=== PATIENT | male | born 1950 | race Caucasian/White ===

== ENCOUNTER 2019-10-22 15:03 | Outpatient (CLI) | payer MEDICARE, SELFPAY ==
[2019-10-22 15:34] LABS: Hematocrit 44.5 % (42.0-52.0); Hemoglobin 14.7 g/dL (14.0-18.0); Mean Corpuscular Hemoglobin 29.5 pg (26-34); Mean Corpuscular Volume 89.4 fl (80-100); Mean Platelet Volume 11.6 fl (7.4-10.4); Platelet Count Result 228 k/mm3 (150-375); Red Blood Count 4.98 M/mm3 (4.6-6.20); Red Cell Distribution Width 14.1 % (11.5-14.5); White Blood Count 12.3 K/mm3 (4.5-10.0)
[2019-10-22 15:43] LABS: INR 0.9; Prothrombin Time 11.9 Seconds (11.1-14.7)
[2019-10-22 15:57] LABS: Alanine Aminotransferase 18 U/L (4-50); Albumin Level 3.8 g/dL (3.5-5.1); Alkaline Phosphatase 85 U/L (38-126); Aspartate Amino Transferase 30 U/L (17-59); Bilirubin,Total 0.8 mg/dL (0.2-1.3)
== END 2019-10-22 15:04 | disposition home or self-care (01) ==
PROVIDERS: PCP Family Medicine; Visit Provider Internal Medicine Gastroenterology
DX: I25.10 Atherosclerotic heart disease of native coronary artery without angina pectoris (principal)
CPT/HCPCS: 36415; 80076; 85027; 85610

== ENCOUNTER 2019-10-25 16:03 | Outpatient (CLI) | payer MEDICARE, SELFPAY ==
[2019-10-25 16:58] LABS: Lipase 54 U/L (23-300)
[2019-11-01 05:15] LABS: CA 19-9 9 U/mL (<34)
== END 2019-10-25 16:04 | disposition home or self-care (01) ==
PROVIDERS: PCP Family Medicine; Visit Provider Internal Medicine Gastroenterology
DX: K86.2 Cyst of pancreas (principal)
CPT/HCPCS: 36415; 83690; 86301

== ENCOUNTER 2019-10-28 10:59 | Emergency (ER) | payer MEDICARE, SELFPAY ==
[2019-10-28] VITALS (8 sets, daily range): BP systolic 136–188; BP diastolic 68–97; PULSE 57–100; RESP 16–21; TEMP 36.6; O2SAT 97–100
--- NOTE | ~2019-10-28 | XR_ITS ---
EXAMINATION: XR chest 2V 10/28/2019 11:50 INDICATION: Shortness of breath. Lightheadedness. PROCEDURE: 2 view chest COMPARISON: Comparison to multiple prior studies sequentially, with oldest reviewed study dated 08/04. FINDINGS: The lungs are clear. There is cardiomegaly. There are no pleural effusions. There is no pn eumothorax suspected. IMPRESSION: 1: NO ACUTE CARDIOPULMONARY DISEASE. Reviewed, dictated and finalized at location A.
--- NOTE | 2019-10-28 11:04 | ECG_ITS ---
Measurements Intervals [place] Rate: 66 P: 51 [place]: 155 QRS: 4 QRSD: 96 T: 3 QT: 400 QTc: 422 Interpretive Statements SINUS RHYTHM BASELINE ARTIFACT- II, III, AVF, V3, V5 NORMAL ECG Electronically Signed On 10-28-2019 11:26:16 CDT by Trace Gonzalez D.O.
--- NOTE | 2019-10-28 11:30 | ED.WEAKNESS ---
HPI - Weakness General Chief complaint: Weakness <MICHAEL Campos Last Filed: 10/28/19 17:51> Stated complaint: dizzy <MICHAEL Campos Last Filed: 10/28/19 17:51> Time Seen by Provider: 10/28/19 11:12 <MICHAEL Campos Last Filed: 10/28/19 17:51> Source: patient <MICHAEL Campos Last Filed: 10/28/19 17:51> Mode of arrival: wheelchair <MICHAEL Campos Last Filed: 10/28/19 17:51> Limitations: no limitations <MICHAEL Campos Last Filed: 10/28/19 17:51> History of Present Illness HPI Narrative: This is a 69 year old male that presents to the ER for lightheadedness this morning. Reports he was at work and started feeling lightheaded and nauseous. Associated with some shortness of breath. Reports this continued to worsen which prompted him to be seen. Reports feeling much better now. Denies fever, cough, sore throat, chest pain, edema, abdominal pain, vomiting, or dysuria. <MICHAEL Campos Last Filed: 10/28/19 17:51> Related Data Home medications: Home Medications Medication Instructions Recorded Confirmed atorvastatin 80 mg PO DAILY 07/10/19 07/10/19 clopidogrel [Plavix] 75 mg PO DAILY 07/10/19 07/10/19 hydrochlorothiazide 25 mg PO DAILY 07/10/19 07/10/19 hydrocodone-acetaminophen 1 tablet PO Q6H PRN 07/10/19 07/10/19 metoprolol succinate 50 mg PO DAILY 07/10/19 07/10/19 <MICHAEL Campos Last Filed: 10/28/19 17:51> Allergies/Adverse reactions: Allergies Allergy/AdvReac Type Severity Reaction Status Date / Time No Known Allergies Allergy Verified 10/28/19 11:10 <MICHAEL Campos Last Filed: 10/28/19 17:51> Review of Systems Review of Systems: Narrative: CONSTITUTIONAL: Denies fever ENT: Denies congestion, sore throat CARDIOVASCULAR: Denies chest pain, or edema. RESPIRATORY: Reports dyspnea. Denies cough GASTROINTESTINAL: Reports nausea. Denies abdominal pain, vomiting, or diarrhea. GENITOURINARY: Denies dysuria or hematuria. <Mariella Ray PA-C - Last Filed: 10/28/19 17:51> All systems reviewed & are unremarkable except as noted in HPI and below <Mariella Ray PA-C - Last Filed: 10/28/19 17:51> [facility] Social History Social History: Social History Social History: The patient lives with his Aarti who is his power commercial real estate attorney for healthcare. He desires to be a full code. He has 3 children. Patient stated he smoked for about 7 or 8 years and quit 1980. 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 Smoking status: Former smoker Second hand tobacco smoke exposure: Yes Smoking end date: 07/10/80 Alcohol intake: current Drinks per week: 2 Substance use: never Gender identity (if verbalized by the patient): Male Spiritual care concerns: No Agree to blood products: Yes <MICHAEL Campos Last Filed: 10/28/19 17:51> Exam Narrative: Exam Narrative: GENERAL: Well-appearing, obese, and in no acute distress. HEAD: Normocephalic, atraumatic. EYES: EOMI. CHEST: Clear to auscultation. No respiratory distress. No wheezes rales or rhonchi HEART: Regular rate and rhythm. No murmur heard. Normal peripheral pulses. ABDOMEN: Soft, nontender, nondistended, normal active bowel sounds. EXTREMITIES: Normal range of motion. No edema. SKIN: Warm, dry, no rash. NEURO: No focal deficits. Alert and oriented x3. PSYCH: Normal mood and affect <MICHAEL Campos Last Filed: 10/28/19 17:51> Course Consultations Consultation #1: Spoke with Dr. López about patient and work-up. Recommends admission for MRI, or outpatient follow-up if patient is not agreeable to this. Patient would like to follow-up on outpatient basis. <MICHAEL Campos Last Filed: 10/28/19 17:51> Date: 10/28/19 <Mariella Ray PA-C - Last Filed: 10/28/19 17:51> Time: 17:50 <Mariella Ray PA-C
[2019-10-28] MEDS: ONDANSETRON INJ 4 MG/2 ML VIAL IV PUSH (11:34)
[2019-10-28] MEDS: SODIUM CHLORIDE 0.9% IV 500 ML 999 ML IV CONT (11:34)
[2019-10-28 11:42] LABS: Basophils Absolute Auto 0.1 K/mm3 (0.0-0.1); Basophils Percent Auto 0.4 % (0.2-1.2); Eosinophils Absolute Auto 0.1 K/mm3 (0-0.3); Eosinophils Percent Auto 0.5 % (0-4.4); Hematocrit 44.8 % (42.0-52.0); Hemoglobin 14.5 g/dL (14.0-18.0); Immature Granulocyte Absolute 0.12 K/mm3 (0.00-0.031); Lymphocytes Percent Auto 6.6 % (18.3-44.2); Mean Corpuscular HGB Conc 32.4 g/dl (32-36); Mean Corpuscular Hemoglobin 28.8 pg (26-34); Mean Corpuscular Volume 89.1 fl (80-100); Mean Platelet Volume 12.1 fl (7.4-10.4); Monocytes Absolute Auto 0.6 K/mm3 (0.1-0.6); Monocytes Percent Auto 5.1 % (2.6-8.5); Neutrophils Absolute Auto 10.4 K/mm3 (1.3-6.7); Neutrophils Percent Auto 86.4 % (45.5-73.1); Platelet Count Result 203 k/mm3 (150-375); Red Blood Count 5.03 M/mm3 (4.6-6.20); Red Cell Distribution Width 14.1 % (11.5-14.5); White Blood Count 12.1 K/mm3 (4.5-10.0)
[2019-10-28 11:54] LABS: INR 0.9; Partial Thromboplastin Time 24.4 SECONDS (22.3-36.8); Prothrombin Time 11.8 Seconds (11.1-14.7)
[2019-10-28 11:55] LABS: Alanine Aminotransferase 20 U/L (4-50); Albumin Level 3.9 g/dL (3.5-5.1); Alkaline Phosphatase 95 U/L (38-126); Aspartate Amino Transferase 26 U/L (17-59); Bilirubin,Total 0.7 mg/dL (0.2-1.3); Blood Urea Nitrogen 22 mg/dL (9-20); Calcium 8.6 mg/dL (8.4-10.2); Carbon Dioxide 29 mmol/L (22-30); Chloride 98 mmol/L (98-107); Estimated CRCL calculation 162 ml/min; Estimated Glomerular Filt Rate > 60; Glucose 135 mg/dL (75-110); Lipase 51 U/L (23-300); Potassium 3.6 mmol/L (3.4-5.0); Sodium 132 mmol/L (137-145)
[2019-10-28 12:07] LABS: Troponin I < 0.012 ng/mL (0.000-0.034)
[2019-10-28 12:20] LABS: NT Pro B Type Natriuretic Pept 477 PG/ML (5-100)
[2019-10-28 13:02] LABS: Add Urine Microscopic? NO; Appearance Urine Clear (Clear); Bilirubin Urine Negative (Negative); Blood Urine Negative (Negative); Color Urine Yellow (Yellow); Glucose Urine UA Negative (Negative); Ketones Urine Negative (Negative); Leukocyte Esterase Ur Negative LEU/UL (Negative); Nitrate Urine Negative (Negative); Protein Urine Negative (Negative); Specific Grav Ur 1.017 (1.001-1.035); Urobilinogen Urine Negative mg/dL (<2.0)
[2019-10-28 13:03] LABS: Bacteria Urine Trace /hpf; Mucus Urine Rare /lpf; RBC Urine 0-2 /hpf (0-2); Squamous Epithelial Cell Urine Rare /hpf (Few); WBC Urine 0-3 /hpf
[2019-10-28 16:58] LABS: Troponin I < 0.012 ng/mL (0.000-0.034)
== END 2019-10-28 18:02 | disposition home or self-care (01) ==
PROVIDERS: Physician Assistant; Emergency Provider Emergency Medicine; PCP Family Medicine
DX: R42 Dizziness and giddiness (principal); Z87.891 Personal history of nicotine dependence; R06.02 Shortness of breath
CPT/HCPCS: 36415; 71046; 80053; 81003; 83690; 83880; 84484; 85025; 85610; 85730; 93005; 96361; 96374; 99284; J2405; J7040

== ENCOUNTER 2022-11-26 10:37 | Outpatient (CLI) | payer MEDICARE, SELFPAY ==
--- NOTE | ~2022-11-26 | XR_ITS ---
Right Knee Technique: AP, lateral, and sunrise views were obtained. Clinical History: Pain COMPARISON: 01/28/2012 Findings: No fracture or dislocation is seen. There is evidence of prior ACL reconstruction, with sta ble interference screws. There is severe osteoarthritis of all 3 joint compartments in the knee. Vasc ular calcifications are noted. No joint effusion is seen. Impression: Severe osteoarthritis in all 3 joint compartments of the knee. Prior ACL reconstruction. Reviewed, dictated and finalized at location M. Impression: Severe osteoarthritis in all 3 joint compartments of the knee. Prior ACL reconstruction.
== END 2022-11-26 10:38 ==
LOC: MICIMG 10:39
PROVIDERS: PCP Nurse Practitioner Family; Visit Provider Nurse Practitioner Family
DX: M17.11 Unilateral primary osteoarthritis, right knee (principal)
CPT/HCPCS: 73562

== ENCOUNTER 2024-09-17 14:43 | Emergency (ER) | payer MEDICARE, SELFPAY ==
--- NOTE | ~2024-09-17 | XR_ITS ---
XR chest 2V 09/17/2024 15:33 Indication: Cough for 2 weeks Procedure: Two-view chest Comparison: Comparison to multiple prior studies sequentially, with oldest reviewed study dated 03/23. Findings: Heart size normal. Right lung clear. Left basilar atelectasis. No focal pneumonia, pleural effusion, edema or pneumothorax. No acute osseous abnormality. Impression: 1: Left basilar atelectasis Reviewed, dictated and finalized at location A. Impression: 1: Left basilar atelectasis
[2024-09-17 14:55] VITALS: BP 123/61; PULSE 84; RESP 18; TEMP 36.3; O2SAT 95
--- NOTE | 2024-09-17 15:10 | ED_ITS ---
HPI - URI/Sore Throat General Chief Complaint: Upper Respiratory Infection Stated Complaint: COUGH Time Seen by Provider: 09/17/24 15:10 Source: patient Mode of arrival: ambulatory Limitations: no limitations History of Present Illness HPI Narrative: 74-year-old male presents with complaint of cough, chest congestion the past 2-3 weeks. Patient states that he was seen by his primary care physician twice and [facility] urgent care. Tested negative for COVID and flu. Was given a Z-Ricky with Medrol Dosepak. Symptoms did not improve. One week later went back to his primary care physician was given a another Z-Ricky. Continues to have coughing. Reports shortness of breath with exertion. Afebrile. Taking [id number]-lvyuewb Robitussin. All systems reviewed and negative except as noted above. Related Data Home Medications ?Medication ?Instructions ?Recorded ?Confirmed ?Last Taken ?Type atorvastatin 80 mg tablet 80 mg PO DAILY 07/10/19 07/10/19 10/28/19 History clopidogrel 75 mg tablet (Plavix) 75 mg PO DAILY 07/10/19 07/10/19 10/28/19 History hydrochlorothiazide 25 mg tablet 25 mg PO DAILY 07/10/19 07/10/19 10/28/19 History hydrocodone 7.5 mg-acetaminophen 1 tablet PO Q6H PRN pain 07/10/19 07/10/19 10/28/19 History 325 mg tablet metoprolol succinate 50 mg 50 mg PO DAILY 07/10/19 07/10/19 10/28/19 History tablet,extended release 24 hr Allergies Allergy/AdvReac Type Severity Reaction Status Date / Time No Known Allergies Allergy Verified 10/28/19 11:10 Review of Systems Review of Systems: CONSTITUTIONAL: Denies fever, chills, or sweats. EYES: Denies visual changes, redness, or discharge. ENT: Denies rhinorrhea, congestion, sore throat, or otalgia. CARDIOVASCULAR: Denies chest pain, palpitations, or edema. RESPIRATORY: Reports cough and dyspnea with exertion. GASTROINTESTINAL: Denies abdominal pain, nausea, vomiting, or diarrhea. GENITOURINARY: Denies dysuria or hematuria. SKIN: Denies rash or itching. MUSCULOSKELETAL: Denies back pain, joint pain, or myalgia. NEUROLOGIC: Denies headache, numbness, or weakness. PSYCHIATRIC: Denies anxiety or depression. All other systems reviewed are negative, except as documented in HPI. [facility] Past Medical History Medical History (Updated 09/17/24 @ 15:54 by Alie Burgess NP) CAD (coronary artery disease) Hyperlipidemia Depression Arthritis Fibromyalgia Kidney stones He stated he thinks he had a possible kidney stone UTI (urinary tract infection) In the past Heart attack History of cardiac stent. HTN (hypertension) Seasonal allergies Surgical History Surgical History H/O heart artery stent History of local excision of skin lesion Lipoma History of knee surgery Right knee meniscus repair History of tonsillectomy Family History Family History Father Diabetes mellitus Hypertension Mother Dementia Social History Social History Social History: The patient lives with his Aarti who is his power assistant city attorney for healthcare. He desires to be a full code. He has 3 children. Patient stated he smoked for about 7 or 8 years and quit 1980. No alcohol or illicit drug patient works for an [employer] part-time. Smoking status: Former smoker Second hand tobacco smoke exposure: Yes Smoking end date: 07/10/80 Alcohol intake: current Drinks per week: 2 Substance use: never Living arrangements: with family Occupation/Education: occupation Gender identity (if verbalized by the patient): Male Spiritual care concerns: No Agree to blood products: Yes Comments At time of signature, agree with nursing past medical, surgical, social and family history. There is no relevant family history pertinent to the presenting complaint. Exam Narrative: GENERAL: This is a well-nourished, well-developed patient, in no apparent distress. HEAD: normocephalic, atraumatic. EYES: PERRL. Sclera clear/white. Vision is grossly intact. EARS: External ears normal, auditory canals clear and without drainage, TMs normal without perforation. Hearing grossly intact. NOSE: External nose normal with no obvious nasal discharge, nares without redness, no rhinorrhea. THROAT: Mucous membranes moist, posterior pharynx clear. NECK: Neck supple, non-tender without lymphadenopathy, masses or thyromegaly. CARDIOVASCULAR: Regular rate and rhythm without murmurs, gallops, or rubs. RESPIRATORY: rhonchi on expiration to bilateral lower lung aguirre. Breath sounds equal bilaterally. No wheezes, rales SKIN: warm, Dry, intact with no suspicious lesions or rash, good texture and turgor. NEURO: awake, alert, and oriented to person, place and time. There were no obvious focal neurologic abnormalities. EXTREMITIES: No joint tenderness, effusion, or edema noted. Course Course Level of Care: Express Care Visit Vital Signs Vital signs: Vital Signs Temperature 36.3 C L 09/17/24 14:55 Pulse Rate 84 09/17/24 14:55 Respiratory Rate 18 09/17/24 14:55 Blood Pressure 123/61 09/17/24 14:55 Pulse Oximetry 95 09/17/24 14:55 Temperature 36.3 C L 09/17/24 14:55 Pulse Rate 84 09/17/24 14:55 Respiratory Rate 18 09/17/24 14:55 Blood Pressure 123/61 09/17/24 14:55 Pulse Oximetry 95 09/17/24 14:55 reviewed MDM - URI/Sore Throat MDM Narrative Medical decision making narrative: Discussed chest x-ray results with patient. Negative for pneumonia. Patient given incentive spirometer for atelectasis. Patient is well-appearing, nontoxic. Oxygen saturation 95% room air. Recommend follow-up with primary care physician if symptoms not improving. Will go to ER for any respiratory distress. Please be advised this is a medical document. It is intended for cips-hc-[id number] communication. It is written in medical language and may contain unfamiliar abbr eviations or verbiage. Medical documents are intended to carry relevant information, facts as evident, and the clinical opinion of the practitioner at the time of the encounter. This report may have been done utilizing a voice recognition system. Attempts have been made to correct errors. However, there may be uncorrected grammatical, spelling, and recognition errors present. The file time of this note does not necessarily represent the time of service. Imaging Data My impression: Agree with radiologist Radiologist's impression: XR chest 2V 09/17/2024 15:33 Indication: Cough for 2 weeks Procedure: Two-view chest Comparison: Comparison to multiple prior studies sequentially, with oldest reviewed study dated 04/03/2017. Findings: Heart size normal. Right lung clear. Left basilar atelectasis. No focal pneumonia, pleural effusion, edema or pneumothorax. No acute osseous abnormality. Impression: 1: Left basilar atelectasis Discharge Plan Discharge Clinical Impression: Acute bronchitis, Acute atelectasis Patient Disposition: Home, Self-Care Condition: Stable Instructions: Antibiotic Form, How to Use an Incentive Spirometer (ED), Acute Bronchitis (ED), Atelectasis (ED) Additional Instructions: The x-ray of your chest shows atelectasis to your left lung. Use incentive spirometer daily. Instructions on how to use incentive spirometer are found in discharge packet. Take medications as prescribed. Drink at least 64 oz of water a day. Bronchitis causes a cough that may last up to 6 weeks. Follow-up with your primary care physician if cough is not improving. Patient Language: French Prescriptions: New benzonatate 200 mg capsule 200 mg PO TID PRN (Reason: cough) Qty: 20 0RF doxycycline hyclate 100 mg capsule 100 mg PO BID 7 Days Qty: 14 0RF prednisone 20 mg tablet 40 mg PO DAILY 5 Days Qty: 10 0RF albuterol sulfate 90 mcg/actuation HFA aerosol inhaler 2 puff inhalation Q4-6H PRN (Reason: shortness of breath or wheezing) Qty: 8.5 0RF No Action metoprolol succinate 50 mg Tablet Extended Release 24 Hr 50 mg PO DAILY clopidogrel [Plavix] 75 mg Tablet 75 mg PO DAILY hydrochlorothiazide 25 mg Tablet 25 mg PO DAILY atorvastatin 80 mg Tablet 80 mg PO DAILY hydrocodone-acetaminophen 7.5-325 mg Tablet 1 tablet PO Q6H PRN (Reason: pain) dicyclomine 10 mg capsule 10 mg PO BID 5 Days Qty: 10 0RF Follow-up/Referrals: Milagro,Perez Chester MD [Primary Care Provider] - Time of Disposition: 15:55
== END 2024-09-17 16:03 | disposition home or self-care (01) ==
PROVIDERS: Emergency Provider Nurse Practitioner Family; PCP Internal Medicine
DX: J20.9 Acute bronchitis, unspecified (principal); J98.11 Atelectasis; I25.10 Atherosclerotic heart disease of native coronary artery without angina pectoris; I10 Essential (primary) hypertension; E78.5 Hyperlipidemia, unspecified; M19.90 Unspecified osteoarthritis, unspecified site; M79.7 Fibromyalgia; I25.2 Old myocardial infarction; Z95.5 Presence of coronary angioplasty implant and graft; Z87.891 Personal history of nicotine dependence; Z79.01 Long term (current) use of anticoagulants
CPT/HCPCS: 71046; 99213; G0463

== ENCOUNTER 2024-10-14 10:51 | Emergency (ER) | payer MEDICARE, SELFPAY ==
[2024-10-14] VITALS (10 sets, daily range): BP systolic 134–163; BP diastolic 65–83; PULSE 68–77; RESP 14–20; TEMP 36.7; O2SAT 95–98
--- NOTE | ~2024-10-14 | US_ITS ---
BILATERAL LOWER EXTREMITY VENOUS ULTRASOUND Ordering provider: Nick Hood MD History: . b/l LE swelling L>R . Comparison: None. FINDINGS: RIGHT LOWER EXTREMITY VEINS: --COMMON FEMORAL: Patent and free of thrombus. Normal compressibility, phasic flow and augmentation. --PROXIMAL SUPERFICIAL FEMORAL: Patent and free of thrombus. Normal compressibility, phasic flow and augmentation. --DISTAL SUPERFICIAL FEMORAL: Patent and free of thrombus. Normal compressibility, phasic flow and au gmentation. --POPLITEAL: Patent and free of thrombus. Normal compressibility, phasic flow and augmentation. --POSTERIOR TIBIAL: Not evaluated. LEFT LOWER EXTREMITY VEINS: --COMMON FEMORAL: Patent and free of thrombus. Normal compressibility, phasic flow and augmentation. --PROXIMAL SUPERFICIAL FEMORAL: Patent and free of thrombus. Normal compressibility, phasic flow and augmentation. --DISTAL SUPERFICIAL FEMORAL: Patent and free of thrombus. Normal compressibility, phasic flow and au gmentation. --POPLITEAL: Patent and free of thrombus. Normal compressibility, phasic flow and augmentation. --POSTERIOR TIBIAL: Not evaluated. IMPRESSION: Negative bilateral lower extremity venous US. No deep vein thrombosis. Reviewed, dictated and finalized at location A.
--- NOTE | ~2024-10-14 | XR_ITS ---
EXAMINATION: XR chest 2V DATE: 10/14/2024 11:44 INDICATION: Shortness of breath and dizziness TECHNIQUE: frontal and lateral views of the chest were obtained. COMPARISON: Chest radiograph dated 09/17/2024 FINDINGS: Unchanged linear discoid atelectasis/scarring at the left costophrenic. There is a new linear band of discoid atelectasis projecting obliquely across the posterior right lower lung zone on the lateral p rojection. No pulmonary edema, pleural effusion or pneumothorax. The cardiomediastinal silhouette is normal. Severe thoracic spondylosis. IMPRESSION: 1. Discoid atelectasis at the lower lungs. No acute cardiopulmonary disease. Reviewed, dictated and finalized at location A.
--- NOTE | ~2024-10-14 | CT_ITS ---
EXAMINATION: CT brain wo con DATE: 10/14/2024 11:34 INDICATION: Dizziness TECHNIQUE: Computed tomography (CT) of the head was performed without intravenous contrast. Sagittal and coronal reconstructions were performed. The mA was adjusted according to patient size. Iterative reconstruction technique was employed. The dose-length product was 605.33 mGy-cm. COMPARISON: head CT dated 12/11/2017 FINDINGS: No acute intracranial hemorrhage, acute infarction or abnormal extra axial fluid collection. There is mild scattered white matter hypoattenuation consistent with chronic small vessel ischemic disease. S ymmetric prominence of the sulci consistent with mild age-appropriate diffuse cerebral volume loss. V entricles are normal and symmetric. No mass/mass effect. Mild mucosal thickening the paranasal sinuse s with mucous retention cyst in the left maxillary sinus. The orbits and mastoid air cells are normal . IMPRESSION: 1. Normal aging brain with mild diffuse volume loss and mild scattered white matter hypoattenuation c onsistent with chronic small vessel ischemic disease. No acute intracranial process. Reviewed, dictated and finalized at location A. IMPRESSION: 1. Normal aging brain with mild diffuse volume loss and mild scattered white ma tter hypoattenuation consistent with chronic small vessel ischemic disease. No acute intracranial process.
--- NOTE | 2024-10-14 11:05 | ECG_ITS ---
Test Date: 2024-10-14 11:08:59 Measurements Intervals [place] Rate: 72 P: 57 [place]: 163 QRS: -9 QRSD: 92 T: 22 QT: 376 QTc: 412 Interpretive Statements SINUS RHYTHM DELAYED PRECORDIAL R/S TRANSITION BASELINE ARTIFACT- I, III, AVR, AVL, AVF BORDERLINE ECG No previous ECG available for comparison Electronically Signed On 10-14-2024 11:25:17 CDT by Trace Gonzalez D.O.
[2024-10-14] MEDS: ASPIRIN 81 MG CHEWABLE TABLET 324 MG PO (11:26)
[2024-10-14 11:30] LABS: Basophils Absolute Auto 0.1 K/mm3 (0.0-0.1); Basophils Percent Auto 0.5 % (0.2-1.2); Eosinophils Absolute Auto 0.2 K/mm3 (0-0.3); Eosinophils Percent Auto 2.5 % (0-4.4); Hematocrit 45.2 % (42.0-52.0); Hemoglobin 14.2 g/dL (14.0-18.0); Immature Granulocyte Absolute 0.13 K/mm3 (0.00-0.031); Immature Granulocyte Percent A 1.3 % (0-0.5); Lymphocytes Absolute Auto 0.79 K/mm3 (0.9-3.2); Lymphocytes Percent Auto 8.1 % (18.3-44.2); Mean Corpuscular HGB Conc 31.4 g/dl (32-36); Mean Corpuscular Hemoglobin 30.2 pg (26-34); Mean Corpuscular Volume 96.2 fl (80-100); Mean Platelet Volume 12.3 fl (7.4-10.4); Monocytes Absolute Auto 1.2 K/mm3 (0.1-0.6); Monocytes Percent Auto 11.9 % (2.6-8.5); Neutrophils Absolute Auto 7.4 K/mm3 (1.3-6.7); Neutrophils Percent Auto 75.7 % (45.5-73.1); Platelet Count Result 144 k/mm3 (150-375); Red Cell Distribution Width 14.5 % (11.5-14.5); White Blood Count 9.8 K/mm3 (4.5-10.0)
[2024-10-14 11:43] LABS: INR 0.9; Prothrombin Time 13.1 Seconds (11.1-14.7)
[2024-10-14 11:44] LABS: Partial Thromboplastin Time 28.9 Seconds (22.3-36.8)
[2024-10-14 11:47] LABS: Alanine Aminotransferase 25 U/L (6-50); Albumin Level 3.6 g/dL (3.5-5.1); Alkaline Phosphatase 76 U/L (38-126); Anion Gap 5 mmol/L (4-12); Aspartate Amino Transferase 28 U/L (17-59); Blood Urea Nitrogen 18 mg/dL (9-20); Calcium 8.6 mg/dL (8.4-10.2); Carbon Dioxide 29 mmol/L (22-30); Chloride 102 mmol/L (98-107); Estimated CRCL calculation 133 ml/min; Estimated Glomerular Filt Rate > 60; Glucose 111 mg/dL (65-110); Lipase 44 U/L (23-300); Potassium 4.3 mmol/L (3.4-5.0); Sodium 136 mmol/L (137-145)
[2024-10-14 11:58] LABS: Troponin I < 0.012 ng/mL (0.000-0.034)
[2024-10-14 12:04] LABS: Influenza A QL RT-PCR Negative (Negative); Influenza B QL RT-PCR Negative (Negative); RSV RNA, RT-PCR Negative (Negative); SARS-CoV-2 RNA PCR Negative (Negative)
--- OUTSIDE RECORDS SUMMARY | 2024-10-14 12:17 | XMS_ITS | Encounter Summary ---
Author Organization [facility] Address [address] [place] [address] Phone Care Team Providers Care Client Solutions Manager Name Role Phone Perez Humphrey MD Primary Care Provider [phone] Encounter Details Date Type Department Care Team (Late Contact Info) Description 09/02/2024 Results Follow-Up [facility] [place] [address] [place] [address] Perez Humphrey MD [address] [address] PSA SCREEN, LIPID PANEL, CMP (COMPREHENSIVE METABOLIC PANEL), CBC WITH AUTO DIFFERENTIAL Social History Tobacco Use Types Packs/Day Years Used Date Smoking Tobacco: Former Cigarettes Passive Smoke Exposure: Past Smokeless Tobacco: Never Alcohol Use Standard Drinks/Week Comments Yes 0 (1 standard drink = 0.6 oz pur e alcohol) PHQ-2 Answer Date Recorded Total Score - Questions 1-9 0 10/22 Sex and Gender Information Value Date Recorded Sex Assigned at Not on file Legal Sex Male 12:15 PM CDT Gender Identity Not on file Sexual Orientation Not on file documented as of this encounter Progress Notes * Chloe Bailey RMA - 09/03/2024 9:32 AM CDT Called patient. Verbalized understanding. documented in this encounter Plan of Treatment Upcoming Encounters Date Type Department Care Team (Late st Contact Info) Description 10/15/2024 9:30 AM CDT Office Visit [facility] [address] [place] [address] Perez Humphrey MD [address] [address] 01/06/2025 1:30 PM CDT Office Visit [facility] [address] [place] [address] Perez Humphrey MD [address] [address] documented as of this encounter Visit Diagnoses Not on filedocumented in this encounter Additional Health Concerns Assessment Noted Time PHQ-9 Depression Total Score: 0 11/11/19 6:26 PM CDT documented as of this encounter Care Teams Client Solutions Manager Relationship Specialty Start Date End Date Perez Humphrey MD [address] [address] PCP - General Family Medicine 11/11/23 documented as of this encounter
--- OUTSIDE RECORDS SUMMARY | 2024-10-14 12:17 | XMS_ITS | Clinical Summary ---
Author Organization [facility] Address [address] [place] [address] Phone Care Team Providers Care Calender Supervisor Name Role Phone Perez Humphrey MD Primary Care Provider [phone] Allergies Active Allergy Reactions Criticality Noted Date Comments Lisinopril Other (see Comments) 10/08/2020 Rosuvastatin Other (see Comments) 10/08/2020 Medications aspirin EC 81 MG Tablet Delayed Response Take 81 mg by mouth daily. Active atorvastatin (LIPITOR) 80 MG Tablet TAKE 1 TABLET BY MOUTH EVERY NIGHT AT BEDTIME Active HYDROcodone-ruben taminophen (NORCO) 10-325 MG Tablet TAKE 1 TABLET BY MOUTH THREE TIMES DAILY NEEDED Active tamsulosin (FLOMAX) 0.4 MG Capsule Take 1 Capsule by mouth daily. Active metoprolol Succinate (TOPROL-XL) 50 MG TABLET SR 24 HR Take 1 Tablet by mouth daily. Active triamcinolone (KENALOG) 0.1 % Cream Application Site: apply daily to left calf (Description and Location) 80 g 4 Active albuterol 108 (90 Base) MCG/ACT Aerosol Solution INHALE 2 PUFFS BY MOUTH EVERY 4 HOURS NEEDED 6.7 g 1 4 Active Ozempic, 0.25 or 0.5 MG/DOSE, 2 MG/3ML Solution Pen-injector 0.25 mg by Subcutaneous route once a week. 3 mL 1 5 Active Encounters Date Type Department Care Team Description 10/13/2024 Nurse Triage [facility] [address] [place] [address] Perez Humphrey MD Appointment; Leg Swelling 09/08/2024 1:00 PM CDT Office Visit [facility] [address] [place] [address] Perez Humphrey MD BPH associated with nocturia (Primary Dx); Morbid obesity (HCC) Discharge Disposition: Discharged to home or Selfcare 09/08/2024 Travel 09/02/2024 12:30 PM CDT Office Visit [facility] [address] [place] [address] Perez Humphrey MD Pure hypercholesterolemia (Primary Dx); Primary hypertension; 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; Screening for prostate cancer; Bronchitis Discharge Disposition: Discharged to home or Selfcare 09/02/2024 Results Follow-Up [facility] [address] [place] [address] Perez Humphrey MD PSA SCREEN, LIPID PANEL, CMP (COMPREHENSIVE METABOLIC PANEL), CBC WITH AUTO DIFFERENTIAL 09/02/2024 Travel from Last 3 Months Immunizations Immunization Administration Dates Next Due Influenza Vaccine, Quadrivalent, PF 07/12/2019 Influenza, High-dose, Quadrivalent 05/08/2023, Influenza, Injectable, Quadrivalent 2017 Influenza, Quadrivalent, Adjuvanted 05/13/2022,1 Influenza, Seasonal, Injectable, Undefined 05/06 Influenza, Trivalent, Adjuvanted, PF 09/02/2024 Influenza, high-dose, trivalent, PF 03/27/2016 Pneumococcal Vaccine - 13 Valent 05/08/2023 Pneumococcal conjugate PCV20 , polysaccharide [id number] conjugate, adjuvant, PF 09/02/2024 TD VACCINE 10/12/2018 TDAP Vaccine 05/10/2016 Family History Medical History Relation Name Comments Diabetes Father Heart Attack Father Alzheimer's Disease Mother Relation Name Status Comments Father Mother Social History Tobacco Use Types Packs/Day Years Used Date Smoking Tobacco: Former Cigarettes Passive Smoke Exposure: Past Smokeless Tobacco: Never Tobacco Cessation:Counseling Given: No Alcohol Use Standard Drinks/Week Comments Yes 0 (1 standard drink = 0.6 oz pur e alcohol) PHQ-2 Answer Date Recorded Total Score - Questions 1-9 0 10/22 Sex and Gender Information Value Date Recorded Sex Assigned at Not on file Legal Sex Male 12:15 PM CDT Gender Identity Not on file Sexual Orientation Not on file Last Filed Vital Signs Vital Sign Reading Time Taken Comments Blood Pressure 132/68 09/08/2024 1:05 PM CDT Pulse 69 09/08/2024 1:05 PM CDT Temperature 35.9 C (96.7 F) 09/08/2024 1:05 PM CDT Respiratory Rate 20 09/08/2024 1:05 PM CDT Oxygen Saturation 95% 09/08/2024 1:05 PM CDT Inhaled Oxygen Concentration - - Weight 152 kg (335 lb) 11/11/2023 6:16 PM CDT Height 175.3 cm (5' 9 ) 09/08/2024 1:05 PM CDT Body Mass Index 49.47 11/11/2023 6:16 PM CDT Plan of Treatment Upcoming Encounters Date Type Department Care Team (Late st Contact Info) Description 10/15/2024 9:30 AM CDT Office Visit [facility] [address] [place] [address] Perez Humphrey MD [address] [address] 01/06/2025 1:30 PM CDT Office Visit [facility] [address] [place] [address] Perez Humphrey MD [address] [address] Health Maintenance Due Date Last Done Comments Hepatitis C Virus (HCV) Screening 1950 Colonoscopy 1994 Colorectal Cancer Screening 1994 Cologuard 1999 Immunochemical Fecal Occult Blood 1999 Zoster Immunization (1 of 2) 1999 SARS-COV-2 Immunization ( season) 2024 04/22/2021, 09/05/2020, 08/15/2020 Respiratory Syncytial Virus (RSV) Immunization (Adult) (1 - 1-dose 75+ series) 2024 Td Immunization Every 10 Years (Adults With 1 Tdap) 10/12/2028 10/12/2018, 05/10/2016 TdaP Immunization Discontinued 05/10/2016 Influenza Immunization Completed , 05/08/2023, 05/13/2022, Additional history exists Pneumococcal Immunization (50+ years) Completed 09/02/2024, 05/08/2023 Hepatitis B Immunization Aged Out No longer eligible based on patient's age to complete this topic Meningococcal Immunization (ACWY) Aged Out No longer eligible based on patient's age to complete this topic Rotavirus Immunization Aged Out No lo nger eligible based on patient's age to complete this topic Procedures Procedure Name Priority Date/Time Associated Diagnosis Comments XR - CHEST 09/17/2024 12:00 AM CDT CBC WITH AUTO DIFFERENTIAL Today 09/02/2024 1:31 PM CDT Pure hypercholesterolemi a Primary hypertension 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 COMPLETE BLOOD COUNT (CBC) WITH DIFF Today 09/02/2024 1:31 PM CDT Pure hypercholesterolemi a Primary hypertension 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 CMP (COMPREHENSIVE METABOLIC PANEL) Today 09/02/2024 1:31 PM CDT Pure hypercholesterolemi a Primary hypertension 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 LIPID PANEL Today 09/02/2024 1:31 PM CDT Pure hypercholesterolemi a Primary hypertension 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 PSA SCREEN Today 09/02/2024 1:31 PM CDT Pure hypercholesterolemi a Primary hypertension 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 Screening for prostate cancer from Last 3 Months Results * XR - CHEST (09/17/2024 12:00 AM CDT) 09/17/2024 us Provider Scan IMG DIAGNOSTIC ORDERABLES Final Result SCAN * (ABNORMAL) CBC WITH AUTO DIFFERENTIAL (09/02/2024 1:31 PM CDT) WBC 9.10 4.00 - 12.00 10(3)/mcL 09/02/2024 2:02 PM CDT [facility] RBC 4.96 4.40 - 5.80 10(6)/mcL 09/02/2024 2:02 PM CDT [facility] HEMOGLOBIN (HGB) 15.1 13.0 - 16.5 g/dL 09/02/2024 2:02 PM CDT [facility] HEMATOCRIT (HCT) 47.2 38.0 - 50.0 % 09/02/2024 2:02 PM CDT [facility] MCV 95.2 82.0 - 96.0 fL 09/02/2024 2:02 PM CDT [facility] MCH 30.4 26.0 - 32.0 pg 09/02/2024 2:02 PM CDT [facility] MCHC 32.0 31.0 - 36.0 g/dL 09/02/2024 2:02 PM CDT [facility] PLATELET COUNT 151 140 - 440 10(3)/mcL 09/02/2024 2:02 PM CDT [facility] RDW 14.0 11.8 - 15.5 % 09/02/2024 2:02 PM CDT [facility] MPV 12.2 8.0 - 12.6 fL 09/02/2024 2:02 PM CDT [facility] NEUTROPHILS 70.2(H) 40.0 - 68.0 % 09/02/2024 2:02 PM CDT [facility] LYMPHOCYTES 11.6(L) 19.0 - 49.0 % 09/02/2024 2:02 PM CDT [facility] MONOCYTES 14.4(H) 3.0 - 13.0 % 09/02/2024 2:02 PM CDT [facility] EOSINOPHILS 3.1 0.0 - 8.0 % 09/02/2024 2:02 PM CDT [facility] BASOPHILS 0.7 0.0 - 1.0 % 09/02/2024 2:02 PM CDT [facility] ABSOLUTE NEUTROPHILS 6.39(H) 1.40 - 5.30 10(3)/[facility] 09/02/2024 2:02 PM CDT [facility] ABSOLUTE LYMPHOCYTES 1.06 0.90 - 3.30 10(3)/[facility] 09/02/2024 2:02 PM CDT [facility] ABSOLUTE MONOCYTES 1.31(H) 0.10 - 0.90 10(3)/[facility] 09/02/2024 2:02 PM CDT [facility] ABSOLUTE EOSINOPHIL 0.28 0.00 - 0.50 10(3)/[facility] 09/02/2024 2:02 PM CDT [facility] ABSOLUTE BASOPHILS 0.06 0.00 - 0.10 10(3)/[facility] 09/02/2024 2:02 PM CDT [facility] NRBC PER 100 WBC 0 09/03/19 25 2:02 PM CDT [facility] Blood Venipuncture / Unknown 09/02/2024 1:31 PM CDT 09/02/2024 1:58 PM CDT Perez Humphrey MD HEMATOLOGY ORDERABLES Final R esult [facility] [address] [place] [address] * PSA SCREEN (09/02/2024 1:31 PM CDT) PSA SCREEN, TOTAL 0.15 <4.00 ng/mL 09/02/2024 2:40 PM CDT [facility] Blood Venipuncture / Unknown 09/02/2024 1:31 PM CDT 09/02/2024 1:58 PM CDT Narrative [facility] - 09/02/2024 2:40 PM CDT The [facility] Total PSA assay is a Chemiluminescent Microparticle Immunoassay (CMIA) for the quantitative determination of total PSA (both free PSA and PSA complexed to [id number]) in human serum. Total PSA values obtained with different assay methods, including Centeno PSA assays, cannot be used interchangeably. us Perez Humphrey MD CHEMISTRY ORDERABLES Final Re sult [facility] [address] [place] [address] * (ABNORMAL) LIPID PANEL (09/02/2024 1:31 PM CDT) CHOLESTEROL 131 <200 mg/dL 09/02/2024 2:22 PM CDT [facility] TRIGLYCERIDES 83 <150 mg/dL 09/02/2024 2:22 PM CDT [facility] HDL CHOLESTEROL 40(L) >40 mg/dL 2:22 PM CDT [facility] LDL 74 <130 mg/dL 09/02/2024 2:22 PM CDT [facility] VLDL 17 10 - 50 mg/dL 09/02/2024 2:22 PM CDT [facility] CHOL/HDL RATIO 3.3 0.0 - 4.4 09/02/2024 2:22 PM CDT [facility] NON-HDL CHOLESTEROL 91 <130 mg/dL 09/02/2024 2:22 PM CDT [facility] IS THE PATIENT REQUIRED TO BE FASTING? No 09/02/2024 2:22 PM CDT [facility] Blood Venipuncture / Unknown 09/02/2024 1:31 PM CDT 09/02/2024 1:58 PM CDT us Perez Humphrey MD CHEMISTRY ORDERABLES Final Re sult [facility] [address] [place] [address] * (ABNORMAL) CMP (COMPREHENSIVE METABOLIC PANEL) (09/02/2024 1:31 PM CDT) SODIUM 137 136 - 145 mmol/L 09/02/2024 2:22 PM CDT [facility] POTASSIUM 4.5 3.5 - 5.1 mmol/L 09/02/2024 2:22 PM CDT [facility] CHLORIDE 104 98 - 107 mmol/L 09/02/2024 2:22 PM CDT [facility] CO2, VENOUS 25 22 - 30 mmol/L 09/02/2024 2:22 PM CDT [facility] ANION GAP 12.5 <18.0 mmol/L 09/02/2024 2:22 PM CDT [facility] GLUCOSE 102(H) 70 - 99 mg/dL 09/02/2024 2:22 PM CDT [facility] BUN 19 8 - 26 mg/dL 09/02/2024 2:22 PM CDT [facility] CREATININE, BLOOD 0.74 0.70 - 1.30 mg/dL 09/02/2024 2:22 PM CDT [facility] BUN/CREATININE RATIO 26(H) 12 - 20 ratio 09/02/2024 2:22 PM CDT [facility] TOTAL PROTEIN 6.3 6.0 - 8.0 g/dL 09/02/2024 2:22 PM CDT [facility] ALBUMIN 3.7 3.5 - 5.0 g/dL 09/02/2024 2:22 PM CDT [facility] A/G RATIO 1.4 1.0 - 2.2 09/02/2024 2:22 PM CDT [facility] CALCIUM 8.5(L) 8.7 - 10.5 mg/dL 09/02/2024 2:22 PM CDT [facility] T BILI 0.7 0.2 - 1.2 mg/dL 09/02/2024 2:22 PM CDT [facility] SGOT (AST) 34 <43 U/L 09/02/2024 2:22 PM CDT [facility] SGPT (ALT) 28 <56 U/L 09/02/2024 2:22 PM CDT [facility] ALKALINE PHOSPHATASE 85 40 - 150 U/L 09/02/2024 2:22 PM CDT [facility] IS THE PATIENT REQUIRED TO BE FASTING? No 09/02/2024 2:22 PM CDT [facility] GFR, ESTIMATED >60 >=60 09/02/2024 2:22 PM CDT [facility] Comment: Creatinine Clearance is the preferred criteria for selecting drug dose adjustments in renally impaired patients. The GFR is provided as additional pertinent clinical information. GFR is reported in mL/min/1.73 sq m. Calculation based on the Chronic Kidney Disease Epidemiology Collaboration (CKD- EPI) equation refit without adjustment for race. GFR, EST. >60 >=60 2:22 PM CDT [facility] GFR, EST. NONAFRICAN >60 >=60 09/02/2024 2:22 PM CDT [facility] Blood Venipuncture / Unknown 09/02/2024 1:31 PM CDT 09/02/2024 1:58 PM CDT us Perez Humphrey MD CHEMISTRY ORDERABLES Final Re sult [facility] [address] [place] [address] from Last 3 Months Insurance MEDICARE C [facility] Care Teams Calender Supervisor Relationship Specialty Start Date End Date Perez Humphrey MD [address] [address] PCP - General Family Medicine 11/11/23
--- OUTSIDE RECORDS SUMMARY | 2024-10-14 12:17 | XMS_ITS | Clinical Summary ---
Author Organization [facility] Address [address] [place] [address] Care Team Providers Care Automation Sales Manager Name Role Phone Diann Regan MD Primary Care Provider Allergies Active Allergy Reactions Criticality Noted Date Comments Lisinopril Cough 10/08/2020 Rosuvastatin Myalgias 10/08/2020 Medications HYDROcodone-ruben taminophen 7.5-325 MG tablet Take 1 tablet by mouth every 8 (eight) hours as needed for Pain. 1 Active aspirin EC (ASPIRIN EC) 81 MG tablet Take 81 mg by mouth daily. Active hydroCHLOROthia zide 25 MG tablet Take 25 mg by mouth every morning. Active metoprolol succinate ER 50 MG 24 hr tablet Take 50 mg by mouth daily. Active atorvastatin 80 MG tablet Take 80 mg by mouth daily. Active multi vitamin/mineral s tablet Take 1 tablet by mouth daily. Active Vitamin E 200 UNITS capsule Take 200 Units by mouth daily. Active GARLIC OR Take 1 tablet by mouth daily. Active azithromycin (ZITHROMAX) 250 MG tablet Take two tablets (500mg total) by mouth today, followed by one tablet (250mg) the following 4 days until treatment is complete. 6 tablet 2 Active albuterol sulfate HFA 108 (90 Base) MCG/ACT inhaler Inhale 2 puffs into the lungs every 4 (four) hours as needed for Shortness of breath. 8 g 2 Active Immunizations Immunization Administration Dates Next Due PFIZER COVID-19 (ORIGINAL FO RMULATION, PURPLE CAP) mRNA, LNP-S, PF, 30 MCG/0.3 ML DOSE 09/05/2020,08/15/2020 Social History Tobacco Use Types Packs/Day Years Used Date Smoking Tobacco: Former Smokeless Tobacco: Never Alcohol Use Standard Drinks/Week Comments Yes 0 (1 standard drink = 0.6 oz pur e alcohol) Sex and Gender Information Value Date Recorded Sex Assigned at Not on file Legal Sex Male 11:10 AM CDT Gender Identity Not on file Sexual Orientation Not on file Last Filed Vital Signs Vital Sign Reading Time Taken Comments Blood Pressure 159/89 08/08/2021 2:09 AM FINANCE BUSINESS MANAGER Pulse 68 08/08/2021 2:09 AM FINANCE BUSINESS MANAGER Temperature 36.9 C (98.4 F) 08/07/2021 6:10 PM FINANCE BUSINESS MANAGER Respiratory Rate 18 08/08/2021 2:09 AM FINANCE BUSINESS MANAGER Oxygen Saturation 96% 08/08/2021 3:45 AM FINANCE BUSINESS MANAGER Inhaled Oxygen Concentration - - Weight 138.3 kg (305 lb) 07/17/2021 12:42 PM FINANCE BUSINESS MANAGER Height 175.3 cm (5' 9 ) 08/07/2021 6:10 PM FINANCE BUSINESS MANAGER Body Mass Index 45.04 07/17/2021 12:42 PM FINANCE BUSINESS MANAGER Plan of Treatment Health Maintenance Due Date Last Done Comments Colorectal Cancer Screening Colonoscopy (10 Years) 1949 Hepatitis C 1967 Pneumococcal Vaccine: 50+ Years (1 of 1 - PCV) 1999 Zoster Vaccines (1 of 2) 1999 Annual Medicare Wellness Visit 2014 COVID-19 Vaccine (3 - 2023-2 5 season) 2024 09/05/2020, 08/15/2020 RSV Immunization or 60+ Years (1 - 1-dose 75+ series) 2024 DTaP, Tdap and Td Vaccines ( 3 - Td or Tdap) 05/10/2026 05/10/2016, 05/09/2016 Meningococcal B Vaccine Aged Out No l onger eligible based on patient's age to complete this topic Meningococcal Vaccine Aged Out No behzad shanna eligible based on patient's age to complete this topic RSV Immunizations Under 20 Months Aged Out No longer eligible b ased on patient's age to complete this topic Insurance [facility] Care Teams Automation Sales Manager Relationship Specialty Start Date End Date Diann Regan MD [address] [place] [address] PCP - General FAMILY PRACTICE 10/08/20
--- OUTSIDE RECORDS SUMMARY | 2024-10-14 12:17 | XMS_ITS | Encounter Summary ---
Author Organization [facility] Address [address] [place] [address] Phone Care Team Providers Care Manager Technology Name Role Phone Perez Humphrey MD Primary Care Provider [phone] Reason for Visit * Reason Onset Date Comments Appointment 10/13/2024 Leg Swelling 10/13/2024 Encounter Details Date Type Department Care Team (Late st Contact Info) Description 10/13/2024 [facility] [address] [place] [address] Perez Humphrey MD [address] [address] Appointment; Leg Swelling Social History Tobacco Use Types Packs/Day Years [...] on file documented as of this encounter Miscellaneous Notes * Telephone Encounter - Deanna Mixon RN - 10/13/2024 1:24 PM CDT SITUATION: right leg swelling BACKGROUND: patient contacting PCP office. ASSESSMENT: Symptom Description / Location: New right leg swelling started this week Patient states he has seen Dr. Humphrey previously for left leg swelling Legs are weak and reports a hard time getting around Patient states both is legs have a little redness Pain: Caller denies pain. Fever: Denies fever. Treatment / Response: No reported treatment. RECOMMENDATION: Caller agreeable to disposition: see in office today. Care advice provided per triage guideline. Caller verbalized understanding. Due to office unavailability within disposition, advised for patient to be seen at prompt care or urgent care. Caller requesting to schedule appointment in office at nearest availability. Appointment scheduled. All Patient Appointments Date & Time Provider Department Dept Phone 10/15/2024 9:30 AM Perez Humphrey [facility] [phone] Encounter routed to provider high priority to notify. - See care advice and disposition for Guideline. First positive answer recorded, all responses to prior questions were negative. If symptoms increase, change or if new symptoms develop, call your health care provider or call back. Recommendations were based on caller information and is not a diagnosis. Verified and reviewed all triage information with caller. Reason for Disposition Thigh, calf, or ankle swelling in only one leg MODERATE weakness (e.g., interferes with work, school, normal activities) and persists > 3 days Protocols used: Leg Swelling and Edema-A-OH, Weakness (Generalized) and [id number] * Telephone Encounter - Marta Juarez - 10/13/2024 1:22 PM CDT Symptom: Leg Swelling - Not From Injury Outcome: Transfer to [facility] man queue Reason: Discoloration (purple, blue, white, pale) The caller accepted this outcome. Caller Denied: * Trouble breathing * Chest pain documented in this encounter Plan of Treatment Upcoming Encounters Date Type Department Care Team (Late st Contact Info) Description 10/15/2024 9:30 AM CDT Office Visit [facility] [address] [place] [address] Perez Humphrey MD #[address] [address] 01/06/2025 1:30 PM CDT Office Visit [facility] [address] [place] [address] Perez Humphrey MD #[address] [address] documented as of this encounter Visit Diagnoses Not on filedocumented in this encounter Additional Health Concerns Assessment Noted Time PHQ-9 Depression Total Score: 0 11/11/19 24 6:26 PM CDT documented as of this encounter Care Teams Manager Technology Relationship Specialty Start Date End Date Perez Humphrey MD #[address] [address] PCP - General Family Medicine 11/11/23 documented as of this encounter
--- NOTE | 2024-10-14 12:51 | ED.SOB ---
HPI - SOB/Dyspnea General Chief Complaint: Dizziness Stated Complaint: dizziness Time Seen by Provider: 10/14/24 11:53 History of Present Illness HPI Narrative: 74-year-old male with a past medical history including hypertension, hyperlipidemia, coronary disease with 1 stent and recent upper respiratory infection with flu-like symptoms and bronchitis 2 weeks ago with similar symptoms as family members. Today patient presents to the emergency room with chief complaint of lightheadedness and feeling presyncope as well as shortness of breath with exertion. He has also noted that he is having worsening swelling in his legs and knows that his right leg is now swollen when 2 days ago was normal size. Patient has no diagnosed history of heart failure to his knowledge, no recent cardiac issues to his knowledge. He was otherwise in his normal state of health. Today woke up feeling short of breath even with minimal exertion and generalized weakness as well as nauseousness and feeling like he is going to pass out. No chest pain or chest discomfort. No back pain. No abdominal pain, diarrhea, constipation, vision changes, neck pain. Related Data Home Medications ?Medication ?Instructions ?Recorded ?Confirmed ?Last Taken ?Type atorvastatin 80 mg tablet 80 mg PO DAILY 07/10/19 07/10/19 10/28/19 History clopidogrel 75 mg tablet (Plavix) 75 mg PO DAILY 07/10/19 07/10/19 10/28/19 History hydrochlorothiazide 25 mg tablet 25 mg PO DAILY 07/10/19 07/10/19 10/28/19 History hydrocodone 7.5 mg-acetaminophen 1 tablet PO Q6H PRN pain 07/10/19 07/10/19 10/28/19 History 325 mg tablet metoprolol succinate 50 mg 50 mg PO DAILY 07/10/19 07/10/19 10/28/19 History tablet,extended release 24 hr Allergies Allergy/AdvReac Type Severity Reaction Status Date / Time No Known Allergies Allergy Verified 10/14/24 10:54 Review of Systems Review of Systems: As reviewed above in HPI [facility] Past Medical History Medical History (Updated 10/14/24 @ 15:16 by Nick Hood MD) CAD (coronary artery disease) Hyperlipidemia Depression Arthritis Fibromyalgia Kidney stones He stated he thinks he had a possible kidney stone UTI (urinary tract infection) In the past Heart attack History of cardiac stent. HTN (hypertension) Seasonal allergies Surgical History Surgical History H/O heart artery stent History of local excision of skin lesion Lipoma History of knee surgery Right knee meniscus repair History of tonsillectomy Family History Family History Father Diabetes mellitus Hypertension Mother Dementia Social History Social History Social History: The patient lives with his Aarti who is his power assistant prosecuting attorney for healthcare. He desires to be a full code. He has 3 children. Patient stated he smoked for about 7 or 8 years and quit 1980. No alcohol or illicit drug patient works for an [employer] part-time. Smoking status: Former smoker Second hand tobacco smoke exposure: Yes Smoking end date: 07/10/80 Alcohol intake: current Drinks per week: 2 Substance use: never Living arrangements: with family Occupation/Education: occupation Gender identity (if verbalized by the patient): Male Spiritual care concerns: No Agree to blood products: Yes Exam Narrative: GENERAL: Ill-appearing, not any acute distress, morbidly obese HEAD: [Normocephalic, atraumatic.] EYES: [PERRLA and EOMI.] ENT: Nares clear, no rhinorrhea or epistaxis. Mucous membranes moist. NECK: Supple. CHEST: Difficult to auscultate secondary to body habitus but not in any respiratory distress, no appreciable wheezing or rales. HEART: [Regular rate and rhythm]. No murmur heard. [Normal peripheral pulses.] ABDOMEN: Soft and nontender but very protuberant, [No rigidity or guarding] EXTREMITIES: Normal range of motion. 2+ pitting edema to the mid thighs left worse than right. Redness to the overlying skin but no signs of warmth, tenderness, fluctuance or weeping fluid SKIN: Warm, dry, no rash. NEURO: [No focal deficits]. Alert and oriented [x3.] PSYCH: [Normal mood and affect.] Course Vital Signs Vital signs: Vital Signs Pulse Rate 74 10/14/24 11:06 Respiratory Rate 15 10/14/24 11:06 Blood Pressure 163/72 H 10/14/24 11:06 Pulse Oximetry 97 10/14/24 11:06 Temperature 36.7 C 10/14/24 11:21 Pulse Rate 77 10/14/24 15:05 Respiratory Rate 14 10/14/24 15:05 Blood Pressure 149/65 H 10/14/24 14:30 Pulse Oximetry 98 10/14/24 15:05 Oxygen Delivery Room Air 10/14/24 11:21 MDM - SOB/Dyspnea MDM Narrative Medical decision making narrative: 74-year-old morbidly obese gentleman with history of coronary disease with a stent, hyperlipidemia, hypertension. He presents to the emergency room with chief complaint of feeling shortness of breath and lightheadedness. He states that shortness of breath is worse with exertion. He does have to lie in bed with multiple pillows, no history of heart failure. States that he is having leg swelling bilaterally left worse than right but his right side was never swollen until 2 days ago. No history of DVT or PE to his knowledge. Does not take any anticoagulation medications besides Plavix. He is not any distress but does appear ill and elderly. Morbidly obese with a protuberant abdomen. Bilateral lower extremity 2+ pitting edema left worse than right up to the mid thighs. Difficult to auscultate appreciable lung pathology secondary to body habitus but no wheezing or obvious rales. Suspicion presently is for potential deconditioning, upper respiratory infection, pneumonia, bronchitis from his recent flu-like symptoms, new onset congestive heart failure, coronary disease, thromboembolic event also possible. Given the new onset swelling in his legs a BNP was added on in addition to a cardiac workup with CBC, CMP, troponin, EKG, chest x-ray. DVT scan of bilateral lower extremities and echocardiogram also ordered. Patient placed on desk monitor and re-evaluated. Patient was provided Tylenol and Zofran and head CT obtained secondary to his lightheaded sensations. Patient was re-evaluated after Tylenol and Zofran and was feeling significantly improved he was very spry and active and able to ambulate around the department with his normal walker. Patient did not have any pulse ox drops while he was on the ambulatory pulse ox while walking and this was reassuring. Patient felt significantly improved which is a good sign. His laboratory studies were also reassuring with no leukocytosis or anemia. Normal coagulation, normal electrolytes, normal renal function, normal glucose, normal LFTs. Negative troponin x2. Negative BNP. Normal lipase. Negative viral panel. Negative Doppler DVT study of both legs. Chest x-ray shows no consolidation, no acute cardiopulmonary disease. There is some discoid atelectasis which he is already taking incentive spirometer at home for this. Initial and [address] are [address]KG with no ST segment elevations, depressions or inversions. No considerable change from baseline EKG paced on previous records. No acute ectopy or ischemia. Head CT negative with no acute findings. Patient felt significantly improved and was comfortable going home at this time. He tells me that he thinks he was passing around upper respiratory infection between his and kids at home and this is why he was feeling so unwell. He has an unremarkable extensive workup and has a primary care provider appointment tomorrow morning which I encouraged him to keep. Patient was given return precautions and safely discharged. Medical Records Attestation: I reviewed the patient's medical records. Lab Data Attestation: I reviewed the patient's lab results. 10/14/24 11:20 10/14/24 11:20 Labs: Lab Results 10/14/24 10/14/24 Range/Units 11:20 13:57 WBC 9.8 (4.5-10.0) K/mm3 RBC 4.70 (4.6-6.20) M/mm3 Hgb 14.2 (14.0-18.0) g/dL Hct 45.2 (42.0-52.0) % MCV 96.2 (80-100) fl MCH 30.2 (26-34) pg MCHC 31.4 L (32-36) g/dl RDW 14.5 (11.5-14.5) % Plt Count 144 L (150-375) k/mm3 MPV 12.3 H (7.4-10.4) fl Immature Gran % (Auto) 1.3 H (0-0.5) % Neut % (Auto) 75.7 H (45.5-73.1) % Lymph % (Auto) 8.1 L (18.3-44.2) % Wilcox % (Auto) 11.9 H (2.6-8.5) % Eos % (Auto) 2.5 (0-4.4) % Baso % (Auto) 0.5 (0.2-1.2) % Lymph # (Auto) 0.79 L (0.9-3.2) K/mm3 Wilcox # (Auto) 1.2 H (0.1-0.6) K/mm3 Eos # (Auto) 0.2 (0-0.3) K/mm3 Baso # (Auto) 0.1 (0.0-0.1) K/mm3 Abs Immat Gran (auto) 0.13 H (0.00-0.031) K/mm3 Absolute Neuts (auto) 7.4 H (1.3-6.7) K/mm3 Absolute Nucleated RBC 0.000 (0.0-0.012) K/mm3 Nucleated RBC % 0.0 (0.0-0.2) % % Immature Plt Fraction 10.0 (0.9-11.2) % PT 13.1 (11.1-14.7) Seconds INR 0.9 APTT 28.9 (22.3-36.8) Seconds Sodium 136 L (137-145) mmol/L Potassium 4.3 (3.4-5.0) mmol/L Chloride 102 (98-107) mmol/L Carbon Dioxide 29 (22-30) mmol/L Anion Gap 5 (4-12) mmol/L BUN 18 (9-20) mg/dL Creatinine 0.61 L (0.7-1.3) mg/dL Estim Creat Clear Calc 133 ml/min Estimated GFR > 60 (59 - ) Glucose 111 H (65-110) mg/dL Calcium 8.6 (8.4-10.2) mg/dL Total Bilirubin 1.0 (0.2-1.3) mg/dL AST 28 (17-59) U/L ALT 25 (6-50) U/L Alkaline Phosphatase 76 (38-126) U/L Troponin I < 0.012 < 0.012 (0.000-0.034) ng/mL NT-Pro-B Natriuret Pep 613 H (19.9-100) pg/mL Total Protein 6.0 L (6.3-8.2) g/dL Albumin 3.6 (3.5-5.1) g/dL Lipase 44 (23-300) U/L Influenza A (RT-PCR) Negative (Negative) Influenza B (RT-PCR) Negative (Negative) RSV (RT-PCR) Negative (Negative) SARS-CoV-2 RNA (RT-PCR) Negative (Negative) Imaging Data Attestation: I personally reviewed and interpreted this imaging study as follows: My impression: Impressions Head CT 10/14/24 11:38 IMPRESSION: 1. Normal aging brain with mild diffuse volume loss and mild scattered white matter hypoattenuation consistent with chronic small vessel ischemic disease. No acute intracranial process. Chest X-Ray 10/14/24 11:51 IMPRESSION: 1. Discoid atelectasis at the lower lungs. No acute cardiopulmonary disease. Venous Doppler Study 10/14/24 13:59 IMPRESSION: Negative bilateral lower extremity venous US. No deep vein thrombosis. ECG Data EKG #1: Attestation: I personally reviewed and interpreted this ECG as follows: ECG completion date: 10/14/24 ECG completion time: 14:08 Prior ECG tracings: available for review Interpretation: No ST segment elevations, depressions or acute inversions. No significant ectopy. FL interval 151, QRS 97, QTC 438. No interval change compared to prior EKG in the EMR. No acute ischemia. Sinus rhythm. Discharge Plan Discharge Clinical Impression: Episode of generalized weakness, Leg swelling, Acute upper respiratory infection Patient Disposition: Home Condition: Stable Instructions: Antibiotic Form, Weakness (ED), Dizziness (ED) Patient Language: Cambodian Prescriptions: New acetaminophen [Tylenol Extra Strength] 500 mg tablet 1,000 mg PO TID PRN (Reason: pain) Qty: 30 0RF ondansetron 4 mg tablet,disintegrating 4 mg PO Q8H PRN (Reason: nausea and vomiting) Qty: 10 0RF No Action benzonatate 200 mg capsule 200 mg PO TID PRN (Reason: cough) Qty: 20 0RF doxycycline hyclate 100 mg capsule 100 mg PO BID 7 Days Qty: 14 0RF prednisone 20 mg tablet 40 mg PO DAILY 5 Days Qty: 10 0RF albuterol sulfate 90 mcg/actuation HFA aerosol inhaler 2 puff inhalation Q4-6H PRN (Reason: shortness of breath or wheezing) Qty: 8.5 0RF metoprolol succinate 50 mg Tablet Extended Release 24 Hr 50 mg PO DAILY clopidogrel [Plavix] 75 mg Tablet 75 mg PO DAILY hydrochlorothiazide 25 mg Tablet 25 mg PO DAILY atorvastatin 80 mg Tablet 80 mg PO DAILY hydrocodone-acetaminophen 7.5-325 mg Tablet 1 tablet PO Q6H PRN (Reason: pain) dicyclomine 10 mg capsule 10 mg PO BID 5 Days Qty: 10 0RF Follow-up/Referrals: Milagro,Perez Chester MD [Primary Care Provider] - Time of Disposition: 15:17
[2024-10-14] MEDS: ONDANSETRON INJ 4 MG/2 ML VIAL IV PUSH (12:59)
[2024-10-14] MEDS: ACETAMINOPHEN 500 MG TABLET 1000 MG PO (13:03)
--- OUTSIDE RECORDS SUMMARY | 2024-10-14 13:15 | XMS_ITS | Clinical Summary ---
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 MAIL EDITOR Pulse 68 08/08/2021 2:09 AM FAN MAIL EDITOR Temperature 36.9 C (98.4 F) 08/07/2021 6:10 PM F[employer] MAIL EDITOR Respiratory Rate 18 08/08/2021 2:09 AM FAN MAIL EDITOR Oxygen Saturation 96% 08/08/2021 3:45 AM FAN MAIL EDITOR Inhaled Oxygen Concentration - - Weight 138.3 kg (305 lb) 07/17/2021 12:42 PM FAN MAIL EDITOR Height 175.3 cm (5' 9 ) 08/07/2021 6:10 PM FAN MAIL EDITOR Body Mass Index 45.04 07/17/2021 12:42 PM FAN MAIL EDITOR Plan of Treatment Health Maintenance Due Date [...] patient's age to complete this topic Insurance [facility] Care Teams Surgery Technician Relationship Specialty Start Date End Date Diann Regan MD [address] [place] [address] PCP - General FAMILY PRACTICE 10/08/20
[2024-10-14 13:24] LABS: NT Pro B Type Natriuretic Pept 613 pg/mL (19.9-100)
--- NOTE | 2024-10-14 14:05 | ECG_ITS ---
Test Date: 2024-10-14 14:08:05 Measurements Intervals [place] Rate: 69 P: 52 NH: 151 QRS: -4 QRSD: 97 T: 32 QT: 406 QTc: 438 Interpretive Statements SINUS RHYTHM WITH OCCASIONAL SUPRAVENTRICULAR PREMATURE COMPLEXES DELAYED PRECORDIAL R/S TRANSITION BORDERLINE ECG Compared to ECG 10/14/2024 11:08:59 No significant changes Electronically Signed On 10-14-2024 14:15:13 CDT by Trace Gonzalez D.O.
[2024-10-14 14:34] LABS: Troponin I < 0.012 ng/mL (0.000-0.034)
== END 2024-10-14 15:44 | disposition home or self-care (01) ==
PROVIDERS: Emergency Medicine; Emergency Provider Student in an Organized Health Care Education/Training Program; PCP Internal Medicine
DX: R53.1 Weakness (principal); J06.9 Acute upper respiratory infection, unspecified; M79.89 Other specified soft tissue disorders; I10 Essential (primary) hypertension; E78.5 Hyperlipidemia, unspecified; I25.10 Atherosclerotic heart disease of native coronary artery without angina pectoris; Z87.891 Personal history of nicotine dependence; Z20.822 Contact with and (suspected) exposure to COVID-19
CPT/HCPCS: 36415; 70450; 71046; 80053; 83690; 83880; 84484; 85025; 85055; 85610; 85730; 87637; 93005; 93970; 96374; 96375; 99284; A9270; J2405

== ENCOUNTER 2024-10-29 15:40 | Emergency (ER) | payer MEDICARE, SELFPAY ==
[2024-10-29 15:49] VITALS: BP 135/65; PULSE 80; RESP 20; TEMP 36.6; O2SAT 98
--- NOTE | 2024-10-29 15:55 | ED.URI ---
HPI - URI/Sore Throat General Chief Complaint: Upper Respiratory Infection Stated Complaint: COUGH/CONGESTION Time Seen by Provider: 10/29/24 15:55 Source: patient Mode of arrival: ambulatory Limitations: no limitations History of Present Illness HPI Narrative: 74 year old male who presents to [facility] with complaints of cough and feels raspy for about a week. Patient reports that his doctor did call in a Z-pack for him and he has been taking this and also using his Albuterol inhaler but he still feels like hell. He states that the lat time he had this they gave him an antibiotic here that helped.. Patient reports that he has not had any known fevers. Patient reports that he has chronic pain in back and knees and does see pain management and takes daily Rickreall. MD elicited complaint: cough, rhinorrhea and nasal congestion Pertinent past history: other (bronchitis) Onset (ago): week(s) (1) Severity: moderate Able to tolerate fluids by mouth: Yes Treatments prior to arrival: antibiotics and other (albuterol inhaler) Related Data Home Medications ?Medication ?Instructions ?Recorded ?Confirmed ?Last Taken ?Type atorvastatin 80 mg tablet 80 mg PO DAILY 07/10/19 11/01/24 10/31/24 History metoprolol succinate 50 mg 50 mg PO DAILY 07/10/19 11/01/24 10/31/24 History tablet,extended release 24 hr empagliflozin 10 mg tablet 10 mg PO DAILY 10/29/24 11/01/24 10/25/24 History (Jardiance) furosemide 20 mg tablet 20 mg PO DAILY 10/29/24 11/01/24 10/31/24 History hydrocodone 10 mg-acetaminophen 1 tablet PO Q6H PRN pain 10/29/24 11/01/24 10/31/24 History 325 mg tablet potassium chloride 20 mEq 20 meq PO DAILY 10/29/24 11/01/24 10/31/24 History tablet,extended release(part/cryst) semaglutide 0.25 mg or 0.5 mg (2 0.5 mg subcut WEEKLY 10/29/24 11/01/24 10/30/24 History mg/3 mL) subcutaneous pen injector (Ozempic) spironolactone 25 mg tablet 12.5 mg PO DAILY 10/29/24 11/01/24 10/31/24 History Allergies Allergy/AdvReac Type Severity Reaction Status Date / Time No Known Allergies Allergy Verified 11/01/24 05:52 Review of Systems Review of Systems: CONSTITUTIONAL: Reports malaise,no chills, sweats, or fever. EYES: Denies visual changes, redness, or discharge. ENT: Reports rhinorrhea, congestion, sinus pain, no otalgia and no sore throat. CARDIOVASCULAR: Denies chest pain, palpitations, or edema. RESPIRATORY: Reports cough.? Denies dyspnea. GASTROINTESTINAL: Denies abdominal pain, nausea, vomiting, diarrhea SKIN: Denies rash or itching. MUSCULOSKELETAL:reports chronic myalgia. NEUROLOGIC: Denies headache. All systems reviewed & are unremarkable except as noted in HPI and below PMFSH Past Medical History Medical History (Updated 11/01/24 @ 13:41 by Angie Serrano APRN) CAD (coronary artery disease) Hyperlipidemia Depression Arthritis Fibromyalgia Kidney stones He stated he thinks he had a possible kidney stone UTI (urinary tract infection) In the past Heart attack History of cardiac stent. HTN (hypertension) Seasonal allergies Surgical History Surgical History H/O heart artery stent History of local excision of skin lesion Lipoma History of knee surgery Right knee meniscus repair History of tonsillectomy Family History Family History Father Diabetes mellitus Hypertension Mother Dementia Social History Social History (Updated 11/02/24 @ 07:18 by Gina Lozano NP) Social History: The patient lives with his Aarti who is his power industrial management teacher for healthcare. He desires to be a full code. He has 3 children. Patient stated he smoked for about 7 or 8 years and quit 1980. 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 Smoking status: Former smoker Second hand tobacco smoke exposure: Yes Alcohol intake: current Drinks per week: 2 Substance use: current Substance use type: opiates Other substance usage details: Rickreall for chronic pain sees pain management Do You Feel Safe in your Home?: Yes Lack of Transportation: YES Lack of Food: Never True Current Housing: I Have Housing Concerned About Future Housing: No Difficulty Paying Gas/Electric Bills: No Difficulty Paying for Meds: No Currently Unemployed: No Education: High School Diploma/GED Difficulty w/ Childcare or Family Care: No Living arrangements: with family Occupation/Education: occupation Gender identity (if verbalized by the patient): Male Spiritual care concerns: No Agree to blood products: Yes Comments At time of signature, agree with nursing past medical, surgical, social and family history. There is no relevant family history pertinent to the presenting complaint Exam Narrative: GENERAL: chronic ill-appearing, well-nourished, obese in no acute distress. HEAD: Normocephalic EYES: PERRLA, conjunctivae clear ENT: Nares clear, turbinates edematous and erythematous, clear discharge. Mucous membranes moist. TM pearly garcia with dull light reflex bilaterally; no tragal tenderness. Oropharynx erythematous without lesions. Tonsils not present and throat without exudate, no drooling, no hoarseness, no trismus, uvula midline.post nasal drainage NECK: Supple. No lymphadenopathy CHEST: Coarse breath sounds on auscultation, breath sounds equal. No wheezing, rhonchi, rales, or stridor. No respiratory distress, speaks in full sentences.harsh cough, SAO2 98% on room air HEART: Regular rate and rhythm. No murmur heard. SKIN: Warm, dry, no rash. NEURO: Alert and oriented x3. PSYCH: Normal mood and affect Course Course Emergency Course: Patient is aware of diagnosis, understands and agrees to treatment plan.? Anticipatory guidance given.? Patient agrees to follow-up as directed and is aware of reasons to seek care at the emergency department. Portions of this record may have been created with voice recognition software Level of Care: Express Care Visit Vital Signs Vital signs: Vital Signs Temperature 36.6 C 10/29/24 15:49 Pulse Rate 80 10/29/24 15:49 Respiratory Rate 20 10/29/24 15:49 Blood Pressure 135/65 10/29/24 15:49 Pulse Oximetry 98 10/29/24 15:49 Temperature 36.6 C 10/29/24 15:49 Pulse Rate 80 10/29/24 15:49 Respiratory Rate 20 10/29/24 15:49 Blood Pressure 135/65 10/29/24 15:49 Pulse Oximetry 98 10/29/24 15:49 Reviewed MDM - URI/Sore Throat MDM Narrative Medical decision making narrative: Differential diagnosis considered: Bunn virus, strep pharyngitis, allergic rhinitis, upper respiratory tract infection, sinusitis, rhinosinusitis, nasopharyngitis. viral pharyngitis, otitis media, otitis externa, pneumonia, bronchitis, viral cough syndrome, viral syndrome, and influenza.? Exam findings show no acute concerns or changes; patient is non-toxic appearing and is in no distress.? Patient is appropriate for outpatient treatment and follow-up. Differential Diagnosis Differential diagnosis: Likely upper respiratory infection, sinusitis, viral infection, bronchitis and other (acute cough) Medical Records Attestation: I reviewed the patient's medical records. Lab Data Attestation: I reviewed the patient's lab results. Critical Care Time Critical Care Time Critical Care Time: No Discharge Plan Discharge Clinical Impression: Bronchitis Patient Disposition: Home Condition: Stable Instructions: Antibiotic Form, Acute Bronchitis (ED) Additional Instructions: Increase fluids especially juices and water [id number] cough and cold medicine of your choice for your symptoms Prescription cough medicine as directed--caution drowsiness and no driving or alcohol Cough tablets as directed for cough--do not bite, chew or suck on--swallow whole Continue your inhaler/nebulizer as directed Steroids as directed--take with food heat to the face 20-30 minutes 4-6 times a day for pain Salt water gargles, throat lozenges or throat sprays as desired Antibiotic as directed--finished the medication If your symptoms persist, change or worsen significantly before you can contact your personal physician then please, without delay, go to the emergency department for further evaluation. Follow-up with PCP in 7-10 days or sooner if needed Follow up with PCP soon in regards to your blood pressure which is elevated above threshold for referral. Blood pressure above 120/80 may indicate pre-hypertension. 135/60 Patient Language: Slovak Prescriptions: New benzonatate 200 mg capsule 200 mg PO TID Qty: 14 0RF No Action hydrocodone-acetaminophen 10-325 mg tablet 1 tablet PO Q6H PRN (Reason: pain) furosemide 20 mg tablet 20 mg PO DAILY Jardiance 10 mg tablet 10 mg PO DAILY spironolactone 25 mg tablet 12.5 mg PO DAILY potassium chloride 20 mEq tablet,ER particles/crystals 20 meq PO DAILY Ozempic 0.25 mg or 0.5 mg (2 mg/3 mL) pen injector 0.5 mg SUBCUT WEEKLY albuterol sulfate 90 mcg/actuation HFA aerosol inhaler 2 puff inhalation Q4-6H PRN (Reason: shortness of breath or wheezing) Qty: 8.5 0RF metoprolol succinate 50 mg Tablet Extended Release 24 Hr 50 mg PO DAILY atorvastatin 80 mg Tablet 80 mg PO DAILY acetaminophen [Tylenol Extra Strength] 500 mg tablet 1,000 mg PO TID PRN (Reason: pain) Qty: 30 0RF ondansetron 4 mg tablet,disintegrating 4 mg PO Q8H PRN (Reason: nausea and vomiting) Qty: 10 0RF Follow-up/Referrals: Milagro,Perez Chester MD [Primary Care Provider] - Time of Disposition: 16:21 Quality Stefanie Coma Scale Eyes: Open Verbal: Oriented and Alert Motor: Follows Commands Stefanie Coma Total Score: 15
== END 2024-10-29 16:21 | disposition home or self-care (01) ==
PROVIDERS: Emergency Provider Registered Nurse; PCP Internal Medicine
DX: J40 Bronchitis, not specified as acute or chronic (principal); I25.10 Atherosclerotic heart disease of native coronary artery without angina pectoris; I10 Essential (primary) hypertension; E78.5 Hyperlipidemia, unspecified; M79.7 Fibromyalgia; I25.2 Old myocardial infarction; M19.90 Unspecified osteoarthritis, unspecified site; Z95.5 Presence of coronary angioplasty implant and graft
CPT/HCPCS: 99213; G0463

== ENCOUNTER 2024-11-01 01:58 | Inpatient (IN) | payer MEDICARE, SELFPAY ==
[2024-11-01] VITALS (19 sets, daily range): BP systolic 106–144; BP diastolic 52–89; PULSE 68–123; RESP 15–26; TEMP 36.2–37.9; O2SAT 91–100; BMI 52.2
--- NOTE | 2024-11-01 | ECHO_ITS ---
Patient Info Name: Migue Fairbanks Age: 74 years : 1950 Gender: Male Ht: 69 in Wt: 353 lbs BSA: 2.88 m2 HR: 81 bpm BP: 106 / 52 mmHg Technical Quality: Fair Exam Date: 11/01/2024 3:09 PM Exam Location: Echo Lab Patient Status: Inpatient Admit Date: 11/01/2024 Staff Ordering Physician: Angie Serrano APRN [employer]er Blasting: Francine Hutchinson RDCS Attending Provider: Janna Parker DO Referring Physician: Zach YEAGER; Exam Type: CA echo dop color flow w con Study Info Indications - Elevated BNP - Swelling - Presyncope Complete two-dimensional, color flow and Doppler transthoracic echocardiogram is performed with contrast to opacify the left ventricle and to improve the deliniation of the left ventricle endocardial borders. Contrast/Agitated Saline Contrast/Ag. Saline: Definity Amount: 3.00 ml Existing IV Access: Yes IV Access Condition: patent with no signs of infiltration Summary 1. Left ventricular chamber dimension is normal. 2. Left ventricular systolic function is normal, estimated at 65-70%. 3. There is moderately increased left ventricular wall thickness. 4. The left ventricular diastolic function is grade I diastolic dysfunction. 5. Right ventricular systolic function is normal. 6. Left atrial chamber dimension is mildly enlarged. 7. Right atrial chamber dimension is mildly enlarged. 8. There is mild tricuspid valve regurgitation. Left Ventricle Left ventricular chamber dimension is normal. Left ventricular systolic function is normal, estimated at 65-70%. There is moderately increased left ventricular wall thickness. The left ventricular diastolic function is grade I diastolic dysfunction. Right Ventricle Right ventricular chamber dimension is normal. Right ventricular systolic function is normal. Left Atria Left atrial chamber dimension is mildly enlarged. Right Atria Right atrial chamber dimension is mildly enlarged. Atrial Septum Intact interatrial septum visualized by color flow imaging. Aortic Valve The aortic valve is not well visualized. There is no aortic valve stenosis. There is no aortic valve regurgitation. Pulmonic Valve The pulmonic valve is not well visualized. Mitral Valve The mitral valve has thickened leaflets. There is trace mitral valve regurgitation. The mitral valve annulus is mildly calcified. Tricuspid Valve There is mild tricuspid valve regurgitation. Pericardium/Pleural There is no pericardial effusion. Inferior Vena Cava Dilated inferior vena cava with <50% collapse upon inspiration consistent with elevated right atrial pressure, 15 mmHg. Aorta The aortic root size at the sinus of Valsalva is normal. Left Ventricular Outflow Tract Name Value Normal LVOT 2D LVOT Diameter 1.85 cm LVOT Doppler LVOT Peak Gradient 6 mmHg LVOT Mean Gradient 4 mmHg LVOT VTI 28.25 cm LVOT VTI/AV VTI Ratio 0.77 LVOT Stroke Volume 75.60 ml LVOT CO 15.43 l/min LVOT CI 5.35 L/min/m2 Pulmonic Valve Name Value Normal PV Doppler PV Peak Gradient 5 mmHg Mitral Valve Name Value Normal MV Doppler MV Decel [place] 569.20 cm/s2 MV PHT 0 s MV Area (PHT) 3.37 cm2 4.00-5.00 MV Diastolic Function MV E Peak Velocity 128.14 cm/s MV A Peak Velocity 92.28 cm/s MV E/A 1.39 MV Decel Time 0 s MV Annular TDI MV E/e' (Septal) 11.54 <=8.00 MV E/e' (Lateral) 13.25 <=8.00 MV E/e' (Average) 12.39 Tricuspid Valve Name Value Normal TV Regurgitation Doppler TR Peak Velocity 246.67 cm/s TR Peak Gradient 24 mmHg Estimated PAP/RSVP RA Pressure 15 mmHg <=5 PA Systolic Pressure 39 mmHg <36 RV Systolic Pressure 39 mmHg <36 Aorta Name Value Normal Ascending Aorta Ao Root Diameter (MM) 3.09 cm Ao Root Diam Index (MM) 1.07 cm/m2 Aortic Valve Name Value Normal AV Doppler AV Peak Velocity 173.00 cm/s AV Peak Gradient 12 mmHg AV Mean Gradient 7 mmHg AV VTI 36.50 cm AV Area (Cont Eq VTI) 2.07 cm2 >=3.00 AV Area (Cont Eq Prashanth) 1.89 cm2 AV Regurgitation 2D LVOT Area 2.68 cm2 Ventricles Name Value Normal LV Dimensions 2D/MM IVS Diastolic Thickness (2D) 1.37 cm 0.60-1.00 LVID Diastole (2D) 4.63 cm 4.20-5.80 LVIW Diastolic Thickness (2D) 1.28 cm 0.60-1.00 LVID Systole (2D) 3.21 cm 2.50-4.00 LVOT Diameter 1.85 cm LV Mass (2D Cubed) 239.37 g 88.00-224.00 LV Mass Index (2D Cubed) 0.01 g/cm2 0.00-0.01 Relative Wall Thickness (2D) 0.55 LV Fractional Shortening/Ejection Fraction 2D/MM LV Fractional Shortening (2D) 31 % 25-43 LV EF (2D Teicholz) 58 % 52-72 LV Diastolic Volume (4C MOD) 138.79 ml LV EF (4C MOD) 78 % LV Diastolic Volume (2C MOD) 75.33 ml LV EF (2C MOD) 53 % LV Diastolic Volume (BP MOD) 106.98 ml 62.00-150.00 LV Diastolic Volume Index (BP MOD) 0.04 l/m2 0.03-0.07 LV Systolic Volume (BP MOD) 33.11 ml 21.00-61.00 LV Systolic Volume Index (BP MOD) 0.01 l/m2 0.01-0.03 LV EF (BP MOD) 69 % 52-72 LV Diastolic Length (4C) 8.97 cm LV Systolic Length (4C) 6.65 cm LV Stroke Volume (4C MOD) 108.45 ml RV Dimensions 2D/MM RVID Diastole (2D) 4.53 cm 2.50-3.50 Atria Name Value Normal LA Dimensions LA Dimension (MM) 4.32 cm 3.00-4.10 LA Volume (4C A-L) 64.33 ml LA Volume (BP A-L) 64.64 ml RA Dimensions RA Area (4C) 20.24 cm2 <=18.00 Report Signatures
--- NOTE | ~2024-11-01 | CT_ITS ---
Procedure: CTA LE BI Ordering provider: Angie Serrano APRN History: . + d dimer, swelling, check for infection source . Comparison: None. Technique: CT angiogram abdomen and pelvis was performed following timed intravenous injection of con trast. Thin slice axial images and reformatted coronal images were obtained. Three dimensional reform atted images were also obtained using a [employer] workstation. Radiation reduction technique utilized.T he dose-length product was 1323.43 mGy-cm. 150 mL Omnipaque 350 was given IV. FINDINGS: Pelvic organs: Gallbladder is underfilled. Visualized bowel is unremarkable. ILIAC ARTERIES AND BRANCHING VESSELS: Bilateral atherosclerotic changes with no significant stenosis in the visualized portion. LOWER EXTREMITIES: COMMON FEMORAL ARTERIES: Atherosclerotic changes with narrowing on the right side of about 40%. Narro wing of the left side of about 50%.. FEMORAL ARTERIES: Narrowing in the mid right femoral artery by about 40% and distally by about 20%. BILATERAL PROFUNDA FEMORA: Atherosclerotic changes in the right side POPLITEAL ARTERIES: Severe atherosclerotic with near block on the right side and about 50% on the lef t side. TRIFURCATION AND THE POSTERIOR/ANTERIOR TIBIAL AND PERONEAL ARTERIES: Seen bilaterally FLOW TO THE FOOT: dorsalis pedis are not demonstrated. Flow is demonstrated to the level of the ankle. BONES AND SOFT TISSUES: Edema is seen in the soft tissues of the left neck and foot. Fat stranding se en in the subcutaneous tissues of the right lower extremity. Varicosities are seen in the subcutaneou s tissues. IMPRESSION: Extensive atherosclerotic changes which degraded the ability to evaluate for the flow and stenosis properly. Bilateral atherosclerotic changes with variable degrees of stenosis with maximum changes in the right popliteal artery. Nonvisualization of the dorsalis pedis and posterior tibial arteries bilaterally. Conventional Angiog guevara is advised for better evaluation. Reviewed, dictated and finalized at location A. IMPRESSION: Extensive atherosclerotic changes which degraded the ability to macario luate for the flow and stenosis properly. Bilateral atherosclerotic changes with variable degrees of stenosis with maximu m changes in the right popliteal artery. Nonvisualization of the dorsalis pedis and posterior tibial arteries bilaterall y. Conventional Angiography is advised for better evaluation.
--- NOTE | ~2024-11-01 | XR_ITS ---
Right Knee Technique: AP and lateral views were obtained. Clinical History: Pain Findings: No fracture or dislocation is seen. There is evidence of prior ACL reconstruction. There is advanced degenerative change of the lateral and patellofemoral compartment. There is moderate degene rative change of the medial compartment.. Soft tissues are unremarkable. No joint effusion is seen. Impression: Tricompartmental osteoarthritis, as detailed above. Prior ACL reconstruction. Reviewed, dictated and finalized at location M. Impression: Tricompartmental osteoarthritis, as detailed above. Prior ACL reconstruction.
--- NOTE | ~2024-11-01 | US_ITS ---
EXAMINATION: US venous doppler [facility] DATE: 11/01/2024 10:01 INDICATION: Bilateral lower limb pain, swelling and erythema TECHNIQUE: Grayscale ultrasound images without and with compression and Doppler ultrasound images of the bilateral lower extremity veins were obtained. COMPARISON: None. FINDINGS: The visualized portions of right common femoral vein, profunda (deep) femoral vein, femoral vein, pop liteal vein, gastrocnemius vein and greater saphenous vein outflow are patent. The right posterior ti bial and peroneal veins are unable be clearly visualized due to patient body habitus. The visualized portions of left common femoral vein, profunda femoral vein, femoral vein, popliteal v ein, gastrocnemius vein and greater saphenous vein outflow are patent. The left posterior tibial and peroneal veins are unable to be clearly visualized due to patient body habitus. IMPRESSION: 1. No [id number] deep venous thrombosis with no thrombosis in either lower limb at or proximal t o the level of the popliteal veins. The bilateral peroneal and posterior tibial veins at the calf rem ain unable to be clearly visualized due to patient body habitus. Reviewed, dictated and finalized at location A. IMPRESSION: 1. No [id number] deep venous thrombosis with no thrombosis in either lower limb at or proximal to the level of the popliteal veins. The bilateral peronea l and posterior tibial veins at the calf remain unable to be clearly visualized due to patient body habitus.
--- NOTE | ~2024-11-01 | CT_ITS ---
Non-contrast Head CT History: Altered mental status COMPARISON: 10/14/2024 Technique: Axial non-contrast imaging of the brain was performed. Dose reduction technique was used on this scan by utilizing automated exposure control and iterative reconstruction technique. The dose -length product (DLP) was 1362.00 mGy-cm. Findings: There is no evidence of intracranial hemorrhage, mass lesion, or acute infarct. Brain par enchyma appears normal. The ventricles and subarachnoid spaces are normal in size. The calvarium ap pears normal. The visualized paranasal sinuses and mastoid air cells are clear. Impression: No significant abnormality seen. Reviewed, dictated and finalized at location . Impression: No significant abnormality seen.
--- NOTE | ~2024-11-01 | XR_ITS ---
Portable chest x-ray Comparison: 10/14/2024 Clinical History: Dyspnea, fever Findings: Probable focal left basilar atelectasis. Right lung clear. Cardiomediastinal silhouette i s stable. Bones and soft tissues are unremarkable. Impression: Probable focal left basilar atelectasis. Cardiomegaly. Reviewed, dictated and finalized at location . Impression: Probable focal left basilar atelectasis. Cardiomegaly.
--- NOTE | ~2024-11-01 | CT_ITS ---
Clinical Indication: Dyspnea, fever CT Scan of the Chest, Abdomen, and Pelvis with Contrast: Technique: Contiguous sections were acquired throughout the chest, abdomen, and pelvis after intraven ous administration of 100 cc of Omnipaque 350. Dose reduction technique was used on this scan by abdoul call automated exposure control and iterative reconstruction technique. The dose-length product (DL P) was 2787.09 mGy-cm. Findings: There is no evidence of any significant mediastinal, hilar or axillary lymphadenopathy. The mediastin al soft tissues appear normal. There is no evidence of pleural or pericardial effusion. The lungs are clear. No pulmonary nodules or infiltrates are noted. The liver, spleen, pancreas, gallbladder, adrenals and kidneys are within normal limits. There are at herosclerotic calcifications of the aorta. No lymphadenopathy. No bowel obstruction or bowel wall thickening. There is no evidence to suggest acute appendicitis. Urinary bladder is unremarkable. No pelvic mass seen. No ascites. There is diffuse degenerative spondylosis of the spine. Impression: No significant abnormalities seen. Reviewed, dictated and finalized at [facility]. Impression: No significant abnormalities seen.
--- NOTE | 2024-11-01 02:05 | ECG_ITS ---
Test Date: 2024-11-01 02:05:24 Measurements Intervals [place] Rate: 120 P: 38 [place]: 138 QRS: 9 QRSD: 93 T: 23 QT: 293 QTc: 416 Interpretive Statements SINUS TACHYCARDIA Compared to ECG 10/14/2024 14:08:05 Sinus rhythm no longer present Electronically Signed On 11-02-2024 14:14:11 CDT by Boston Fierro M.D.
[2024-11-01 02:39] LABS: Basophils Absolute Auto 0.1 K/mm3 (0.0-0.1); Basophils Percent Auto 0.2 % (0.2-1.2); Hematocrit 45.4 % (42.0-52.0); Hemoglobin 14.3 g/dL (14.0-18.0); Immature Granulocyte Percent A 0.8 % (0-0.5); Lymphocytes Absolute Auto 0.29 K/mm3 (0.9-3.2); Lymphocytes Percent Auto 1.1 % (18.3-44.2); Mean Corpuscular HGB Conc 31.5 g/dl (32-36); Mean Corpuscular Hemoglobin 30.3 pg (26-34); Mean Corpuscular Volume 96.2 fl (80-100); Mean Platelet Volume 11.9 fl (7.4-10.4); Monocytes Absolute Auto 0.3 K/mm3 (0.1-0.6); Monocytes Percent Auto 1.2 % (2.6-8.5); Neutrophils Absolute Auto 24.4 K/mm3 (1.3-6.7); Neutrophils Percent Auto 96.7 % (45.5-73.1); Platelet Count Result 153 k/mm3 (150-375); Red Blood Count 4.72 M/mm3 (4.6-6.20); White Blood Count 25.2 K/mm3 (4.5-10.0)
[2024-11-01] MEDS: SODIUM CHLORIDE 0.9% IV 2,000 ML 999 ML IV CONT (02:40)
[2024-11-01] MEDS: CEFEPIME 2 GM/NS 50 ML 2 GM/50 ML BAG IVPB (02:41)
[2024-11-01 02:59] LABS: Prothrombin Time 13.2 Seconds (11.1-14.7)
[2024-11-01 03:01] LABS: Glucose Point of Care 163 mg/dl (65-105)
[2024-11-01 03:02] LABS: Partial Thromboplastin Time 23.7 Seconds (22.3-36.8)
[2024-11-01 03:03] LABS: Alanine Aminotransferase 32 U/L (6-50); Albumin Level 3.9 g/dL (3.5-5.1); Alkaline Phosphatase 79 U/L (38-126); Anion Gap 10 mmol/L (4-12); Aspartate Amino Transferase 38 U/L (17-59); Bilirubin,Total 0.9 mg/dL (0.2-1.3); Blood Urea Nitrogen 27 mg/dL (9-20); Calcium 8.7 mg/dL (8.4-10.2); Carbon Dioxide 23 mmol/L (22-30); Chloride 103 mmol/L (98-107); Estimated CRCL calculation 114 ml/min; Estimated Glomerular Filt Rate > 60; Glucose 183 mg/dL (65-110); Lipase 98 U/L (23-300); Magnesium 1.9 mg/dL (1.6-2.3); Sodium 136 mmol/L (137-145)
[2024-11-01 03:04] LABS: D Dimer 0.95 ug/mL (<0.48)
[2024-11-01 03:04] LABS: Ethanol < 10 mg/dL (<10)
--- OUTSIDE RECORDS SUMMARY | 2024-11-01 03:07 | XMS_ITS | Encounter Summary ---
Author Organization [facility] Address [address] [place] [address] Phone Care Team Providers Care Hedis Specialist Name Role Phone Perez Humphrey MD Primary Care Provider [phone] Reason for Visit * Reason Onset Date Comments Advice Only 10/18/2024 Leg Swelling 10/18/2024 Encounter Details Date Type Department Care Team (Late st Contact Info) Description 10/18/2024 [facility] [address] [place] [address] Perez Humphrey MD [address] [address] Advice Only; Leg Swelling Social History Tobacco Use Types [...] encounter Miscellaneous Notes * Telephone Encounter - Alisa Terry RN - 10/18/2024 11:16 AM CDT SITUATION: Leg Swelling BACKGROUND: Migue contacting PCP office. Patient reported that both his legs are swelling. Reported right leg is starting to swell more, andsymptoms started last week. Per chart review, patient was last seen in office on 09/08/24. Patient was last seen in emergency department at [facility] on 10/14/24 for leg swelling, but stated his right leg started swelling more. ASSESSMENT: Symptom Description / Location: Patient reported both legs are turning red Patient reported legs are tight Moderate swelling Right leg swelling is new Left side has a tinge of blue color to his leg Denies chest pain -shortness of breath/difficulty breathing -leg pain -painful to touch -history of blood clots, cancer, heart failure, kidney disease, liver failure Pain: Caller denies pain. Fever: Denies fever. Treatment / Response: Tylenol with no relief. RECOMMENDATION: Go to emergency department now. Patient/caller refuses disposition of: GO to ED now Reiterated the importance of following recommendation as symptoms could indicate a serious or life-threatening situation Patient response: Migue requesting appointment in office as opposed to emergency department. Advised that appointment may be cancelled by provider and provider may direct patient to ED for evaluation. Caller aware and verbalized understanding and agreement with plan. Provider to review and advise on change in plan of care due to ED refusal. Please advise with provider's recommendations on if patient can be placed into PP Block [address] 1:[address] Perez Humphrey on 10/19/24? Patient would like a phone call back if able to be placed into appointment slot. Verified medication, pharmacy, and allergies Verified Assisted Services Routed note high priority to provider for further review. - See care advice and disposition for Guideline. First positive answer recorded, all responses to prior questions were negative. If symptoms increase, change or if new symptoms develop, call your health care provider or call back. Recommendations were based on caller information and is not a diagnosis. Verified and reviewed all triage information with caller. Reason for Disposition Entire foot is cool or blue in comparison to other side Protocols used: Leg Swelling and Edema-A-[place] * Telephone Encounter - Jayna Shi - 10/18/2024 11:08 AM CDT Symptom: Leg Swelling - Not From Injury Outcome: Transfer to hotel maintenance engineer queue Reason: Discoloration (purple, blue, white, pale) The caller accepted this outcome. Caller Denied: * Trouble breathing * Chest pain documented in this encounter Plan of Treatment Upcoming Encounters Date Type Department Care Team (Late st Contact Info) Description 11/03/2024 1:00 PM CDT Office Visit [facility] [address] [place] [address] Perez Humphrey MD #2 [facility] [address] [place] [address] 11/17/2024 11:45 AM CDT Office Visit [facility] [address] [place] [address] Sharri Cisneros MD 2 [facility] [address] [place] [address] 01/06/2025 1:30 PM CDT Office Visit [facility] [place] [address] [place] [address] Perez Humphrey MD #2 [facility] [address] [place] [address] documented as of this encounter Visit Diagnoses Not on filedocumented in this encounter Additional Health Concerns Assessment Noted Time PHQ-9 Depression Total Score: 0 11/11/19 24 6:26 PM CDT documented as of this encounter Care Teams Hedis Specialist Relationship Specialty Start Date End Date Perez Humphrey MD [id number] [address] PCP - General Family Medicine 11/11/23 documented as of this encounter
--- OUTSIDE RECORDS SUMMARY | 2024-11-01 03:07 | XMS_ITS | Data Portability ---
Author Organization [place] - [facility], Main Office Address [address] [place] [address] Care Team Providers Care Manager Event Name Role Phone DIANN CORDERO Primary Care Provider DIANN CORDERO Referring Provider Assessment No assessment recorded. Plan of Treatment Reminders Order Date Submit Date Provider Last Modified By Organization Details Last Modified Time Details Appointments None recorded. Lab TSH, serum or plasma 2022 024 [email or web address] 2 Not available 4 10:51:23 CBC w/ auto diff 2022 023 ABIEL Not available 3 09:12:58 CMP, serum or plasma 2022 024 [email or web address] 2 Not available 4 10:51:23 Referral None recorded. Procedures None recorded. Surgeries None recorded. Imaging None recorded. Medication Orders doxycycline hyclate 100 mg capsule 2022 023 [id number] [address] [place], [place], [id number], 3 12:45:16 prednisone 10 mg tablet 2022 023 [facility] #[id number], [address] [place], [place], [id number], 3 12:45:16 tamsulosin 0.4 mg capsule 2022 023 [id number], [address], [place], [place], [id number], 3 12:49:24 amoxicillin 875 mg tablet 2022 023 [id number], [address], [place], [place], [id number], 3 12:53:50 Patient TargetsNo targets recorded. Patient InstructionsNo instructions recorded. Reason for Referral None Reported. Results Created Date Observation Date Name Description Value Unit Range Abnormal Flag Note LastModifiedBy Organization Detail LastModifiedTime 05/08/2005/08/2023 COMPR EHENS DEDE METAB OLIC PANEL sodium 135 mmol/ L 137-14 5 low Not Available [facility] (Lab) [address] [place], [address], 05/08/2023 20:51:29 05/08/20 23 05/08/2023 COMPR EHENS DEDE METAB OLIC PANEL potassium 4.5 mmol/ L 3.5-5. 1 Not Available [facility] (Lab) [address] [place], [address], 05/08/2023 20:51:29 05/08/20 23 05/08/2023 COMPR EHENS DEDE METAB OLIC PANEL chloride 100 mmol/ L 98-107 Not Available [facility] (Lab) [address] [place], [address], 05/08/2023 20:51:29 05/08/20 23 05/08/2023 COMPR EHENS DEDE METAB OLIC PANEL carbon dioxide 26 mmol/ L 22-30 Not Available [facility] (Lab) [address] [place], [address], 05/08/2023 20:51:29 05/08/20 23 05/08/2023 COMPR EHENS DEDE METAB OLIC PANEL anion gap 13.5 mmol/ L 14-22 low Not Available [facility] (Lab) [address] [place], [address], 05/08/2023 20:51:29 05/08/20 23 05/08/2023 COMPR EHENS DEDE METAB OLIC PANEL glucose 106 mg/dL 70-99 high Not Available [facility] (Lab) [address] [place], [address], 05/08/2023 20:51:29 05/08/20 23 05/08/2023 COMPR EHENS DEDE METAB OLIC PANEL BUN 23 mg/dL 8-19 high Not Available [facility] (Lab) [address] [place], [address], 05/08/2023 20:51:29 05/08/20 23 05/08/2023 COMPR EHENS DEDE METAB OLIC PANEL creatinine 0.65 mg/dL 0.66-1 .25 low Not Available [facility] (Lab) [address] [place], [address], 05/08/2023 20:51:29 05/08/20 23 05/08/2023 COMPR EHENS DEDE METAB OLIC PANEL GFR >60 Refer ence Range : [facility] GFR Healt hy Adult : >60 mL/mi n/1.7 3 m2 Chron ic Kidne y Disea se: 15-60 mL/mi n/1.7 3 m2 Kidne y Failu re: <15/m L/min /1.73 m2 www.n iddk. nih.g ov The MDRD study equat ion has not been valid ated in child my <18 years of age; pregn ant women ; the elder ly >85 years of age; or in some racia l or ethni c subgr oups, such as Hispa nics. Outsi de the valid ated kush eters , estim ated GFR is less accur ate, requi ring clini christine judgm ent on a case- by-ca se basis . Clini christine inter preta tion for other races and ages must be made by the clini walter. The MDRD study equat ion has not been valid ated for the evalu ation of serum creat inine relat ed to nutri germán l statu s or medic ation usage . For perso ns <18 years of age, a pedia tric GFR calcu lator is avail able on the [facility] websi te: https :[email or web address] [email or web address].manuel serrano/pr ofess ional s/kdo qi/gf r_cal culat or Not Available [facility] (Lab) [address] [place], [address], 05/08/2023 20:51:29 05/08/20 23 05/08/2023 COMPR EHENS DEDE METAB OLIC PANEL alkaline phosphatase 79 U/L 38-126 Not Available [facility] (Lab) [address] [place], [address], 05/08/2023 20:51:29 05/08/20 23 05/08/2023 COMPR EHENS DEDE METAB OLIC PANEL alanine aminotransfe rase 25 U/L 0-50 Not Available [facility] (Lab) [address] [place], [address], 05/08/2023 20:51:29 05/08/20 23 05/08/2023 COMPR EHENS DEDE METAB OLIC PANEL aspartate aminotransfe rase 30 U/L 15-46 Not Available [facility] (Lab) [address] [place], [address], 05/08/2023 20:51:29 05/08/20 23 05/08/2023 COMPR EHENS DEDE METAB OLIC PANEL bilirubin, total 1.00 mg/dL 0.20-1 .30 Not Available [facility] (Lab) [address] [place], [address], 05/08/2023 20:51:29 05/08/20 23 05/08/2023 COMPR EHENS DEDE METAB OLIC PANEL calcium 9.1 mg/dL 8.4-10 .2 Not Available [facility] (Lab) [address] [place], [address], 05/08/2023 20:51:29 05/08/20 23 05/08/2023 COMPR EHENS DEDE METAB OLIC PANEL total protein 6.0 g/dL 6.3-8. 2 low Not Available [facility] (Lab) [address] [place], [address], 05/08/2023 20:51:29 05/08/20 23 05/08/2023 COMPR EHENS DEDE METAB OLIC PANEL albumin 3.6 g/dL 3.0-4. 4 Not Available [facility] (Lab) [address] [place], [address], 05/08/2023 20:51:29 05/08/20 23 05/08/2023 COMPR EHENS DEDE METAB OLIC PANEL globulin 2.4 g/dL 2.6-4. 2 low Not Available [facility] (Lab) [address] [place], [address], 05/08/2023 20:51:29 05/08/20 23 05/08/2023 COMPR EHENS DEDE METAB OLIC PANEL A/G ratio 1.5 ratio 1.0-2. 0 Not Available [facility] (Lab) [address] [place], [address], 05/08/2023 20:51:29 05/08/20 23 05/08/2023 CBC W/O DIFFE RENTI AL white blood cells 11.8 x10'3 /uL 4.2-10 .8 high Not Available [facility] (Lab) [address] [place], [address], 05/08/2023 20:54:11 05/08/20 23 05/08/2023 CBC W/O DIFFE RENTI AL red blood cells 4.73 x10'6 /uL 4.10-5 .80 Not Available [facility] (Lab) [address] [place], [address], 05/08/2023 20:54:11 05/08/20 23 05/08/2023 CBC W/O DIFFE RENTI AL hemoglobin 14.4 g/dL 13.2-1 7.0 Not Available [facility] (Lab) [address] [place], [address], 05/08/2023 20:54:11 05/08/20 23 05/08/2023 CBC W/O DIFFE RENTI AL hematocrit 44.5 % 39.3-5 0.0 Not Available [facility] (Lab) [address] [place], [address], 05/08/2023 20:54:11 05/08/20 23 05/08/2023 CBC W/O DIFFE RENTI AL mean red cell volume 94.1 fL 80.0-9 7.0 Not Available [facility] (Lab) [address] [place], [address], 05/08/2023 20:54:11 05/08/20 23 05/08/2023 CBC W/O DIFFE RENTI AL mean red cell hemoglobin 30.4 pg 27.0-3 3.0 Not Available [facility] (Lab) [address] [place], [address], 05/08/2023 20:54:11 05/08/20 23 05/08/2023 CBC W/O DIFFE RENTI AL mean RBC HGB concentratio n 32.4 g/dL 31.0-3 6.0 Not Available [facility] (Lab) [address] [place], [address], 05/08/2023 20:54:11 05/08/20 23 05/08/2023 CBC W/O DIFFE RENTI AL red cell distribution width 13.3 % 11.8-1 5.5 Not Available [facility] (Lab) [address] [place], [address], 05/08/2023 20:54:11 05/08/20 23 05/08/2023 CBC W/O DIFFE RENTI AL platelets 158 x10'3 /uL 150-40 0 Not Available [facility] (Lab) [address] [place], [address], 05/08/2023 20:54:11 05/08/20 23 05/08/2023 CBC W/O DIFFE RENTI AL mean platelet volume 13.2 fL 9.0-12 .4 high Not Available [facility] (Lab) [address] [place], [address], 05/08/2023 20:54:11 05/08/20 23 05/08/2023 TSH thyroid-stim ulating hormone 2.420 uIU/m L 0.465- 4.680 Not Available [facility] (Lab) [address] [place], [address], 05/08/2023 21:27:36 07/17/19 22 07/17/2021 imagi ng/di agnos tic resul t No observ ation record ed. [id number] [facility], [place], [address], 08/21/2022 06:18:52 07/30/19 22 07/30/2021 XR, chest , 2 view No observ ation record ed. [id number], [place], [address], 08/21/2022 06:18:52 07/30/19 22 XR, chest , 2 view [facility] [address] [facility] [place] [address] Patien t Name: KOREY UNDERWOOD Access ion #: [id number] Sex: M : 1949 6 Locati on: RA2 Attend ing Physic eilane: ELREYNALDOAT IB, RUNDA Orderi ng Physic eliane: ELKHAT IB, RUNDA Exam Date: 07/30/19 3:29 PM Exam Name: XR CHEST 2V Admitt ing Diagno sis(es ): RADIOL OGY REPORT - FINAL EXAM: XR CHEST 2V HISTOR Y: histor y of pneumo donald 71-yea r-old male with recent pneumo donald, cough, shortn ess of breath , chest conges tion. COMPAR AD: Chest x-ray dated 2018. TECHNI QUE: 2 views of the chest were perfor med. FINDIN GS: There may be mild opacit ies in the lung bases versus artifa ctual appear ance due to abunda nt overly ing soft tissue . No pneumo thorax , pleura l effusi ons, or pulmon beto edema. The heart is not enlarg ed. The aortic arch is calcif ic. There is modera te to severe thorac ic degene rative disc diseas e. No fractu res are identi fied about the bony thorax . Page 1 of 2 [facility] Patien t Name: KOREY UNDERWOOD Access ion #: [id number] Sex: M : 1949 5 Exam Date: 07/30/19 3:29 PM Exam Name: XR CHEST 2V Admitt ing Diagno sis(es ): IMPRES [place]: Questi on of mild lung base opacit ies versus artifa ctual appear ance relate d to the patien t's large body habitu s. Create d and electr onical ly signed by: Hai pandya MD Signed Date: 07/30/19 9:01 PM (CT) Dictat ed by: Hai pandya MD (CT) (CT) Page 2 of 2 [id number] [facility] (Imaging) [address] [place], [address], 08/21/2022 06:18:52 08/07/19 22 08/07/2021 imagi ng/di agnos tic resul t No observ ation record ed. [id number] [facility] [place], [address], 08/21/2022 06:18:52 08/08/19 22 08/08/2021 imagi ng/di agnos tic resul t No observ ation record ed. [id number] [facility] [place], [address], 08/21/2022 06:18:52 09/07/19 22 08/28/2021 imagi ng/di agnos tic resul t No observ ation record ed. [id number] [facility] [address] [place] [address] [address], [place], [address], 08/21/2022 06:18:52 Result Notes None recorded. Problems Name Problem SNOMED Code Status Onset Date Resolution Date Notes Provider Name and Address Organization Details Recorded Time Nocturia 175123748 Active Not Available [facility] 4 14:59:05 Pain of left ankle joint 57209405685 882855 Active 2020 Not Available [facility] 4 14:59:05 Pain in throat 123504627 Completed Not Available [facility] 3 06:14:14 Impacted cerumen 77542958 Completed Not Available [facility] 3 06:14:15 Tremor 28145276 Active Not Available [facility] 4 14:59:05 Knee pain Active Not Available [facility] 4 14:59:05 Sinusitis 88426282 Completed Not Available [facility] 3 06:14:15 Hypertens dede disorder 15227166 Active Not Available [facility] 4 14:59:05 Osteoarth ritis 887319073 Active Not Available [facility] 4 14:59:05 Obesity 619726187 Active Not Available [facility] 4 14:59:05 Herpes simplex virus epithelia l keratitis 559909339 Active Not Available [facility] 4 14:59:05 Mass of pancreas 703487068 Active 2019 Not Available [facility] 4 14:59:05 Acute urinary tract infection 063262463 Completed Not Available [facility] 3 06:14:15 Coronary atheroscl erosis 213802259 Active 2017 Not Available [facility] 4 14:59:05 Anxiety 34103603 Active Not Available [facility] 4 14:59:05 Pain of hip region 91433101 Completed Not Available [facility] 3 06:14:15 Cough 96595714 Completed Not Available [facility] 3 06:14:15 Hyperlipi demia 75634014 Active Not Available [facility] 4 14:59:05 Posterior rhinorrhe a 19549787 Active Not Available [facility] 4 14:59:05 Chronic pain 26048783 Active Not Available [facility] 4 14:59:05 Fatigue 12821943 Completed Not Available [facility] 3 06:14:16 Toothache 53529032 Active 2022 Not Available [facility] 4 14:59:05 Edema of lower extremity 452199616 Active 2022 Not Available [facility] 4 14:59:05 Chronic obstructi ve pulmonary disease 22438089 Active 2022 Not Available [facility] 4 14:59:05 Upper respirato ry infection 67221117 Active 2022 Not Available [facility] 4 14:59:05 Bronchiti s 34466305 Active 2022 Not Available [facility] 4 14:59:05 Benign prostatic hyperplas ia 265352966 Active 2022 Not Available [facility] 4 14:59:05 Edema of left lower leg 825169981 Active 2022 Not Available [facility] 4 14:59:05 Muscle weakness 34874102 Active 2022 Not Available [facility] 4 14:59:05 Malaise and fatigue 916251293 Active 2022 Not Available [facility] 4 14:59:05 Morbid obesity 137558353 Active 2022 Not Available [facility] 4 14:59:05 Low back pain 924614689 Active 2022 Not Available [facility] 4 14:59:05 Overactiv e urinary bladder 278749376 Active 2022 Not Available [facility] 4 14:59:05 Notes:Some problems listed i n Documents: #[id number], #[id number], #[id number] could not be added to this patient's chart. Please review these documents and add these problems to the patient's chart manually as needed. Problem Notes None recorded. Procedures Surgical History Date Name Laterality Status Provider Name and Address Organization Details Recorded Time Cardiac Stent Placement completed Not Available [facility] 08/21/2022 06:10:39 Imaging Results Imaging Date Name Status [facility]Modified by [facility] Details LastModified Time 07/17/2021 imaging/shantell gnostic result completed [id number] [facility] [place], [address], 08/21/2022 06:18:52 08/08/2021 imaging/shantell gnostic result completed [id number] 026 [facility] [place], [address], 08/21/2022 06:18:52 08/07/2021 imaging/shantell gnostic result completed [id number] 026 [facility] [place], [address], 08/21/2022 06:18:52 07/30/2021 XR, chest, 2 view completed [id number] 026 [facility] [address] , [place], [address], 08/21/2022 06:18:52 07/30/2021 XR, chest, 2 view completed [id number] [facility] (Imaging) [address], [place], [address], 08/21/2022 06:18:52 08/28/2021 imaging/shantell gnostic result completed [id number] [facility] [address] [facility] [address], [place], [address], 08/21/2022 06:18:52 Procedure Notes None recorded. Medical Equipment None Reported. Allergies Allergen ID Allergen Name Allergen Category Reaction Reaction Severity Criticality Documentation Date Start Date Code Code System Note Provider Name and Address Organization Details Recorded Time 37230 lisinopri l medicatio n cough Not available Not available 08/21/2022 15659 RxNorm Not Available [facility] 3 06:18:42 03776 Crestor medicatio n myalgias (muscle pain) Not available Not available 08/21/2022 38455 4 RxNorm leg cramp s Not Available [facility] 3 06:18:42 Medications Name Sig Start Date Stop Date Status Note LastModified by Organization Details LastModified Time cyclobenza juliana 10 mg tablet TAKE ONE TABLET BY MOUTH AT BEDTIME 09/23 completed Not Available Not Available Not Available atorvastat in 40 mg tablet TK 1 T PO QAM 07/28 completed Not Available Not Available Not Available methocarba mol 500 mg tablet Take 1 tablet 4 times a day by oral route as needed. 2022 active Not Available Not Available Not Avai lable atorvastat in 80 mg tablet TAKE 1 TABLET BY MOUTH EVERY NIGHT AT BEDTIME active Not Available Not Available No t Available prednisone 10 mg tablet Take 4 tabs daily x 3 days then 3 tabs daily x 3 days then 2 tabs daily x 3 day then 1 tab daily x 3 days then stop active Not Available Not Available No t Available doxycyclin e hyclate 100 mg capsule TAKE 1 CAPSULE BY MOUTH TWICE DAILY active Not Available Not Available No t Available azithromyc in 250 mg tablet FOLLOW PACKAGE DIRECTIO NS active Not Available Not Available No t Available tizanidine 4 mg tablet TAKE 1 TABLET BY MOUTH EVERY 8 HOURS NEEDED 10/16 completed Not Available Not Available Not Available benzonatat e 200 mg capsule Take 1 capsule 3 times a day by oral route as needed. 2022 active Not Available Not Available Not Avai lable metoprolol succinate ER 50 mg tablet,ext ended release 24 hr TAKE 1 TABLET BY MOUTH EVERY DAY active Not Available Not Available No t Available valacyclov ir 1 gram tablet Take 2 tablet(s ) EVERY 12 HOURS by oral route for one day. active Not Available Not Available No t Available Lotrisone 1 %-0.05 % topical cream Apply 1 applicat ion twice a day by topical route. active Not Available Not Available No t Available hydrocodon e 5 mg-acetami nophen 325 mg tablet TK 1 T PO TID PRN 07/19 completed Not Available Not Available Not Available Celestone Soluspan 6 mg/mL suspension for injection active [facility]# 40636-0 720-01 Not Available Not Available Not Available ondansetro n HCl 8 mg tablet Take 1 tablet every 8 hours by oral route as needed for 5 days. 07/28 completed Not Available Not Available Not Available prednisone 20 mg tablet 07/28 completed Not Available Not Available Not Available clopidogre l 75 mg tablet TK 1 T PO QD 10/16 completed Not Available Not Available Not Available ciprofloxa jean pierre 500 mg tablet TAKE 1 TABLET BY MOUTH EVERY 12 HOURS FOR 7 DAYS active Not Available Not Available No t Available Tamiflu 75 mg capsule Take 1 capsule twice a day by oral route for 5 days. 09/23 completed Not Available Not Available Not Available hydrocodon e 10 mg-acetami nophen 325 mg tablet TAKE 1 TABLET BY MOUTH THREE TIMES DAILY NEEDED active Not Available Not Available No t Available triamcinol one acetonide 0.1 % topical cream APPLY THIN LAYER TOPICALL Y TO THE AFFECTED AREA TWICE DAILY active Not Available Not Available No t Available Guiatuss AC 10 mg-100 mg/5 mL oral liquid Take 5 mL every 4-6 hours by oral route as needed for 10 days. active Not Available Not Available No t Available amoxicilli n 875 mg tablet TAKE 1 TABLET BY MOUTH EVERY 12 HOURS FOR 10 DAYS active Not Available Not Available No t Available alprazolam 0.25 mg tablet TAKE 1 TABLET BY MOUTH 3 TIMES A DAY 10/16 completed Not Available Not Available Not Available amitriptyl ine 25 mg tablet TK 1 T PO QD HS 10/16 completed Not Available Not Available Not Available tamsulosin 0.4 mg capsule active Not Available Not Available Not Available meclizine 25 mg tablet 10/09 completed Not Available Not Available Not Available benzonatat e 100 mg capsule TAKE 1 CAPSULE BY MOUTH EVERY 8 HOURS NEEDED active Not Available Not Available No t Available hydrocodon e 7.5 mg-acetami nophen 325 mg tablet TAKE 1 TABLET BY MOUTH THREE TIMES DAILY 10/16 completed Not Available Not Available Not Available cephalexin 500 mg capsule TK 1 C PO Q 8 H 07/19 completed Not Available Not Available Not Available pantoprazo le 40 mg tablet,del ayed release TK 1 T PO D 10/16 completed Not Available Not Available Not Available tobramycin 0.3 % eye drops active Not Available Not Available Not Available hydrocodon e 7.5 mg-acetami nophen 750 mg tablet TAKE 1 TABLET BY MOUTH EVERY 6 HOURS NEEDED active Not Available Not Available No t Available diclofenac sodium 75 mg tablet,del ayed release TAKE ONE TABLET BY MOUTH TWICE DAILY 09/23 completed Not Available Not Available Not Available montelukas t 10 mg tablet 09/23 completed Not Available Not Available Not Available ceftriaxon e 500 mg solution for injection active [facility]# 87057-3 338-01 Not Available Not Available Not Available pravastati n 20 mg tablet Take 1 tablet every day by oral route for 90 days. active muscle aches Not Available Not Available Not Available hydrochlor othiazide 25 mg tablet TAKE 1 TABLET BY MOUTH EVERY DAY 05/13 completed Not Available Not Available Not Available furosemide 20 mg tablet TAKE 1 TABLET BY MOUTH EVERY DAY 10/16 completed Not Available Not Available Not Available methylpred nisolone 4 mg tablets in a dose pack use as directed . 09/23 completed Not Available Not Available Not Available albuterol sulfate HFA 90 mcg/actuat ion aerosol inhaler active Not Available Not Available Not Available ondansetro n 4 mg disintegra ting tablet 10/09 completed Not Available Not Available Not Available doxycyclin e hyclate 100 mg tablet TAKE 1 TABLET BY MOUTH TWICE DAILY FOR 10 DAYS active Not Available Not Available No t Available dicyclomin e 10 mg capsule Take 1 capsule 3 times a day by oral route as needed. 10/16 completed Not Available Not Available Not Available diazepam 5 mg tablet 1 tab 1/2 hour prior to procedur e. (MRI) 10/16 completed Not Available Not Available Not Available metoclopra mide 10 mg tablet Take 1 tablet 4 times a day by oral route. 10/16 completed Not Available Not Available Not Available amoxicilli n 875 mg-potassi um clavulanat e 125 mg tablet TK 1 T PO Q 12 H FOR 10 DAYS 07/28 completed Not Available Not Available Not Available Zetia 10 mg tablet active BACK AND MUSCLE PAIN Not Available Not Available Not Available oxymetazol ine 0.05 % nasal spray [place] 1 spray twice a day by intranas al route as directed for 10 days. active Not Available Not Available No t Available rosuvastat in 5 mg tablet 1/2 tablet 10/09 completed Not Available Not Available Not Available Cialis 5 mg tablet Take 1 tablet every day by oral route for 30 days. 07/28 completed Not Available Not Available Not Available metoprolol tartrate 25 mg tablet TK 1 T PO Q 12 H 09/23 completed Not Available Not Available Not Available Boostrix Tdap 2.5 Lf unit-8 mcg-5 Lf/0.5 mL intramuscu lar syringe active Not Available Not Available Not Available Cholestyra mine Light 4 gram oral powder TAKE 2 SCOOPS A DAY MIXED WITH JUICE OR BEVERAGE active Not Available Not Available No t Available Brilinta 90 mg tablet TK 1 T PO BID 07/28 completed Not Available Not Available Not Available Myrbetriq 25 mg tablet,ext ended release Take 1 tablet every day by oral route. 2022 active Not Available Not Available Not Avai lable Jardiance 10 mg tablet 10/16 completed Not Available Not Available Not Available Flonase Allergy Relief 50 mcg/actuat ion nasal spray,susp ension [place] 2 sprays every day by intranas al route. 07/16 completed Not Available Not Available Not Available Vitals Date Recorded Body mass index (BMI) Body height Oxygen saturation Oxygen saturation in Arterial blood by Pulse oximetry Heart rate Body temperature Body weight Systolic blood pressure Diastolic blood pressure Provider Name and Address Organization Details Last Updated DateTime 2 49.7 kg/m2 175.26 cm 95 % 95 % 75 /min 97.7 [degF] 558226. 19 g 125 mm[Hg] 70 mm[Hg] Not Available [facility] 3 06:12:43 Date Recorded Body mass index (BMI) Body height Oxygen saturation Oxygen saturation in Arterial blood by Pulse oximetry Heart rate Body temperature Body weight Systolic blood pressure Diastolic blood pressure Provider Name and Address Organization Details Last Updated DateTime 2 49.5 kg/m2 175.26 cm 97 % 97 % 72 /min 97.7 [degF] 349790. 44 g 160 mm[Hg] 80 mm[Hg] Not Available [facility] 3 06:12:43 Date Recorded Body height Body mass index (BMI) Body weight Body temperature Heart rate Oxygen saturation Oxygen saturation in Arterial blood by Pulse oximetry Systolic blood pressure Diastolic blood pressure Provider Name and Address Organization Details Last Updated DateTime 3 175.26 cm 50.4 kg/m2 023049 g 97.7 [degF] 80 /min 96 % 96 % 160 mm[Hg] 80 mm[Hg] [facility] 12:37:09 Date Recorded Body height Body mass index (BMI) Body weight Body temperature Heart rate Oxygen saturation Oxygen saturation in Arterial blood by Pulse oximetry Systolic blood pressure Diastolic blood pressure Provider Name and Address Organization Details Last Updated DateTime 3 175.26 cm 49.6 kg/m2 259849. 04 g 97.7 [degF] 63 /min 95 % 95 % 130 mm[Hg] 80 mm[Hg] [facility] 12:33:57 Date Recorded Body height Body mass index (BMI) Body weight Body temperature Heart rate Oxygen saturation Oxygen saturation in Arterial blood by Pulse oximetry Provider Name and Address Organization Details Last Updated DateTime 3 175.26 cm 49.4 kg/m2 654935. 95 g 97.3 [degF] 77 /min 91 % 91 % Serena Arzola MA [employer] [facility] 14:16:51 Social History Question Answer Notes LastModified by [employer] Details LastModified Time Tobacco Smoking Status Former Smoker 1ppd Not Available [facility] 08/21/2022 06:10:23 In The 14 Days Before Symptom Onset, Have You Had Close Contact With A Laboratory-confirm ed COVID-19 While That Case Was Ill? No [id number] Information not available 08/21/2022 In The 14 Days Before Symptom Onset, Have You Had Close Contact With A Person Who Is Under Investigation For COVID-19 While That Person Was Ill? No [id number] Information not available 08/21/2022 What Type Of Diet Are You Following? REGULAR [id number] Information not available 08/21/2022 How Many Years Have You Smoked Tobacco? 12 [id number] Information not available 08/21/2022 Have You Recently Traveled Abroad? No [id number] Information not available 08/21/2022 Do You Have Any Dietary Restrictions? 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 Family History Relationship Description Onset Age of this Age Resolved Age Notes LastModified by Organization Details LastModified Time Father Alzheimer's disease [id number] Not available 08/21/2022 06:10:41 Father Hypertensive disorder [id number] Not available 08/21/2022 06:10:41 Mother Alzheimer's disease [id number] Not available 08/21/2022 06:10:41 Mother Hypertensive disorder [id number] Not available 08/21/2022 06:10:41 Medical History No medical history recorded. Immunizations Vaccine Type Date Status Note Provider Nam e and Address Organization Details Recorded Time Influenza, split virus, quadrivalent, preservative 7 completed Not Available [facility] 07/06/2023 23:50:50 Tdap 6 completed Not Available [facility] 07/06/2023 23:50:50 Influenza, high-dose, quadrivalent, PF 0 completed Not Available [facility] 07/06/2023 23:50:50 Tdap 6 completed Not Available [facility] 07/06/2023 23:50:50 Influenza, high-dose, trivalent, PF 6 completed Not Available [facility] 07/06/2023 23:50:50 Influenza, split virus, trivalent, preservative 4 completed Not Available [facility] 07/06/2023 23:50:50 Influenza, high-dose, quadrivalent, PF 3 completed Diann Davila MD [address], [place], [address], [place] [employer] [facility] 05/09/2023 08:37:55 Pneumococcal conjugate PCV 13 3 completed Diann Davila MD [address], [place], [address], [place] [employer] [facility] 05/09/2023 08:37:55 Past Encounters Encounter ID Performer Location Encounter Start Date Encounter Closed Date Diagnosis/Indication Diagnosis SNOMED-CT Code Diagnosis ICD10 Code Diagnosis Note [id number] Diann Davila MD [facility] Nathanael ramírez [address] [place] [address] 01/22/2021 00:00:00 01/22/2021 21:14:20 [id number] [facility] [place] [address] [facility] [address] [place] [address] 04/16/2021 00:00:00 04/17/2021 14:01:27 [id number] Diann Davila MD [facility] Nathana[address] llya [address] [place] [address] 07/23/2021 00:00:00 07/23/2021 20:19:31 [id number] Diann Davila MD [facility] Nathanael ramírez [address] [place] [address] 08/14/2021 00:00:00 08/15/2021 06:44:23 [id number] Diann Davila MD [facility] Nathanael llya [address] [place] [address] [place] [address] 05/13/2022 00:00:00 05/13/2022 14:16:01 [id number] Diann Davila MD [facility] Nathanael ramírez [address] [place] [address] [place] [address] 10/16/2022 12:25:17 10/16/2022 12:52:55 Toothache 98914012 K08.89 gargles with warm salt water. Edema of l ower extremity 651960153 R60.0 Use compressio n stockings. [id number] Diann Davila MD [facility] Nathanael ramírez [address] [place] [address] [place] [address] 01/14/2023 12:27:41 01/14/2023 12:56:03 Bronchitis 67002407 J40 Benign pro static hyperplasia 389105571 N40.0 Edema of l eft lower leg 875266646 R60.0 Use compressio n stockings. [id number] Diann Davila MD [facility] Devanlorena llya [address] [place] [address] [place] [address] 05/08/2023 13:58:40 05/08/2023 15:18:17 Administration of influenza vaccine 55740455 Z23 Immunization due 0271857 08 Z28.39 Muscle weakness 74080341 M62.81 May want to start PT Malaise and fatigue 2717 19857 R53.83 Morbid obesity 672869472 E66.01 Gave phentermin e but he has CAD and has had MS so told pharmacy not to fill. Health Concerns Section Related Observation LastModified by Organization Detai ls LastModified Time None Recorded Concern Status LastModified by Organization Details LastModified Time None Recorded Advance Directives Directive None Recorded Payers Encounter Date Sequence Insurance Name Policy Number Policy Lees Covered Member ID Lees Member ID Guarantor Name 10/16/2022 1 [employer] - [employer] - MEDICARE COMPLETE PLAN 1 (MEDICARE REPLACEMENT HMO) [id number] Korey Fairbanks [id number] Korey Fairbanks 01/14/2023 1 [employer] - [employer] - MEDICARE COMPLETE PLAN 1 (MEDICARE REPLACEMENT HMO) [id number] Korey Fairbanks [id number] Korey Fairbanks 05/08/2023 1 [employer] - [employer] - MEDICARE COMPLETE PLAN 1 (MEDICARE REPLACEMENT HMO) [id number] Korey Fairbanks [id number] Korey Fairbanks Notes Date Note Type Note Provider Name and Address Organization Details Recorded Time 10/16/2022 text/html Here today c/o tooth ache. Wanted antibiotics.Wants to do Go Lo and wants to know if it is safe. Can not take water pill d/t having to urinate too much and has urgency. Has swelling of legs and tries to put on compression stockings. His belly gets in the way so has to depend on family member to put them on. Diann Davila MD [address], [place], [address], [employer] 10/17/2022 06:16:38 01/14/2023 text/html Here today c/o bronchitis. Has taken zpack and benzonatate. Did a full course of amoxicillin too. Coughing and using the inhaler. No sob but is wheezing. Had a CXR possibly. No nasal congestion. Coughing up and spitting up phlegm.His left foot swells can not take a water pill Needs compression stockings.Going to the bathroom a lot. Urinates a lot.Has to go the bathroom and has urgency. Diann Davila MD [address], [place], [address], [employer] 01/14/2023 13:49:05 05/08/2023 text/html Here today c/o n ot feeling well. He is tired and weak. Has urgency and frequency and has not seen urologist.Has swelling of left lower leg. Can not get the compression stockings on and no one helps him. Has not had BW for awhile.Pt wants pneumonia vaccine and flu shot.Pt is obese and wants something for weight loss. He thinks his weight has a lot to do with his feeling the way he does. Diann Davila MD [address] [place] [address], [place], [address], [place] [facility] 05/09/2023 08:38:38
--- OUTSIDE RECORDS SUMMARY | 2024-11-01 03:07 | XMS_ITS | Clinical Summary ---
Author Organization [facility] Address [address] [place] [address] Phone Care Team Providers Care Soa Integration Architect Name Role Phone Perez Humphrey MD Primary Care Provider [phone] Allergies Active Allergy Reactions Criticality Noted Date Comments Lisinopril Other (see Comments) 10/08/2020 Rosuvastatin Other (see Comments) 10/08/2020 Medications aspirin EC 81 MG Tablet Delayed Response Take 81 mg by mouth daily. Active atorvastatin (LIPITOR) 80 MG Tablet TAKE 1 TABLET BY MOUTH EVERY NIGHT AT BEDTIME Active HYDROcodone-ac etaminophen (NORCO) 10-325 MG Tablet TAKE 1 TABLET BY MOUTH THREE TIMES DAILY NEEDED Active tamsulosin (FLOMAX) 0.4 MG Capsule Take 1 Capsule by mouth daily. Active metoprolol Succinate (TOPROL-XL) 50 MG TABLET SR 24 HR Take 1 Tablet by mouth daily. Active triamcinolone (KENALOG) 0.1 % Cream Application Site: apply daily to left calf (Description and Location) 80 g 11/11/19 24 Active albuterol 108 (90 Base) MCG/ACT Aerosol Solution INHALE 2 PUFFS BY MOUTH EVERY 4 HOURS NEEDED 6.7 g 1 04/13/20 24 Active furosemide (LASIX) 20 MG Tablet Take 1 Tablet by mouth daily. 90 Tablet 10/21/19 25 Active potassium chloride SA (KLORCON M) 20 MEQ Tablet Controlled Release Take 1 Tablet by mouth daily. 90 Tablet 10/21/19 25 Active Ozempic, 0.25 or 0.5 MG/DOSE, 2 MG/3ML Solution Pen-injector 0.5 mg by Subcutaneous route once a week. 3 mL 04/30/20 25 Active Ozempic, 0.25 or 0.5 MG/DOSE, 2 MG/3ML Solution Pen-injector 0.25 mg by Subcutaneous route once a week. 3 mL 1 09/09/19 25 025 Discontinu ed(Reorder ) azithromycin (ZITHROMAX) 250 MG Tablet Take 2 Tablets by mouth daily for 1 day, THEN 1 Tablet daily for 4 days. 2 tab(s) daily for 1 day, then 1 tab(s) daily for days 2-5. 6 Tablet 10/27/19 25 025 Encounters Date Type Department Care Team Description 10/26/2024 Telephone [facility] [address] [place] [phone] Perez Humphrey MD Medication Management; Advice Only 10/20/2024 3:15 PM CDT Office Visit [facility] [address] [place] [address] Perez Humphrey MD Peripheral edema (Primary Dx) Discharge Disposition: Discharged to home or Selfcare 10/20/2024 Travel 10/18/2024 Nurse Triage [address] [address] Perez Humphrey MD Advice Only; Leg Swelling 10/13/2024 Nurse Triage [address] [address] Perez Humphrey MD Appointment; Leg Swelling 09/08/2024 1:00 PM CDT Office Visit [facility] [address] [place] [address] Perez Humphrey MD BPH associated with nocturia (Primary Dx); Morbid obesity (HCC) Discharge Disposition: Discharged to home or Selfcare 09/08/2024 Travel 09/02/2024 12:30 PM CDT Office Visit [facility] [address] [place] [address] Perez Humphrey MD Pure hypercholesterolemia (Primary Dx); Primary hypertension; Coronary artery disease involving or[place]ar[place]iut coronary artery of or[place] heart without angina pectoris; Screening for prostate cancer; Bronchitis Discharge Disposition: Discharged to home or Selfcare 09/02/2024 Results Follow-Up [facility] [address] [place] [address] Perez Humphrey MD PSA SCREEN, LIPID PANEL, [...] Valent 05/08/2023 Pneumococcal conjugate PCV20 , polysaccharide KLN810 conjugate, adjuvant, PF 09/02/2024 TD VACCINE 10/12/2018 [...] Sign Reading Time Taken Comments Blood Pressure 132/72 10/20/2024 3:29 PM CDT Pulse 72 10/20/2024 3:29 PM CDT Temperature 36.3 C (97.4 F) 10/20/2024 3:29 PM CDT Respiratory Rate 20 10/20/2024 3:29 PM CDT Oxygen Saturation 97% 10/20/2024 3:29 PM CDT Inhaled Oxygen Concentration - - Weight 150.1 kg (331 lb) 10/20/2024 3:29 PM CDT Height 175.3 cm (5' 9 ) 10/20/2024 3:29 PM CDT Body Mass Index 48.88 10/20/2024 3:29 PM CDT Plan of Treatment Upcoming Encounters Date Type Department Care Team (Late st Contact Info) Description 11/03/2024 1:00 PM CDT Office Visit [facility] [address] [place] [address] Perez Humphrey MD [address]2 [facility] [address] [place] [address] 11/17/2024 11:45 AM CDT Office Visit [facility] Cardiology [facility] [address] [place] [address] Sharri Cisneros MD [address] [address] 01/06/2025 1:30 PM CDT Office Visit [facility] [address] [place] [address] Perez Humphrey MD [address] [address] Health Maintenance Due Date Last Done Comments [...] on patient's age to complete this topic Human Papillomavirus (HPV) Immunization Aged Out No longer eligible based on patient's age to complete this topic Meningococcal Immunization (ACWY) Aged Out No longer eligible based on patient's age to complete this topic Rotavirus Immunization Aged Out No lo nger eligible based on patient's age to complete this topic Procedures Procedure Name Priority Date/Time Associated Diagnosis Comments US - LOWER EXTREMITY 10/14/2024 12:00 AM CDT XR - CHEST 10/14/2024 12:[address] - HEAD/NECK 10/14/2024 12:00 AM CDT XR - CHEST 09/17/2024 12:00 AM CDT CBC WITH AUTO DIFFERENTIAL Today 09/02/2024 1:31 PM CDT Pure hypercholesterolemi a Primary hypertension Coronary artery disease involving [place] coronary artery of [place]ut heart without angina pectoris COMPLETE BLOOD COUNT (CBC) WITH DIFF Today 09/02/2024 1:31 PM CDT Pure hypercholesterolemi a Primary hypertension Coronary artery disease involving [place]iut coronary artery of or[place]iut heart without angina pectoris CMP (COMPREHENSIVE METABOLIC PANEL) Today 09/02/2024 1:31 PM CDT Pure hypercholesterolemi a Primary hypertension Coronary artery disease involving [place]ut coronary artery of or[place]armiut heart without angina pectoris LIPID PANEL Today 09/02/2024 1:31 PM CDT Pure hypercholesterolemi a Primary hypertension Coronary artery disease involving orutsararmiut coronary artery of orutsararmiut heart without angina pectoris PSA SCREEN Today 09/02/2024 1:31 PM CDT Pure hypercholesterolemi a Primary hypertension Coronary artery disease involving [place] coronary artery of or[place]ararmiut heart without angina pectoris Screening for prostate cancer from Last 3 Months Results * US - LOWER EXTREMITY (10/14/2024 12:00 AM CDT) 10/14/2024 us Provider Scan IMG US ORDERABLES Final Result Performing Organization Address City/[facility]/ZIP Co de Phone Number SCAN * XR - CHEST (10/14/2024 12:00 AM CDT) Only the most recent of2 resultswithin the time period is included. 10/14/2024 us Provider Scan IMG DIAGNOSTIC ORDERABLES Final Result Performing Organization Address City/[facility] Co de Phone Number SCAN * CT - HEAD/NECK (10/14/2024 12:00 AM CDT) 10/14/2024 us Provider Scan IMG CT ORDERABLES Final Result Performing Organization Address City/[facility] de Phone Number SCAN * (ABNORMAL) CBC WITH AUTO DIFFERENTIAL (09/02/2024 1:31 PM CDT) WBC 9.10 4.00 - 12.00 10(3)/mcL 09/02/2024 2:02 PM CDT [facility] RBC 4.96 4.40 - 5.80 10(6)/mcL 09/02/2024 2:02 PM CDT [facility] HEMOGLOBIN (HGB) 15.1 13.0 - 16.5 g/dL 09/02/2024 2:02 PM CDT [facility] HEMATOCRIT (HCT) 47.2 38.0 - 50.0 % 09/02/2024 2:02 PM CDT [facility] MCV 95.2 82.0 - 96.0 fL 09/02/2024 2:02 PM CDT [facility] MCH 30.4 26.0 - 32.0 pg 09/02/2024 2:02 PM CDT [facility] MCHC 32.0 31.0 - 36.0 g/dL 09/02/2024 2:02 PM CDT [facility] PLATELET COUNT 151 140 - 440 10(3)/mcL 09/02/2024 2:02 PM CDT [facility] RDW 14.0 11.8 - 15.5 % 09/02/2024 2:02 PM CDT [facility] MPV 12.2 8.0 - 12.6 fL 09/02/2024 2:02 PM CDT [facility] NEUTROPHILS 70.2(H) 40.0 - 68.0 % 09/02/2024 2:02 PM CDT [facility] LYMPHOCYTES 11.6(L) 19.0 - 49.0 % 09/02/2024 2:02 PM CDT [facility] MONOCYTES 14.4(H) 3.0 - 13.0 % 09/02/2024 2:02 PM CDT [facility] EOSINOPHILS 3.1 0.0 - 8.0 % 09/02/2024 2:02 PM CDT [facility] BASOPHILS 0.7 0.0 - 1.0 % 09/02/2024 2:02 PM CDT [facility] ABSOLUTE NEUTROPHILS 6.39(H) 1.40 - 5.30 10(3)/mcL 09/02/2024 2:02 PM CDT [facility] ABSOLUTE LYMPHOCYTES 1.06 0.90 - 3.30 10(3)/[facility] 09/02/2024 2:02 PM CDT [facility] ABSOLUTE MONOCYTES 1.31(H) 0.10 - 0.90 10(3)/[facility] 09/02/2024 2:02 PM CDT [facility] ABSOLUTE EOSINOPHIL 0.28 0.00 - 0.50 10(3)/[facility] 09/02/2024 2:02 PM CDT [facility] ABSOLUTE BASOPHILS 0.06 0.00 - 0.10 10(3)/[facility] 09/02/2024 2:02 PM CDT [facility] NRBC PER 100 WBC 0 09/03/19 25 2:02 PM CDT [facility] Blood Venipuncture / Unknown 09/02/2024 1:31 PM CDT 09/02/2024 1:58 PM CDT Perez Humphrey MD HEMATOLOGY ORDERABLES Final R esult Performing Organization Address [facility] Co de Phone Number [facility] [address] [place] [address] * PSA SCREEN (09/02/2024 1:31 PM CDT) Pathologist [facility] PSA SCREEN, TOTAL 0.15 <4.00 ng/mL 09/02/2024 2:40 PM CDT [facility] Blood Venipuncture / Unknown 09/02/2024 1:31 PM CDT 09/02/2024 1:58 PM CDT Narrative [facility] - 09/02/2024 2:40 PM CDT [employer] Total PSA assay is a Chemiluminescent Microparticle Immunoassay (CMIA) for the quantitative determination of total PSA (both free PSA and PSA complexed to [id number]) in human serum. Total PSA values obtained with different assay methods, including Centeno PSA assays, cannot be used interchangeably. Perez Humphrey MD CHEMISTRY ORDERABLES Final Re sult Performing Organization Address [facility] Co de Phone Number [facility] [address] [place] [address] * (ABNORMAL) LIPID PANEL (09/02/2024 1:31 PM CDT) CHOLESTEROL 131 <200 mg/dL 09/02/2024 2:22 PM CDT [facility] TRIGLYCERIDES 83 <150 mg/dL 09/02/2024 2:22 PM CDT [facility] HDL CHOLESTEROL 40(L) >40 mg/dL 2:22 PM CDT [facility] LDL 74 <130 mg/dL 09/02/2024 2:22 PM CDT [facility] VLDL 17 10 - 50 mg/dL 09/02/2024 2:22 PM CDT [facility] CHOL/HDL RATIO 3.3 0.0 - 4.4 09/02/2024 2:22 PM CDT [facility] NON-HDL CHOLESTEROL 91 <130 mg/dL 09/02/2024 2:22 PM CDT [facility] IS THE PATIENT REQUIRED TO BE FASTING? No 09/02/2024 2:22 PM CDT [facility] Blood Venipuncture / Unknown 09/02/2024 1:31 PM CDT 09/02/2024 1:58 PM CDT Perez Humphrey MD CHEMISTRY ORDERABLES Final Re sult [facility] [address] [place] [address] * (ABNORMAL) CMP (COMPREHENSIVE METABOLIC PANEL) (09/02/2024 1:31 PM CDT) SODIUM 137 136 - 145 mmol/L 09/02/2024 2:22 PM CDT [facility] POTASSIUM 4.5 3.5 - 5.1 mmol/L 09/02/2024 2:22 PM CDT [facility] CHLORIDE 104 98 - 107 mmol/L 09/02/2024 2:22 PM CDT [facility] CO2, VENOUS 25 22 - 30 mmol/L 09/02/2024 2:22 PM CDT [facility] ANION GAP 12.5 <18.0 mmol/L 09/02/2024 2:22 PM CDT [facility] GLUCOSE 102(H) 70 - 99 mg/dL 09/02/2024 2:22 PM [facility] BUN 19 8 - 26 mg/dL 09/02/2024 2:22 PM [facility] CREATININE, BLOOD 0.74 0.70 - 1.30 mg/dL 09/02/2024 2:22 PM [facility] BUN/CREATININE RATIO 26(H) 12 - 20 ratio 09/02/2024 2:22 PM [facility] TOTAL PROTEIN 6.3 6.0 - 8.0 g/dL 09/02/2024 2:22 PM T [facility] ALBUMIN 3.7 3.5 - 5.0 g/dL 09/02/2024 2:22 PM [facility] A/G RATIO 1.4 1.0 - 2.2 09/02/2024 2:22 PM [facility] CALCIUM 8.5(L) 8.7 - 10.5 mg/dL 09/02/2024 2:22 PM [facility] T BILI 0.7 0.2 - 1.2 mg/dL 09/02/2024 2:22 PM [facility] SGOT (AST) 34 <43 U/L 09/02/2024 2:22 PM [facility] SGPT (ALT) 28 <56 U/L 09/02/2024 2:22 PM [facility] ALKALINE PHOSPHATASE 85 40 - 150 U/L 09/02/2024 2:22 PM [facility] IS THE PATIENT REQUIRED TO BE FASTING? No 09/02/2024 2:22 PM [facility] GFR, ESTIMATED >60 >=60 09/02/2024 2:22 PM [facility] Comment: Creatinine Clearance is the preferred criteria for selecting drug dose adjustments in renally impaired patients. The GFR is provided as additional pertinent clinical information. GFR is reported in mL/min/1.73 sq m. Calculation based on the Chronic Kidney Disease Epidemiology Collaboration (CKD- EPI) equation refit without adjustment for race. GFR, EST. >60 >=60 025 2:22 PM CDT [facility] GFR, EST. NONAFRICAN >60 >=60 09/02/2024 2:22 PM CDT [facility] Blood Venipuncture / Unknown 09/02/2024 1:31 PM CDT 09/02/2024 1:58 PM CDT Perez Humphrey MD CHEMISTRY ORDERABLES Final Re sult [facility] [address] [place] [address] from Last 3 Months Insurance [facility] Care Teams Soa Integration Architect Relationship Specialty Start Date End Date Perez Humphrey MD [address] [facility] [address] [address] PCP - General Family Medicine 11/11/23
--- OUTSIDE RECORDS SUMMARY | 2024-11-01 03:07 | XMS_ITS | Encounter Summary ---
Author Organization [facility] Address [address] [place] [address] Phone Care Team Providers Care Sole Edge Inker Machine Name Role Phone Perez Humphrey MD Primary Care Provider [phone] Reason for Visit * Reason Onset Date Comments Appointment 10/13/2024 Leg Swelling 10/13/2024 Encounter Details Date Type Department Care Team (Late st Contact Info) Description 10/13/2024 [facility] [address] [place] [address] Perez Humphrey MD [address] [address] Appointment; Leg Swelling Social History [...] Dept Phone 10/15/2024 9:30 AM Perez Humphrey [facility] - Family Medicine [facility] [phone] Encounter routed to provider high priority to [...] Leg Swelling and Edema-A-OH, Weakness (Generalized) and Fxznkht-[id number]-QI * Telephone Encounter - Marta Juarez - 10/13/2024 1:22 PM CDT Symptom: Leg Swelling - Not From Injury Outcome: Transfer to bioinformatics technician queue Reason: Discoloration (purple, blue, white, pale) The caller accepted this outcome. Caller Denied: * Trouble breathing * Chest pain documented in this encounter Plan of Treatment Upcoming Encounters Date Type Department Care Team (Late st Contact Info) Description 11/03/2024 1:00 PM CDT Office Visit [facility] [address] [facility] [address] Perez Humphrey [facility] [address] [place] [address] 11/17/2024 11:45 AM CDT Office Visit [facility] [address] [address] Sharri Cisneros MD 2 [facility] [address] [place] [address] 01/06/2025 1:30 PM CDT Office Visit [facility] [address] [place] [address] Perez Humphrey MD #2 [facility] [address] [place] [address] documented as of this encounter Visit Diagnoses Not on filedocumented in this encounter Additional Health Concerns Assessment Noted Time PHQ-9 Depression Total Score: 0 11/11/19 6:26 PM CDT documented as of this encounter Care Teams Sole Edge Inker Machine Relationship Specialty Start Date End Date Perez Humphrey MD [facility] [address] [place] [address] PCP - General Family Medicine 11/11/23 documented as of this encounter
--- OUTSIDE RECORDS SUMMARY | 2024-11-01 03:07 | XMS_ITS | Clinical Summary ---
Author Organization [facility] Address [address] [place] [address] Care Team Providers Care Employee Relations Assistant Name Role Phone Diann Regan MD Primary Care Provider [phone] Allergies Active Allergy Reactions Criticality Noted Date [...] Comments Blood Pressure 159/89 08/08/2021 2:09 AM FRONT END DEVELOPER [employer] Pulse 68 08/08/2021 2:09 AM FR[employer] END DEVEL[employer] Temperature 36.9 C (98.4 F) 08/07/2021 6:10 PM FRONT END DEVELOPER [employer] Respiratory Rate 18 08/08/2021 2:09 AM FRONT END DEVELOPER [employer] Oxygen Saturation 96% 08/08/2021 3:45 AM FRONT END DEVELOPER [employer] Inhaled Oxygen Concentration - - Weight 138.3 kg (305 lb) 07/17/2021 12:42 PM FRONT END DEVELOPER [employer] Height 175.3 cm (5' 9 ) 08/07/2021 6:10 PM FRONT END DEVELOPER [employer] Body Mass Index 45.04 07/17/2021 12:42 PM FRONT END DEVELOPER [employer] Plan of Treatment Health Maintenance Due Date [...] patient's age to complete this topic Insurance [facility] Care Teams Employee Relations Assistant Relationship Specialty Start Date End Date Diann Regan MD [address] [place] [address] PCP - General FAMILY PRACTICE 10/08/20
--- OUTSIDE RECORDS SUMMARY | 2024-11-01 03:07 | XMS_ITS | Continuity of Care Document ---
Author Organization [facility] Address [address] [place] [address] [address] [place] [address] Phone Care Team Providers Care Tank Terminal Gauger Name Role Phone Hermosillo OD, Ezra Unavailable Unavailable Procedures Procedure Date Eye Exam Established Pt Advance Directives Directive Yes / No Effective Date File Name No Information Encounters Encounter Description Practice Location Reason(s) For Visit Diagnoses Date Provider Providers Copied on Encounter [facility], [id number] [place] [address] [address], [place], [place], [id number], [place] tel:[phone] [facility] No Information 7-201 0 Hermosillo OD Ezra. [address] , [address], [place], [address], [place]. tel:[phone] Referring Provider: Michelle Chowdary MD, [address], [place], [address]. tel:[phone] Family History Family Member Type Diagnosis Age At Onset No Information Payers Payer name Insurance type Covered democrat ID Authoriza tion(s) Medicaid [facility] [id number] Social History Type Description Quantity Date Captured Comments Sex Male Smoking Status No Information Chief Complaint And Reason For Visit No Information Reason For Referral Reason For Referral No Information History Of Present Illness Encounter Date Complaint History Of Prese nt Illness No Information Functional Status Date Functional Assessmen t No Information Instructions Date Instruction Additional Infor mation No Information Assessments Type Assessment Date No Information Patient Care Teams Name Effective Dates (start - stop) Status Members No Information
--- OUTSIDE RECORDS SUMMARY | 2024-11-01 03:08 | XMS_ITS | Data Portability ---
Author Organization [place] - [facility] OFFICE Address [address] [place] [address] Care Team Providers Care Dietary Manager Name Role Phone SUSHANT LLAMAS Primary Care Provider SUSHANT LLAMAS Referring Provider SUSHANT CONDE Primary Care Provider [phone] Assessment Encounter Date Assessment Date Assessment LastModified by Organization Details LastModified Time 10/03/2023 10/03/2023 Patient Examined by OLIVER Landers, Also Documentation reviewed and approved by supervising physician ed Not available 10/03/2023 12:20:51 Plan of Treatment Reminders Order Date Submit Date Provider Last Modified By Organization Details Last Modified Time Details Appointments None recorded . Lab None recorded . Referral None recorded . Procedures None recorded . Surgeries None recorded . Imaging None recorded . Medication Orders Lasix 20 mg tablet 2023 024 [email or web address] [id number], [address] [place], [place], [phone], 14:48:36 hydralaz ine 10 mg tablet 2023 024 ABIEL [facility] [id number], [address] [place], [place], [phone], 4 12:34:42 Patient TargetsNo targets recorded. Patient Instructions Encounter Date Encounter Id Patient Instructions Last Modified By Organization Details Last Modified Time 10/03/2023 [id number] Weight loss, 50 pounds Exercise advised Low cholesterol diet advised Low sodium diet advised. ed Not available 10/03/2023 12:34:04 12/30/2023 [id number] Weight loss 20 pounds Exercise advised Low cholesterol diet advised Low sodium diet advised. [email or web address] Not available 12/30/2023 12:47:34 Reason for Referral None Reported. Results Created Date Observation Date Name Description Value Unit Range Abnormal Flag Note LastModifiedBy Organization Detail LastModifiedTime 05/29/20 22 05/28/2022 elect rocar diogr am No observ ation record ed. [email or web address] Not Available 2021 17:10:00 11/12/19 23 11/07/2022 , echoc ardio gram No observ ation record ed. [email or web address] Not Available 2023 16:10:07 10/03/19 24 08/28/2021 mohini can cardi olite stres s test (PROC ) No observ ation record ed. [email or web address] Not Available 2023 12:39:17 10/03/19 mohini can cardi olite stres s test (PROC ) No observ ation record ed. [email or web address] Not Available 2023 13:25:11 10/08/19 24 10/03/2023 elect rocar diogr am No observ ation record ed. [email or web address] Not Available 2023 12:19:50 12/22/19 24 12/17/2023 mohini can cardi olite stres s test (PROC ) No observ ation record ed. [email or web address] Not Available 2023 09:23:37 05/04/20 24 05/01/2024 [facility] rocar diogr am No observ ation record ed. [email or web address] Not Available 2024 19:07:13 Result Notes None recorded. Problems Name Problem SNOMED Code Status Onset Date Resolution Date Notes Provider Name and Address Organization Details Recorded Time Chest pain 90259573 Active 2016 Not Available [facility] 2 05:53:02 Benign hypertensi on 04784598 Active 2016 JOSE Washburn - [facility] 2 12:58:48 Hyperlipid emia 81340379 Active 2016 JOSE Washburn [facility] 2 12:58:55 Obesity 096379159 Active 2016 Not Available [facility] 2 05:53:02 Rheumatoid arthritis 75994699 Active 2016 Not Available [facility] 2 05:53:02 Fibromyalg ia 810886600 Active 2016 Not Available [facility] 2 05:53:02 Acute non-ST segment elevation myocardial infarction 510139992 Active 2016 Not Available [facility] 2 05:53:02 Electrocar diogram abnormal 479310948 Active 2016 Not Available [facility] 2 05:53:02 Pain in bilateral legs 2231268504635 9108 Active 2017 Not Available [facility] 2 05:53:02 Sleep pattern disturbanc e 63731608 Active 2017 Not Available [facility] 2 05:53:02 Edema of lower extremity 818058159 Active 2017 Not Available [facility] 2 05:53:02 Coronary atheroscle rosis 167539129 [facility] 12:58:[facility] Notes:Some problems listed i n Documents: #[id number], #[id number] could not be added to this patient's chart. Please review these documents and add these problems to the patient's chart manually as needed. Problem Notes None recorded. Procedures Surgical History Date Name Laterality Status Provider Name and Address Organization Details Recorded Time Knee arthroscopy /surgery completed Josephine Brooke [facility] 04/07/2017 15:12:10 Imaging Results Imaging Date Name Status LastModified by Organization Details LastModified Time 05/28/2022 electrocardiogram completed Informa tion not available 05/30/2022 17:10:00 11/07/2022 US, echocardiogram completed Inform ation not available 10/02/2023 16:10:07 08/28/2021 lexiscan cardiolite stress test (PROC) completed Information not available 10/05/2023 12:39:17 10/03/2023 lexiscan cardiolite stress test (PROC) completed Information not available 10/03/2023 13:25:11 10/03/2023 electrocardiogram completed Informa tion not available 10/09/2023 12:19:50 12/17/2023 lexiscan cardiolite stress test (PROC) completed Information not available 12/22/2023 09:23:37 05/01/2024 electrocardiogram completed Informa tion not available 10/03/2024 19:07:13 Procedure Notes None recorded. Medical Equipment None Reported. Allergies Allergen ID Allergen Name Allergen Category Reaction Reaction Severity Criticality Documentation Date Start Date Code Code System Note Provider Name and Address Organization Details Recorded Time 97916 lisinopri l medicatio n cough Not available Not available 12/10/20202020 08846 RxNorm Cisneros [place], [place] - [facility] 13:59:02 86093 rosuvasta tin medicatio n myalgias (muscle pain) Not available Not available 12/10/20202020 36452 2 RxNorm Cisneros [place], [place] - [facility] 13:59:02 Medications Name Sig Start Date Stop Date Status Note LastModified by Organization Details LastModified Time cyclobenza juliana 10 mg tablet prn active Not Available Not Available No t Available atorvastat in 40 mg tablet TAKE 1 TABLET BY MOUTH EVERY MORNING 12/23 completed Not Available Not Available Not Available hydralazin e 10 mg tablet TAKE 1 TABLET BY MOUTH TWICE DAILY active Not Available Not Available No t Available atorvastat in 80 mg tablet TAKE 1 TABLET BY MOUTH EVERY NIGHT AT BEDTIME active Not Available Not Available No t Available prednisone 10 mg tablet 12/29 completed Not Available Not Available Not Available doxycyclin e hyclate 100 mg capsule TAKE 1 CAPSULE BY MOUTH TWICE DAILY FOR 7 DAYS active Not Available Not Available No t Available azithromyc in 250 mg tablet FOLLOW PACKAGE DIRECTIO NS active Not Available Not Available No t Available tizanidine 4 mg tablet TAKE 1 TABLET BY MOUTH EVERY 8 HOURS NEEDED 12/29 completed Not Available Not Available Not Available benzonatat e 200 mg capsule TAKE 1 CAPSULE BY MOUTH THREE TIMES DAILY NEEDED FOR COUGH active Not Available Not Available No t Available metoprolol succinate ER 50 mg tablet,ext ended release 24 hr TAKE 1 TABLET BY MOUTH EVERY DAY active Not Available Not Available No t Available hydrocodon e 5 mg-acetami nophen 325 mg tablet 08/27 completed Not Available Not Available Not Available ondansetro n HCl 8 mg tablet 12/04 completed pt is no longer taking 09/04/21 SA Not Available Not Available Not Available prednisone 20 mg tablet TAKE 2 TABLETS BY MOUTH DAILY FOR 5 DAYS active Not Available Not Available No t Available clopidogre l 75 mg tablet TAKE 1 TABLET BY MOUTH EVERY DAY 09/11 completed pt not taking 09/11/20 Not Available Not Available Not Available ciprofloxa jean pierre 500 mg tablet TAKE 1 TABLET BY MOUTH EVERY 12 HOURS FOR 7 DAYS 12/29 completed Not Available Not Available Not Available hydrocodon e 10 mg-acetami nophen 325 mg tablet TAKE 1 TABLET BY MOUTH EVERY 6 HOURS NEEDED active Not Available Not Available No t Available acetaminop hen 650 mg tablet Take 1 tablet every 4 hours by oral route as needed. 05/19 completed Not Available Not Available Not Available triamcinol one acetonide 0.1 % topical cream APPLY DAILY TO LEFT CALF. active Not Available Not Available No t Available spironolac tone 25 mg tablet TAKE 1/2 TABLET BY MOUTH EVERY DAY active Not Available Not Available No t Available amoxicilli n 875 mg tablet TAKE 1 TABLET BY MOUTH EVERY 12 HOURS FOR 10 DAYS 08/25 completed Not Available Not Available Not Available alprazolam 0.25 mg tablet prn active Not Available Not Available Not Available amitriptyl ine 25 mg tablet 09/11 completed pt not taking 09/11/20 Not Available Not Available Not Available temazepam 15 mg capsule Take 1 capsule every day by oral route as needed. 12/29 completed Not Available Not Available Not Available tamsulosin 0.4 mg capsule TAKE 1 CAPSULE BY MOUTH EVERY DAY active Not Available Not Available No t Available meclizine 25 mg tablet prn 12/29 completed Not Available Not Available Not Available benzonatat e 100 mg capsule TAKE 1 CAPSULE BY MOUTH EVERY 8 HOURS NEEDED active Not Available Not Available No t Available hydrocodon e 7.5 mg-acetami nophen 325 mg tablet TAKE 1 TABLET BY MOUTH THREE TIMES DAILY 08/27 completed Not Available Not Available Not Available cephalexin 500 mg capsule TAKE 1 CAPSULE BY MOUTH THREE TIMES DAILY FOR 7 DAYS 12/29 completed Not Available Not Available Not Available pantoprazo le 40 mg tablet,del ayed release TAKE 1 TABLET BY MOUTH DAILY 12/29 completed Not Available Not Available Not Available tobramycin 0.3 % eye drops as needed active Not Available Not Available No t Available aspirin,bu ffered (calcium carb-mag-a luminum) 81 mg oral del rel tablet Take 81 mg by oral route. 05/19 completed Not Available Not Available Not Available aspirin 81 mg chewable tablet Chew 1 tablet every day by oral route. 08/27 completed Not Available Not Available Not Available diclofenac sodium 75 mg tablet,del ayed release 1 tab qd 12/29 completed Not Available Not Available Not Available montelukas t 10 mg tablet 12/29 completed Not Available Not Available Not Available hydrochlor othiazide 25 mg tablet TAKE 1 TABLET BY MOUTH EVERY DAY 08/27 completed Not Available Not Available Not Available furosemide 20 mg tablet Take 1 tablet every day by oral route. active Not Available Not Available No t Available Zofran 4 mg/5 mL oral solution Take every 6 hours by oral route as needed. 08/12 completed Not Available Not Available Not Available methylpred nisolone 4 mg tablets in a dose pack FOLLOW PACKAGE DIRECTIO NS active Not Available Not Available No t Available albuterol sulfate HFA 90 mcg/actuat ion aerosol inhaler INHALE 2 PUFFS BY MOUTH EVERY 4 TO 6 HOURS NEEDED FOR SHORTNES S OF BREATH OR WHEEZING active Not Available Not Available No t Available ondansetro n 4 mg disintegra ting tablet prn 12/04 completed pt is no longer taking 09/04/21 SA Not Available Not Available Not Available doxycyclin e hyclate 100 mg tablet TAKE 1 TABLET BY MOUTH TWICE DAILY FOR 10 DAYS 12/29 completed Not Available Not Available Not Available dicyclomin e 10 mg capsule 12/29 completed Not Available Not Available Not Available diazepam 5 mg tablet 05/28 completed pt takes as needed sa 021 Not Available Not Available Not Available metoclopra mide 10 mg tablet 12/29 completed Not Available Not Available Not Available amoxicilli n 875 mg-potassi um clavulanat e 125 mg tablet 01/20 completed NOT TAKING THIS MED;AL 8 Not Available Not Available Not Available Heparin Sodium 10 unit/mL intravenou s solution Inject 250 mL every day by intraven ous route. 11/05 completed Not Available Not Available Not Available metoprolol tartrate 25 mg tablet TAKE 1 TABLET BY MOUTH EVERY 12 HOURS 11/05 completed Not Available Not Available Not Available Morphine Sulfate Injection 2 mg q 5 min prn IVP 11/05 completed Not Available Not Available Not Available Brilinta 90 mg tablet qd 08/12 completed Not Available Not Available Not Available vitamin E (dl, acetate) 90 mg (200 unit) capsule Take 200 units by oral route. 12/29 completed Not Available Not Available Not Available Jardiance 10 mg tablet TAKE 1 TABLET BY MOUTH EVERY DAY active Not Available Not Available No t Available naloxone 4 mg/actuati on nasal spray 12/29 completed Not Available Not Available Not Available Adult Aspirin Regimen 81 mg tablet,del ayed release Take 1 tablet every day by oral route. active Not Available Not Available No t Available Ozempic 0.25 mg or 0.5 mg (2 mg/3 mL) subcutaneo us pen injector INJECT 0.25MG UNDER THE SKIN ONCE A WEEK active Not Available Not Available No t Available Vitals Date Recorded Body height Body mass index (BMI) Body weight Heart rate Respiratory rate Oxygen saturation Oxygen saturation in Arterial blood by Pulse oximetry Systolic blood pressure Diastolic blood pressure Provider Name and Address Organization Details Last Updated DateTime 2 175.26 cm 49.8 kg/m2 221849. 63 g 72 /min 16 /min 96 % 96 % 124 mm[Hg] 82 mm[Hg] Brian GARCIA - [facility] 2 13:25:25 Date Recorded Body height Body mass index (BMI) Body weight Heart rate Respiratory rate Oxygen saturation Oxygen saturation in Arterial blood by Pulse oximetry Systolic blood pressure Diastolic blood pressure Provider Name and Address Organization Details Last Updated DateTime 3 175.26 cm 50.1 kg/m2 996544. 81 g 81 /min 16 /min 95 % 95 % 124 mm[Hg] 84 mm[Hg] Brian [facility] 3 10:54:18 Date Recorded Body weight Heart rate Oxygen saturation Oxygen saturation in Arterial blood by Pulse oximetry Systolic blood pressure Diastolic blood pressure Provider Name and Address Organization Details Last Updated DateTime 4 545269. 22 g 78 /min 94 % 94 % 188 mm[Hg] 91 mm[Hg] Adriana Moreno [facility] 4 12:10:51 Date Recorded Body mass index (BMI) Body height Provider Name and Address Organization Details Last Updated DateTime 10/03/2023 49.9 kg/m2 175.26 cm Nicole Freitas [facility] 10/07/2023 16:20:11 Date Recorded Body height Body mass index (BMI) Body weight Heart rate Oxygen saturation Oxygen saturation in Arterial blood by Pulse oximetry Systolic blood pressure Diastolic blood pressure Provider Name and Address Organization Details Last Updated DateTime 4 175.26 cm 49.6 kg/m2 604992. 04 g 83 /min 94 % 94 % 160 mm[Hg] 78 mm[Hg] Candice Morfin [facility] 4 12:37:13 Date Recorded Body height Body mass index (BMI) Body weight Heart rate Oxygen saturation Oxygen saturation in Arterial blood by Pulse oximetry Systolic blood pressure Diastolic blood pressure Provider Name and Address Organization Details Last Updated DateTime 4 175.26 cm 49.8 kg/m2 658100. 63 g 70 /min 97 % 97 % 171 mm[Hg] 76 mm[Hg] Adriana Tiffanie [facility] 4 14:22:17 Social History Question Answer Notes LastModified by Organizat ion Details LastModified Time Tobacco Smoking Status Former Smoker Not Available [facility] 04/25/2020 03:30:41 What Is Your Level Of Caffeine Consumption? Occasional [id number] Information not available 04/25/2020 How Much Tobacco Do You Chew? None [id number] Information not available 04/25/2020 What Type Of Diet Are You Following? REGULAR [id number] Information not available 04/25/2020 Which Illicit Or Recreational Drugs Have You Used? No [id number] Information not available 04/25/2020 Live Alone Or With Others? With Others [email or web address] Information not available 04/07/2017 Marital Status [email or web address] Informatio n not available 04/07/2017 What Was The Date Of Your Most Recent Tobacco Screening? 12/23/2018 [id number] Information not available 04/25/2020 How Many Children Do You Have? 3 [id number] Information not available 04/25/2020 How Much Tobacco Do You Smoke? No [id number] Information not available 04/25/2020 Sex: Unknown Functional Status Question Answer Note LastModified by Organizat ion Details LastModified Time What is your level of alcohol consumption? Occasional [id number] Information not available 04/25/2020 Do you or have you ever used smokeless tobacco? 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 Never used electronic cigarettes Information not available 09/08/2020 What is your exercise level? Occasional [id number] Information not available 04/25/2020 Mental Status None recorded. Family History Nothing Reported. Medical History Condition Response Coronary Artery Disease Y High Cholesterol Y Diabetes Y Myocardial Infarction Y Hypertension Y Immunizations Vaccine Type Date Status Note Provider Nam e and Address Organization Details Recorded Time COVID-19, mRNA, LNP-S, PF, 30 mcg/0.3 mL dose 08/15/2020 completed Brian sams [facility] 05/28/2022 13:26:04 COVID-19, mRNA, LNP-S, PF, 30 mcg/0.3 mL dose 09/05/2020 completed JOSE Woodward [facility] 05/28/2022 13:26:04 Past Encounters Encounter ID Performer Location Encounter Start Date Encounter Closed Date Diagnosis/Indication Diagnosis SNOMED-CT Code Diagnosis ICD10 Code Diagnosis Note [id number] Deng Smith MD [place] [facility] [place] [address] 04/07/2017 15:06:04 2017 09:33:58 Electrocardiogram abnormal 628776396 R94.31 Benign hypertension 1072 5009 I10 Acute non- ST segment elevation myocardial infarction 094294066 I21.4 s/p LAD [facility] [facility] [place] 629268851 E66.9 Needs to lose 20 pounds till next visit Dyslipidemia 923357954 E 78.5 Needs to keep LDL less than 70, and HDL more than 40Will [place] [id number] Deng Smith MD [place] [facility] [address] [place] [address] 08/12/2017 16:10:11 08/13/2017 11:09:33 Electrocardiogram abnormal 417998814 R94.31 Benign hypertension 1072 5009 I10 Acute non- ST segment elevation myocardial infarction 723506593 I21.4 s/p LAD [place] [place] 234782648 E66.9 Needs to lose 20 pounds till next visit Dyslipidemia 855823067 E 78.5 Needs to keep LDL less than 70, and HDL more than 40Will [place] [id number] Joon Pelaez MD [place] [facility] [place] [address] 11/05/2017 16:53:56 11/06/2017 09:41:56 Benign hypertension 32508548 I10 Patient's blood pressure is {{well-con trolled so mewhat well-contr olled* not well-contr olled}} on present medical therapy. Patient is {{tolerati ng, without difficulty ,* having side effects with}} the current medication s. I have {{not made* made the following} } changes to the current regimen. {{ Patient is advised to maintain a blood pressure diary.*}} Patient was advised to eat a low-sodium diet (2 grams sodium or less daily). Increase Acute non- ST segment elevation myocardial infarction 093973971 I21.4 s/p LAD Stent 03/2017 Better now but with fatigue, without chest pain. He was unwilling to proceed with Cardiac rehab at [place]. Increase walking. Patient only taking metoprolol tartrate in AM and missing PM dose. Switched to metoprolol succinate 50 mg qd 11/05/17. Obesity 829720164 E66.9 Needs to lose 20 pounds in next several months. Dyslipidemia 526062675 E 78.5 Needs to keep LDL less than 70, and HDL more than 40 Will get fasting lipids for follow up. Fatigue 45533528 R53.83 Will order TSH. Pain in bi lateral legs 8294273634 9456922 M79.604 Leg fatigue noted. Obtain DEDE results. Sleep cristina carmen disturbance 23353511 G47.9 Obtain home sleep study. Edema of l ower extremity 547820976 R60.0 Bilateral. Began HCTZ 25 mg qd 11/05/17. CMP, Mg in 3 weeks. Had ECHO on 04/03/17: Normal left ventricula r size. Mild concentric left ventricula r hypertroph y. Normal global left ventricula r systolic function. Impaired diastolic relaxation . Grade 1. Ejection fraction is measured at 71%. Technicall y difficult study with limited views. No prior echo available for comparison . [id number] Joon Pelaez MD [place] [address] [place] [address] 03/11/2018 15:33:18 03/11/2018 17:21:24 Benign hypertension 19286379 I10 Patient's blood pressure is {{well-con trolled so mewhat well-contr olled* not well-contr olled}} on present medical therapy. Patient is {{tolerati ng, without difficulty ,* having side effects with}} the current medication s. I have {{not made* made the following} } changes to the current regimen. {{ Patient is advised to maintain a blood pressure diary.*}} Patient was advised to eat a low-sodium diet (2 grams sodium or less daily). Begin water aerobics. Acute non- ST segment elevation myocardial infarction 502355855 I21.4 s/p LAD Stent 03/2017 Better now but with fatigue, without chest pain. He was unwilling to proceed with Cardiac rehab at [place]. Increase walking or pool exercises. Patient only taking metoprolol tartrate in AM and missing PM dose. Switched to metoprolol succinate 50 mg qd 11/05/17. Continue ASA and Plavix. Obesity 161454710 E66.9 Needs to lose 20 pounds in next several months. Had 11/24/17: TSH 2.860. Dyslipidemia 152480911 E 78.5 Needs to keep LDL less than 70, and HDL more than 40 Will get fasting lipids for follow up. Fatigue 88462916 R53.83 Stable. Normal TSH. 20 lb. weight loss recommende d over the next 2 months. Increase exercise. Pain in bi lateral legs 2140892589 7279916 M79.604 Leg fatigue noted. Had normal DEDE on 10/28/17 . Sleep cristina carmen disturbance 92832882 G47.9 Obtain home sleep study. Edema of l ower extremity 885294541 R60.0 Bilateral, stable. Began HCTZ 25 mg qd 11/05/17. CMP, Mg normal. Had ECHO on 04/03/17: Normal left ventricula r size. Mild concentric left ventricula r hypertroph y. Normal global left ventricula r systolic function. Impaired diastolic relaxation . Grade 1. Ejection fraction is measured at 71%. Technicall y difficult study with limited views. No prior echo available for comparison . [id number] Joon Pelaez MD [address] [address] 04/22/2018 15:52:19 04/22/2018 17:55:20 Benign hypertension 56854020 I10 Patient's blood pressure is {{well-con trolled* s omewhat well-contr olled not well-contr olled}} on present medical therapy. Patient is {{tolerati ng, without difficulty ,* having side effects with}} the current medication s. I have {{not made* made the following} } changes to the current regimen. {{ Patient is advised to maintain a blood pressure diary.*}} Patient was advised to eat a low-sodium diet (2 grams sodium or less daily). Begin water aerobics. Acute non- ST segment elevation myocardial infarction 840048031 I21.4 s/p LAD Stent 03/2017 Better now but with fatigue, without chest pain. He was unwilling to proceed with Cardiac rehab at [place]. Increase walking or pool exercises. Switched to metoprolol succinate 50 mg qd 11/05/17. Continue ASA and Plavix. Obesity 035238514 E66.9 Needs to lose 20 pounds in next several months. Had 11/24/17: TSH 2.860. Dyslipidemia 705071046 E 78.5 Needs to keep LDL less than 70, and HDL more than 40 Had 11/24/17: LDL 91. Increased to atorvastat in 80 mg qHS 04/22/18. Obtain FLP, CMP, CPK, Mg. Fatigue 50023951 R53.83 Stable. Normal TSH. 20 lb. weight loss recommende d over the next 2 months. Increase exercise. Evaluate for SHAVON. Pain in bi lateral legs 0864993746 8595824 M79.604 Leg fatigue noted. Had normal DEDE on 10/28/17 . Sleep cristina carmen disturbance 93650139 G47.9 Obtain home sleep study. Edema of l ower extremity 314044135 R60.0 Bilateral, improved. Began HCTZ 25 mg qd 11/05/17. CMP, Mg normal. Had ECHO on 04/03/17: Normal left ventricula r size. Mild concentric left ventricula r hypertroph y. Normal global left ventricula r systolic function. Impaired diastolic relaxation . Grade 1. Ejection fraction is measured at 71%. Technicall y difficult study with limited views. No prior echo available for comparison . Mild compressio n stockings. [id number] Joon Pelaez MD [place] [address] [place] [address] 12/23/2018 15:54:58 12/23/2018 16:35:06 Benign hypertension 38716921 I10 Patient's blood pressure is {{well-con trolled* s omewhat well-contr olled not well-contr olled}} on present medical therapy. Patient is {{tolerati ng, without difficulty ,* having side effects with}} the current medication s. I have {{not made* made the following} } changes to the current regimen. {{ Patient is advised to maintain a blood pressure diary.*}} Patient was advised to eat a low-sodium diet (2 grams sodium or less daily). Begin water aerobics. Acute non- ST segment elevation myocardial infarction [id number] I21.4 s/p LAD Stent 03/2017 Better now but with fatigue, without chest pain. He was unwilling to proceed with Cardiac rehab at [place]. Increase walking or pool exercises. Switched to metoprolol succinate 50 mg qd 11/05/17. Continue ASA and Plavix. For occasional atypical chest pain, anticipate nuclear stress test mid-2018 to evaluate for ischemia in setting of LAD Stent 03/2017. Obesity 164107100 E66.9 Needs to lose 20 pounds in next several months. Clinical Trial Specialist consult regarding heart healthy, weight loss diet. Had 11/24/17: TSH 2.860. Dyslipidemia 517649316 E 78.5 Needs to keep LDL less than 70, and HDL more than 40 Had 11/24/17: LDL 91. Increased to atorvastat in 80 mg qHS 04/22/18. Obtain FLP, CMP, CPK, Mg. Fatigue 59449307 R53.83 Stable. Normal TSH. 20 lb. weight loss recommende d over the next 2 months. Increase exercise. Evaluate for SHAVON. Pain in bi lateral legs [id number] 2027541 M79.604 Leg fatigue noted. Had normal DEDE on 10/28/17 . Sleep crsitina carmen disturbance 11187990 G47.9 Reports poor, interrupte d sleep, fatigue, occasional daytime somnolence . Obtain home sleep study. Edema of l ower extremity 506144518 R60.0 Bilateral, improved. Began HCTZ 25 mg qd 11/05/17. CMP, Mg normal. Had ECHO on 04/03/17: Normal left ventricula r size. Mild concentric left ventricula r hypertroph y. Normal global left ventricula r systolic function. Impaired diastolic relaxation . Grade 1. Ejection fraction is measured at 71%. Technicall y difficult study with limited views. No prior echo available for comparison . Mild compressio n stockings. [id number] MD [facility] [address] [address] 01/21/2020 12:22:48 01/21/2020 13:04:14 Benign hypertension 20146652 I10 Elevated today. Contribute s that to anxiety from up coming procedure. He will monitor his BP at home. Continue HCTZ and Metoprolol . Will start Norvasc or Lisinopril next visit if BP still elevated. Obesity 070407955 E66.9 Needs to lose 20 pounds in next several months. Clinical Trial Specialist consult regarding heart healthy, weight loss diet. Had 11/24/17: TSH 2.860. Dyslipidemia 297658142 E 78.5 Needs to keep LDL less than 70, and HDL more than 40 Had 11/24/17: LDL 91. Increased to atorvastat in 80 mg qHS 04/22/18. Obtain FLP, CMP, CPK, Mg. Fatigue 75377265 R53.83 Stable. Normal TSH. 20 lb. weight loss recommende d over the next 2 months. Increase exercise. Evaluate for SHAVON. Pain in bi lateral legs [id number] 4760843 M79.604 Leg fatigue noted. Had normal DEDE on 10/28/17 . Sleep cristina carmen disturbance 06644263 G47.9 Reports poor, interrupte d sleep, fatigue, occasional daytime somnolence . Obtain home sleep study. Edema of l ower extremity 462114689 R60.0 Bilateral, improved. Began HCTZ 25 mg qd 11/05/17. CMP, Mg normal. Had ECHO on 04/03/17: Normal left ventricula r size. Mild concentric left ventricula r hypertroph y. Normal global left ventricula r systolic function. Impaired diastolic relaxation . Grade 1. Ejection fraction is measured at 71%. Technicall y difficult study with limited views. No prior echo available for comparison . Mild compressio n stockings. Coronary arteriosclerosis 22880346 I25.10 s/p LAD Stent 03/2017 in the setting of NSTMINo chest pain.Burt nue ASA. Okay to stop PLavix.Nuc stress test Pre-surger y evaluation [id number] Z01.818 He is scheduled for GI procedure in few day. He had NSTMI and PCI to LAD in 2017 with ischemic evaluation since then. He has no chest pain or dyspnea. He is active at work >4 METS with no symptoms. Will need stress test for risk stratifica tion but he prefers to postpone that after he has work up for the pancreatic lesion.Oka y to stop Plavix as PCI was 3 years ago. Continue ASA and statin [id number] Deng [place] MD [facility] [place] [address] 09/11/2020 15:01:16 09/11/2020 15:41:06 Coronary arteriosclerosis 32859657 I25.10 s/p LAD stent ( 7) Remains asymptomat ic Benign hypertension 1072 5009 I10 Fair control on current regimen Obesity 071366969 E66.9 20lb weight loss recommende d over the next 2 months Dyslipidemia 955727140 E 78.5 Needs to keep LDL less than 70, and HDL more than 40 11/24/2017 LDL 91 Continue atorvastat in 80mg Will get fasting lipids for follow-up Fatigue 70457958 R53.83 Diet and exercise modificati ons advised Pain in bi lateral legs [id number] 8022757 M79.604 Resolved DEDE 10/28/2017 : Normal DEDE. No significan t lower extremity peripheral arterial peripheral arterial disease detected. 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 The clinical test accuracy may be impacted by the limited study time. Will attempt to set up with CPAP but may need repeat sleep study Edema of l ower extremity 239672470 R60.0 Leg elevation, low salt diet, and compressio n stockings advised Echo 04/03/2017 : Normal left ventricula r size. Mild concentric left ventricula r hypertroph y. Normal global left ventricula r systolic function. Impaired diastolic relaxation . Grade 1. Ejection fraction is measured at 71%. Technicall y difficult study with limited views. No prior echo available for comparison . Dyspnea on exertion 6084 5006 R06.09 Treadmill Myoview Stress test, has high [place] Risk score. Has Known CAD, or CAD risk equivalent . To look for any ischemia. [id number] Deng [place] MD [facility] [address] [place] [address] 06/05/2021 15:38:45 06/05/2021 17:20:54 Coronary arteriosclerosis 59614047 I25.10 Need to do Lexiscan Myoview stress test, pt can not walk. Has known coronary artery disease, with atypical symptoms now. s/p LAD stent ( 7) Remains asymptomat ic Benign hypertension 1072 5009 I10 need better control today is little high Obesity 069711504 E66.9 20lb weight loss recommende d over the next 2 months Dyslipidemia 923265961 E 78.5 need blood test to check LDL and A1c 11/24/2017 LDL 91 Continue atorvastat in 80mg Will get fasting lipids for follow-up Fatigue 94956149 R53.83 Diet and exercise modificati ons advised Pain in bi lateral legs 5569569086 8328077 M79.604 Resolved DEDE 10/28/2017 : Normal DEDE. No significan t lower extremity peripheral arterial peripheral arterial disease detected. 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 The clinical test accuracy may be impacted by the limited study time. Edema of l ower extremity 457724331 R60.0 Leg elevation, low salt diet, and compressio n stockings advisedObt ain echo to evaluate for structural /functiona l disease. Dyspnea on exertion 6084 5006 R06.09 Lexiscan Myoview stress test, pt can not walk. Has known coronary artery disease, with atypical symptoms now [id number] Deng [place] MD [facility] [address] [place] [address] 09/04/2021 11:07:42 09/04/2021 12:06:20 Coronary arteriosclerosis 43240090 I25.10 Need to do Lexiscan Myoview stress test is negative s/p LAD stent ( 7) Remains asymptomat ic Benign hypertension 1072 5009 I10 Now well controlled Obesity 237829845 E66.9 20lb weight loss recommende d over the next 2 months Dyslipidemia 449633130 E 78.5 need blood test to check LDL and A1c 11/24/2017 LDL 91 Continue atorvastat in 80mg Will get fasting lipids for follow-up Fatigue 37952141 R53.83 Diet and exercise modificati ons advised Pain in bi lateral legs 7623036194 5681743 M79.604 Resolved DEDE 10/28/2017 : Normal DEDE. No significan t lower extremity peripheral arterial peripheral arterial disease detected. 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 The clinical test accuracy may be impacted by the limited study time. Edema of l ower extremity 180663816 R60.0 Leg elevation, low salt diet, and compressio n stockings advisedVen ous duplex and reflux studyCompr ession stockings trial Dyspnea on exertion 6084 5006 R06.09 Lexiscan Myoview stress test is negative [id number] Deng [place] MD [facility] [address] [place] [address] 12/04/2021 11:08:47 12/04/2021 12:33:30 Benign hypertension 30488679 I10 mild elevation today he stopped his HCTZ and lasix resume HCTZ Hyperlipidemia 57057198 E78.5 LDL was 140 done 2017he is taking lipitor 80 mg daily Coronary arteriosclerosis 95942267 I25.10 no chest pain lexiscan cardiolite stress test (PROC) ( 2) Lexiscan stress test. Adequate Stress with Lexiscan for ischemia. Fixed defect consistent with old infraction in apical area. Abnormal stress test. Normal LV systolic function.s /p LAD stent ( 7) Edema of l ower extremity 954081455 R60.0 Leg elevation, low salt diet, and compressio n stockings advisedVen ous duplex and reflux studyCompr ession stockings trial [id number] Deng [place] MD [facility] [place] [address] 05/28/2022 12:58:55 05/28/2022 13:51:15 Benign hypertension 91948313 I10 mild elevation today he stopped his HCTZ and lasix resume HCTZ Hyperlipidemia 83048043 E78.5 LDL was 140 done 2017he is taking lipitor 80 mg dailyNeeds to keep LDL less than 70, and HDL more than 40Will get fasting lipids for follow up Coronary arteriosclerosis 55573970 I25.10 no chest pain lexiscan cardiolite stress test (PROC) ( 2) Lexiscan stress test. Adequate Stress with Lexiscan for ischemia. Fixed defect consistent with old infraction in apical area. Abnormal stress test. Normal LV systolic function.s /p LAD stent ( 7) Edema of l ower extremity 971011586 R60.0 Leg elevation, low salt diet, and compressio n stockings advisedVen ous duplex and reflux studyCompr ession stockings trial [id number] Deng [place] MD [facility] [place] [address] 08/27/2022 10:45:59 08/27/2022 11:21:56 Benign hypertension 28112572 I10 mild elevation today he stopped his HCTZ and lasix resume HCTZ Hyperlipidemia 91751260 E78.5 LDL was 140 done 2016he is taking lipitor 80 mg dailyNeeds to keep LDL less than 70, and HDL more than 40Will get fasting lipids for follow up Coronary arteriosclerosis 87754239 I25.10 no chest pain lexiscan cardiolite stress test (PROC) ( 2) Lexiscan stress test. Adequate Stress with Lexiscan for ischemia. Fixed defect consistent with old infraction in apical area. Abnormal stress test. Normal LV systolic function.s /p LAD stent ( 7) Edema of l ower extremity 280833621 R60.0 Leg elevation, low salt diet, and compressio n stockings advisedVen ous duplex and reflux studyCompr ession stockings trial Obstructiv e sleep apnea syndrome 87764508 G47.33 Will need Cpap [id number] Deng [place] MD [facility] [place] [address] 10/03/2023 11:52:39 10/03/2023 12:41:24 Benign hypertension 39110985 I10 BP is elevatedwi ll start him on hydralazin e 10 mg BID dailyconti nue HCTZ Hyperlipidemia 18083737 E78.5 LDL was 140 done 2016he is taking lipitor 80 mg dailyNeeds to keep LDL less than 70, and HDL more than 40Will get fasting lipids for follow up Coronary arteriosclerosis 92339203 I25.10 Lexiscan Myoview stress test, pt can not walk. Has known coronary artery disease, with atypical symptoms now lexiscan cardiolite stress test (PROC) ( 2) Lexiscan stress test. Adequate Stress with Lexiscan for ischemia. Fixed defect consistent with old infraction in apical area. Abnormal stress test. Normal LV systolic function.s /p LAD stent ( 7) Edema of l ower extremity 554353362 R60.0 Leg elevation, low salt diet, and compressio n stockings advisedVen ous duplex and reflux studyCompr ession stockings trialwill start him on spironolac tone 12.5 mg daily Obstructiv e sleep apnea syndrome 65647613 G47.33 Will need Cpap Congestive heart failure 51747657 I50.9 fluid overloaded todaywill start him on hydralazin e 10 mg BIDwill start him on spironolac tone 12.5 [id number] Deng [place] MD [facility] [address] [place] [address] 12/30/2023 12:12:36 12/30/2023 12:52:11 Benign hypertension 95551091 I10 BP is elevatedwi ll start him on hydralazin e 10 mg BID dailyconti nue HCTZ Hyperlipidemia 40950171 E78.5 LDL was 140 done 2016he is taking lipitor 80 mg dailyNeeds to keep LDL less than 70, and HDL more than 40Will get fasting lipids for follow up Coronary arteriosclerosis 46369574 I25.10 Had Positive Lexiscan stress test on 12/17/23 with Reversible defect consistent with ischemia inferior area. Normal LV systolic function. LVEF: 48%.[facility] medical treatment, will consider Cath if he has chest pain s/p LAD stent ( 7) Edema of l ower extremity 460583999 R60.0 Leg elevation, low salt diet, and compressio n stockings advisedVen ous duplex and reflux studyCompr ession stockings trialwill start him on spironolac tone 12.5 mg daily Obstructiv e sleep apnea syndrome 44737615 G47.33 Will need Cpap Congestive heart failure 84229215 I50.9 fluid overloaded todaywill start him on hydralazin e 10 mg BIDwill start him on spironolac tone 12.5 [id number] Deng [place] MD [facility] [address] [place] [address] 05/01/2024 13:58:45 05/01/2024 14:52:18 Benign hypertension 36058950 I10 BP is elevatedwi ll start him on hydralazin e 10 mg BID dailyconti nue HCTZ Hyperlipidemia 95362687 E78.5 LDL was 140 done 2016he is taking lipitor 80 mg dailyNeeds to keep LDL less than 70, and HDL more than 40Will get fasting lipids for follow up Coronary arteriosclerosis 93610434 I25.10 Had Positive Lexiscan stress test on 12/17/23 with Reversible defect consistent with ischemia inferior area. Normal LV systolic function. LVEF: 48%.Crystal l medical treatment, will consider Cath if he has chest pain s/p LAD stent ( 7) Edema of l ower extremity 775559340 R60.0 Leg elevation, low salt diet, and compressio n stockings advisedVen ous duplex and reflux studyCompr ession stockings trialwill start him on spironolac tone 12.5 mg daily Obstructiv e sleep apnea syndrome 29703776 G47.33 Will need Cpap Congestive heart failure 28861260 I50.9 fluid overloaded todaywill start him on hydralazin e 10 mg BIDwill start him on spironolac tone 12.5 Health Concerns Section Related Observation LastModified by Organization Detai ls LastModified Time None Recorded Concern Status LastModified by Organization Details LastModified Time None Recorded Advance Directives Directive None Recorded Payers Insurance Date Sequence Insurance Name Policy Number Policy Lees Covered Member ID Lees Member ID Guarantor Name 10/02/2024 1 [facility] (MEDICARE REPLACEMENT/A DVANTAGE - HMO) [id number] Migue Fairbanks [id number] Migue Fairbanks 12/31/2023 PAYMENT PLAN Migue Fairbanks Notes Date Note Type Note Provider Name and Address Organization Details Recorded Time 05/28/2022 text/html 02/19/22CC : Car diac follow up , dyspnea on [id number] white man with h/o obesity, coronary artery disease s/p NSTEMI, LAD PCI 03/2017, hyperlipidemia, hypertension, rheumatoid arthritis, and fibromyalgia, is here 1 month for follow-up. He was last seen in the clinic on 12/04/21, since then he still with leg swelling, had not be taking his LasixHe denies ER visits and hospitalizations since he was last seen. Today reports:Denies chest pain.Denies shortness of breath at rest. Has mild dyspnea on exertion.No orthopnea. No PNDs.Denies heart palpitations.Denies dizziness. Denies syncope or near syncope.No ankle or leg edema.No major bleeding events.No reported side effects from medications. Taking medications as prescribed with no missed doses.Denies snoring, daytime somnolence and AM headache.*Last LDL was 140 done on 04/02/17 .Pt takes atorvastatin 80 mg . 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 He has SHAVON and does not use CPAP. He is still struggling with his weight. He had Shanique done which showed fixed defect in apical area. *Had venous reflux done on 10/26/21 showed Mild left sided reflux disease noted. *He had a negative stress and Normal Left ventricular systolic function. He had swelling of the left ankle that is swell more toward the end of the day. He is wearing compression socks. He is struggling will weight gain. He has no DM. Last LDL was 140 done on 04/02/17 .Pt takes atorvastatin 80 mg.He continues to have significant leg swelling, left worse than right. He denies leg pain. He previously underwent sleep study on 12/29/2018 which showed severe sleep apnea. However, he was never set up with CPAP machine per his report. *Had normal DEDE on 10/28/17 . *Had Cath on 04/03/17: with Proximal LAD 90% stenosis, he underwent a PCI with ICERA placement. *Had ECHO on 04/03/17: Normal left ventricular size. Mild concentric left ventricular hypertrophy. Normal global left ventricular systolic function. Impaired diastolic relaxation. Grade 1. Ejection fraction is measured at 71%. Technically difficult study with limited views. No prior echo available for comparison. *Had EK03/11/18: Normal sinus rhythm. Within normal limits.Results from this visit, or from the past:02/22/18: Na 139 ,K 4.1 ,CL 104 ,CO2 26 , GLU 113 ,BUN 24 ,CR 0.60 ,HB 14.9, HT 45.809: Na 139 ,K 4.1 ,CL 104 ,CO2 26 , GLU 113 ,BUN 24 ,CR 0.60 ,HB 14.9, HT 45.806 Mg 2.0, TSH 2.860, CR kinase : Na 139 ,K 4.1 ,CL 104 ,CO2 26 , GLU 113 ,BUN 24 ,CR 0.60 ,HB 14.9, HT 45.810: SOD 136, K 3.8, CL 103, CO2 24, GL 110, BUN 21, CR 0.60, AST 31, ALT 4110/: WBC 12.4, HGB 13.7, HCT 41.4, PLT 96939: TC 183, HDL 52, LDL 140, TR 54electrocardiogram [id number]: 12/23/18 Normal sinus rhythm.electrocardiogr am [id number]: 03/11/18 Normal sinus rhythm. Within normal limits. EK03/11/18 Normal sinus rhythm. Within normal limits.EKG 08/12/17 : low voltage chest leads EKG 04/07/17 : ventricular premature beats 04/03/17 ECHO: Normal left ventricular size. Mild concentric left ventricular hypertrophy. Normal global left ventricular systolic function. Impaired diastolic relaxation grade I. Ejection fraction is measured at 71%. Technically difficult study with limited views. No prior echo available for comparison. sleep study, diagnostic [id number] are consistent with very severe, non-positional SHAVON. The clinical test accuracy may be impacted by the limited study time. DEDE) ankle brachial index [id number], DOPPLER, ARTERIAL 10/28/17: normal DEDE, no significant lower extemity peripheral arterial peripheral arterial disease detected . Sinus rhythm, Borderline R wave progression anterior leads, Baseline wander II III AVF,Borderline ECG. 04/03/17 CHEST TWO VIEW: Bibasilar infiltrate or atelectasis, greater on the right borderline or increased heart size and mild pulmonary vascular congestion/redistribut ion. 04/03/17 90 % LAD stenosis, treated with PCI and Promos stent. ECHO: 04/03/17 Normal left ventricular size. Mild concentric left ventricular hypertrophy. Normal global left ventricular systolic function. Impaired diastolic relaxation. Grade 1. Ejection fraction is measured at 71%. Technically difficult study with limited views. No preior echo available for comparison.04/03/17 ECHO: Normal left ventricular size. Mild concentric left ventricular hypertrophy. Normal global left ventricular systolic function. Impaired diastolic relaxation grade I. Ejection fraction is measured at 71%. Technically difficult study with limited views. No prior echo available for comparison US, DOPPLER, ARTERIAL 10/28/17: normal DEDE, no significant lower extemity peripheral arterial peripheral arterial disease detected . 04/03/17 CHEST TWO VIEW: Bibasilar infiltrate or atelectasis, greater on the right borderline or increased heart size and mild pulmonary vascular congestion/redistribut ion. Deng [place] MD [address] [place], [address], [facility] 05/28/2022 13:47:28 08/27/2022 text/html 08/27/22CC : Car diac follow up, dyspnea on [id number] white man with h/o obesity, coronary artery disease s/p NSTEMI, LAD PCI 03/2017, hyperlipidemia, hypertension, rheumatoid arthritis, and fibromyalgia, is here 3 month for follow-up. He was last seen in the clinic on 05/28/22, since then he is doing Ok, feels fairHe denies ER visits and hospitalizations since he was last seen. Denies chest pain.Denies shortness of breath at rest. Has mild dyspnea on exertion.No orthopnea. No PNDs.Denies heart palpitations.Denies dizziness. Denies syncope or near syncope.No ankle or leg edema.No major bleeding events.No reported side effects from medications. Taking medications as prescribed with no missed doses.Denies snoring, daytime somnolence and AM headache.*Last LDL was 140 done on 04/02/17.Pt takes atorvastatin 80 mg. 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 He has SHAVON and does not use CPAP. He is still struggling with his weight. He had Shanique done which showed fixed defect in apical area. *Had venous reflux done on 10/26/21 showed Mild left sided reflux disease noted. *He had a negative stress and Normal Left ventricular systolic function. He had swelling of the left ankle that is swell more toward the end of the day. He is wearing compression socks. He is struggling will weight gain. He has no DM. Last LDL was 140 done on 04/02/17 .Pt takes atorvastatin 80 mg.He continues to have significant leg swelling, left worse than right. He denies leg pain. He previously underwent sleep study on 12/29/2018 which showed severe sleep apnea. However, he was never set up with CPAP machine per his report. *Had normal DEDE on 10/28/17 . *Had Cath on 04/03/17: with Proximal LAD 90% stenosis, he underwent a PCI with CIERA placement. *Had ECHO on 04/03/17: Normal left ventricular size. Mild concentric left ventricular hypertrophy. Normal global left ventricular systolic function. Impaired diastolic relaxation. Grade 1. Ejection fraction is measured at 71%. Technically difficult study with limited views. No prior echo available for comparison. *Had EK03/11/18: Normal sinus rhythm. Within normal limits.Results from this visit, or from the past:02/22/18: Na 139 ,K 4.1 ,CL 104 ,CO2 26 , GLU 113 ,BUN 24 ,CR 0.60 ,HB 14.9, HT 45.809: Na 139 ,K 4.1 ,CL 104 ,CO2 26 , GLU 113 ,BUN 24 ,CR 0.60 ,HB 14.9, HT 45.806 Mg 2.0, TSH 2.860, CR kinase : Na 139 ,K 4.1 ,CL 104 ,CO2 26 , GLU 113 ,BUN 24 ,CR 0.60 ,HB 14.9, HT 45.810: SOD 136, K 3.8, CL 103, CO2 24, GL 110, BUN 21, CR 0.60, AST 31, ALT 4110: WBC 12.4, HGB 13.7, HCT 41.4, PLT 23367: TC 183, HDL 52, LDL 140, TR 54electrocardiogram [id number]: 12/23/18 Normal sinus rhythm.electrocardiogr am [id number]: 03/11/18 Normal sinus rhythm. Within normal limits. EK03/11/18 Normal sinus rhythm. Within normal limits.EKG 08/12/17 : low voltage chest leads EKG 04/07/17 : ventricular premature beats 04/03/17 ECHO: Normal left ventricular size. Mild concentric left ventricular hypertrophy. Normal global left ventricular systolic function. Impaired diastolic relaxation grade I. Ejection fraction is measured at 71%. Technically difficult study with limited views. No prior echo available for comparison. sleep study, diagnostic [id number] are consistent with very severe, non-positional SHAVON. The clinical test accuracy may be impacted by the limited study time. DEDE) ankle brachial index [id number], DOPPLER, ARTERIAL 10/28/17: normal DEDE, no significant lower extemity peripheral arterial peripheral arterial disease detected . Sinus rhythm, Borderline R wave progression anterior leads, Baseline wander II III AVF,Borderline ECG. 04/03/17 CHEST TWO VIEW: Bibasilar infiltrate or atelectasis, greater on the right borderline or increased heart size and mild pulmonary vascular congestion/redistribut ion. 04/03/17 90 % LAD stenosis, treated with PCI and Promos stent. ECHO: 04/03/17 Normal left ventricular size. Mild concentric left ventricular hypertrophy. Normal global left ventricular systolic function. Impaired diastolic relaxation. Grade 1. Ejection fraction is measured at 71%. Technically difficult study with limited views. No preior echo available for comparison.04/03/17 ECHO: Normal left ventricular size. Mild concentric left ventricular hypertrophy. Normal global left ventricular systolic function. Impaired diastolic relaxation grade I. Ejection fraction is measured at 71%. Technically difficult study with limited views. No prior echo available for comparison US, DOPPLER, ARTERIAL 10/28/17: normal DEDE, no significant lower extemity peripheral arterial peripheral arterial disease detected . 04/03/17 CHEST TWO VIEW: Bibasilar infiltrate or atelectasis, greater on the right borderline or increased heart size and mild pulmonary vascular congestion/redistribut ion. Deng Smith MD [address] [place], [address], [facility] 08/27/2022 11:19:03 10/03/2023 text/html 10/03/23CC : Car dia follow up dyspnea on [id number] white man with h/o obesity, coronary artery disease s/p NSTEMI, LAD PCI 03/2017, hyperlipidemia, hypertension, rheumatoid arthritis, and fibromyalgia, is here for follow-up with ECHO results. He was last seen in the clinic on 08/27/22, since then he denied chest pain or dyspnea on exertion. He gained weight about 40 pounds.He denies ER visits and hospitalizations since he was last seen. Denies chest pain.Denies shortness of breath at rest. Has mild dyspnea on exertion.No orthopnea. No PNDs.Denies heart palpitations.Denies dizziness. Denies syncope or near syncope.No ankle or leg edema.No major bleeding events.No reported side effects from medications. Taking medications as prescribed with no missed doses.Denies snoring, daytime somnolence and AM headache.*Last LDL was 140 done on 04/02/17.Pt takes atorvastatin 80 mg. *Had ECHO on 11/07/22 showed LV chamber size is normal. LV wall thickness is mildly increased. The estimated left ventricle ejection fraction is 50-55% (normal). There is increased left atrial pressure and Grade 11 diastolic dysfunction. Left Atrium chamber is mildly dilated. Aortic valve is not well visualized. The aortic valve is mildly calcified. There is a dense posterior mitral annular calcification. 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 He has SHAVON and does not use CPAP. He is still struggling with his weight. He had Shanique done which showed fixed defect in apical area. *Had venous reflux done on 10/26/21 showed Mild left sided reflux disease noted. *He had a negative stress and Normal Left ventricular systolic function. He had swelling of the left ankle that is swell more toward the end of the day. He is wearing compression socks. He is struggling will weight gain. He has no DM. Last LDL was 140 done on 04/02/17 .Pt takes atorvastatin 80 mg.He continues to have significant leg swelling, left worse than right. He denies leg pain. He previously underwent sleep study on 12/29/2018 which showed severe sleep apnea. However, he was never set up with CPAP machine per his report. *Had normal DEDE on 10/28/17 . *Had Cath on 04/03/17: with Proximal LAD 90% stenosis, he underwent a PCI with CIERA placement. *Had EK03/11/18: Normal sinus rhythm. Within normal limits.Results from this visit, or from the past:02/22/18: Na 139 ,K 4.1 ,CL 104 ,CO2 26 , GLU 113 ,BUN 24 ,CR 0.60 ,HB 14.9, HT 45.809: Na 139 ,K 4.1 ,CL 104 ,CO2 26 , GLU 113 ,BUN 24 ,CR 0.60 ,HB 14.9, HT 45.806 Mg 2.0, TSH 2.860, CR kinase : Na 139 ,K 4.1 ,CL 104 ,CO2 26 , GLU 113 ,BUN 24 ,CR 0.60 ,HB 14.9, HT 45.810: SOD 136, K 3.8, CL 103, CO2 24, GL 110, BUN 21, CR 0.60, AST 31, ALT 4110: WBC 12.4, HGB 13.7, HCT 41.4, PLT 71727: TC 183, HDL 52, LDL 140, TR 54electrocardiogram [id number]: 12/23/18 Normal sinus rhythm.electrocardiogr am [id number]: 03/11/18 Normal sinus rhythm. Within normal limits. EK03/11/18 Normal sinus rhythm. Within normal limits.EKG 08/12/17 : low voltage chest leads EKG 04/07/17 : ventricular premature beats 04/03/17 ECHO: Normal left ventricular size. Mild concentric left ventricular hypertrophy. Normal global left ventricular systolic function. Impaired diastolic relaxation grade I. Ejection fraction is measured at 71%. Technically difficult study with limited views. No prior echo available for comparison. sleep study, diagnostic [id number] are consistent with very severe, non-positional SHAVON. The clinical test accuracy may be impacted by the limited study time. DEDE) ankle brachial index [id number], DOPPLER, ARTERIAL 10/28/17: normal DEDE, no significant lower extemity peripheral arterial peripheral arterial disease detected . Sinus rhythm, Borderline R wave progression anterior leads, Baseline wander II III AVF,Borderline ECG. 04/03/17 CHEST TWO VIEW: Bibasilar infiltrate or atelectasis, greater on the right borderline or increased heart size and mild pulmonary vascular congestion/redistribut ion. 04/03/17 90 % LAD stenosis, treated with PCI and Promos stent. ECHO: 04/03/17 Normal left ventricular size. Mild concentric left ventricular hypertrophy. Normal global left ventricular systolic function. Impaired diastolic relaxation. Grade 1. Ejection fraction is measured at 71%. Technically difficult study with limited views. No preior echo available for comparison.04/03/17 ECHO: Normal left ventricular size. Mild concentric left ventricular hypertrophy. Normal global left ventricular systolic function. Impaired diastolic relaxation grade I. Ejection fraction is measured at 71%. Technically difficult study with limited views. No prior echo available for comparison US, DOPPLER, ARTERIAL 10/28/17: normal DEDE, no significant lower extemity peripheral arterial peripheral arterial disease detected . 04/03/17 CHEST TWO VIEW: Bibasilar infiltrate or atelectasis, greater on the right borderline or increased heart size and mild pulmonary vascular congestion/redistribut ion. Nicole sams [place] - [facility] 10/07/2023 16:20:32 12/30/2023 text/html *fasting droymr72/09/24CC : Cardiac follow [id number] white man with h/o obesity, coronary artery disease s/p NSTEMI, LAD PCI 03/2017, hyperlipidemia, hypertension, rheumatoid arthritis, and fibromyalgia, is here for 3 month follow-up with stress test results. He was last seen in the clinic on 10/03/23, since then he had Positive Lexiscan stress test on 12/17/23 with Reversible defect consistent with ischemia inferior area. Normal LV systolic function. LVEF: 48%.He denies ER visits and hospitalizations since he was last seen. Today reports:Denies chest pain.Denies shortness of breath at rest. Has mild dyspnea on exertion.No orthopnea. No PNDs.Denies heart palpitations.Denies dizziness. Denies syncope or near syncope.No ankle or leg edema.No major bleeding events.No reported side effects from medications. Taking medications as prescribed with no missed doses.Denies snoring, daytime somnolence and AM headache.*Last LDL was 140 done on 04/02/17.Pt takes atorvastatin 80 mg. *Had Positive Lexiscan stress test on 12/17/23 with Reversible defect consistent with ischemia inferior area. Normal LV systolic function. LVEF: 48%. Previously:*Had ECHO on 11/07/22 showed LV chamber size is normal. LV wall thickness is mildly increased. The estimated left ventricle ejection fraction is 50-55% (normal). There is increased left atrial pressure and Grade 11 diastolic dysfunction. Left Atrium chamber is mildly dilated. Aortic valve is not well visualized. The aortic valve is mildly calcified. There is a dense posterior mitral annular calcification. 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 He has SHAVON and does not use CPAP. He is still struggling with his weight. He had Shanique done which showed fixed defect in apical area. *Had venous reflux done on 10/26/21 showed Mild left sided reflux disease noted. He had swelling of the left ankle that is swell more toward the end of the day. He is wearing compression socks. He is struggling will weight gain. He has no DM. Last LDL was 140 done on 04/02/17 .Pt takes atorvastatin 80 mg.He continues to have significant leg swelling, left worse than right. He denies leg pain. He previously underwent sleep study on 12/29/2018 which showed severe sleep apnea. However, he was never set up with CPAP machine per his report. *Had normal DEDE on 10/28/17 . *Had Cath on 04/03/17: with Proximal LAD 90% stenosis, he underwent a PCI with CIERA placement. *Had EK03/11/18: Normal sinus rhythm. Within normal limits.Results from this visit, or from the past:02/22/18: Na 139 ,K 4.1 ,CL 104 ,CO2 26 , GLU 113 ,BUN 24 ,CR 0.60 ,HB 14.9, HT 45.809: Na 139 ,K 4.1 ,CL 104 ,CO2 26 , GLU 113 ,BUN 24 ,CR 0.60 ,HB 14.9, HT 45.806 Mg 2.0, TSH 2.860, CR kinase : Na 139 ,K 4.1 ,CL 104 ,CO2 26 , GLU 113 ,BUN 24 ,CR 0.60 ,HB 14.9, HT 45.810: SOD 136, K 3.8, CL 103, CO2 24, GL 110, BUN 21, CR 0.60, AST 31, ALT 4110: WBC 12.4, HGB 13.7, HCT 41.4, PLT 66277: TC 183, HDL 52, LDL 140, TR 54electrocardiogram [id number]: 12/23/18 Normal sinus rhythm.electrocardiogr am [id number]: 03/11/18 Normal sinus rhythm. Within normal limits. EK03/11/18 Normal sinus rhythm. Within normal limits.EKG 08/12/17 : low voltage chest leads EKG 04/07/17 : ventricular premature beats 04/03/17 ECHO: Normal left ventricular size. Mild concentric left ventricular hypertrophy. Normal global left ventricular systolic function. Impaired diastolic relaxation grade I. Ejection fraction is measured at 71%. Technically difficult study with limited views. No prior echo available for comparison. sleep study, diagnostic [id number] are consistent with very severe, non-positional SHAVON. The clinical test accuracy may be impacted by the limited study time. DEDE) ankle brachial index [id number], DOPPLER, ARTERIAL 10/28/17: normal DEDE, no significant lower extemity peripheral arterial peripheral arterial disease detected . Sinus rhythm, Borderline R wave progression anterior leads, Baseline wander II III AVF,Borderline ECG. 04/03/17 CHEST TWO VIEW: Bibasilar infiltrate or atelectasis, greater on the right borderline or increased heart size and mild pulmonary vascular congestion/redistribut ion. 04/03/17 90 % LAD stenosis, treated with PCI and Promos stent. ECHO: 04/03/17 Normal left ventricular size. Mild concentric left ventricular hypertrophy. Normal global left ventricular systolic function. Impaired diastolic relaxation. Grade 1. Ejection fraction is measured at 71%. Technically difficult study with limited views. No preior echo available for comparison.04/03/17 ECHO: Normal left ventricular size. Mild concentric left ventricular hypertrophy. Normal global left ventricular systolic function. Impaired diastolic relaxation grade I. Ejection fraction is measured at 71%. Technically difficult study with limited views. No prior echo available for comparison US, DOPPLER, ARTERIAL 10/28/17: normal DEDE, no significant lower extremity peripheral arterial peripheral arterial disease detected . 04/03/17 CHEST TWO VIEW: Bibasilar infiltrate or atelectasis, greater on the right borderline or increased heart size and mild pulmonary vascular congestion/redistribut ion. Deng Smith MD [address] [place], [address], [facility] 12/30/2023 12:48:44 05/01/2024 text/html 05/01/24CC : Car diac follow up , chest pain, leg [id number] white man with h/o obesity, coronary artery disease s/p NSTEMI, LAD PCI 03/2017, hyperlipidemia, hypertension, rheumatoid arthritis, and fibromyalgia, is here for 3 month follow-up with labs results. He was last seen in the clinic on 12/30/23, since then he had a fall yesterdayHe denies ER visits and hospitalizations since he was last seen. Today reports:Denies chest pain.Denies shortness of breath at rest. Has mild dyspnea on exertion.No orthopnea. No PNDs.Denies heart palpitations.Denies dizziness. Denies syncope or near syncope.No ankle or leg edema.No major bleeding events.No reported side effects from medications. Taking medications as prescribed with no missed doses.Denies snoring, daytime somnolence and AM headache.*Last LDL was 81 done on 11/26/23.Pt takes atorvastatin 80 mg. 11/26/2023LIPID-CHOL 151 HDL 52 TRIG 101 LDL 81CMP-GL 88 BUN 18 CR 0.58 NA 136 K 4.5 CA 8.8CBC-WB 10.9 RBC 4.94 HGB 45.0 HCT 91.1 PLT 172 Previously:*Had Positive Lexiscan stress test on 12/17/23 with Reversible defect consistent with ischemia inferior area. Normal LV systolic function. LVEF: 48%. *Had ECHO on 11/07/22 showed LV chamber size is normal. LV wall thickness is mildly increased. The estimated left ventricle ejection fraction is 50-55% (normal). There is increased left atrial pressure and Grade 11 diastolic dysfunction. Left Atrium chamber is mildly dilated. Aortic valve is not well visualized. The aortic valve is mildly calcified. There is a dense posterior mitral annular calcification. He has SHAVON and does not use CPAP. *Had venous reflux done on 10/26/21 showed Mild left sided reflux disease noted. *He previously underwent sleep study on 12/29/2018 which showed severe sleep apnea. However, he was never set up with CPAP machine per his report. *Had normal DEDE on 10/28/17 . *Had Cath on 04/03/17: with Proximal LAD 90% stenosis, he underwent a PCI with CIERA placement. Results from this visit, or from the past:02/22/18: Na 139 ,K 4.1 ,CL 104 ,CO2 26 , GLU 113 ,BUN 24 ,CR 0.60 ,HB 14.9, HT 45.809: Na 139 ,K 4.1 ,CL 104 ,CO2 26 , GLU 113 ,BUN 24 ,CR 0.60 ,HB 14.9, HT 45.806 Mg 2.0, TSH 2.860, CR kinase : Na 139 ,K 4.1 ,CL 104 ,CO2 26 , GLU 113 ,BUN 24 ,CR 0.60 ,HB 14.9, HT 45.810: SOD 136, K 3.8, CL 103, CO2 24, GL 110, BUN 21, CR 0.60, AST 31, ALT 411: WBC 12.4, HGB 13.7, HCT 41.4, PLT 83107: TC 183, HDL 52, LDL 140, TR 54electrocardiogram [id number]: 12/23/18 Normal sinus rhythm.electrocardiogr am [id number]: 03/11/18 Normal sinus rhythm. Within normal limits. EK03/11/18 Normal sinus rhythm. Within normal limits.EKG 08/12/17 : low voltage chest leads EKG 04/07/17 : ventricular premature beats 04/03/17 ECHO: Normal left ventricular size. Mild concentric left ventricular hypertrophy. Normal global left ventricular systolic function. Impaired diastolic relaxation grade I. Ejection fraction is measured at 71%. Technically difficult study with limited views. No prior echo available for comparison. sleep study, diagnostic [id number] are consistent with very severe, non-positional SHAVON. The clinical test accuracy may be impacted by the limited study time. DEDE) ankle brachial index [id number], DOPPLER, ARTERIAL 10/28/17: normal DEDE, no significant lower extemity peripheral arterial peripheral arterial disease detected . Sinus rhythm, Borderline R wave progression anterior leads, Baseline wander II III AVF,Borderline ECG. 04/03/17 CHEST TWO VIEW: Bibasilar infiltrate or atelectasis, greater on the right borderline or increased heart size and mild pulmonary vascular congestion/redistribut ion. 04/03/17 90 % LAD stenosis, treated with PCI and Promos stent. ECHO: 04/03/17 Normal left ventricular size. Mild concentric left ventricular hypertrophy. Normal global left ventricular systolic function. Impaired diastolic relaxation. Grade 1. Ejection fraction is measured at 71%. Technically difficult study with limited views. No preior echo available for comparison.04/03/17 ECHO: Normal left ventricular size. Mild concentric left ventricular hypertrophy. Normal global left ventricular systolic function. Impaired diastolic relaxation grade I. Ejection fraction is measured at 71%. Technically difficult study with limited views. No prior echo available for comparison US, DOPPLER, ARTERIAL 10/28/17: normal DEDE, no significant lower extremity peripheral arterial peripheral arterial disease detected . 04/03/17 CHEST TWO VIEW: Bibasilar infiltrate or atelectasis, greater on the right borderline or increased heart size and mild pulmonary vascular congestion/redistribut ion. Deng Smith MD [address] [place], [address], [facility] 05/01/2024 14:48:43
--- OUTSIDE RECORDS SUMMARY | 2024-11-01 03:08 | XMS_ITS | Encounter Summary ---
Author Organization [facility] Address [address] [place] [address] Phone Care Team Providers Care Sieve Maker Name Role Phone Perez Humphrey MD Primary Care Provider [phone] Encounter Details Date Type Department Care Team (Late Contact Info) Description 09/02/2024 Results Follow-Up [facility] - [facility] [address] [place] [address] Perez Humphrey MD [address] [address] PSA SCREEN, LIPID PANEL, CMP (COMPREHENSIVE METABOLIC [...] Description 11/03/2024 1:00 PM CDT Office Visit [facility] [address] [facility] [place] [address] Perez Humphrey MD [address] [address] [place] [address] 11/17/2024 11:45 AM CDT Office Visit [facility] Cardiology [facility] [address] [facility] [place] [address] Sharri Cisneros MD 2 [facility] [place] [address] 01/06/2025 1:30 PM CDT Office Visit [facility] [address] [facility] [place] [address] Perez Humphrey MD #2 [facility] [address] [place] [address] documented as of this encounter Visit Diagnoses Not on filedocumented in this encounter Additional Health Concerns Assessment Noted Time PHQ-9 Depression Total Score: 0 11/11/19 6:26 PM CDT documented as of this encounter Care Teams Sieve Maker Relationship Specialty Start Date End Date Perez Humphrey MD [address] [place] [address] PCP - General Family Medicine 11/11/23 documented as of this encounter
[2024-11-01] MEDS: DOXYCYCLINE 100 MG/NS 100 ML 100 MG/100 ML BAG IVPB (03:09)
[2024-11-01 03:12] LABS: NT Pro B Type Natriuretic Pept 1100 pg/mL (19.9-100)
[2024-11-01 03:13] LABS: Alveolar/Arterial O2 Gradient 32.9 mmHg; Base Excess ABG -1.3 mEq/l (+/-2.0); Fractional Inspired Oxygen 21 %; HCO3 ABG 23.8 mEq/l (22.0-26.0); Oxygen Content ABG 18.6 %vol (16.0-22.0); Oxyhemoglobin 92.5 % THb (90.0-100.0); PCO2 ABG 41.4 mmHg (35.0-45.0); PO2 ABG 67.3 mmHg (80.0-100.0); Total Hemoglobin 14.3 g/dL (12.0-18.0); pH ABG 7.377 (7.350-7.450)
[2024-11-01 03:14] LABS: Modified Allen's Test Pass; Site Drawn LEFT RADIAL
[2024-11-01 03:15] LABS: Troponin I 0.021 ng/mL (0.000-0.034)
[2024-11-01 03:25] LABS: Influenza A QL RT-PCR Negative (Negative); Influenza B QL RT-PCR Negative (Negative); RSV RNA, RT-PCR Negative (Negative); SARS-CoV-2 RNA PCR Negative (Negative)
[2024-11-01 03:34] LABS: Thyroid Stimulating Hormone Reflex 0.848 uIU/mL (0.465-4.68)
--- NOTE | 2024-11-01 04:07 | ED.GENADULT ---
HPI - General Adult General Chief complaint: Altered Mental Status Stated complaint: AMS, tremors History of Present Illness HPI narrative: This is a 74-year-old morbidly obese male sent to the ED for altered mental status and weakness. Patient is A&O x2 and cannot provide much useful history. His is at bedside and she say their family has been having upper respiratory illnesses for about the last 5 weeks. The rest the family improved but he has continued to have cough has gotten worse over the last several days. She has also noted that he is peeing more than usual. She has not noted any nausea vomiting or diarrhea. Related Data Home Medications ?Medication ?Instructions ?Recorded ?Confirmed ?Last Taken ?Type atorvastatin 80 mg tablet 80 mg PO DAILY 07/10/19 10/29/24 10/28/19 History clopidogrel 75 mg tablet (Plavix) 75 mg PO DAILY 07/10/19 07/10/19 10/28/19 History hydrochlorothiazide 25 mg tablet 25 mg PO DAILY 07/10/19 07/10/19 10/28/19 History hydrocodone 7.5 mg-acetaminophen 1 tablet PO Q6H PRN pain 07/10/19 07/10/19 10/28/19 History 325 mg tablet metoprolol succinate 50 mg 50 mg PO DAILY 07/10/19 10/29/24 10/28/19 History tablet,extended release 24 hr azithromycin 250 mg tablet mg 10/29/24 Unknown History empagliflozin 10 mg tablet mg 10/29/24 Unknown History (Jardiance) furosemide 20 mg tablet mg 10/29/24 Unknown History hydrocodone 10 mg-acetaminophen tablet 10/29/24 Unknown History 325 mg tablet potassium chloride 20 mEq meq PO 10/29/24 Unknown History tablet,extended release(part/cryst) semaglutide 0.25 mg or 0.5 mg (2 mg subcut 10/29/24 Unknown History mg/3 mL) subcutaneous pen injector (Ozempic) spironolactone 25 mg tablet mg 10/29/24 Unknown History Allergies Allergy/AdvReac Type Severity Reaction Status Date / Time No Known Allergies Allergy Verified 11/01/24 05:52 [facility] Past Medical History Medical History (Updated 11/01/24 @ 06:20 by Rosendo Temple MD) CAD (coronary artery disease) Hyperlipidemia Depression Arthritis Fibromyalgia Kidney stones He stated he thinks he had a possible kidney stone UTI (urinary tract infection) In the past Heart attack History of cardiac stent. HTN (hypertension) Seasonal allergies Surgical History Surgical History H/O heart artery stent History of local excision of skin lesion Lip[place] History of knee surgery Right knee meniscus repair History of tonsillectomy Family History Family History Father Diabetes mellitus Hypertension Mother Dementia Social History Social History Social History: The patient lives with his Aarti who is his power staff attorney for healthcare. He desires to be a full code. He has 3 children. Patient stated he smoked for about 7 or 8 years and quit 1980. No alcohol or illicit drug patient works for an [employer] part-time. Smoking status: Former smoker Second hand tobacco smoke exposure: Yes Smoking end date: 07/10/80 Alcohol intake: current Drinks per week: 2 Substance use: never Living arrangements: with family Occupation/Education: occupation Gender identity (if verbalized by the patient): Male Spiritual care concerns: No Agree to blood products: Yes Exam Narrative: APPEARANCE: Unwell appearing, A&O x2 Head: atraumatic. EYES: EOMI, NOSE: Atraumatic NECK: Trachea midline RESPIRATORY: Scattered rhonchi CARDIOVASCULAR: Tachycardic, pitting edema lower extremities ABDOMINAL: Obese, nontender physical exam due to body habitus MUSCULOSKELETAl: No obvious deformities NEURO: Alert. Moving 4/4 extremities SKIN:: Lipodermatosclerosis of the lower extremities, erythema/warmth posterior left calf. PSYCHIATRIC: Normal affect Course Vital Signs Vital signs: Vital Signs Temperature 100.3 F H 11/01/24 01:59 Pulse Rate 123 H 11/01/24 01:59 Respiratory Rate 23 H 11/01/24 01:59 Blood Pressure 144/57 H 11/01/24 01:59 Pulse Oximetry 93 11/01/24 01:59 Oxygen Delivery Room Air 11/01/24 01:59 Temperature 97.1 F L 11/01/24 06:38 Pulse Rate 89 11/01/24 06:25 Respiratory Rate 21 H 11/01/24 06:25 Blood Pressure 127/55 L 11/01/24 06:25 Pulse Oximetry 97 11/01/24 06:25 Oxygen Delivery BiPAP 11/01/24 05:00 Medical Decision Making [facility] Narrative Medical decision making narrative: -Course: 74-year-old morbidly obese male presenting for altered mental status/fevers/weakness. Patient is wheezy on exam. Given a breathing treatment. Cellulitis of the left lower extremities present. Full sepsis workup obtained. Patient given 30 cc/kilogram bolus of ideal body weight due to his morbid obesity. Patient started on cefepime/doxy/vanco while completing his workup. Workuip significant for: White count elevated at 25. Lactic 3.0 which cleared 2.[address] PE with abdomen pelvis did not reveal a source of infection. Urine not indicative infection. Viral swabs negative. Blood culture still pending. Only source infection at this time is cellulitis left lower leg. Doxy discontinued. On evaluation patient's mental status improved dramatically after IV fluids and antibiotics. He is now A&O x4. Vital signs are improving. However when he is sleeping he has significant obstructive sleep apnea. Put on BiPAP. Patient will be admitted the hospital for further management his sepsis. -DDX includes but is not limited to: Sepsis UTI dehydration duration pneumonia cellulitis intra-abdominal infection -Co-morbidities complicating care: Morbid obesity Independent EKG interpretation: Rhythm [sinus], Rate [120], [place] -[normal], [place] -[normal], QRS [narrow], QTC [normal], T waves -[negative for concerning inversions], ST Segments - [Negative for concerning elevations] Final interpretations: Sinus tachycardia Vital Signs Vital Signs: Vital Signs Temperature 100.3 F H 11/01/24 01:59 Pulse Rate 123 H 11/01/24 01:59 Respiratory Rate 23 H 11/01/24 01:59 Blood Pressure 144/57 H 11/01/24 01:59 Pulse Oximetry 93 11/01/24 01:59 Oxygen Delivery Room Air 11/01/24 01:59 Temperature 97.1 F L 11/01/24 06:38 Pulse Rate 89 11/01/24 06:25 Respiratory Rate 21 H 11/01/24 06:25 Blood Pressure 127/55 L 11/01/24 06:25 Pulse Oximetry 97 11/01/24 06:25 Oxygen Delivery BiPAP 11/01/24 05:00 Lab Data 05/12/25 02:30 11/01/24 02:30 Labs: Lab Results 11/01/24 11/01/24 11/01/24 Range/Units 02:29 02:30 02:38 WBC 25.2 H (4.5-10.0) K/mm3 RBC 4.72 (4.6-6.20) M/mm3 Hgb 14.3 (14.0-18.0) g/dL Hct 45.4 (42.0-52.0) % MCV 96.2 (80-100) fl MCH 30.3 (26-34) pg MCHC 31.5 L (32-36) g/dl RDW 14.0 (11.5-14.5) % Plt Count 153 (150-375) k/mm3 MPV 11.9 H (7.4-10.4) fl Immature Gran % (Auto) 0.8 H (0-0.5) % Neut % (Auto) 96.7 H (45.5-73.1) % Lymph % (Auto) 1.1 L (18.3-44.2) % [place] % (Auto) 1.2 L (2.6-8.5) % Eos % (Auto) 0.0 (0-4.4) % Baso % (Auto) 0.2 (0.2-1.2) % Lymph # (Auto) 0.29 L (0.9-3.2) K/mm3 [place] # (Auto) 0.3 (0.1-0.6) K/mm3 Eos # (Auto) 0.0 (0-0.3) K/mm3 Baso # (Auto) 0.1 (0.0-0.1) K/mm3 Abs Immat Gran (auto) 0.20 H (0.00-0.031) K/mm3 Absolute Neuts (auto) 24.4 H (1.3-6.7) K/mm3 Absolute Nucleated RBC 0.000 (0.0-0.012) K/mm3 Nucleated RBC % 0.0 (0.0-0.2) % PT 13.2 (11.1-14.7) Seconds INR 1.0 APTT 23.7 (22.3-36.8) Seconds D-Dimer 0.95 H (<0.48) ug/mL Sodium 136 L (137-145) mmol/L Potassium 4.0 (3.4-5.0) mmol/L Chloride 103 (98-107) mmol/L Carbon Dioxide 23 (22-30) mmol/L Anion Gap 10 (4-12) mmol/L BUN 27 H (9-20) mg/dL Creatinine 0.73 (0.7-1.3) mg/dL Estim Creat Clear Calc 114 ml/min Estimated GFR > 60 (59 - ) Glucose 183 H (65-110) mg/dL POC Capillary Glucose (65-105) mg/dl Lactic Acid 3.0 H (0.7-2.0) mmol/L Calcium 8.7 (8.4-10.2) mg/dL Phosphorus 2.0 L (2.5-4.5) mg/dL Magnesium 1.9 (1.6-2.3) mg/dL Total Bilirubin 0.9 (0.2-1.3) mg/dL AST 38 (17-59) U/L ALT 32 (6-50) U/L Alkaline Phosphatase 79 (38-126) U/L Troponin I 0.021 (0.000-0.034) ng/mL NT-Pro-B Natriuret Pep 1100 H (19.9-100) pg/mL Total Protein 6.0 L (6.3-8.2) g/dL Albumin 3.9 (3.5-5.1) g/dL Lipase 98 (23-300) U/L TSH (Reflex) 0.848 (0.465-4.68) uIU/mL Urine Color (Yellow) Urine Appearance (Clear) Urine pH (5.0-9.0) Ur Specific [place] (1.001-1.035) Urine Protein (Negative) mg/dL Urine Glucose (UA) (Negative) mg/dL Urine Ketones (Negative) mg/dL Ur Blood (Man) (Negative) Urine Nitrate (Negative) Urine Bilirubin (Negative) Urine Urobilinogen (<2.0) mg/dL Leukocyte Esterase Rfl (Negative) DELL/UL Urine RBC (0-2) /hpf Urine WBC (0-3) /hpf Ur Squamous Epith Cells (Few) /hpf Urine Bacteria /hpf Urine Casts Nasal MRSA (PCR) (NOT DETECTE) Urine Opiates Screen (Negative) Urine Methadone Screen (Negative) Ur Barbiturates Screen (Negative) Ur Phencyclidine Scrn (Negative) Ur Amphetamine Screen (Negative) U Benzodiazepines Scrn (Negative) Urine Cocaine Screen (Negative) U Cannabinoids Screen (Negative) Ethyl Alcohol < 10 (<10) mg/dL Influenza A (RT-PCR) Negative (Negative) Influenza B (RT-PCR) Negative (Negative) RSV (RT-PCR) Negative (Negative) SARS-CoV-2 RNA (RT-PCR) Negative (Negative) 11/01/24 11/01/24 11/01/24 Range/Units 02:59 04:13 05:18 WBC (4.5-10.0) K/mm3 RBC (4.6-6.20) M/mm3 Hgb (14.0-18.0) g/dL Hct (42.0-52.0) % MCV (80-100) fl MCH (26-34) pg MCHC (32-36) g/dl RDW (11.5-14.5) % Plt Count (150-375) k/mm3 MPV (7.4-10.4) fl Immature Gran % (Auto) (0-0.5) % Neut % (Auto) (45.5-73.1) % Lymph % (Auto) (18.3-44.2) % [place] % (Auto) (2.6-8.5) % Eos % (Auto) (0-4.4) % Baso % (Auto) (0.2-1.2) % Lymph # (Auto) (0.9-3.2) K/mm3 [place] # (Auto) (0.1-0.6) K/mm3 Eos # (Auto) (0-0.3) K/mm3 Baso # (Auto) (0.0-0.1) K/mm3 Abs Immat Gran (auto) (0.00-0.031) K/mm3 Absolute Neuts (auto) (1.3-6.7) K/mm3 Absolute Nucleated RBC (0.0-0.012) K/mm3 Nucleated RBC % (0.0-0.2) % PT (11.1-14.7) Seconds INR APTT (22.3-36.8) Seconds D-Dimer (<0.48) ug/mL Sodium (137-145) mmol/L Potassium (3.4-5.0) mmol/L Chloride (98-107) mmol/L Carbon Dioxide (22-30) mmol/L Anion Gap (4-12) mmol/L BUN (9-20) mg/dL Creatinine (0.7-1.3) mg/dL Estim Creat Clear Calc ml/min Estimated GFR (59 - ) Glucose (65-110) mg/dL POC Capillary Glucose 163 H (65-105) mg/dl Lactic Acid 2.2 H (0.7-2.0) mmol/L Calcium (8.4-10.2) mg/dL Phosphorus (2.5-4.5) mg/dL Magnesium (1.6-2.3) mg/dL Total Bilirubin (0.2-1.3) mg/dL AST (17-59) U/L ALT (6-50) U/L Alkaline Phosphatase (38-126) U/L Troponin I 0.031 D (0.000-0.034) ng/mL NT-Pro-B Natriuret Pep (19.9-100) pg/mL Total Protein (6.3-8.2) g/dL Albumin (3.5-5.1) g/dL Lipase (23-300) U/L TSH (Reflex) (0.465-4.68) uIU/mL Urine Color Yellow (Yellow) Urine Appearance Clear (Clear) Urine pH 5.0 (5.0-9.0) Ur Specific [place] 1.042 H (1.001-1.035) Urine Protein 1+ H (Negative) mg/dL Urine Glucose (UA) Negative (Negative) mg/dL Urine Ketones Trace H (Negative) mg/dL Ur Blood (Man) Negative (Negative) Urine Nitrate Negative (Negative) Urine Bilirubin Negative (Negative) Urine Urobilinogen 1.0 (<2.0) mg/dL Leukocyte Esterase Rfl Negative (Negative) DELL/UL Urine RBC 0-2 (0-2) /hpf Urine WBC 0-5 (0-3) /hpf Ur Squamous Epith Cells None seen (Few) /hpf Urine Bacteria None seen /hpf Urine Casts 3-5 Nasal MRSA (PCR) Not detected (NOT DETECTE) Urine Opiates Screen Positive A (Negative) Urine Methadone Screen Negative (Negative) Ur Barbiturates Screen Negative (Negative) Ur Phencyclidine Scrn Negative (Negative) Ur Amphetamine Screen Negative (Negative) U Benzodiazepines Scrn Negative (Negative) Urine Cocaine Screen Negative (Negative) U Cannabinoids Screen Negative (Negative) Ethyl Alcohol (<10) mg/dL Influenza A (RT-PCR) (Negative) Influenza B (RT-PCR) (Negative) RSV (RT-PCR) (Negative) SARS-CoV-2 RNA (RT-PCR) (Negative) ABG Data ABG results: 11/01/24 02:30 Puncture Site Left radial ABG pH 7.377 ABG pCO2 41.4 ABG pO2 67.3 L ABG PO2/FiO2 Ratio 3.20 ABG HCO3 23.8 ABG O2 Saturation 93.0 L ABG O2 Content 18.6 ABG Base Excess -1.3 A-a Gradient 32.9 Oxyhemoglobin 92.5 Total Hemoglobin 14.3 O2 Delivery Device Not Reportable O2 Liters/Min Not Reportable FiO2 21 Critical Care Time Critical Care Time Critical Care Time: Yes Total Critical Care Time: 35 Discharge Plan Discharge Clinical Impression: Sepsis, Cellulitis, Leukocytosis, SHAVON (obstructive sleep apnea) Patient Disposition: Still a Patient Condition: Stable Patient Language: [place]og[place]ese Prescriptions: No Action azithromycin 250 mg tablet hydrocodone-acetaminophen 10-325 mg tablet furosemide 20 mg tablet Jardiance 10 mg tablet spironolactone 25 mg tablet potassium chloride 20 mEq tablet,ER particles/crystals PO Ozempic 0.25 mg or 0.5 mg (2 mg/3 mL) pen injector SUBCUT doxycycline hyclate 100 mg tablet 100 mg PO DAILY Qty: 14 0RF prednisone 20 mg tablet 40 mg PO DAILY Qty: 10 0RF benzonatate 200 mg capsule 200 mg PO TID Qty: 14 0RF benzonatate 200 mg capsule 200 mg PO TID PRN (Reason: cough) Qty: 20 0RF doxycycline hyclate 100 mg capsule 100 mg PO BID 7 Days Qty: 14 0RF prednisone 20 mg tablet 40 mg PO DAILY 5 Days Qty: 10 0RF albuterol sulfate 90 mcg/actuation HFA aerosol inhaler 2 puff inhalation Q4-6H PRN (Reason: shortness of breath or wheezing) Qty: 8.5 0RF metoprolol succinate 50 mg Tablet Extended Release 24 Hr 50 mg PO DAILY clopidogrel [Plavix] 75 mg Tablet 75 mg PO DAILY hydrochlorothiazide 25 mg Tablet 25 mg PO DAILY atorvastatin 80 mg Tablet 80 mg PO DAILY hydrocodone-acetaminophen 7.5-325 mg Tablet 1 tablet PO Q6H PRN (Reason: pain) acetaminophen [Tylenol Extra Strength] 500 mg tablet 1,000 mg PO TID PRN (Reason: pain) Qty: 30 0RF ondansetron 4 mg tablet,disintegrating 4 mg PO Q8H PRN (Reason: nausea and vomiting) Qty: 10 0RF dicyclomine 10 mg capsule 10 mg PO BID 5 Days Qty: 10 0RF Follow-up/Referrals: Milagro,Perez Chester MD [Primary Care Provider] -
[2024-11-01 04:25] LABS: Add Urine Microscopic? YES; Appearance Urine Clear (Clear); Bacteria Urine None Seen /hpf; Bilirubin Urine Negative (Negative); Blood Urine Negative (Negative); Color Urine Yellow (Yellow); Glucose Urine UA Negative (Negative); Ketones Urine Trace mg/dL (Negative); Leukocyte Esterase Ur Negative LEU/UL (Negative); Nitrate Urine Negative (Negative); Protein Urine 1+ mg/dL (Negative); RBC Urine 0-2 /hpf (0-2); Specific Grav Ur 1.042 (1.001-1.035); Squamous Epithelial Cell Urine None Seen /hpf (Few); WBC Urine 0-5 /hpf (0-3)
[2024-11-01] MEDS: ACETAMINOPHEN 500 MG TABLET 1000 MG PO ×2 (04:25→14:42)
[2024-11-01] MEDS: LACTATED RINGERS 1,000 ML 999 ML IV CONT (04:25)
[2024-11-01 04:37] LABS: Reflex Lactic Acid Yes or No Add Lactic
[2024-11-01 04:39] LABS: Amphetamine Screen Urine Negative (Negative); Barbiturate Screen Urine Negative (Negative); Benzodiazepines Screen Urine Negative (Negative); Cannabinoid Screen Urine Negative (Negative); Cocaine Screen Urine Negative (Negative); Methadone Screen Urine Negative (Negative); Opiate Screen Urine Positive (Negative); Phencyclidine Screen Urine Negative (Negative)
[2024-11-01] MEDS: oxyCODONE HCL (*CRX) 5 MG TAB IR PO (04:56)
[2024-11-01] MEDS: VANCOMYCIN 1,250 MG/NS 250 ML 1,250 MG/250 ML BAG 166.67 MG IVPB ×2 (04:58→06:38)
[2024-11-01] MEDS: IPRATROPIUM 0.5 MG/ALBUTEROL SULFATE 2.5 MG AMPUL.NEB 3 ML 12 ML INHALATION (05:18)
[2024-11-01 05:42] LABS: MRSA (PCR) NOT DETECTED (NOT DETECTE)
[2024-11-01 06:07] LABS: Lactic Acid 2.2 mmol/L (0.7-2.0)
[2024-11-01 06:20] LABS: Troponin I 0.031 ng/mL (0.000-0.034)
--- NOTE | 2024-11-01 07:33 | PC.NURSE ---
Assumed care of pt. BiPap settings unchanged. Pt arousable to name. at bedside.
[2024-11-01] MEDS: IPRATROPIUM 0.5 MG/ALBUTEROL SULFATE 2.5 MG AMPUL.NEB 3 ML INHALATION ×3 (08:10→21:04)
[2024-11-01 08:24] LABS: Hemoglobin A1C 5.8 % (<5.7)
--- NOTE | 2024-11-01 10:22 | P.HP_ITS ---
H&P: HPI History of Present Illness Date/Time: 11/01/24 10:22 Chief Complaint: Altered mental status and weakness. Narrative: Patient is a 74 year old male that came to the hospital with altered mental status and weakness. Patient denies chest pain, palpitations, headache, dizziness, nausea, or vomiting. Patient reports coughing up green to clear sputum and recent upper respiratory illness for about the last 5 weeks. The rest of his family got better but his cough has gotten worse over the past several days. Patient uses a cane or walker, patient reports feeling weaker lately. Patient reports redness and swelling to left leg for about 3 weeks, denies drainage from leg. Patient is currently A&Ox4. Patient thinks he had a sleep study a long time ago but was never given a sleep machine. Patient reports being on Ozempic for weight loss. Patient reports that primary is setting up an appointment with a new Tub Washer in the same building as primary, patient does not know the providers name. ER work up: WBC 25.2, D dimer 0.95, lactic acid 3.0, BNP 1,100, and total protein 6.0. Trop 0.021 and 0.031. Chest X-ray showed probable focal left basilar atelectasis and Cardiomegaly. ECG- ST 120 QTc 416. Blood cultures obtained. Chest, Abdomen, and Pelvis with Contrast: Findings: There is no evidence of any significant mediastinal, hilar or axillary lymphadenopathy. The mediastinal soft tissues appear normal. There is no evidence of pleural or pericardial effusion. The lungs are clear. No pulmonary nodules or infiltrates are noted. The liver, spleen, pancreas, gallbladder, adrenals and kidneys are within normal limits. There are atherosclerotic calcifications of the aorta. No lymphadenopathy. No bowel obstruction or bowel wall thickening. There is no evidence to suggest acute appendicitis. Urinary bladder is unremarkable. No pelvic mass seen. No ascites. There is diffuse degenerative spondylosis of the spine. Impression: No significant abnormalities seen. Head CT: Findings: There is no evidence of intracranial hemorrhage, mass lesion, or acute infarct. Brain parenchyma appears normal. The ventricles and subarachnoid spaces are normal in size. The calvarium appears normal. The visualized paranasal sinuses and mastoid air cells are clear. Impression: No significant abnormality seen. Venous dopplers: IMPRESSION: 1. No [id number] deep venous thrombosis with no thrombosis in either lower limb at or proximal to the level of the popliteal veins. The bilateral peroneal and posterior tibial veins at the calf remain unable to be clearly visualized due to patient body habitus. Review of Systems Review of Systems: All systems reviewed & are unremarkable except as noted in HPI and below PMFSH Past Medical History Medical History (Updated 11/01/24 @ 13:41 by Angie Serrano APRN) CAD (coronary artery disease) Hyperlipidemia Depression Arthritis Fibromyalgia Kidney stones He stated he thinks he had a possible kidney stone UTI (urinary tract infection) In the past Heart attack History of cardiac stent. HTN (hypertension) Seasonal allergies Surgical History Surgical History H/O heart artery stent History of local excision of skin lesion Lipoma History of knee surgery Right knee meniscus repair History of tonsillectomy Family History Family History Father Diabetes mellitus Hypertension Mother Dementia Social History Social History Social History: The patient lives with his Aarti who is his power employment law attorney for healthcare. He desires to be a full code. He has 3 children. Patient stated he smoked for about 7 or 8 years and quit 1980. No alcohol or illicit drug patient works for an [employer] part-time. Smoking status: Former smoker Second hand tobacco smoke exposure: Yes Alcohol intake: current Drinks per week: 2 Substance use: never Do You Feel Safe in your Home?: Yes Lack of Transportation: YES Lack of Food: Never True Current Housing: I Have Housing Concerned About Future Housing: No Difficulty Paying Gas/Electric Bills: No Difficulty Paying for Meds: No Currently Unemployed: No Education: High School Diploma/GED Difficulty w/ Childcare or Family Care: No Living arrangements: with family Occupation/Education: occupation Gender identity (if verbalized by the patient): Male Spiritual care concerns: No Agree to blood products: Yes Meds Home Medications and Allergies Home Medications ?Medication ?Instructions ?Recorded ?Confirmed ?Type atorvastatin 80 mg tablet 80 mg PO DAILY 07/10/19 11/01/24 History metoprolol succinate 50 mg 50 mg PO DAILY 07/10/19 11/01/24 History tablet,extended release 24 hr albuterol sulfate 90 mcg/actuation 2 puff inhalation Q4-6H PRN 09/17/24 11/01/24 Rx aerosol inhaler shortness of breath or wheezing #8.5 grams acetaminophen 500 mg tablet 1,000 mg (2 x 500 mg) PO TID PRN 10/14/24 11/01/24 Rx (Tylenol Extra Strength) pain #30 tabs ondansetron 4 mg disintegrating 4 mg PO Q8H PRN nausea and 10/14/24 11/01/24 Rx tablet vomiting #10 tabs benzonatate 200 mg capsule 200 mg PO TID #14 caps 10/29/24 11/01/24 Rx empagliflozin 10 mg tablet 10 mg PO DAILY 10/29/24 11/01/24 History (Jardiance) furosemide 20 mg tablet 20 mg PO DAILY 10/29/24 11/01/24 History hydrocodone 10 mg-acetaminophen 1 tablet PO Q6H PRN pain 10/29/24 11/01/24 History 325 mg tablet potassium chloride 20 mEq 20 meq PO DAILY 10/29/24 11/01/24 History tablet,extended release(part/cryst) semaglutide 0.25 mg or 0.5 mg (2 0.5 mg subcut WEEKLY 10/29/24 11/01/24 History mg/3 mL) subcutaneous pen injector (Ozempic) spironolactone 25 mg tablet 12.5 mg PO DAILY 10/29/24 11/01/24 History Allergies Allergy/AdvReac Type Severity Reaction Status Date / Time No Known Allergies Allergy Verified 11/01/24 05:52 Vital Signs Vital Signs - 24 hr 11/01/24 01:59 11/01/24 02:09 11/01/24 02:54 Temperature 100.3 F H Pulse Rate 123 H 109 H Respiratory Rate 23 H 15 Blood Pressure 144/57 H 129/55 L Pulse Oximetry 93 91 93 Oxygen Delivery Room Air Room Air Oxygen Flow Rate 11/01/24 04:30 11/01/24 05:00 11/01/24 05:18 Temperature Pulse Rate 107 H 94 94 Respiratory Rate 17 24 H 26 H Blood Pressure 134/87 Pulse Oximetry 95 97 Oxygen Delivery BiPAP Oxygen Flow Rate 11/01/24 05:24 11/01/24 06:25 11/01/24 06:38 Temperature 97.1 F L Pulse Rate 89 89 Respiratory Rate 15 21 H Blood Pressure 106/76 127/55 L Pulse Oximetry 100 97 Oxygen Delivery Oxygen Flow Rate 11/01/24 07:37 11/01/24 08:00 11/01/24 08:10 Temperature 97.9 F 97.8 F Pulse Rate 87 81 83 Respiratory Rate 20 18 Blood Pressure 106/52 L 121/56 L Pulse Oximetry 98 98 97 Oxygen Delivery Nasal Cannula Oxygen Flow Rate 1 11/01/24 08:12 Temperature Pulse Rate 83 Respiratory Rate 20 Blood Pressure Pulse Oximetry Oxygen Delivery Oxygen Flow Rate Exam Const: General: comfortable and no acute distress Eyes: Sclera: sclerae normal Pupils: Equal, round and reactive pupils present Resp: Effort & Inspection: normal respiratory effort Auscultation: diminished lung sounds Cardio: Rate: regular rate Rhythm: regular rhythm Other: Telemetry- SR 82. GI: GI Palp: Yes Soft to palpation Auscultation: normal bowel sounds Other: obese Skin: Other: Lipodermatosclerosis. LLE 2+ with redness and indentions, no drainage at present. Neuro: Speech: normal speech Extrem: General: pedal edema on the right 1+ and on the left (2+ with redness and indentions.) Other: Lipodermatosclerosis. Psych: Mental Status: mental status grossly normal Affect: normal affect H&P: Results Labs Labs: Short CBC 11/01/24 Range/Units 02:30 WBC 25.2 H (4.5-10.0) K/mm3 Hgb 14.3 (14.0-18.0) g/dL Hct 45.4 (42.0-52.0) % Plt Count 153 (150-375) k/mm3 [facility] 11/01/24 02:30 Sodium 136 L Potassium 4.0 Chloride 103 Carbon Dioxide 23 BUN 27 H Creatinine 0.73 Glucose 183 H Calcium 8.7 Cardiac Enzymes 11/01/24 11/01/24 Range/Units 02:30 05:18 Troponin I 0.021 0.031 D (0.000-0.034) ng/mL Liver Function 11/01/24 Range/Units 02:30 Total Bilirubin 0.9 (0.2-1.3) mg/dL AST 38 (17-59) U/L ALT 32 (6-50) U/L Alkaline Phosphatase 79 (38-126) U/L Albumin 3.9 (3.5-5.1) g/dL Urine 11/01/24 Range/Units 04:13 Urine Color Yellow (Yellow) Urine Appearance Clear (Clear) Urine pH 5.0 (5.0-9.0) Ur Specific [place] 1.042 H (1.001-1.035) Urine Protein 1+ H (Negative) mg/dL Urine Glucose (UA) Negative (Negative) mg/dL Assessment and Plan Assessment and plan (1) Sepsis: Code(s): A41.9 - Sepsis, unspecified organism Status: Acute Assessment and Plan: * Patient meets SIRS criteria on admission due to HR 123, resp 26, WBC 25.2, LLE possible source. * Lactic Acid 3.0>2.2>1.9. Patient received LR IV fluids in the ER. * Chest, Abdomen, and Pelvis with Contrast: Findings: There is no evidence of any significant mediastinal, hilar or axillary lymphadenopathy. The mediastinal soft tissues appear normal. There is no evidence of pleural or pericardial effusion. The lungs are clear. No pulmonary nodules or infiltrates are noted. The liver, spleen, pancreas, gallbladder, adrenals and kidneys are within normal limits. There are atherosclerotic calcifications of the aorta. No lymphadenopathy. No bowel obstruction or bowel wall thickening. There is no evidence to suggest acute appendicitis. Urinary bladder is unremarkable. No pelvic mass seen. No ascites. There is diffuse degenerative spondylosis of the spine. Impression: No significant abnormalities seen. * Ceftriaxone 2 gram IVPB daily. * Blood cultures obtained and pending. * Trend labs. (2) Cellulitis of left lower limb: Code(s): L03.116 - Cellulitis of left lower limb Status: Acute Assessment and Plan: * Ceftriaxone 2 gram IVPB daily. * Venous dopplers: IMPRESSION: 1. No [id number] deep venous thrombosis with no thrombosis in either lower limb at or proximal to the level of the popliteal veins. The bilateral peroneal and posterior tibial veins at the calf remain unable to be clearly visualized due to patient body habitus. * Elevate when possible. * Monitor site. (3) Weakness: Code(s): R53.1 - Weakness Status: Acute Assessment and Plan: * PT/OT. (4) Obesity, morbid, BMI 50 or higher: Code(s): E66.01 - Morbid (severe) obesity due to excess calories Status: Acute Assessment and Plan: * Catering Associate consult. * Heart healthy diet. * Taking Ozempic at home. (5) Elevated blood sugar: Code(s): R73.9 - Hyperglycemia, unspecified Status: Acute Assessment and Plan: * Blood sugar 183. * HgbA1C 5.8%. (6) Hyperlipidemia: Code(s): E78.5 - Hyperlipidemia, unspecified Status: Chronic Assessment and Plan: * Atorvastatin 80 mg PO daily. * Heart healthy diet. (7) Elevated brain natriuretic peptide (BNP) level: Code(s): R79.89 - Other specified abnormal findings of blood chemistry Status: Acute Assessment and Plan: * BNP 1,100. * Receiving Furosemide 20 mg PO daily and Spironolactone 12.5 mg PO daily. * Echocardiogram ordered. Quality VTE Prophylaxis VTE prophylaxis: pharmacologic ordered Hospitalist MIPS Advance Care Plan I have confirmed that the patient's Advanced Care Plan is present, code status is documented, or surrogate decision maker is listed in patient medical record.: Yes Medication Reconciliation I have utilized all available resources to obtain, update and review the fredy simon current medications (includes all prescriptions, OTC, herbals, cannabis, and nutritional supplements).: Yes
[2024-11-01] MEDS: POTASSIUM/PHOSPHORUS/SODIUM 1.5 GM PACKET 1 PACKET PO (10:51)
[2024-11-01] MEDS: cefTRIAXone 2 GM/NS 100 ML 2 GM/100 ML BAG IVPB (10:51)
[2024-11-01 11:17] LABS: Lactic Acid Reflex 1.9 mmol/L (0.7-2.0)
--- NOTE | 2024-11-01 11:51 | ADMGEN ---
This patient, Migue Fairbanks, was admitted to Medical Room 259-01. Patient/family oriented to hospital policies and general routines including ID bracelet, bed and alarms, visiting hours, pain management, procedures, bathroom and other care routines, personal items, smoking policy, room service/diet, and visiting hours. Information on how to activate the Rapid Response Team has been discussed. Patient/Family are encouraged to report perceived risks to care and to ask questions if they do not understand what they are told or what they should do.
[2024-11-01] MEDS: PERFLUTREN LIPID MICROSPHERES 1.5 ML VIAL DILUTED TO 10 ML TOTAL VOLUME IV PUSH (15:30)
--- NOTE | 2024-11-01 15:51 | IVDEFINITY ---
Prior to administration of IV Definity the patient was educated on the risks and benefits of the imaging enhancing agent including potential adverse side effects. The patient verbalized understanding. Allergies were verified. No exclusion criteria were identified and at least one of the following inclusion criteria were met: 1) physician request, 2) patient technically difficult to image (per the [place] [employer] Echocardi[employer] guidelines of two or more segments not discernable within the apical view), or 3) questionable left ventricular function. ?
[2024-11-01] MEDS: HYDROcodone/acetaminophen (*CRX) 10-325 MG TABLET 1 TAB PO (19:51)
[2024-11-01] MEDS: guaiFENesin 12 HR 600 MG TABCR PO (19:51)
[2024-11-01] MEDS: ONDANSETRON HCL ODT 4 MG TABLET PO (19:51)
[2024-11-02] VITALS (13 sets, daily range): BP systolic 131–165; BP diastolic 60–65; PULSE 75–123; RESP 17–20; TEMP 36.3–36.8; O2SAT 95–99
[2024-11-02] MEDS: IPRATROPIUM 0.5 MG/ALBUTEROL SULFATE 2.5 MG AMPUL.NEB 3 ML INHALATION ×3 (01:32→21:13)
--- NOTE | 2024-11-02 02:13 | P.PNCROSS_ITS ---
Event Note Event Note Event Note: Nurse called regarding blood culture positive for gram cocci in chains. Will s tart vancomycin and can be deescalated once MRSA negative
--- NOTE | 2024-11-02 02:13 | PM.EVENT ---
Event Note Event Note Event Note: Nurse called regarding blood culture positive for gram cocci in chains. Will start vancomycin and can be deescalated once MRSA negative
[2024-11-02 05:08] LABS: Basophils Absolute Auto 0.1 K/mm3 (0.0-0.1); Basophils Percent Auto 0.3 % (0.2-1.2); Eosinophils Absolute Auto 0.1 K/mm3 (0-0.3); Eosinophils Percent Auto 0.2 % (0-4.4); Hematocrit 41.1 % (42.0-52.0); Hemoglobin 12.8 g/dL (14.0-18.0); Immature Granulocyte Absolute 0.37 K/mm3 (0.00-0.031); Immature Granulocyte Percent A 1.3 % (0-0.5); Lymphocytes Absolute Auto 1.27 K/mm3 (0.9-3.2); Lymphocytes Percent Auto 4.5 % (18.3-44.2); Mean Corpuscular HGB Conc 31.1 g/dl (32-36); Mean Corpuscular Hemoglobin 30.4 pg (26-34); Mean Corpuscular Volume 97.6 fl (80-100); Mean Platelet Volume 12.4 fl (7.4-10.4); Monocytes Absolute Auto 1.7 K/mm3 (0.1-0.6); Monocytes Percent Auto 6.1 % (2.6-8.5); Neutrophils Absolute Auto 24.6 K/mm3 (1.3-6.7); Neutrophils Percent Auto 87.6 % (45.5-73.1); Platelet Count Result 124 k/mm3 (150-375); Red Blood Count 4.21 M/mm3 (4.6-6.20); Red Cell Distribution Width 14.3 % (11.5-14.5); White Blood Count 28.1 K/mm3 (4.5-10.0)
[2024-11-02 05:15] LABS: Potassium 3.7 mmol/L (3.4-5.0)
[2024-11-02 05:19] LABS: Alanine Aminotransferase 25 U/L (6-50); Albumin Level 3.1 g/dL (3.5-5.1); Alkaline Phosphatase 69 U/L (38-126); Anion Gap 7 mmol/L (4-12); Aspartate Amino Transferase 35 U/L (17-59); Bilirubin,Total 0.8 mg/dL (0.2-1.3); Blood Urea Nitrogen 21 mg/dL (9-20); Carbon Dioxide 25 mmol/L (22-30); Chloride 103 mmol/L (98-107); Estimated CRCL calculation 134 ml/min; Estimated Glomerular Filt Rate > 60; Glucose 112 mg/dL (65-110); Magnesium 2.2 mg/dL (1.6-2.3); Phosphorus 2.8 mg/dL (2.5-4.5); Potassium 3.8 mmol/L (3.4-5.0); Sodium 135 mmol/L (137-145)
[2024-11-02 05:46] LABS: Anisocytosis 1+; Platelet Estimate Decreased (Adequate); Schistocytes None Seen
[2024-11-02] MEDS: HYDROcodone/acetaminophen (*CRX) 10-325 MG TABLET 1 TAB PO ×3 (08:02→22:10)
[2024-11-02] MEDS: ONDANSETRON HCL ODT 4 MG TABLET PO ×3 (08:02→23:50)
[2024-11-02] MEDS: FUROSEMIDE 20 MG TABLET PO (08:46)
[2024-11-02] MEDS: guaiFENesin 12 HR 600 MG TABCR PO ×2 (08:46→22:10)
[2024-11-02] MEDS: POTASSIUM CHLORIDE 20 MEQ ER TABLET PO (08:46)
[2024-11-02] MEDS: ATORVASTATIN 40 MG TABLET 80 MG PO (08:46)
[2024-11-02] MEDS: METOPROLOL SUCCINATE EXT REL 50 MG TABCR PO (08:46)
[2024-11-02] MEDS: SPIRONOLACTONE 12.5 MG TABLET PO (08:46)
[2024-11-02] MEDS: ENOXAPARIN 40 MG/0.4 ML SYRINGE SUB-Q (08:47)
[2024-11-02] MEDS: cefTRIAXone 2 GM/NS 100 ML 2 GM/100 ML BAG IVPB (08:47)
[2024-11-02] MEDS: VANCOMYCIN 1,500 MG/NS 500 ML 1,500 MG/500 ML BAG 250 MG IVPB ×2 (09:45→22:13)
--- NOTE | 2024-11-02 11:42 | PCDIET ---
Physician consult for morbid obesity. Spoke with patient today, weight has been stable for about 1 year. He did state to starting Ozempic about 1 week ago. He has been having pain and no appetite since admit. CT scan today. Discussed diet supplements and recommending to add ensure enlive BID. Thank you for the consult.
--- NOTE | 2024-11-02 12:08 | P.PNIM_ITS ---
Progress Note: A&P Assessment and Plan (1) Sepsis: Code(s): A41.9 - Sepsis, unspecified organism Status: Acute Assessment and Plan: * Patient meets SIRS criteria on admission due to HR 123, resp 26, WBC 25.2, LLE possible source. * Lactic Acid 3.0>2.2>1.9. Patient received LR IV fluids in the ER. * Chest, Abdomen, and Pelvis with Contrast: Findings: There is no evidence of any significant mediastinal, hilar or axillary lymphadenopathy. The mediastinal soft tissues appear normal. There is no evidence of pleural or pericardial effusion. The lungs are clear. No pulmonary nodules or infiltrates are noted. The liver, spleen, pancreas, gallbladder, adrenals and kidneys are within normal limits. There are atherosclerotic calcifications of the aorta. No lymphadenopathy. No bowel obstruction or bowel wall thickening. There is no evidence to suggest acute appendicitis. Urinary bladder is unremarkable. No pelvic mass seen. No ascites. There is diffuse degenerative spondylosis of the spine. Impression: No significant abnormalities seen. * Respiratory panel negative. * Ceftriaxone 2 gram IVPB daily. * Blood cultures grew gram + cocci in chains. Repeat blood cultures ordered for 11/03 AM. * Trend labs. (2) Cellulitis of left lower limb: Code(s): L03.116 - Cellulitis of left lower limb Status: Acute Assessment and Plan: * Ceftriaxone 2 gram IVPB daily. * Venous dopplers: IMPRESSION: 1. No [id number] deep venous thrombosis with no thrombosis in either lower limb at or proximal to the level of the popliteal veins. The bilateral peroneal and posterior tibial veins at the calf remain unable to be clearly visualized due to patient body habitus. * Elevate when possible. * Lower extremity CTA 11/02 showed: FINDINGS: Pelvic organs: Gallbladder is underfilled. Visualized bowel is unremarkable. ILIAC ARTERIES AND BRANCHING VESSELS: Bilateral atherosclerotic changes with no significant stenosis in the visualized portion. LOWER EXTREMITIES: COMMON FEMORAL ARTERIES: Atherosclerotic changes with narrowing on the right side of about 40%. Narrowing of the left side of about 50%.. FEMORAL ARTERIES: Narrowing in the mid right femoral artery by about 40% and distally by about 20%. BILATERAL PROFUNDA FEMORA: Atherosclerotic changes in the right side POPLITEAL ARTERIES: Severe atherosclerotic with near block on the right side and about 50% on the left side. TRIFURCATION AND THE POSTERIOR/ANTERIOR TIBIAL AND PERONEAL ARTERIES: Seen bilaterally FLOW TO THE FOOT: dorsalis pedis are not demonstrated. Flow is demonstrated to the level of the ankle. BONES AND SOFT TISSUES: Edema is seen in the soft tissues of the left neck and foot. Fat stranding seen in the subcutaneous tissues of the right lower extremity. Varicosities are seen in the subcutaneous tissues. IMPRESSION: Extensive atherosclerotic changes which degraded the ability to evaluate for the flow and stenosis properly. Bilateral atherosclerotic changes with variable degrees of stenosis with maximum changes in the right popliteal artery. Nonvisualization of the dorsalis pedis and posterior tibial arteries bilaterally. Conventional Angiography is advised for better evaluation. * Discussed CTA with radiologist, no emergent issues. We do not do Conventional Angiography at this facility. Patient would benefit from seeing Vascular provider outpatient. * Monitor site. (3) Weakness: Code(s): R53.1 - Weakness Status: Acute Assessment and Plan: * PT/OT. (4) Obesity, morbid, BMI 50 or higher: Code(s): E66.01 - Morbid (severe) obesity due to excess calories Status: Acute Assessment and Plan: * Rate Setter consult. * Heart healthy diet. * Taking Ozempic at home. (5) Elevated blood sugar: Code(s): R73.9 - Hyperglycemia, unspecified Status: Acute Assessment and Plan: * Blood sugar 183. * HgbA1C 5.8%. (6) Hyperlipidemia: Code(s): E78.5 - Hyperlipidemia, unspecified Status: Chronic Assessment and Plan: * Atorvastatin 80 mg PO daily. * Heart healthy diet. (7) Elevated brain natriuretic peptide (BNP) level: Code(s): R79.89 - Other specified abnormal findings of blood chemistry Status: Acute Assessment and Plan: * BNP 1,100 on admission. BNP today 1,860. Furosemide 40 mg IVP x1. Cardiology consult. * Receiving Furosemide 20 mg PO daily and Spironolactone 12.5 mg PO daily. * Echocardiogram showed: Summary 1. Left ventricular chamber dimension is normal. 2. Left ventricular systolic function is normal, estimated at 65-70%. 3. There is moderately increased left ventricular wall thickness. 4. The left ventricular diastolic function is grade I diastolic dysfunction. 5. Right ventricular systolic function is normal. 6. Left atrial chamber dimension is mildly enlarged. 7. Right atrial chamber dimension is mildly enlarged. 8. There is mild tricuspid valve regurgitation. (8) Grade I diastolic dysfunction: Code(s): I51.89 - Other ill-defined heart diseases Status: Acute Assessment and Plan: * Spironolactone 12.5 mg PO daily. Subjective Date/time seen: 11/02/24 12:08 Interval history: Patient sitting up in chair. Patient denies chest pain, palpitations, headache, dizziness, nausea, or vomiting. Patient reports that his legs have been swelling for 2 years but redness to left leg over the past 3 weeks. Primary started patient on Furosemide and Spironolactone. Patient reports that his sides were hurting earlier before pain medication. Patient reporting a decreased appetite. Review of Systems Review of Systems: All systems reviewed & are unremarkable except as noted in HPI and below Exam Const: General: no acute distress Resp: Effort & Inspection: normal respiratory effort Auscultation: rhonchi and diminished lung sounds Cardio: Rate: regular rate Rhythm: regular rhythm Other: Telemetry- SR 90 GI: GI Palp: Yes Soft to palpation Auscultation: normal bowel sounds Other: obese. Neuro: Speech: normal speech Extrem: Other: General: pedal edema on the right 1+ and on the left (2+ with redness and indentions.) Other: Lipodermatosclerosis. Psych: Mental Status: mental status grossly normal Affect: normal affect Objective Data Vital Signs Vital Signs: Vital Signs - 24 hr 11/01/24 14:00 11/01/24 14:00 11/01/24 14:00 Temperature 98.6 F Pulse Rate 78 85 Respiratory Rate 18 18 Blood Pressure 137/89 Pulse Oximetry 98 98 Oxygen Delivery Room Air Fraction of Inspired Oxygen 11/01/24 14:08 11/01/24 14:26 11/01/24 16:00 Temperature Pulse Rate 68 73 Respiratory Rate 18 Blood Pressure Pulse Oximetry Oxygen Delivery Room Air Fraction of Inspired Oxygen 11/01/24 20:00 11/01/24 20:00 11/01/24 20:33 Temperature 97.8 F Pulse Rate 94 78 Respiratory Rate 20 Blood Pressure 143/59 H Pulse Oximetry 98 Oxygen Delivery Room Air Fraction of Inspired Oxygen 11/01/24 21:04 11/01/24 21:04 11/02/24 00:00 Temperature Pulse Rate 78 78 78 Respiratory Rate 24 H 24 H Blood Pressure Pulse Oximetry 96 Oxygen Delivery Room Air Fraction of Inspired Oxygen 11/02/24 01:30 11/02/24 01:30 11/02/24 01:30 Temperature Pulse Rate 86 85 86 Respiratory Rate 17 17 17 Blood Pressure Pulse Oximetry 95 95 Oxygen Delivery BiPAP BiPAP Fraction of Inspired Oxygen 21 11/02/24 04:00 11/02/24 05:28 11/02/24 08:00 Temperature 98.2 F Pulse Rate 123 H 87 88 Respiratory Rate 20 Blood Pressure 131/60 Pulse Oximetry 95 Oxygen Delivery Fraction of Inspired Oxygen 11/02/24 08:29 11/02/24 08:29 11/02/24 08:45 Temperature Pulse Rate 88 Respiratory Rate 20 Blood Pressure Pulse Oximetry 99 Oxygen Delivery Room Air Room Air Fraction of Inspired Oxygen 11/02/24 08:46 11/02/24 09:40 Temperature Pulse Rate 88 Respiratory Rate Blood Pressure Pulse Oximetry Oxygen Delivery Room Air Fraction of Inspired Oxygen Intake/Output Intake/Output: Intake & Output 10/30/24 10/31/24 11/01/24 11/02/24 23:59 23:59 23:59 23:59 Intake Total 4470 400 Output Total 200 700 Balance 4270 -300 Meds/Results Medications: Active Medications Generic Name Dose Route Start Last Admin Trade Name Freq PRN Reason Stop Dose Admin Acetaminophen 1,000 mg 11/01/24 12:09 11/01/24 14:42 Acetaminophen 500 Mg Tablet PO 1,000 mg TID PRN Administration pain Hydrocodone Bitart/Acetaminophen 1 tab 11/01/24 13:35 11/02/24 08:02 Hydrocodone/Acetaminophen (*Crx) 10-325 Mg Tablet PO 1 tab Q6H PRN Administration pain 4-6 Albuterol 2 puff 11/01/24 12:09 Albuterol Sulfate (*Sp) Aerosol 1 Puff INHALATION Q4-6H PRN shortness of breath or wheezing Albuterol/Ipratropium 3 ml 11/01/24 08:00 11/02/24 08:29 Ipratropium 0.5 Mg/Albuterol Sulfate 2.5 Mg Ampul.Neb 3 Ml INHALATION 3 ml Q6HRT ERICK Administration Atorvastatin Calcium 80 mg 11/02/24 09:00 11/02/24 08:46 Atorvastatin 40 Mg Tablet PO 80 mg DAILY ERCIK Administration Benzocaine 1 lozenge 11/01/24 13:28 Benzocaine/Menthol (*Bkc) 18 Ea Lozenge PO PRN PRN Sore Throat Enoxaparin Sodium 40 mg 11/02/24 09:00 11/02/24 08:47 Enoxaparin 40 Mg/0.4 Ml Syringe SUB-Q 40 mg DAILY ERICK Administration Furosemide 20 mg 11/02/24 09:00 11/02/24 08:46 Furosemide 20 Mg Tablet PO 20 mg DAILY ERICK Administration Guaifenesin 600 mg 11/01/24 21:00 11/02/24 08:46 Guaifenesin 12 Hr 600 Mg Tabcr PO 11/08/24 20:59 600 mg Q12HR ERICK Administration Ceftriaxone Sodium 2 gm in 100 mls @ 200 mls/hr 11/01/24 10:00 11/02/24 09:17 Rocephin 2 Gm/Ns 100 Ml IVPB Infused DAILY ERICK Infusion Vancomycin HCl 1,500 mg in 500 mls @ 250 mls/hr 11/02/24 09:00 11/02/24 09:45 Vancomycin 1,500 Mg/Ns 500 Ml IVPB 250 mls/hr Q12H ERICK Administration Metoprolol Succinate 50 mg 11/02/24 09:00 11/02/24 08:46 Metoprolol Succinate Ext Rel 50 Mg Tabcr PO 50 mg DAILY ERICK Administration Ondansetron HCl 4 mg 11/01/24 12:09 11/02/24 08:02 Ondansetron Hcl Odt 4 Mg Tablet PO 4 mg Q8H PRN Administration nausea and vomiting Potassium Chloride 20 meq 11/02/24 09:00 11/02/24 08:46 Potassium Chloride 20 Meq Er Tablet PO 20 meq DAILY ERICK Administration Spironolactone 12.5 mg 11/02/24 09:00 11/02/24 08:46 Spironolactone 12.5 Mg Tablet PO 12.5 mg DAILY ERICK Administration Radiology Results: ITS Impressions Chest/Abdomen/Pelvis CTA 11/01/24 06:24 Impression: No significant abnormalities seen. Head CT 11/01/24 06:24 Impression: No significant abnormality seen. Chest X-Ray 11/01/24 06:30 Impression: Probable focal left basilar atelectasis. Cardiomegaly. Venous Doppler Study 11/01/24 10:07 IMPRESSION: 1. No [id number] deep venous thrombosis with no thrombosis in either lower limb at or proximal to the level of the popliteal veins. The bilateral peroneal and posterior tibial veins at the calf remain unable to be clearly visualized due to patient body habitus. Labs Labs: Laboratory Results - last 24 hr 11/02/24 11/02/24 04:13 04:13 WBC 28.1 H RBC 4.21 L Hgb 12.8 L Hct 41.1 L MCV 97.6 MCH 30.4 MCHC 31.1 L RDW 14.3 Plt Count 124 L MPV 12.4 H Immature Gran % (Auto) 1.3 H Neut % (Auto) 87.6 H Lymph % (Auto) 4.5 L [place] % (Auto) 6.1 Eos % (Auto) 0.2 Baso % (Auto) 0.3 Lymph # (Auto) 1.27 [place] # (Auto) 1.7 H Eos # (Auto) 0.1 Baso # (Auto) 0.1 Abs Immat Gran (auto) 0.37 H Absolute Neuts (auto) 24.6 H Absolute Nucleated RBC 0.000 Band Neutrophils % Not Reportable Nucleated RBC % 0.0 Platelet Estimate Decreased Anisocytosis 1+ Schistocytes None seen Sodium 135 L Potassium 3.8 3.7 Chloride 103 Carbon Dioxide 25 Anion Gap 7 BUN 21 H Creatinine 0.61 L Estim Creat Clear Calc 134 Estimated GFR > 60 Glucose 112 H Calcium 8.0 L Phosphorus 2.8 Magnesium 2.2 Total Bilirubin 0.8 AST 35 ALT 25 Alkaline Phosphatase 69 Total Protein 6.0 L Albumin 3.1 L Quality VTE Prophylaxis VTE prophylaxis: pharmacologic ordered
--- NOTE | 2024-11-02 15:56 | PCRCNOTE ---
Window of time for administration has passed. See next scheduled administration.
[2024-11-02 16:14] LABS: Cholesterol 99 mg/dL (0-200); HDL Direct 42 mg/dL; LDL Cholesterol Direct 37 mg/dL; NT Pro B Type Natriuretic Pept 1860 pg/mL (19.9-100); Triglycerides 59 mg/dL (<150)
[2024-11-02] MEDS: FUROSEMIDE INJ 40 MG/4 ML VIAL IV PUSH (17:08)
[2024-11-03] VITALS (13 sets, daily range): BP systolic 159–185; BP diastolic 69–83; PULSE 69–90; RESP 16–18; TEMP 36.6–36.8; O2SAT 98–100
[2024-11-03] MEDS: HYDROcodone/acetaminophen (*CRX) 10-325 MG TABLET 1 TAB PO ×3 (04:49→19:55)
[2024-11-03 05:14] LABS: Basophils Absolute Auto 0.1 K/mm3 (0.0-0.1); Basophils Percent Auto 0.5 % (0.2-1.2); Eosinophils Absolute Auto 0.3 K/mm3 (0-0.3); Eosinophils Percent Auto 1.5 % (0-4.4); Hematocrit 42.3 % (42.0-52.0); Hemoglobin 13.1 g/dL (14.0-18.0); Immature Granulocyte Absolute 0.28 K/mm3 (0.00-0.031); Immature Granulocyte Percent A 1.6 % (0-0.5); Lymphocytes Absolute Auto 0.92 K/mm3 (0.9-3.2); Lymphocytes Percent Auto 5.3 % (18.3-44.2); Mean Corpuscular Hemoglobin 30.2 pg (26-34); Mean Corpuscular Volume 97.5 fl (80-100); Mean Platelet Volume 12.2 fl (7.4-10.4); Monocytes Absolute Auto 1.3 K/mm3 (0.1-0.6); Monocytes Percent Auto 7.2 % (2.6-8.5); Neutrophils Absolute Auto 14.6 K/mm3 (1.3-6.7); Neutrophils Percent Auto 83.9 % (45.5-73.1); Platelet Count Result 141 k/mm3 (150-375); Red Blood Count 4.34 M/mm3 (4.6-6.20); Red Cell Distribution Width 14.3 % (11.5-14.5); White Blood Count 17.4 K/mm3 (4.5-10.0)
[2024-11-03 05:29] LABS: Alanine Aminotransferase 28 U/L (6-50); Albumin Level 3.3 g/dL (3.5-5.1); Alkaline Phosphatase 79 U/L (38-126); Anion Gap 6 mmol/L (4-12); Aspartate Amino Transferase 36 U/L (17-59); Blood Urea Nitrogen 17 mg/dL (9-20); Calcium 8.1 mg/dL (8.4-10.2); Carbon Dioxide 28 mmol/L (22-30); Chloride 102 mmol/L (98-107); Estimated CRCL calculation 132 ml/min; Estimated Glomerular Filt Rate > 60; Glucose 131 mg/dL (65-110); Magnesium 2.2 mg/dL (1.6-2.3); Phosphorus 2.8 mg/dL (2.5-4.5); Potassium 3.8 mmol/L (3.4-5.0); Sodium 136 mmol/L (137-145)
--- NOTE | 2024-11-03 05:52 | PCRCNOTE ---
Patient refused 0200 updraft treatment due to not wanting to be awakened. Treatment to resume @ 0800
[2024-11-03] MEDS: PROCHLORPERAZINE EDISYLATE 10 MG/2 ML VIAL IV PUSH (05:56)
[2024-11-03] MEDS: IPRATROPIUM 0.5 MG/ALBUTEROL SULFATE 2.5 MG AMPUL.NEB 3 ML INHALATION ×3 (09:05→21:33)
[2024-11-03] MEDS: POTASSIUM CHLORIDE 20 MEQ ER TABLET PO (09:06)
[2024-11-03] MEDS: SPIRONOLACTONE 12.5 MG TABLET PO (09:06)
[2024-11-03] MEDS: guaiFENesin 12 HR 600 MG TABCR PO ×2 (09:06→19:55)
[2024-11-03] MEDS: ATORVASTATIN 40 MG TABLET 80 MG PO (09:06)
[2024-11-03] MEDS: ENOXAPARIN 40 MG/0.4 ML SYRINGE SUB-Q (09:06)
[2024-11-03] MEDS: METOPROLOL SUCCINATE EXT REL 50 MG TABCR PO (09:06)
[2024-11-03] MEDS: FUROSEMIDE 20 MG TABLET PO (09:06)
[2024-11-03] MEDS: cefTRIAXone 2 GM/NS 100 ML 2 GM/100 ML BAG IVPB (09:07)
[2024-11-03] MEDS: VANCOMYCIN 1,500 MG/NS 500 ML 1,500 MG/500 ML BAG 250 MG IVPB (09:37)
--- NOTE | 2024-11-03 11:02 | PM.CNCAR ---
Assessment and Plan Assessment and plan (1) Acute diastolic heart failure: Code(s): I50.31 - Acute diastolic (congestive) heart failure Status: Acute Plan 1. Acute diastolic heart failure 2. Sepsis, bacteremia 3. Cellulitis of left lower extremity 4. Reported history of CAD. Diagnosis listed in chart, details unclear. 5. Peripheral arterial disease 6. Hypertension 7. Hyperlipidemia 8. Morbid obesity with BMI of 52 PLAN -Will stop PO Lasix and start IV Lasix 40mg BID. Please monitor strict I/Os. -Start Jardiance 10mg once daily. -Continue Spironolactone. -Lower extremity CTA shows extensive atherosclerotic changes which degraded the ability to evaluate for the flow and stenosis properly, bilateral atherosclerotic changes with variable degrees of stenosis with maximum changes in the right popliteal artery, nonvisualization of the dorsalis pedis and posterior tibial arteries bilaterally. Continue high intensity statin. Will start ASA 81mg once daily for medical management. -Needs to be evaluated for SHAVON. Recommendations and plan discussed with Hospitalist. History of Present Illness History of Present Illness Consult date/time: 11/03/24 11:02 Requesting physician: Angie Serrano APRN Consult reason: congestive heart failure Reason For Visit: Sepsis Narrative: Migue is a 74 year old male with morbid obesity with BMI of 52, reported CAD, hypertension, hyperlipidemia who presented to [place] for altered mental status and weakness. We are consulted for elevated BNP, bilateral lower extremity edema. Patient is quite sleepy during my examination (did not wear CPAP overnight), therefore, overall poor historian at this time. He does report that he has been having worsening bilateral lower extremity over the past few months. Has erythematous skin over LLE, and is currently being treated for LLE cellulitis. Reports being on Jardiance in the past, but he thought it was making his swelling worse, so he had discontinued it. Currently on PO Lasix, Spironolactone. Echocardiogram this admission shows: 1. Left ventricular chamber dimension is normal. 2. Left ventricular systolic function is normal, estimated at 65-70%. 3. There is moderately increased left ventricular wall thickness. 4. The left ventricular diastolic function is grade I diastolic dysfunction. 5. Right ventricular systolic function is normal. 6. Left atrial chamber dimension is mildly enlarged. 7. Right atrial chamber dimension is mildly enlarged. 8. There is mild tricuspid valve regurgitation. Review of Systems Review of Systems: All systems reviewed & are unremarkable except as noted in HPI and below (HPI) ON LICENSE OF [facility] Past Medical History Medical History (Updated 11/03/24 @ 11:08 by Boston Fierro MD) CAD (coronary artery disease) Hyperlipidemia Depression Arthritis Fibromyalgia Kidney stones He stated he thinks he had a possible kidney stone UTI (urinary tract infection) In the past Heart attack History of cardiac stent. 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 He desires to be a full code. He has 3 children. Patient stated he smoked for about 7 or 8 years and quit 1980. No alcohol or illicit drug patient works for an [employer] part-time. Smoking status: Former smoker Second hand tobacco smoke exposure: Yes Alcohol intake: current Drinks per week: 2 Substance use: current Substance use type: opiates Other substance usage details: [place] for chronic pain sees pain management Do You Feel Safe in your Home?: Yes Lack of Transportation: YES Lack of Food: Never True Current Housing: I Have Housing Concerned About Future Housing: No Difficulty Paying Gas/Electric Bills: No Difficulty Paying for Meds: No Currently Unemployed: No Education: High School Diploma/GED Difficulty w/ Childcare or Family Care: No Living arrangements: with family Occupation/Education: occupation Gender identity (if verbalized by the patient): Male Spiritual care concerns: No Agree to blood products: Yes Meds Home Medications and Allergies Home Medications ?Medication ?Instructions ?Recorded ?Confirmed ?Type atorvastatin 80 mg tablet 80 mg PO DAILY 07/10/19 11/01/24 History metoprolol succinate 50 mg 50 mg PO DAILY 07/10/19 11/01/24 History tablet,extended release 24 hr albuterol sulfate 90 mcg/actuation 2 puff inhalation Q4-6H PRN 09/17/24 11/01/24 Rx aerosol inhaler shortness of breath or wheezing #8.5 grams acetaminophen 500 mg tablet 1,000 mg (2 x 500 mg) PO TID PRN 10/14/24 11/01/24 Rx (Tylenol Extra Strength) pain #30 tabs ondansetron 4 mg disintegrating 4 mg PO Q8H PRN nausea and 10/14/24 11/01/24 Rx tablet vomiting #10 tabs benzonatate 200 mg capsule 200 mg PO TID #14 caps 10/29/24 11/01/24 Rx empagliflozin 10 mg tablet 10 mg PO DAILY 10/29/24 11/01/24 History (Jardiance) furosemide 20 mg tablet 20 mg PO DAILY 10/29/24 11/01/24 History hydrocodone 10 mg-acetaminophen 1 tablet PO Q6H PRN pain 10/29/24 11/01/24 History 325 mg tablet potassium chloride 20 mEq 20 meq PO DAILY 10/29/24 11/01/24 History tablet,extended release(part/cryst) semaglutide 0.25 mg or 0.5 mg (2 0.5 mg subcut WEEKLY 10/29/24 11/01/24 History mg/3 mL) subcutaneous pen injector (Ozempic) spironolactone 25 mg tablet 12.5 mg PO DAILY 10/29/24 11/01/24 History Allergies Allergy/AdvReac Type Severity Reaction Status Date / Time No Known Allergies Allergy Verified 11/01/24 05:52 Vital Signs Vital Signs - 24 hr 11/02/24 12:00 11/02/24 14:00 11/02/24 16:00 Temperature 36.7 C Pulse Rate 85 84 76 Respiratory Rate 19 Blood Pressure 150/65 H Pulse Oximetry 96 Oxygen Delivery 11/02/24 19:42 11/02/24 20:00 11/02/24 20:00 Temperature 36.3 C L Pulse Rate 80 75 Respiratory Rate 18 Blood Pressure 165/65 H Pulse Oximetry 98 Oxygen Delivery Room Air 11/02/24 21:13 11/03/24 00:00 11/03/24 04:00 Temperature Pulse Rate 78 90 78 Respiratory Rate 20 Blood Pressure Pulse Oximetry Oxygen Delivery 11/03/24 04:45 11/03/24 06:13 11/03/24 09:05 Temperature 36.6 C Pulse Rate 78 Respiratory Rate 17 Blood Pressure 185/72 H 159/78 H Pulse Oximetry 98 Oxygen Delivery Room Air 11/03/24 09:06 11/03/24 09:06 11/03/24 09:13 Temperature Pulse Rate 83 83 89 Respiratory Rate 18 18 Blood Pressure Pulse Oximetry Oxygen Delivery Exam Const: General: no acute distress Other: Morbidly obese male. Sleepy. HENMT: Mouth: Yes moist mucous membranes Eyes: General: appearance normal, both eyes and all related structures Sclera: sclerae normal Resp: Effort & Inspection: normal respiratory effort Cardio: Rate: regular rate Rhythm: regular rhythm Heart sounds: no murmurs Other: + Bilateral lower extremity edema Skin: General skin exam: erythema (Over LLE) Neuro: Speech: normal speech Psych: Mental Status: mental status grossly normal Affect: normal affect Results Labs and Meds 11/03/24 04:57 11/03/24 04:57 Lab results: Cardiac Enzymes 11/03/24 Range/Units 04:57 AST 36 (17-59) U/L Lipids 11/02/24 Range/Units 04:07 Triglycerides 59 (<150) mg/dL Cholesterol 99 (0-200) mg/dL CBC 11/03/24 Range/Units 04:57 WBC 17.4 H (4.5-10.0) K/mm3 RBC 4.34 L (4.6-6.20) M/mm3 Hgb 13.1 L (14.0-18.0) g/dL Hct 42.3 (42.0-52.0) % Plt Count 141 L (150-375) k/mm3 Lymph # (Auto) 0.92 (0.9-3.2) K/mm3 [place] # (Auto) 1.3 H (0.1-0.6) K/mm3 Eos # (Auto) 0.3 (0-0.3) K/mm3 Baso # (Auto) 0.1 (0.0-0.1) K/mm3 Comprehensive Metabolic Panel 11/03/24 Range/Units 04:57 Sodium 136 L (137-145) mmol/L Potassium 3.8 (3.4-5.0) mmol/L Chloride 102 (98-107) mmol/L Carbon Dioxide 28 (22-30) mmol/L BUN 17 (9-20) mg/dL Creatinine 0.62 L (0.7-1.3) mg/dL Glucose 131 H (65-110) mg/dL Calcium 8.1 L (8.4-10.2) mg/dL AST 36 (17-59) U/L ALT 28 (6-50) U/L Alkaline Phosphatase 79 (38-126) U/L Total Protein 6.0 L (6.3-8.2) g/dL Albumin 3.3 L (3.5-5.1) g/dL Intake and Output 11/02/24 11/03/24 11/03/24 23:59 07:59 15:59 Intake Total 670 1050 100 Output Total 1800 400 Balance -1130 650 100 Intake: IV 500 100 Vancomycin 1,500 mg/Ns 500 ml 1 500 ,500 mg In 500 ml @ 250 mls/hr IVPB Q12H ERICK Rx#:[id number] cefTRIAXone 2 GM/NS 100 ML 2 gm 100 In 100 ml @ 200 mls/hr IVPB DAILY ERICK Rx#:[id number] Oral 670 550 Output: Urine 1800 400 Other: # Unmeasured Voids 1
[2024-11-03] MEDS: EMPAGLIFLOZIN 10 MG TABLET PO (12:16)
[2024-11-03] MEDS: polyethylene glycoL 3350 17 GM POWD.PACK PO (12:53)
--- NOTE | 2024-11-03 14:17 | P.PNIM_ITS ---
Progress Note: A&P Assessment and Plan (1) Sepsis: Code(s): A41.9 - Sepsis, unspecified organism Status: Acute Assessment and Plan: * Patient meets SIRS criteria on admission due to HR 123, resp 26, WBC 25.2, LLE possible source. * Lactic Acid 3.0>2.2>1.9. Patient received LR IV fluids in the ER. * Chest, Abdomen, and Pelvis with Contrast: Findings: There is no evidence of any significant mediastinal, hilar or axillary lymphadenopathy. The mediastinal soft tissues appear normal. There is no evidence of pleural or pericardial effusion. The lungs are clear. No pulmonary nodules or infiltrates are noted. The liver, spleen, pancreas, gallbladder, adrenals and kidneys are within normal limits. There are atherosclerotic calcifications of the aorta. No lymphadenopathy. No bowel obstruction or bowel wall thickening. There is no evidence to suggest acute appendicitis. Urinary bladder is unremarkable. No pelvic mass seen. No ascites. There is diffuse degenerative spondylosis of the spine. Impression: No significant abnormalities seen. * Respiratory panel negative. * Ceftriaxone 2 gram IVPB daily. * Blood cultures grew gram + cocci in chains. Repeat blood cultures peninding 11/03 * Trend labs. (2) Cellulitis of left lower limb: Code(s): L03.116 - Cellulitis of left lower limb Status: Acute Assessment and Plan: * Ceftriaxone 2 gram IVPB daily. * Venous dopplers: IMPRESSION: 1. No oniyb-jxz-pjhf deep venous thrombosis with no thrombosis in either lower limb at or proximal to the level of the popliteal veins. The bilateral peroneal and posterior tibial veins at the calf remain unable to be clearly visualized du e to patient body habitus. * Elevate when possible. * Lower extremity CTA 11/02 reviewd Patient would benefit from seeing Vascular provider outpatient. * Monitor site. (3) Weakness: Code(s): R53.1 - Weakness Status: Acute Assessment and Plan: * PT/OT. (4) Obesity, morbid, BMI 50 or higher: Code(s): E66.01 - Morbid (severe) obesity due to excess calories Status: Acute Assessment and Plan: * Consumer Experience Consultant consult. * Heart healthy diet. * Taking Ozempic at home. (5) Elevated blood sugar: Code(s): R73.9 - Hyperglycemia, unspecified Status: Acute Assessment and Plan: * Blood sugar 183. * HgbA1C 5.8%. (6) Hyperlipidemia: Code(s): E78.5 - Hyperlipidemia, unspecified Status: Chronic Assessment and Plan: * Atorvastatin 80 mg PO daily. * Heart healthy diet. (7) Elevated brain natriuretic peptide (BNP) level: Code(s): R79.89 - Other specified abnormal findings of blood chemistry Status: Acute Assessment and Plan: * BNP 1,100 on admission. BNP today 1,860. * IV lasix * Cardiology on board * Echocardiogram showed: Summary 1. Left ventricular chamber dimension is normal. 2. Left ventricular systolic function is normal, estimated at 65-70%. 3. There is moderately increased left ventricular wall thickness. 4. The left ventricular diastolic function is grade I diastolic dysfunction. 5. Right ventricular systolic function is normal. 6. Left atrial chamber dimension is mildly enlarged. 7. Right atrial chamber dimension is mildly enlarged. 8. There is mild tricuspid valve regurgitation. (8) Grade I diastolic dysfunction: Code(s): I51.89 - Other ill-defined heart diseases Status: Acute Assessment and Plan: * Spironolactone 12.5 mg PO daily. Subjective Date/time seen: 11/03/24 14:17 Interval history: per HPo: Patient is a 74 year old male that came to the hospital with altered mental status and weakness. Patient denies chest pain, palpitations, headache, dizziness, nausea, or vomiting. Patient reports coughing up green to clear sputum and recent upper respiratory illness for about the last 5 weeks. The rest of his family got better but his cough has gotten worse over the past several days. Patient uses a cane or walker, patient reports feeling weaker lately. Patient reports redness and swelling to left leg for about 3 weeks, denies drainage from leg. Patient is currently A&Ox4. Patient thinks he had a sleep study a long time ago but was never given a sleep machine. Patient reports being on Ozempic for weight loss. Patient reports that primary is setting up an appointment with a new [employer] in the same building as primary, patient does not know the providers name. ER work up: WBC 25.2, D dimer 0.95, lactic acid 3.0, BNP 1,100, and total protein 6.0. Trop 0.021 and 0.031. Chest X-ray showed probable focal left basilar atelectasis and Cardiomegaly. ECG- ST 120 QTc 416. Blood cultures obtained. Chest, Abdomen, and Pelvis with Contrast: Findings: There is no evidence of any significant mediastinal, hilar or axillary lymphadenopathy. The mediastinal soft tissues appear normal. There is no evidence of pleural or pericardial effusion. The lungs are clear. No pulmonary nodules or infiltrates are noted. The liver, spleen, pancreas, gallbladder, adrenals and kidneys are within normal limits. There are atherosclerotic calcifications of the aorta. No lymphadenopathy. No bowel obstruction or bowel wall thickening. There is no evidence to suggest acute appendicitis. Urinary bladder is unremarkable. No pelvic mass seen. No ascites. There is diffuse degenerative spondylosis of the spine. Impression: No significant abnormalities seen. Head CT: Findings: There is no evidence of intracranial hemorrhage, mass lesion, or acute infarct. Brain parenchyma appears normal. The ventricles and subarachnoid spaces are normal in size. The calvarium appears normal. The visualized paranasal sinuses and mastoid air cells are clear. Impression: No significant abnormality seen. Venous dopplers: IMPRESSION: 1. No hvuvp-ftf-hjuc deep venous thrombosis with no thrombosis in either lower limb at or proximal to the level of the popliteal veins. The bilateral peroneal and posterior tibial veins at the calf remain unable to be clearly visualized due to patient body habitus. 11/03/24 [facility]. he is sleepy today. denies any chest pain, SOB,abd pain, N/V. abraham bilateral leg swelling started on IV lasix. Ordered Hussain hose. Has L leg cellulitis and B/C positive for strep group B. Continue rocephin. follow culture result. Review of Systems Review of Systems: All systems reviewed & are unremarkable except as noted in HPI and below Exam Const: General: comfortable and no acute distress Eyes: Sclera: sclerae normal Pupils: Equal, round and reactive pupils present Resp: Effort & Inspection: normal respiratory effort Auscultation: rhonchi and diminished lung sounds Cardio: Rate: regular rate Rhythm: regular rhythm Other: Telemetry- SR 90 GI: Auscultation: normal bowel sounds Other: obese. Skin: Other: Lipodermatosclerosis. LLE 2+ with redness and indentions, no drainage at pr esent. Neuro: Cranial nerves: Yes Equal, round and reactive pupils present Speech: normal speech Extrem: General: pedal edema on the right 2+ and on the left (2+ with redness and indentions.) Other: General: pedal edema on the right 1+ and on the left (2+ with redness and indentions.) Other: Lipodermatosclerosis. Psych: Mental Status: mental status grossly normal Affect: normal affect Objective Data Vital Signs Vital Signs: Vital Signs - 24 hr 11/02/24 16:00 11/02/24 19:42 11/02/24 20:00 Temperature 97.4 F L Pulse Rate 76 80 75 Respiratory Rate 18 Blood Pressure 165/65 H Pulse Oximetry 98 Oxygen Delivery 11/02/24 20:00 11/02/24 21:13 11/03/24 00:00 Temperature Pulse Rate 78 90 Respiratory Rate 20 Blood Pressure Pulse Oximetry Oxygen Delivery Room Air 11/03/24 04:00 11/03/24 04:45 11/03/24 06:13 Temperature 97.8 F Pulse Rate 78 78 Respiratory Rate 17 Blood Pressure 185/72 H 159/78 H Pulse Oximetry 98 Oxygen Delivery 11/03/24 09:05 11/03/24 09:06 11/03/24 09:06 Temperature Pulse Rate 83 83 Respiratory Rate 18 Blood Pressure Pulse Oximetry Oxygen Delivery Room Air 11/03/24 09:13 11/03/24 12:00 Temperature Pulse Rate 89 76 Respiratory Rate 18 Blood Pressure Pulse Oximetry Oxygen Delivery Intake/Output Intake/Output: Intake & Output 10/31/24 11/01/24 11/02/24 11/03/24 23:59 23:59 23:59 23:59 Intake Total 4470 1810 1270 Output Total 200 2500 400 Balance 4270 -690 870 Meds/Results Medications: Active Medications Generic Name Dose Route Start Last Admin Trade Name Freq PRN Reason Stop Dose Admin Acetaminophen 1,000 mg 11/01/24 12:09 11/01/24 14:42 Acetaminophen 500 Mg Tablet PO 1,000 mg TID PRN Administration pain Hydrocodone Bitart/Acetaminophen 1 tab 11/01/24 13:35 11/03/24 12:52 Hydrocodone/Acetaminophen (*Crx) 10-325 Mg Tablet PO 1 tab Q6H PRN Administration pain 4-6 Albuterol 2 puff 11/01/24 12:09 Albuterol Sulfate (*Sp) Aerosol 1 Puff INHALATION Q4-6H PRN shortness of breath or wheezing Albuterol/Ipratropium 3 ml 11/01/24 08:00 11/03/24 09:05 Ipratropium 0.5 Mg/Albuterol Sulfate 2.5 Mg Ampul.Neb 3 Ml INHALATION 3 ml Q6HRT ERICK Administration Aspirin 81 mg 11/04/24 09:00 Aspirin 81 Mg Enteric Tablet PO QAM ERICK Atorvastatin Calcium 80 mg 11/02/24 09:00 11/03/24 09:06 Atorvastatin 40 Mg Tablet PO 80 mg DAILY ERICK Administration Benzocaine 1 lozenge 11/01/24 13:28 Benzocaine/Menthol (*Bkc) 18 Ea Lozenge PO PRN PRN Sore Throat Empagliflozin 10 mg 11/03/24 11:05 11/03/24 12:16 Empagliflozin 10 Mg Tablet PO 10 mg DAILY ERICK Administration Enoxaparin Sodium 40 mg 11/02/24 09:00 11/03/24 09:06 Enoxaparin 40 Mg/0.4 Ml Syringe SUB-Q 40 mg DAILY ERICK Administration Furosemide 40 mg 11/03/24 17:00 Furosemide Inj 40 Mg/4 Ml Vial IV PUSH BID ERICK Guaifenesin 600 mg 11/01/24 21:00 11/03/24 09:06 Guaifenesin 12 Hr 600 Mg Tabcr PO 11/08/24 20:59 600 mg Q12HR ERICK Administration Ceftriaxone Sodium 2 gm in 100 mls @ 200 mls/hr 11/01/24 10:00 11/03/24 09:37 Rocephin 2 Gm/Ns 100 Ml IVPB Infused DAILY ERICK Infusion Metoprolol Succinate 50 mg 11/02/24 09:00 11/03/24 09:06 Metoprolol Succinate Ext Rel 50 Mg Tabcr PO 50 mg DAILY ERICK Administration Ondansetron HCl 4 mg 11/01/24 12:09 11/02/24 23:50 Ondansetron Hcl Odt 4 Mg Tablet PO 4 mg Q8H PRN Administration nausea and vomiting Polyethylene Glycol 17 gm 11/03/24 12:45 11/03/24 12:53 Polyethylene Glycol 3350 17 Gm Powd.Pack PO 17 gm QAM PRN Administration Constipation Potassium Chloride 20 meq 11/02/24 09:00 11/03/24 09:06 Potassium Chloride 20 Meq Er Tablet PO 20 meq DAILY ERICK Administration Spironolactone 12.5 mg 11/02/24 09:00 11/03/24 09:06 Spironolactone 12.5 Mg Tablet PO 12.5 mg DAILY ERICK Administration Radiology Results: ITS Impressions Chest/Abdomen/Pelvis CTA 11/01/24 06:24 Impression: No significant abnormalities seen. Head CT 11/01/24 06:24 Impression: No significant abnormality seen. Chest X-Ray 11/01/24 06:30 Impression: Probable focal left basilar atelectasis. Cardiomegaly. Venous Doppler Study 11/01/24 10:07 IMPRESSION: 1. No uqllo-fki-iehu deep venous thrombosis with no thrombosis in either lower limb at or proximal to the level of the popliteal veins. The bilateral peroneal and posterior tibial veins at the calf remain unable to be clearly visualized due to patient body habitus. Lower Extremity CTA 11/02/24 12:44 IMPRESSION: Extensive atherosclerotic changes which degraded the ability to evaluate for the flow and stenosis properly. Bilateral atherosclerotic changes with variable degrees of stenosis with maximum changes in the right popliteal artery. Nonvisualization of the dorsalis pedis and posterior tibial arteries bilaterally. Conventional Angiography is advised for better evaluation. Labs Labs: Laboratory Results - last 24 hr 11/02/24 11/03/24 04:07 04:57 WBC 17.4 H RBC 4.34 L Hgb 13.1 L Hct 42.3 MCV 97.5 MCH 30.2 MCHC 31.0 L RDW 14.3 Plt Count 141 L MPV 12.2 H Immature Gran % (Auto) 1.6 H Neut % (Auto) 83.9 H Lymph % (Auto) 5.3 L [place] % (Auto) 7.2 Eos % (Auto) 1.5 Baso % (Auto) 0.5 Lymph # (Auto) 0.92 [place] # (Auto) 1.3 H Eos # (Auto) 0.3 Baso # (Auto) 0.1 Abs Immat Gran (auto) 0.28 H Absolute Neuts (auto) 14.6 H Absolute Nucleated RBC 0.000 Nucleated RBC % 0.0 Sodium 136 L Potassium 3.8 Chloride 102 Carbon Dioxide 28 Anion Gap 6 BUN 17 Creatinine 0.62 L Estim Creat Clear Calc 132 Estimated GFR > 60 Glucose 131 H Calcium 8.1 L Phosphorus 2.8 Magnesium 2.2 Total Bilirubin 1.0 AST 36 ALT 28 Alkaline Phosphatase 79 NT-Pro-B Natriuret Pep 1860 H Total Protein 6.0 L Albumin 3.3 L Triglycerides 59 Cholesterol 99 LDL Cholesterol Direct 37 HDL Direct 42 Quality VTE Prophylaxis VTE prophylaxis: pharmacologic ordered
[2024-11-03] MEDS: FUROSEMIDE INJ 40 MG/4 ML VIAL IV PUSH (17:31)
[2024-11-03] MEDS: ONDANSETRON HCL ODT 4 MG TABLET PO (22:02)
[2024-11-04] VITALS (19 sets, daily range): BP systolic 140–156; BP diastolic 46–81; PULSE 63–95; RESP 18–24; TEMP 36.4–36.8; O2SAT 94–96
[2024-11-04] MEDS: HYDROcodone/acetaminophen (*CRX) 10-325 MG TABLET 1 TAB PO ×3 (03:13→20:51)
[2024-11-04 04:50] LABS: Basophils Absolute Auto 0.1 K/mm3 (0.0-0.1); Basophils Percent Auto 0.6 % (0.2-1.2); Eosinophils Absolute Auto 0.4 K/mm3 (0-0.3); Eosinophils Percent Auto 3.2 % (0-4.4); Hematocrit 40.8 % (42.0-52.0); Hemoglobin 12.9 g/dL (14.0-18.0); Immature Granulocyte Absolute 0.32 K/mm3 (0.00-0.031); Immature Granulocyte Percent A 2.5 % (0-0.5); Lymphocytes Absolute Auto 0.94 K/mm3 (0.9-3.2); Lymphocytes Percent Auto 7.3 % (18.3-44.2); Mean Corpuscular HGB Conc 31.6 g/dl (32-36); Mean Corpuscular Hemoglobin 30.2 pg (26-34); Mean Corpuscular Volume 95.6 fl (80-100); Mean Platelet Volume 12.3 fl (7.4-10.4); Monocytes Percent Auto 7.7 % (2.6-8.5); Neutrophils Absolute Auto 10.1 K/mm3 (1.3-6.7); Neutrophils Percent Auto 78.7 % (45.5-73.1); Platelet Count Result 140 k/mm3 (150-375); Red Blood Count 4.27 M/mm3 (4.6-6.20); Red Cell Distribution Width 14.1 % (11.5-14.5); White Blood Count 12.9 K/mm3 (4.5-10.0)
[2024-11-04 05:08] LABS: Alanine Aminotransferase 26 U/L (6-50); Alkaline Phosphatase 76 U/L (38-126); Anion Gap 3 mmol/L (4-12); Aspartate Amino Transferase 32 U/L (17-59); Bilirubin,Total 0.8 mg/dL (0.2-1.3); Blood Urea Nitrogen 15 mg/dL (9-20); Calcium 8.1 mg/dL (8.4-10.2); Carbon Dioxide 32 mmol/L (22-30); Chloride 100 mmol/L (98-107); Estimated CRCL calculation 141 ml/min; Estimated Glomerular Filt Rate > 60; Glucose 107 mg/dL (65-110); Magnesium 2.1 mg/dL (1.6-2.3); Phosphorus 3.8 mg/dL (2.5-4.5); Potassium 3.8 mmol/L (3.4-5.0); Sodium 135 mmol/L (137-145)
[2024-11-04] MEDS: ASPIRIN 81 MG ENTERIC TABLET PO (08:19)
[2024-11-04] MEDS: guaiFENesin 12 HR 600 MG TABCR PO ×2 (08:19→20:47)
[2024-11-04] MEDS: ATORVASTATIN 40 MG TABLET 80 MG PO (08:19)
[2024-11-04] MEDS: FUROSEMIDE INJ 40 MG/4 ML VIAL IV PUSH (08:20)
[2024-11-04] MEDS: polyethylene glycoL 3350 17 GM POWD.PACK PO (08:20)
[2024-11-04] MEDS: cefTRIAXone 2 GM/NS 100 ML 2 GM/100 ML BAG IVPB (08:20)
[2024-11-04] MEDS: EMPAGLIFLOZIN 10 MG TABLET PO (08:20)
[2024-11-04] MEDS: ENOXAPARIN 40 MG/0.4 ML SYRINGE SUB-Q (08:20)
[2024-11-04] MEDS: METOPROLOL SUCCINATE EXT REL 50 MG TABCR PO (08:20)
[2024-11-04] MEDS: SPIRONOLACTONE 12.5 MG TABLET PO (08:20)
[2024-11-04] MEDS: POTASSIUM CHLORIDE 20 MEQ ER TABLET PO (08:20)
[2024-11-04] MEDS: IPRATROPIUM 0.5 MG/ALBUTEROL SULFATE 2.5 MG AMPUL.NEB 3 ML INHALATION ×3 (08:33→20:28)
--- NOTE | 2024-11-04 09:42 | P.PNCA_ITS ---
Progress Note: A&P Assessment and Plan (1) Acute diastolic heart failure: Code(s): I50.31 - Acute diastolic (congestive) heart failure Status: Acute Plan 1. Acute diastolic heart failure 2. Sepsis, bacteremia 3. Cellulitis of left lower extremity 4. Reported history of CAD. Diagnosis listed in chart, details unclear. 5. Peripheral arterial disease 6. Hypertension 7. Hyperlipidemia 8. Morbid obesity with BMI of 52 PLAN -Will stop PO Lasix and start IV Lasix 40mg BID. Please monitor strict I/Os. -Start Jardiance 10mg once daily. -Continue Spironolactone. -Lower extremity CTA shows extensive atherosclerotic changes which degraded the ability to evaluate for the flow and stenosis properly, bilateral atherosclerotic changes with variable degrees of stenosis with maximum changes in the right popliteal artery, nonvisualization of the dorsalis pedis and posterior tibial arteries bilaterally. Continue high intensity statin. Will start ASA 81mg once daily for medical management. -Needs to be evaluated for SHAVON. Recommendations and plan discussed with Hospitalist. Subjective Date/time seen: 11/04/24 09:42 Review of Systems Review of Systems: All systems reviewed & are unremarkable except as noted in HPI and below (HPI) Exam Const: General: no acute distress Other: Morbidly obese male. Sleepy. HENMT: Mouth: Yes moist mucous membranes Eyes: General: appearance normal, both eyes and all related structures Sclera: sclerae normal Resp: Effort & Inspection: normal respiratory effort Cardio: Rate: regular rate Rhythm: regular rhythm Heart sounds: no murmurs Other: + Bilateral lower extremity edema Skin: General skin exam: erythema (Over LLE) Neuro: Speech: normal speech Psych: Mental Status: mental status grossly normal Affect: normal affect Objective Data Vital Signs Vital Signs: Vital Signs - 24 hr 11/03/24 12:00 11/03/24 14:00 11/03/24 14:48 Temperature 36.7 C Pulse Rate 76 76 77 Respiratory Rate 16 18 Blood Pressure 183/69 H Pulse Oximetry 100 Oxygen Delivery 11/03/24 16:00 11/03/24 20:00 11/03/24 20:00 Temperature Pulse Rate 69 76 Respiratory Rate Blood Pressure Pulse Oximetry Oxygen Delivery Room Air 11/03/24 20:35 11/03/24 21:35 11/04/24 00:00 Temperature 36.8 C Pulse Rate 78 77 76 Respiratory Rate 18 18 Blood Pressure 163/83 H Pulse Oximetry 99 Oxygen Delivery 11/04/24 00:15 11/04/24 03:09 11/04/24 04:00 Temperature Pulse Rate 79 Respiratory Rate 18 Blood Pressure Pulse Oximetry Oxygen Delivery BiPAP BiPAP 11/04/24 05:44 11/04/24 08:00 11/04/24 08:20 Temperature 36.8 C Pulse Rate 80 84 80 Respiratory Rate 18 Blood Pressure 147/46 H Pulse Oximetry 95 Oxygen Delivery 11/04/24 08:20 11/04/24 08:35 11/04/24 08:36 Temperature Pulse Rate 63 Respiratory Rate 20 Blood Pressure Pulse Oximetry 96 Oxygen Delivery Room Air Room Air 11/04/24 08:44 Temperature Pulse Rate 71 Respiratory Rate 20 Blood Pressure Pulse Oximetry Oxygen Delivery Intake/Output Intake/Output: Intake & Output 11/01/24 11/02/24 11/03/24 11/04/24 23:59 23:59 23:59 23:59 Intake Total 4470 1810 3090 620 Output Total 200 2500 2600 700 Balance 4270 -690 490 -80 Meds/Results Medications: Active Medications Generic Name Dose Route Start Last Admin Trade Name Freq PRN Reason Stop Dose Admin Acetaminophen 1,000 mg 11/01/24 12:09 11/01/24 14:42 Acetaminophen 500 Mg Tablet PO 1,000 mg TID PRN Administration pain Hydrocodone Bitart/Acetaminophen 1 tab 11/01/24 13:35 11/04/24 03:13 Hydrocodone/Acetaminophen (*Crx) 10-325 Mg Tablet PO 1 tab Q6H PRN Administration pain 4-6 Albuterol 2 puff 11/01/24 12:09 Albuterol Sulfate (*Sp) Aerosol 1 Puff INHALATION Q4-6H PRN shortness of breath or wheezing Albuterol/Ipratropium 3 ml 11/01/24 08:00 11/04/24 08:33 Ipratropium 0.5 Mg/Albuterol Sulfate 2.5 Mg Ampul.Neb 3 Ml INHALATION 3 ml Q6HRT ERICK Administration Aspirin 81 mg 11/04/24 09:00 11/04/24 08:19 Aspirin 81 Mg Enteric Tablet PO 81 mg QAM ERICK Administration Atorvastatin Calcium 80 mg 11/02/24 09:00 11/04/24 08:19 Atorvastatin 40 Mg Tablet PO 80 mg DAILY ERICK Administration Benzocaine 1 lozenge 11/01/24 13:28 Benzocaine/Menthol (*Bkc) 18 Ea Lozenge PO PRN PRN Sore Throat Empagliflozin 10 mg 11/03/24 11:05 11/04/24 08:20 Empagliflozin 10 Mg Tablet PO 10 mg DAILY ERICK Administration Enoxaparin Sodium 40 mg 11/02/24 09:00 11/04/24 08:20 Enoxaparin 40 Mg/0.4 Ml Syringe SUB-Q 40 mg DAILY ERICK Administration Furosemide 40 mg 11/03/24 17:00 11/04/24 08:20 Furosemide Inj 40 Mg/4 Ml Vial IV PUSH 40 mg BID ERICK Administration Guaifenesin 600 mg 11/01/24 21:00 11/04/24 08:19 Guaifenesin 12 Hr 600 Mg Tabcr PO 11/08/24 20:59 600 mg Q12HR ERICK Administration Ceftriaxone Sodium 2 gm in 100 mls @ 200 mls/hr 11/01/24 10:00 11/04/24 08:50 Rocephin 2 Gm/Ns 100 Ml IVPB Infused DAILY ERICK Infusion Metoprolol Succinate 50 mg 11/02/24 09:00 11/04/24 08:20 Metoprolol Succinate Ext Rel 50 Mg Tabcr PO 50 mg DAILY ERICK Administration Ondansetron HCl 4 mg 11/01/24 12:09 11/03/24 22:02 Ondansetron Hcl Odt 4 Mg Tablet PO 4 mg Q8H PRN Administration nausea and vomiting Polyethylene Glycol 17 gm 11/03/24 12:45 11/04/24 08:20 Polyethylene Glycol 3350 17 Gm Powd.Pack PO 17 gm QAM PRN Administration Constipation Potassium Chloride 20 meq 11/02/24 09:00 11/04/24 08:20 Potassium Chloride 20 Meq Er Tablet PO 20 meq DAILY ERICK Administration Spironolactone 12.5 mg 11/02/24 09:00 11/04/24 08:20 Spironolactone 12.5 Mg Tablet PO 12.5 mg DAILY ERICK Administration Radiology Results: ITS Impressions Chest/Abdomen/Pelvis CTA 11/01/24 06:24 Impression: No significant abnormalities seen. Head CT 11/01/24 06:24 Impression: No significant abnormality seen. Chest X-Ray 11/01/24 06:30 Impression: Probable focal left basilar atelectasis. Cardiomegaly. Venous Doppler Study 11/01/24 10:07 IMPRESSION: 1. No rojhk-efo-acty deep venous thrombosis with no thrombosis in either lower limb at or proximal to the level of the popliteal veins. The bilateral peroneal and posterior tibial veins at the calf remain unable to be clearly visualized due to patient body habitus. Lower Extremity CTA 11/02/24 12:44 IMPRESSION: Extensive atherosclerotic changes which degraded the ability to evaluate for the flow and stenosis properly. Bilateral atherosclerotic changes with variable degrees of stenosis with maximum changes in the right popliteal artery. Nonvisualization of the dorsalis pedis and posterior tibial arteries bilaterally. Conventional Angiography is advised for better evaluation. Labs Labs: Laboratory Results - last 24 hr 11/04/24 04:19 WBC 12.9 H RBC 4.27 L Hgb 12.9 L Hct 40.8 L MCV 95.6 MCH 30.2 MCHC 31.6 L RDW 14.1 Plt Count 140 L MPV 12.3 H Immature Gran % (Auto) 2.5 H Neut % (Auto) 78.7 H Lymph % (Auto) 7.3 L [place] % (Auto) 7.7 Eos % (Auto) 3.2 Baso % (Auto) 0.6 Lymph # (Auto) 0.94 [place] # (Auto) 1.0 H Eos # (Auto) 0.4 H Baso # (Auto) 0.1 Abs Immat Gran (auto) 0.32 H Absolute Neuts (auto) 10.1 H Absolute Nucleated RBC 0.000 Nucleated RBC % 0.0 Sodium 135 L Potassium 3.8 Chloride 100 Carbon Dioxide 32 H Anion Gap 3 L BUN 15 Creatinine 0.58 L Estim Creat Clear Calc 141 Estimated GFR > 60 Glucose 107 Calcium 8.1 L Phosphorus 3.8 Magnesium 2.1 Total Bilirubin 0.8 AST 32 ALT 26 Alkaline Phosphatase 76 Total Protein 6.0 L Albumin 3.0 L Quality VTE Prophylaxis VTE prophylaxis: pharmacologic ordered
--- NOTE | 2024-11-04 11:03 | P.PNIM_ITS ---
Progress Note: A&P Assessment and Plan (1) Sepsis: Code(s): A41.9 - Sepsis, unspecified organism Status: Acute Assessment and Plan: * Patient meets SIRS criteria on admission due to HR 123, resp 26, WBC 25.2, LLE possible source. * Lactic Acid 3.0>2.2>1.9. Patient received LR IV fluids in the ER. * Chest, Abdomen, and Pelvis with Contrast: Findings: There is no evidence of any significant mediastinal, hilar or axillary lymphadenopathy. The mediastinal soft tissues appear normal. There is no evidence of pleural or pericardial effusion. The lungs are clear. No pulmonary nodules or infiltrates are noted. The liver, spleen, pancreas, gallbladder, adrenals and kidneys are within normal limits. There are atherosclerotic calcifications of the aorta. No lymphadenopathy. No bowel obstruction or bowel wall thickening. There is no evidence to suggest acute appendicitis. Urinary bladder is unremarkable. No pelvic mass seen. No ascites. There is diffuse degenerative spondylosis of the spine. Impression: No significant abnormalities seen. * Respiratory panel negative. * Ceftriaxone 2 gram IVPB daily. * Blood cultures grew gram + cocci in chains. Repeat blood cultures negative since 11/03 * Trend labs. (2) Cellulitis of left lower limb: Code(s): L03.116 - Cellulitis of left lower limb Status: Acute Assessment and Plan: * Ceftriaxone 2 gram IVPB daily. * Venous dopplers: IMPRESSION: 1. No [id number] deep venous thrombosis with no thrombosis in either lower limb at or proximal to the level of the popliteal veins. The bilateral peroneal and posterior tibial veins at the calf remain unable to be clearly visualized due to patient body habitus. * Elevate when possible. * Lower extremity CTA 11/02 reviewd Patient would benefit from seeing Vascular provider outpatient. * Monitor site. (3) Weakness: Code(s): R53.1 - Weakness Status: Acute Assessment and Plan: * PT/OT. (4) Obesity, morbid, BMI 50 or higher: Code(s): E66.01 - Morbid (severe) obesity due to excess calories Status: Acute Assessment and Plan: * [facility] [employer] consult. * Heart healthy diet. * Taking Ozempic at home. (5) Elevated blood sugar: Code(s): R73.9 - Hyperglycemia, unspecified Status: Acute Assessment and Plan: * Blood sugar 183. * HgbA1C 5.8%. (6) Hyperlipidemia: Code(s): E78.5 - Hyperlipidemia, unspecified Status: Chronic Assessment and Plan: * Atorvastatin 80 mg PO daily. * Heart healthy diet. (7) Elevated brain natriuretic peptide (BNP) level: Code(s): R79.89 - Other specified abnormal findings of blood chemistry Status: Acute Assessment and Plan: * BNP 1,100 on admission. BNP today 1,860. * IV lasix * Cardiology on board * Echocardiogram showed: Summary 1. Left ventricular chamber dimension is normal. 2. Left ventricular systolic function is normal, estimated at 65-70%. 3. There is moderately increased left ventricular wall thickness. 4. The left ventricular diastolic function is grade I diastolic dysfunction. 5. Right ventricular systolic function is normal. 6. Left atrial chamber dimension is mildly enlarged. 7. Right atrial chamber dimension is mildly enlarged. 8. There is mild tricuspid valve regurgitation. (8) Grade I diastolic dysfunction: Code(s): I51.89 - Other ill-defined heart diseases Status: Acute Assessment and Plan: * Spironolactone 12.5 mg PO daily. * lasix * fluid restriction * cardiology team on board Subjective Date/time seen: 11/04/24 11:03 Interval history: per HPo: Patient is a 74 year old male that came to the hospital with altered mental status and weakness. Patient denies chest pain, palpitations, headache, dizziness, nausea, or vomiting. Patient reports coughing up green to clear sputum and recent upper respiratory illness for about the last 5 weeks. The rest of his family got better but his cough has gotten worse over the past several days. Patient uses a cane or walker, patient reports feeling weaker lately. Patient reports redness and swelling to left leg for about 3 weeks, denies drainage from leg. Patient is currently A&Ox4. Patient thinks he had a sleep study a long time ago but was never given a sleep machine. Patient reports being on Ozempic for weight loss. Patient reports that primary is setting up an appointment with a new Instrument Setter in the same building as primary, patient does not know the providers name. ER work up: WBC 25.2, D dimer 0.95, lactic acid 3.0, BNP 1,100, and total protein 6.0. Trop 0.021 and 0.031. Chest X-ray showed probable focal left basilar atelectasis and Cardiomegaly. ECG- ST 120 QTc 416. Blood cultures obtained. Chest, Abdomen, and Pelvis with Contrast: Findings: There is no evidence of any significant mediastinal, hilar or axillary lymphadenopathy. The mediastinal soft tissues appear normal. There is no evidence of pleural or pericardial effusion. The lungs are clear. No pulmonary nodules or infiltrates are noted. The liver, spleen, pancreas, gallbladder, adrenals and kidneys are within normal limits. There are atherosclerotic calcifications of the aorta. No lymphadenopathy. No bowel obstruction or bowel wall thickening. There is no evidence to suggest acute appendicitis. Urinary bladder is unremarkable. No pelvic mass seen. No ascites. There is diffuse degenerative spondylosis of the spine. Impression: No significant abnormalities seen. Head CT: Findings: There is no evidence of intracranial hemorrhage, mass le octavio, or acute infarct. Brain parenchyma appears normal. The ventricles and subarachnoid spaces are normal in size. The calvarium appears normal. The visualized paranasal sinuses and mastoid air cells are clear. Impression: No significant abnormality seen. Venous dopplers: IMPRESSION: 1. No [id number] deep venous thrombosis with no thrombosis in either lower limb at or proximal to the level of the popliteal veins. The bilateral peroneal and posterior tibial veins at the calf remain unable to be clearly visualized due to patient body habitus. 11/03/24 Patient was seen and examined at the [facility]. he is sleepy today. denies any chest pain, SOB,abd pain, N/V. abraham bilateral leg swelling started on IV lasix. Ordered Hussain hose. Has L leg cellulitis and B/C positive for strep group B. Continue rocephin. follow culture result. 11/05/23 patient was seen and examined at bedside. he is feeling the same. still has bilateral leg swelling. can not keep legs elevated because of knee pain. WBC improving. will order fluid restriction. Review of Systems Review of Systems: All systems reviewed & are unremarkable except as noted in HPI and below Exam Const: General: comfortable and no acute distress Eyes: Sclera: sclerae normal Pupils: Equal, round and reactive pupils present Resp: Effort & Inspection: normal respiratory effort Auscultation: rhonchi and diminished lung sounds Cardio: Rate: regular rate Rhythm: regular rhythm Other: Telemetry- SR 90 GI: Auscultation: normal bowel sounds Other: obese. Skin: Other: Lipodermatosclerosis. LLE 2+ with redness and indentions. Neuro: Cranial nerves: Yes Equal, round and reactive pupils present Speech: normal speech Extrem: General: pedal edema on the right 2+ and on the left (2+ with redness and indentions.) Other: General: pedal edema on the right 1+ and on the left (2+ with redness and indentions.) Other: Lipodermatosclerosis. Psych: Mental Status: mental status grossly normal Affect: normal affect Objective Data Vital Signs Vital Signs: Vital Signs - 24 hr 11/03/24 12:00 11/03/24 14:00 11/03/24 14:48 Temperature 98.1 F Pulse Rate 76 76 77 Respiratory Rate 16 18 Blood Pressure 183/69 H Pulse Oximetry 100 Oxygen Delivery 11/03/24 16:00 11/03/24 20:00 11/03/24 20:00 Temperature Pulse Rate 69 76 Respiratory Rate Blood Pressure Pulse Oximetry Oxygen Delivery Room Air 11/03/24 20:35 11/03/24 21:35 11/04/24 00:00 Temperature 98.2 F Pulse Rate 78 77 76 Respiratory Rate 18 18 Blood Pressure 163/83 H Pulse Oximetry 99 Oxygen Delivery 11/04/24 00:15 11/04/24 03:09 11/04/24 04:00 Temperature Pulse Rate 79 Respiratory Rate 18 Blood Pressure Pulse Oximetry Oxygen Delivery BiPAP BiPAP 11/04/24 05:44 11/04/24 08:00 11/04/24 08:20 Temperature 98.3 F Pulse Rate 80 84 80 Respiratory Rate 18 Blood Pressure 147/46 H Pulse Oximetry 95 Oxygen Delivery 11/04/24 08:20 11/04/24 08:35 11/04/24 08:36 Temperature Pulse Rate 63 Respiratory Rate 20 Blood Pressure Pulse Oximetry 96 Oxygen Delivery Room Air Room Air 11/04/24 08:44 Temperature Pulse Rate 71 Respiratory Rate 20 Blood Pressure Pulse Oximetry Oxygen Delivery Intake/Output Intake/Output: Intake & Output 11/01/24 11/02/24 11/03/24 11/04/24 23:59 23:59 23:59 23:59 Intake Total 4470 1810 3090 620 Output Total 200 2500 2600 700 Balance 4270 -850 490 -80 Meds/Results Medications: Active Medications Generic Name Dose Route Start Last Admin Trade Name Freq PRN Reason Stop Dose Admin Acetaminophen 1,000 mg 11/01/24 12:09 11/01/24 14:42 Acetaminophen 500 Mg Tablet PO 1,000 mg TID PRN Administration pain Hydrocodone Bitart/Acetaminophen 1 tab 11/01/24 13:35 11/04/24 03:13 Hydrocodone/Acetaminophen (*Crx) 10-325 Mg Tablet PO 1 tab Q6H PRN Administration pain 4-6 Albuterol 2 puff 11/01/24 12:09 Albuterol Sulfate (*Sp) Aerosol 1 Puff INHALATION Q4-6H PRN shortness of breath or wheezing Albuterol/Ipratropium 3 ml 11/01/24 08:00 11/04/24 08:33 Ipratropium 0.5 Mg/Albuterol Sulfate 2.5 Mg Ampul.Neb 3 Ml INHALATION 3 ml Q6HRT ERICK Administration Aspirin 81 mg 11/04/24 09:00 11/04/24 08:19 Aspirin 81 Mg Enteric Tablet PO 81 mg QAM ERICK Administration Atorvastatin Calcium 80 mg 11/02/24 09:00 11/04/24 08:19 Atorvastatin 40 Mg Tablet PO 80 mg DAILY ERICK Administration Benzocaine 1 lozenge 11/01/24 13:28 Benzocaine/Menthol (*Bkc) 18 Ea Lozenge PO PRN PRN Sore Throat Empagliflozin 10 mg 11/03/24 11:05 11/04/24 08:20 Empagliflozin 10 Mg Tablet PO 10 mg DAILY ERICK Administration Enoxaparin Sodium 40 mg 11/02/24 09:00 11/04/24 08:20 Enoxaparin 40 Mg/0.4 Ml Syringe SUB-Q 40 mg DAILY ERICK Administration Furosemide 40 mg 11/03/24 17:00 11/04/24 08:20 Furosemide Inj 40 Mg/4 Ml Vial IV PUSH 40 mg BID ERICK Administration Guaifenesin 600 mg 11/01/24 21:00 11/04/24 08:19 Guaifenesin 12 Hr 600 Mg Tabcr PO 11/08/24 20:59 600 mg Q12HR ERICK Administration Ceftriaxone Sodium 2 gm in 100 mls @ 200 mls/hr 11/01/24 10:00 11/04/24 08:50 Rocephin 2 Gm/Ns 100 Ml IVPB Infused DAILY ERICK Infusion Metoprolol Succinate 50 mg 11/02/24 09:00 11/04/24 08:20 Metoprolol Succinate Ext Rel 50 Mg Tabcr PO 50 mg DAILY ERICK Administration Ondansetron HCl 4 mg 11/01/24 12:09 11/03/24 22:02 Ondansetron Hcl Odt 4 Mg Tablet PO 4 mg Q8H PRN Administration nausea and vomiting Polyethylene Glycol 17 gm 11/03/24 12:45 11/04/24 08:20 Polyethylene Glycol 3350 17 Gm Powd.Pack PO 17 gm QAM PRN Administration Constipation Potassium Chloride 20 meq 11/02/24 09:00 11/04/24 08:20 Potassium Chloride 20 Meq Er Tablet PO 20 meq DAILY ERICK Administration Spironolactone 12.5 mg 11/02/24 09:00 11/04/24 08:20 Spironolactone 12.5 Mg Tablet PO 12.5 mg DAILY ERICK Administration Radiology Results: ITS Impressions Chest/Abdomen/Pelvis CTA 11/01/24 06:24 Impression: No significant abnormalities seen. Head CT 11/01/24 06:24 Impression: No significant abnormality seen. Chest X-Ray 11/01/24 06:30 Impression: Probable focal left basilar atelectasis. Cardiomegaly. Venous Doppler Study 11/01/24 10:07 IMPRESSION: 1. No [id number] deep venous thrombosis with no thrombosis in either lower limb at or proximal to the level of the popliteal veins. The bilateral peroneal and posterior tibial veins at the calf remain unable to be clearly visualized due to patient body habitus. Lower Extremity CTA 11/02/24 12:44 IMPRESSION: Extensive atherosclerotic changes which degraded the ability to evaluate for the flow and stenosis properly. Bilateral atherosclerotic changes with variable degrees of stenosis with maximum changes in the right popliteal artery. Nonvisualization of the dorsalis pedis and posterior tibial arteries bilaterally. Conventional Angiography is advised for better evaluation. Labs Labs: Laboratory Results - last 24 hr 11/04/24 04:19 WBC 12.9 H RBC 4.27 L Hgb 12.9 L Hct 40.8 L MCV 95.6 MCH 30.2 MCHC 31.6 L RDW 14.1 Plt Count 140 L MPV 12.3 H Immature Gran % (Auto) 2.5 H Neut % (Auto) 78.7 H Lymph % (Auto) 7.3 L [place] % (Auto) 7.7 Eos % (Auto) 3.2 Baso % (Auto) 0.6 Lymph # (Auto) 0.94 [place] # (Auto) 1.0 H Eos # (Auto) 0.4 H Baso # (Auto) 0.1 Abs Immat Gran (auto) 0.32 H Absolute Neuts (auto) 10.1 H Absolute Nucleated RBC 0.000 Nucleated RBC % 0.0 Sodium 135 L Potassium 3.8 Chloride 100 Carbon Dioxide 32 H Anion Gap 3 L BUN 15 Creatinine 0.58 L Estim Creat Clear Calc 141 Estimated GFR > 60 Glucose 107 Calcium 8.1 L Phosphorus 3.8 Magnesium 2.1 Total Bilirubin 0.8 AST 32 ALT 26 Alkaline Phosphatase 76 Total Protein 6.0 L Albumin 3.0 L Quality VTE Prophylaxis VTE prophylaxis: pharmacologic ordered
--- NOTE | 2024-11-04 13:15 | PCPTNOTE ---
Patient declined PT this afternoon stating he has increased R knee pain that radiates throughout the R LE. Patient states he just returned to bed and needed assist from nursing with Kristin Luong to transfer. Patient states I can't walk because of the pain and I want to walk so I can go home. PT will continue to follow per plan of care.
[2024-11-04] MEDS: FUROSEMIDE INJ 40 MG/4 ML VIAL 60 MG IV PUSH (17:45)
[2024-11-05] VITALS (19 sets, daily range): BP systolic 139–157; BP diastolic 69–73; PULSE 79–96; RESP 16–20; TEMP 36.4–37.1; O2SAT 92–95
[2024-11-05] MEDS: IPRATROPIUM 0.5 MG/ALBUTEROL SULFATE 2.5 MG AMPUL.NEB 3 ML INHALATION ×4 (03:18→20:48)
[2024-11-05 05:18] LABS: Basophils Absolute Auto 0.1 K/mm3 (0.0-0.1); Basophils Percent Auto 0.8 % (0.2-1.2); Eosinophils Absolute Auto 0.3 K/mm3 (0-0.3); Eosinophils Percent Auto 2.3 % (0-4.4); Hematocrit 43.5 % (42.0-52.0); Hemoglobin 13.7 g/dL (14.0-18.0); Immature Granulocyte Absolute 0.74 K/mm3 (0.00-0.031); Immature Granulocyte Percent A 4.9 % (0-0.5); Lymphocytes Absolute Auto 1.19 K/mm3 (0.9-3.2); Lymphocytes Percent Auto 7.9 % (18.3-44.2); Mean Corpuscular HGB Conc 31.5 g/dl (32-36); Mean Corpuscular Hemoglobin 29.9 pg (26-34); Monocytes Absolute Auto 1.5 K/mm3 (0.1-0.6); Monocytes Percent Auto 9.9 % (2.6-8.5); Neutrophils Absolute Auto 11.1 K/mm3 (1.3-6.7); Neutrophils Percent Auto 74.2 % (45.5-73.1); Platelet Count Result 167 k/mm3 (150-375); Red Blood Count 4.58 M/mm3 (4.6-6.20); Red Cell Distribution Width 14.1 % (11.5-14.5)
[2024-11-05 05:31] LABS: Alanine Aminotransferase 37 U/L (6-50); Albumin Level 3.3 g/dL (3.5-5.1); Alkaline Phosphatase 88 U/L (38-126); Anion Gap 3 mmol/L (4-12); Aspartate Amino Transferase 42 U/L (17-59); Bilirubin,Total 1.2 mg/dL (0.2-1.3); Blood Urea Nitrogen 18 mg/dL (9-20); Calcium 8.3 mg/dL (8.4-10.2); Carbon Dioxide 35 mmol/L (22-30); Chloride 96 mmol/L (98-107); Estimated CRCL calculation 132 ml/min; Estimated Glomerular Filt Rate > 60; Glucose 110 mg/dL (65-110); Magnesium 2.2 mg/dL (1.6-2.3); Phosphorus 4.2 mg/dL (2.5-4.5); Potassium 3.9 mmol/L (3.4-5.0); Sodium 134 mmol/L (137-145)
[2024-11-05] MEDS: FUROSEMIDE INJ 40 MG/4 ML VIAL 60 MG IV PUSH ×2 (08:39→16:51)
[2024-11-05] MEDS: ATORVASTATIN 40 MG TABLET 80 MG PO (08:39)
[2024-11-05] MEDS: EMPAGLIFLOZIN 10 MG TABLET PO (08:39)
[2024-11-05] MEDS: HYDROcodone/acetaminophen (*CRX) 10-325 MG TABLET 1 TAB PO ×3 (08:39→21:49)
[2024-11-05] MEDS: METOPROLOL SUCCINATE EXT REL 50 MG TABCR PO (08:39)
[2024-11-05] MEDS: SPIRONOLACTONE 12.5 MG TABLET PO (08:39)
[2024-11-05] MEDS: guaiFENesin 12 HR 600 MG TABCR PO ×2 (08:39→20:14)
[2024-11-05] MEDS: ENOXAPARIN 40 MG/0.4 ML SYRINGE SUB-Q (08:40)
[2024-11-05] MEDS: POTASSIUM CHLORIDE 20 MEQ ER TABLET PO (08:40)
[2024-11-05] MEDS: ASPIRIN 81 MG ENTERIC TABLET PO (08:40)
[2024-11-05] MEDS: cefTRIAXone 2 GM/NS 100 ML 2 GM/100 ML BAG IVPB (08:40)
--- NOTE | 2024-11-05 10:45 | PM.PNCARD ---
Progress Note: A&P Assessment and Plan (1) Acute diastolic heart failure: Code(s): I50.31 - Acute diastolic (congestive) heart failure Status: Acute Plan 1. Acute diastolic heart failure 2. Sepsis, bacteremia 3. Cellulitis of left lower extremity 4. Reported history of CAD. Diagnosis listed in chart, details unclear. 5. Peripheral arterial disease 6. Hypertension 7. Hyperlipidemia 8. Morbid obesity with BMI of 52 PLAN -Continue furosemide 60mg IV b.i.d. -add metolazone 5mg daily -Continue Jardiance 10mg once daily. -Continue Spironolactone. -Lower extremity CTA shows extensive atherosclerotic changes which degraded the ability to evaluate for the flow and stenosis properly, bilateral atherosclerotic changes with variable degrees of stenosis with maximum changes in the right popliteal artery, nonvisualization of the dorsalis pedis and posterior tibial arteries bilaterally. Continue high intensity statin, ASA for medical management. -Needs to be evaluated for SHAVON. Recommendations and plan discussed with Hospitalist. Subjective Date/time seen: 11/05/24 10:45 Interval history: Cardiology follow up visit Feeling better. His swelling is improving. Still has shortness of breath with activity. Review of Systems Review of Systems: All systems reviewed & are unremarkable except as noted in HPI and below Exam Const: General: comfortable, no acute distress, alert and awake Orientation/consciousness: patient oriented x3 Other: Morbidly obese HENMT: Head: normal to inspection Eyes: General: appearance normal, both eyes and all related structures Pupils: Equal, round and reactive pupils present Neck: Neck: normal visual inspection and supple Carotids: normal carotid upstroke Resp: Effort & Inspection: normal respiratory effort Auscultation: rales and diminished lung sounds Cardio: Rate: regular rate Rhythm: regular rhythm Heart sounds: S1 normal heart sound present, S2 normal heart sound present and no murmurs GI: Auscultation: normal bowel sounds Skin: General skin exam: normal color Lesions: lesion noted (left lower leg erythema ) Neuro: General: patient oriented x3 Cranial nerves: Yes Equal, round and reactive pupils present Extrem: General: abnormal to inspection Other: Bilateral pretibial and pedal edema 2+ Psych: Appearance: grossly normal Mental Status: mental status grossly normal Objective Data Vital Signs Vital Signs: Vital Signs - 24 hr 11/04/24 12:00 11/04/24 14:00 11/04/24 14:52 Temperature 36.4 C Pulse Rate 84 83 80 Respiratory Rate 24 H 20 Blood Pressure 140/54 L Pulse Oximetry 96 Oxygen Delivery 11/04/24 14:59 11/04/24 16:00 11/04/24 20:00 Temperature Pulse Rate 81 89 Respiratory Rate 20 Blood Pressure Pulse Oximetry Oxygen Delivery Room Air 11/04/24 20:00 11/04/24 20:29 11/04/24 20:30 Temperature Pulse Rate 95 88 Respiratory Rate 20 Blood Pressure Pulse Oximetry 95 Oxygen Delivery Room Air 11/04/24 20:40 11/04/24 21:11 11/05/24 00:00 Temperature 36.4 C L Pulse Rate 89 88 88 Respiratory Rate 20 18 Blood Pressure 156/81 H Pulse Oximetry 94 Oxygen Delivery 11/05/24 03:18 11/05/24 03:28 11/05/24 04:00 Temperature Pulse Rate 79 81 79 Respiratory Rate 20 20 Blood Pressure Pulse Oximetry Oxygen Delivery 11/05/24 06:12 11/05/24 07:15 11/05/24 07:15 Temperature 37.1 C Pulse Rate 85 80 Respiratory Rate 16 20 Blood Pressure 157/69 H Pulse Oximetry 95 95 Oxygen Delivery Room Air 11/05/24 08:00 11/05/24 08:39 11/05/24 08:40 Temperature Pulse Rate 91 80 Respiratory Rate Blood Pressure Pulse Oximetry Oxygen Delivery Room Air Intake/Output Intake/Output: Intake & Output 11/02/24 11/03/24 11/04/24 11/05/24 23:59 23:59 23:59 23:59 Intake Total 1810 3090 1820 670 Output Total 2500 2600 4500 400 Balance -690 490 -2680 270 Meds/Results Medications: Active Medications Generic Name Dose Route Start Last Admin Trade Name Freq PRN Reason Stop Dose Admin Acetaminophen 1,000 mg 11/01/24 12:09 11/01/24 14:42 Acetaminophen 500 Mg Tablet PO 1,000 mg TID PRN Administration pain Hydrocodone Bitart/Acetaminophen 1 tab 11/01/24 13:35 11/05/24 08:39 Hydrocodone/Acetaminophen (*Crx) 10-325 Mg Tablet PO 1 tab Q6H PRN Administration pain 4-6 Albuterol 2 puff 11/01/24 12:09 Albuterol Sulfate (*Sp) Aerosol 1 Puff INHALATION Q4-6H PRN shortness of breath or wheezing Albuterol/Ipratropium 3 ml 11/01/24 08:00 11/05/24 07:14 Ipratropium 0.5 Mg/Albuterol Sulfate 2.5 Mg Ampul.Neb 3 Ml INHALATION 3 ml Q6HRT ERICK Administration Aspirin 81 mg 11/04/24 09:00 11/05/24 08:40 Aspirin 81 Mg Enteric Tablet PO 81 mg QAM ERICK Administration Atorvastatin Calcium 80 mg 11/02/24 09:00 11/05/24 08:39 Atorvastatin 40 Mg Tablet PO 80 mg DAILY ERICK Administration Benzocaine 1 lozenge 11/01/24 13:28 Benzocaine/Menthol (*Bkc) 18 Ea Lozenge PO PRN PRN Sore Throat Diclofenac Sodium 1 applic 11/05/24 13:00 Diclofenac Sodium 1% 100 Gm Gel (*Bkc) TOPICAL QID ERICK Empagliflozin 10 mg 11/03/24 11:05 11/05/24 08:39 Empagliflozin 10 Mg Tablet PO 10 mg DAILY EIRCK Administration Enoxaparin Sodium 40 mg 11/02/24 09:00 11/05/24 08:40 Enoxaparin 40 Mg/0.4 Ml Syringe SUB-Q 40 mg DAILY ERICK Administration Furosemide 60 mg 11/04/24 17:00 11/05/24 08:39 Furosemide Inj 40 Mg/4 Ml Vial IV PUSH 60 mg BID ERICK Administration Guaifenesin 600 mg 11/01/24 21:00 11/05/24 08:39 Guaifenesin 12 Hr 600 Mg Tabcr PO 11/08/24 20:59 600 mg Q12HR ERICK Administration Ceftriaxone Sodium 2 gm in 100 mls @ 200 mls/hr 11/01/24 10:00 11/05/24 09:10 Rocephin 2 Gm/Ns 100 Ml IVPB Infused DAILY ERICK Infusion Metoprolol Succinate 50 mg 11/02/24 09:00 11/05/24 08:39 Metoprolol Succinate Ext Rel 50 Mg Tabcr PO 50 mg DAILY ERICK Administration Ondansetron HCl 4 mg 11/01/24 12:09 11/03/24 22:02 Ondansetron Hcl Odt 4 Mg Tablet PO 4 mg Q8H PRN Administration nausea and vomiting Polyethylene Glycol 17 gm 11/03/24 12:45 11/04/24 08:20 Polyethylene Glycol 3350 17 Gm Powd.Pack PO 17 gm QAM PRN Administration Constipation Potassium Chloride 20 meq 11/02/24 09:00 11/05/24 08:40 Potassium Chloride 20 Meq Er Tablet PO 20 meq DAILY ERICK Administration Spironolactone 12.5 mg 11/02/24 09:00 11/05/24 08:39 Spironolactone 12.5 Mg Tablet PO 12.5 mg DAILY ERICK Administration Radiology Results: ITS Impressions Chest/Abdomen/Pelvis CTA 11/01/24 06:24 Impression: No significant abnormalities seen. Head CT 11/01/24 06:24 Impression: No significant abnormality seen. Chest X-Ray 11/01/24 06:30 Impression: Probable focal left basilar atelectasis. Cardiomegaly. Venous Doppler Study 11/01/24 10:07 IMPRESSION: 1. No [id number] deep venous thrombosis with no thrombosis in either lower limb at or proximal to the level of the popliteal veins. The bilateral peroneal and posterior tibial veins at the calf remain unable to be clearly visualized due to patient body habitus. Lower Extremity CTA 11/02/24 12:44 IMPRESSION: Extensive atherosclerotic changes which degraded the ability to evaluate for the flow and stenosis properly. Bilateral atherosclerotic changes with variable degrees of stenosis with maximum changes in the right popliteal artery. Nonvisualization of the dorsalis pedis and posterior tibial arteries bilaterally. Conventional Angiography is advised for better evaluation. Labs Labs: Laboratory Results - last 24 hr 11/05/24 04:55 WBC 15.0 H RBC 4.58 L Hgb 13.7 L Hct 43.5 MCV 95.0 MCH 29.9 MCHC 31.5 L RDW 14.1 Plt Count 167 MPV 12.0 H Immature Gran % (Auto) 4.9 H Neut % (Auto) 74.2 H Lymph % (Auto) 7.9 L [place] % (Auto) 9.9 H Eos % (Auto) 2.3 Baso % (Auto) 0.8 Lymph # (Auto) 1.19 [place] # (Auto) 1.5 H Eos # (Auto) 0.3 Baso # (Auto) 0.1 Abs Immat Gran (auto) 0.74 H Absolute Neuts (auto) 11.1 H Absolute Nucleated RBC 0.000 Nucleated RBC % 0.0 Sodium 134 L Potassium 3.9 Chloride 96 L Carbon Dioxide 35 H Anion Gap 3 L BUN 18 Creatinine 0.62 L Estim Creat Clear Calc 132 Estimated GFR > 60 Glucose 110 Calcium 8.3 L Phosphorus 4.2 Magnesium 2.2 Total Bilirubin 1.2 AST 42 ALT 37 Alkaline Phosphatase 88 Total Protein 6.0 L Albumin 3.3 L Quality VTE Prophylaxis VTE prophylaxis: pharmacologic ordered
[2024-11-05] MEDS: metOLazone 5 MG TABLET PO (13:14)
[2024-11-05] MEDS: DICLOFENAC SODIUM 1% 100 GM GEL (*BKC) 1 APPLIC TOPICAL ×3 (13:14→20:14)
--- NOTE | 2024-11-05 13:26 | P.PNIM_ITS ---
Progress Note: A&P Assessment and Plan (1) Sepsis: Code(s): A41.9 - Sepsis, unspecified organism Status: Acute Assessment and Plan: * Patient meets SIRS criteria on admission due to HR 123, resp 26, WBC 25.2, LLE possible source. * Lactic Acid 3.0>2.2>1.9. Patient received LR IV fluids in the ER. * Chest, Abdomen, and Pelvis with Contrast: Findings: There is no evidence of any significant mediastinal, hilar or axillary lymphadenopathy. The mediastinal soft tissues appear normal. There is no evidence of pleural or pericardial effusion. The lungs are clear. No pulmonary nodules or infiltrates are noted. The liver, spleen, pancreas, gallbladder, adrenals and kidneys are within normal limits. There are atherosclerotic calcifications of the aorta. No lymphadenopathy. No bowel obstruction or bowel wall thickening. There is no evidence to suggest acute appendicitis. Urinary bladder is unremarkable. No pelvic mass seen. No ascites. There is diffuse degenerative spondylosis of the spine. Impression: No significant abnormalities seen. * Respiratory panel negative. * Ceftriaxone 2 gram IVPB daily. * Blood cultures grew Group B Streptococcus sensitive to Rocephin. Repeat blood cultures negative since 11/03 * Trend labs. (2) Cellulitis of left lower limb: Code(s): L03.116 - Cellulitis of left lower limb Status: Acute Assessment and Plan: * Ceftriaxone 2 gram IVPB daily. * Venous dopplers: IMPRESSION: 1. No [id number] deep venous thrombosis with no thrombosis in either lower limb at or proximal to the level of the popliteal veins. The bilateral peroneal and posterior tibial veins at the calf remain unable to be clearly visualized due to patient body habitus. * Elevate when possible. * Lower extremity CTA 11/02 reviewd Patient would benefit from seeing Vascular provider outpatient. * Monitor site. (3) Weakness: Code(s): R53.1 - Weakness Status: Acute Assessment and Plan: * PT/OT. (4) Obesity, morbid, BMI 50 or higher: Code(s): E66.01 - Morbid (severe) obesity due to excess calories Status: Acute Assessment and Plan: * Eyeglass Lens Generator consult. * Heart healthy diet. * Taking Ozempic at home. (5) Elevated blood sugar: Code(s): R73.9 - Hyperglycemia, unspecified Status: Acute Assessment and Plan: * Blood sugar 183. * HgbA1C 5.8%. (6) Hyperlipidemia: Code(s): E78.5 - Hyperlipidemia, unspecified Status: Chronic Assessment and Plan: * Atorvastatin 80 mg PO daily. * Heart healthy diet. (7) Elevated brain natriuretic peptide (BNP) level: Code(s): R79.89 - Other specified abnormal findings of blood chemistry Status: Acute Assessment and Plan: * BNP 1,100 on admission. BNP today 1,860. * IV Lasix, metolazone, Aldactone. * Cardiology on board * Echocardiogram showed: Summary 1. Left ventricular chamber dimension is normal. 2. Left ventricular systolic function is normal, estimated at 65-70%. 3. There is moderately increased left ventricular wall thickness. 4. The left ventricular diastolic function is grade I diastolic dysfunction. 5. Right ventricular systolic function is normal. 6. Left atrial chamber dimension is mildly enlarged. 7. Right atrial chamber dimension is mildly enlarged. 8. There is mild tricuspid valve regurgitation. (8) Grade I diastolic dysfunction: Code(s): I51.89 - Other ill-defined heart diseases Status: Acute Assessment and Plan: * Spironolactone 12.5 mg PO daily. * lasix, Metolazone * fluid restriction * cardiology team on board Subjective Date/time seen: 11/05/24 13:26 Interval history: per HPo: Patient is a 74 year old male that came to the hospital with altered mental status and weakness. Patient denies chest pain, palpitations, headache, dizziness, nausea, or vomiting. Patient reports coughing up green to clear sputum and recent upper respiratory illness for about the last 5 weeks. The rest of his family got better but his cough has gotten worse over the past several days. Patient uses a cane or walker, patient reports feeling weaker lately. P atient reports redness and swelling to left leg for about 3 weeks, denies drainage from leg. Patient is currently A&Ox4. Patient thinks he had a sleep study a long time ago but was never given a sleep machine. Patient reports being on Ozempic for weight loss. Patient reports that primary is setting up an appointment with a new Corporate Responsibility Officer in the same building as primary, patient does not know the providers name. ER work up: WBC 25.2, D dimer 0.95, lactic acid 3.0, BNP 1,100, and total protein 6.0. Trop 0.021 and 0.031. Chest X-ray showed probable focal left basilar atelectasis and Cardiomegaly. ECG- ST 120 QTc 416. Blood cultures obtained. Chest, Abdomen, and Pelvis with Contrast: Findings: There is no evidence of any significant mediastinal, hilar or axillary lymphadenopathy. The mediastinal soft tissues appear normal. There is no evidence of pleural or pericardial effusion. The lungs are clear. No pulmonary nodules or infiltrates are noted. The liver, spleen, pancreas, gallbladder, adrenals and kidneys are within normal limits. There are atherosclerotic calcifications of the aorta. No lymphadenopathy. No bowel obstruction or bowel wall thickening. There is no evidence to suggest acute appendicitis. Urinary bladder is unremarkable. No pelvic mass seen. No ascites. There is diffuse degenerative spondylosis of the spine. Impression: No significant abnormalities seen. Head CT: Findings: There is no evidence of intracranial hemorrhage, mass lesion, or acute infarct. Brain parenchyma appears normal. The ventricles and subarachnoid spaces are normal in size. The calvarium appears normal. The visualized paranasal sinuses and mastoid air cells are clear. Impression: No significant abnormality seen. Venous dopplers: IMPRESSION: 1. No [id number] deep venous thrombosis with no thrombosis in either lower limb at or proximal to the level of the popliteal veins. The bilateral peroneal and posterior tibial veins at the calf remain unable to be clearly visualized due to patient body habitus. 11/03/24 Patient was seen and examined at the bedside. he is sleepy today. denies any chest pain, SOB,abd pain, N/V. abraham bilateral leg swelling started on IV lasix. Ordered Hussain robledo. Has L leg cellulitis and B/C positive for strep group B. Continue rocephin. follow culture result. 11/05/23 patient was seen and examined at bedside. he is feeling the same. still has bilateral leg swelling. can not keep legs elevated because of knee pain. WBC improving. will order fluid restriction. 11/05/24 Patient was seen and examined at the bedside. he is sleepy today. denies any chest pain, SOB,abd pain, N/V. leg swelling getting better. discuss with cardiology team at bedside. will add metolazone. Review of Systems Review of Systems: All systems reviewed & are unremarkable except as noted in HPI and below Exam Const: General: comfortable and no acute distress Eyes: Sclera: sclerae normal Pupils: Equal, round and reactive pupils present Resp: Effort & Inspection: normal respiratory effort Auscultation: rhonchi and diminished lung sounds Cardio: Rate: regular rate Rhythm: regular rhythm Other: Telemetry- SR 90 GI: Auscultation: normal bowel sounds Other: obese. Skin: Other: Lipodermatosclerosis. LLE 2+ with redness and indentions. Neuro: Cranial nerves: Yes Equal, round and reactive pupils present Speech: normal speech Extrem: General: pedal edema on the right 2+ and on the left (2+ with redness and indentions.) Other: General: pedal edema on the right 1+ and on the left (2+ with redness and indentions.) Other: Lipodermatosclerosis. Psych: Mental Status: mental status grossly normal Affect: normal affect Objective Data Vital Signs Vital Signs: Vital Signs - 24 hr 11/04/24 14:00 11/04/24 14:52 11/04/24 14:59 Temperature 97.6 F Pulse Rate 83 80 81 Respiratory Rate 24 H 20 20 Blood Pressure 140/54 L Pulse Oximetry 96 Oxygen Delivery 11/04/24 16:00 11/04/24 20:00 11/04/24 20:00 Temperature Pulse Rate 89 95 Respiratory Rate Blood Pressure Pulse Oximetry Oxygen Delivery Room Air 11/04/24 20:29 11/04/24 20:30 11/04/24 20:40 Temperature Pulse Rate 88 89 Respiratory Rate 20 20 Blood Pressure Pulse Oximetry 95 Oxygen Delivery Room Air 11/04/24 21:11 11/05/24 00:00 11/05/24 03:18 Temperature 97.5 F L Pulse Rate 88 88 79 Respiratory Rate 18 20 Blood Pressure 156/81 H Pulse Oximetry 94 Oxygen Delivery 11/05/24 03:28 11/05/24 04:00 11/05/24 06:12 Temperature 98.7 F Pulse Rate 81 79 85 Respiratory Rate 20 16 Blood Pressure 157/69 H Pulse Oximetry 95 Oxygen Delivery 11/05/24 07:15 11/05/24 07:15 11/05/24 08:00 Temperature Pulse Rate 80 91 Respiratory Rate 20 Blood Pressure Pulse Oximetry 95 Oxygen Delivery Room Air 11/05/24 08:39 11/05/24 08:40 11/05/24 12:00 Temperature Pulse Rate 80 89 Respiratory Rate Blood Pressure Pulse Oximetry Oxygen Delivery Room Air Intake/Output Intake/Output: Intake & Output 11/02/24 11/03/24 11/04/24 11/05/24 23:59 23:59 23:59 23:59 Intake Total 1810 3090 1820 790 Output Total 2500 2600 4500 400 Balance -690 490 -2680 390 Meds/Results Medications: Active Medications Generic Name Dose Route Start Last Admin Trade Name Freq PRN Reason Stop Dose Admin Acetaminophen 1,000 mg 11/01/24 12:09 11/01/24 14:42 Acetaminophen 500 Mg Tablet PO 1,000 mg TID PRN Administration pain Hydrocodone Bitart/Acetaminophen 1 tab 11/01/24 13:35 11/05/24 08:39 Hydrocodone/Acetaminophen (*Crx) 10-325 Mg Tablet PO 1 tab Q6H PRN Administration pain 4-6 Albuterol 2 puff 11/01/24 12:09 Albuterol Sulfate (*Sp) Aerosol 1 Puff INHALATION Q4-6H PRN shortness of breath or wheezing Albuterol/Ipratropium 3 ml 11/01/24 08:00 11/05/24 07:14 Ipratropium 0.5 Mg/Albuterol Sulfate 2.5 Mg Ampul.Neb 3 Ml INHALATION 3 ml Q6HRT ERICK Administration Aspirin 81 mg 11/04/24 09:00 11/05/24 08:40 Aspirin 81 Mg Enteric Tablet PO 81 mg QAM ERICK Administration Atorvastatin Calcium 80 mg 11/02/24 09:00 11/05/24 08:39 Atorvastatin 40 Mg Tablet PO 80 mg DAILY ERICK Administration Benzocaine 1 lozenge 11/01/24 13:28 Benzocaine/Menthol (*Bkc) 18 Ea Lozenge PO PRN PRN Sore Throat Diclofenac Sodium 1 applic 11/05/24 13:00 11/05/24 13:14 Diclofenac Sodium 1% 100 Gm Gel (*Bkc) TOPICAL 1 applic QID ERICK Administration Empagliflozin 10 mg 11/03/24 11:05 11/05/24 08:39 Empagliflozin 10 Mg Tablet PO 10 mg DAILY ERICK Administration Enoxaparin Sodium 40 mg 11/02/24 09:00 11/05/24 08:40 Enoxaparin 40 Mg/0.4 Ml Syringe SUB-Q 40 mg DAILY ERICK Administration Furosemide 60 mg 11/04/24 17:00 11/05/24 08:39 Furosemide Inj 40 Mg/4 Ml Vial IV PUSH 60 mg BID ERICK Administration Guaifenesin 600 mg 11/01/24 21:00 11/05/24 08:39 Guaifenesin 12 Hr 600 Mg Tabcr PO 11/08/24 20:59 600 mg Q12HR ERICK Administration Ceftriaxone Sodium 2 gm in 100 mls @ 200 mls/hr 11/01/24 10:00 11/05/24 09:10 Rocephin 2 Gm/Ns 100 Ml IVPB Infused DAILY ERICK Infusion Metoprolol Succinate 50 mg 11/02/24 09:00 11/05/24 08:39 Metoprolol Succinate Ext Rel 50 Mg Tabcr PO 50 mg DAILY ERICK Administration Ondansetron HCl 4 mg 11/01/24 12:09 11/03/24 22:02 Ondansetron Hcl Odt 4 Mg Tablet PO 4 mg Q8H PRN Administration nausea and vomiting Polyethylene Glycol 17 gm 11/03/24 12:45 11/04/24 08:20 Polyethylene Glycol 3350 17 Gm Powd.Pack PO 17 gm QAM PRN Administration Constipation Potassium Chloride 20 meq 11/02/24 09:00 11/05/24 08:40 Potassium Chloride 20 Meq Er Tablet PO 20 meq DAILY ERICK Administration Spironolactone 12.5 mg 11/02/24 09:00 11/05/24 08:39 Spironolactone 12.5 Mg Tablet PO 12.5 mg DAILY ERICK Administration Radiology Results: ITS Impressions Chest/Abdomen/Pelvis CTA 11/01/24 06:24 Impression: No significant abnormalities seen. Head CT 11/01/24 06:24 Impression: No significant abnormality seen. Chest X-Ray 11/01/24 06:30 Impression: Probable focal left basilar atelectasis. Cardiomegaly. Venous Doppler Study 11/01/24 10:07 IMPRESSION: 1. No [id number] deep venous thrombosis with no thrombosis in either lower limb at or proximal to the level of the popliteal veins. The bilateral peroneal and posterior tibial veins at the calf remain unable to be clearly visualized due to patient body habitus. Lower Extremity CTA 11/02/24 12:44 IMPRESSION: Extensive atherosclerotic changes which degraded the ability to e valuate for the flow and stenosis properly. Bilateral atherosclerotic changes with variable degrees of stenosis with maximum changes in the right popliteal artery. Nonvisualization of the dorsalis pedis and posterior tibial arteries bilaterally. Conventional Angiography is advised for better evaluation. Knee X-Ray 11/05/24 12:09 Impression: Tricompartmental osteoarthritis, as detailed above. Prior ACL reconstruction. Labs Labs: Laboratory Results - last 24 hr 11/05/24 04:55 WBC 15.0 H RBC 4.58 L Hgb 13.7 L Hct 43.5 MCV 95.0 MCH 29.9 MCHC 31.5 L RDW 14.1 Plt Count 167 MPV 12.0 H Immature Gran % (Auto) 4.9 H Neut % (Auto) 74.2 H Lymph % (Auto) 7.9 L [place] % (Auto) 9.9 H Eos % (Auto) 2.3 Baso % (Auto) 0.8 Lymph # (Auto) 1.19 [place] # (Auto) 1.5 H Eos # (Auto) 0.3 Baso # (Auto) 0.1 Abs Immat Gran (auto) 0.74 H Absolute Neuts (auto) 11.1 H Absolute Nucleated RBC 0.000 Nucleated RBC % 0.0 Sodium 134 L Potassium 3.9 Chloride 96 L Carbon Dioxide 35 H Anion Gap 3 L BUN 18 Creatinine 0.62 L Estim Creat Clear Calc 132 Estimated GFR > 60 Glucose 110 Calcium 8.3 L Phosphorus 4.2 Magnesium 2.2 Total Bilirubin 1.2 AST 42 ALT 37 Alkaline Phosphatase 88 Total Protein 6.0 L Albumin 3.3 L Quality VTE Prophylaxis VTE prophylaxis: pharmacologic ordered
[2024-11-05] MEDS: ONDANSETRON HCL ODT 4 MG TABLET PO (15:52)
[2024-11-06] VITALS (16 sets, daily range): BP systolic 123–141; BP diastolic 49–79; PULSE 72–89; RESP 16–20; TEMP 36.4–37; O2SAT 92–96
--- NOTE | 2024-11-06 03:14 | PCRCNOTE ---
Patient refused 0200 updraft treatment due to not wanting to be awakened. Treatment to resume @ 0800.
[2024-11-06 05:00] LABS: Basophils Absolute Auto 0.1 K/mm3 (0.0-0.1); Basophils Percent Auto 0.3 % (0.2-1.2); Eosinophils Absolute Auto 0.7 K/mm3 (0-0.3); Eosinophils Percent Auto 4.4 % (0-4.4); Hematocrit 43.4 % (42.0-52.0); Hemoglobin 14.1 g/dL (14.0-18.0); Immature Granulocyte Absolute 1.27 K/mm3 (0.00-0.031); Immature Granulocyte Percent A 8.3 % (0-0.5); Lymphocytes Absolute Auto 1.61 K/mm3 (0.9-3.2); Lymphocytes Percent Auto 10.6 % (18.3-44.2); Mean Corpuscular HGB Conc 32.5 g/dl (32-36); Mean Corpuscular Hemoglobin 30.4 pg (26-34); Mean Corpuscular Volume 93.5 fl (80-100); Monocytes Absolute Auto 1.7 K/mm3 (0.1-0.6); Neutrophils Percent Auto 65.4 % (45.5-73.1); Platelet Count Result 168 k/mm3 (150-375); Red Blood Count 4.64 M/mm3 (4.6-6.20); Red Cell Distribution Width 14.1 % (11.5-14.5); White Blood Count 15.2 K/mm3 (4.5-10.0)
[2024-11-06 05:14] LABS: Alanine Aminotransferase 41 U/L (6-50); Albumin Level 3.3 g/dL (3.5-5.1); Alkaline Phosphatase 60 U/L (38-126); Anion Gap 4 mmol/L (4-12); Aspartate Amino Transferase 52 U/L (17-59); Bilirubin,Total 0.8 mg/dL (0.2-1.3); Blood Urea Nitrogen 25 mg/dL (9-20); Calcium 8.4 mg/dL (8.4-10.2); Carbon Dioxide 34 mmol/L (22-30); Chloride 92 mmol/L (98-107); Estimated CRCL calculation 117 ml/min; Estimated Glomerular Filt Rate > 60; Glucose 109 mg/dL (65-110); Magnesium 2.4 mg/dL (1.6-2.3); Phosphorus 5.2 mg/dL (2.5-4.5); Sodium 130 mmol/L (137-145)
[2024-11-06] MEDS: IPRATROPIUM 0.5 MG/ALBUTEROL SULFATE 2.5 MG AMPUL.NEB 3 ML INHALATION ×3 (07:55→20:56)
[2024-11-06] MEDS: FUROSEMIDE INJ 40 MG/4 ML VIAL 60 MG IV PUSH (09:37)
[2024-11-06] MEDS: ENOXAPARIN 40 MG/0.4 ML SYRINGE SUB-Q (09:37)
[2024-11-06] MEDS: SPIRONOLACTONE 12.5 MG TABLET PO (09:38)
[2024-11-06] MEDS: ATORVASTATIN 40 MG TABLET 80 MG PO (09:38)
[2024-11-06] MEDS: POTASSIUM CHLORIDE 20 MEQ ER TABLET PO (09:38)
[2024-11-06] MEDS: EMPAGLIFLOZIN 10 MG TABLET PO (09:38)
[2024-11-06] MEDS: ASPIRIN 81 MG ENTERIC TABLET PO (09:38)
[2024-11-06] MEDS: guaiFENesin 12 HR 600 MG TABCR PO ×2 (09:38→20:47)
[2024-11-06] MEDS: METOPROLOL SUCCINATE EXT REL 50 MG TABCR PO (09:38)
[2024-11-06] MEDS: cefTRIAXone 2 GM/NS 100 ML 2 GM/100 ML BAG IVPB (09:43)
--- NOTE | 2024-11-06 10:12 | P.PNCA_ITS ---
Progress Note: A&P Assessment and Plan (1) Acute diastolic heart failure: Code(s): I50.31 - Acute diastolic (congestive) heart failure Status: Acute Plan 1. Acute diastolic heart failure 2. Sepsis, bacteremia 3. Cellulitis of left lower extremity 4. Reported history of CAD. Diagnosis listed in chart, details unclear. 5. Peripheral arterial disease 6. Hypertension 7. Hyperlipidemia 8. Morbid obesity with BMI of 52 PLAN -will reduce his furosemide 40 mg IV b.i.d. -will discontinue his potassium given the increase in spironolactone -Continue Jardiance 10mg once daily. -will increase his spironolactone to 25 mg p.o. daily for treatment of his heart failure -Lower extremity CTA shows extensive atherosclerotic changes which degraded the ability to evaluate for the flow and stenosis properly, bilateral atherosclerotic changes with variable degrees of stenosis with maximum changes in the right popliteal artery, nonvisualization of the dorsalis pedis and posterior tibial arteries bilaterally. Continue high intensity statin, ASA for medical management. -Needs to be evaluated for SHAVON. Recommendations and plan discussed with Hospitalist. Subjective Date/time seen: 11/06/24 10:12 Interval history: Cardiology follow up visit for volume overload Date of service 11/06/2024: Still swollen but better. Has shortness breath with activity. No chest pain Review of Systems Review of Systems: All systems reviewed & are unremarkable except as noted in HPI and below Constitutional: Constitutional: Denies body ache(s) ENT: Reports Normal hearing present Cardiovascular: Cardiovascular: Denies chest pain Respiratory: Respiratory: Denies dyspnea Gastrointestinal: Gastrointestinal: Denies abdominal pain Integumentary/Breasts: Skin/Breast: Denies erythema Psychiatric: Psychiatric: Denies anxiety Hematologic/Lymphatic: Hematologic/Lymphatic: Denies easy bleeding Exam Const: General: comfortable, no acute distress, alert and awake Orientation/consciousness: patient oriented x3 Other: Morbidly obese HENMT: Head: normal to inspection Eyes: General: appearance normal, both eyes and all related structures Pupils: Equal, round and reactive pupils present Neck: Neck: normal visual inspection and supple Carotids: normal carotid upstroke Resp: Effort & Inspection: normal respiratory effort Auscultation: rales and diminished lung sounds Cardio: Rate: regular rate Rhythm: regular rhythm Heart sounds: S1 normal heart sound present, S2 normal heart sound present and no murmurs Other: + Bilateral lower extremity edema GI: Auscultation: normal bowel sounds Skin: General skin exam: normal color and lesion (left lower leg erythema ) Lesions: lesion noted (left lower leg erythema ) Neuro: General: patient oriented x3 Cranial nerves: Yes Equal, round and reactive pupils present Extrem: General: abnormal to inspection Other: Bilateral pretibial and pedal edema 2+ Psych: Appearance: grossly normal Mental Status: mental status grossly normal Objective Data Vital Signs Vital Signs: Vital Signs - 24 hr 11/05/24 12:00 11/05/24 13:52 11/05/24 13:59 Temperature Pulse Rate 89 80 84 Respiratory Rate 20 20 Blood Pressure Pulse Oximetry Oxygen Delivery 11/05/24 14:00 11/05/24 16:00 11/05/24 20:00 Temperature 36.5 C Pulse Rate 96 89 90 Respiratory Rate 20 Blood Pressure 139/70 Pulse Oximetry 92 Oxygen Delivery 11/05/24 20:49 11/05/24 20:51 11/05/24 20:58 Temperature Pulse Rate 88 88 85 Respiratory Rate 20 20 Blood Pressure Pulse Oximetry 95 Oxygen Delivery Room Air 11/05/24 21:08 11/06/24 00:00 11/06/24 04:00 Temperature 36.4 C Pulse Rate 92 84 72 Respiratory Rate 16 Blood Pressure 151/73 H Pulse Oximetry 95 Oxygen Delivery 11/06/24 06:56 11/06/24 07:55 11/06/24 07:55 Temperature 36.5 C Pulse Rate 75 80 Respiratory Rate 16 20 Blood Pressure 141/49 H Pulse Oximetry 93 93 Oxygen Delivery Room Air 11/06/24 08:03 11/06/24 09:38 Temperature Pulse Rate 78 78 Respiratory Rate 20 Blood Pressure Pulse Oximetry Oxygen Delivery Intake/Output Intake/Output: Intake & Output 11/03/24 11/04/24 11/05/24 11/06/24 23:59 23:59 23:59 23:59 Intake Total 3090 1820 1040 390 Output Total 2600 4500 2300 1100 Balance 098 -0434 -1260 -710 Meds/Results Medications: Active Medications Generic Name Dose Route Start Last Admin Trade Name Freq PRN Reason Stop Dose Admin Acetaminophen 1,000 mg 11/01/24 12:09 11/01/24 14:42 Acetaminophen 500 Mg Tablet PO 1,000 mg TID PRN Administration pain Hydrocodone Bitart/Acetaminophen 1 tab 11/01/24 13:35 11/05/24 21:49 Hydrocodone/Acetaminophen (*Crx) 10-325 Mg Tablet PO 1 tab Q6H PRN Administration pain 4-6 Albuterol 2 puff 11/01/24 12:09 Albuterol Sulfate (*Sp) Aerosol 1 Puff INHALATION Q4-6H PRN shortness of breath or wheezing Albuterol/Ipratropium 3 ml 11/01/24 08:00 11/06/24 07:55 Ipratropium 0.5 Mg/Albuterol Sulfate 2.5 Mg Ampul.Neb 3 Ml INHALATION 3 ml Q6HRT ERICK Administration Aspirin 81 mg 11/04/24 09:00 11/06/24 09:38 Aspirin 81 Mg Enteric Tablet PO 81 mg QAM ERICK Administration Atorvastatin Calcium 80 mg 11/02/24 09:00 11/06/24 09:38 Atorvastatin 40 Mg Tablet PO 80 mg DAILY ERICK Administration Benzocaine 1 lozenge 11/01/24 13:28 Benzocaine/Menthol (*Bkc) 18 Ea Lozenge PO PRN PRN Sore Throat Diclofenac Sodium 1 applic 11/05/24 13:00 11/05/24 20:14 Diclofenac Sodium 1% 100 Gm Gel (*Bkc) TOPICAL 1 applic QID ERICK Administration Empagliflozin 10 mg 11/03/24 11:05 11/06/24 09:38 Empagliflozin 10 Mg Tablet PO 10 mg DAILY ERICK Administration Enoxaparin Sodium 40 mg 11/02/24 09:00 11/06/24 09:37 Enoxaparin 40 Mg/0.4 Ml Syringe SUB-Q 40 mg DAILY ERICK Administration Furosemide 60 mg 11/04/24 17:00 11/06/24 09:37 Furosemide Inj 40 Mg/4 Ml Vial IV PUSH 60 mg BID ERICK Administration Guaifenesin 600 mg 11/01/24 21:00 11/06/24 09:38 Guaifenesin 12 Hr 600 Mg Tabcr PO 11/08/24 20:59 600 mg Q12HR ERICK Administration Ceftriaxone Sodium 2 gm in 100 mls @ 200 mls/hr 11/01/24 10:00 11/06/24 09:43 Rocephin 2 Gm/Ns 100 Ml IVPB 200 mls/hr DAILY ERICK Administration Metoprolol Succinate 50 mg 11/02/24 09:00 11/06/24 09:38 Metoprolol Succinate Ext Rel 50 Mg Tabcr PO 50 mg DAILY ERICK Administration Ondansetron HCl 4 mg 11/01/24 12:09 11/05/24 15:52 Ondansetron Hcl Odt 4 Mg Tablet PO 4 mg Q8H PRN Administration nausea and vomiting Polyethylene Glycol 17 gm 11/03/24 12:45 11/04/24 08:20 Polyethylene Glycol 3350 17 Gm Powd.Pack PO 17 gm QAM PRN Administration Constipation Potassium Chloride 20 meq 11/02/24 09:00 11/06/24 09:38 Potassium Chloride 20 Meq Er Tablet PO 20 meq DAILY ERICK Administration Spironolactone 12.5 mg 11/02/24 09:00 11/06/24 09:38 Spironolactone 12.5 Mg Tablet PO 12.5 mg DAILY ERICK Administration Radiology Results: ITS Impressions Chest/Abdomen/Pelvis CTA 11/01/24 06:24 Impression: No significant abnormalities seen. Head CT 11/01/24 06:24 Impression: No significant abnormality seen. Chest X-Ray 11/01/24 06:30 Impression: Probable focal left basilar atelectasis. Cardiomegaly. Venous Doppler Study 11/01/24 10:07 IMPRESSION: 1. No [id number] deep venous thrombosis with no thrombosis in either lower limb at or proximal to the level of the popliteal veins. The bilateral peroneal and posterior tibial veins at the calf remain unable to be clearly visualized due to patient body habitus. Lower Extremity CTA 11/02/24 12:44 IMPRESSION: Extensive atherosclerotic changes which degraded the ability to evaluate for the flow and stenosis properly. Bilateral atherosclerotic changes with variable degrees of stenosis with maximum changes in the right popliteal artery. Nonvisualization of the dorsalis pedis and posterior tibial arteries bilaterally. Conventional Angiography is advised for better evaluation. Knee X-Ray 11/05/24 12:09 Impression: Tricompartmental osteoarthritis, as detailed above. Prior ACL reconstruction. Labs Labs: Laboratory Results - last 24 hr 11/06/24 04:44 WBC 15.2 H RBC 4.64 Hgb 14.1 Hct 43.4 MCV 93.5 MCH 30.4 MCHC 32.5 RDW 14.1 Plt Count 168 MPV 12.0 H Immature Gran % (Auto) 8.3 H Neut % (Auto) 65.4 Lymph % (Auto) 10.6 L [place] % (Auto) 11.0 H Eos % (Auto) 4.4 Baso % (Auto) 0.3 Lymph # (Auto) 1.61 [place] # (Auto) 1.7 H Eos # (Auto) 0.7 H Baso # (Auto) 0.1 Abs Immat Gran (auto) 1.27 H Absolute Neuts (auto) 10.0 H Absolute Nucleated RBC 0.000 Nucleated RBC % 0.0 Sodium 130 L Potassium 4.0 Chloride 92 L Carbon Dioxide 34 H Anion Gap 4 BUN 25 H Creatinine 0.71 Estim Creat Clear Calc 117 Estimated GFR > 60 Glucose 109 Calcium 8.4 Phosphorus 5.2 H Magnesium 2.4 H Total Bilirubin 0.8 AST 52 ALT 41 Alkaline Phosphatase 60 Total Protein 6.0 L Albumin 3.3 L
[2024-11-06] MEDS: DICLOFENAC SODIUM 1% 100 GM GEL (*BKC) 1 APPLIC TOPICAL ×4 (11:01→20:47)
[2024-11-06] MEDS: HYDROcodone/acetaminophen (*CRX) 10-325 MG TABLET 1 TAB PO ×2 (11:01→21:05)
--- NOTE | 2024-11-06 13:00 | P.PNIM_ITS ---
Progress Note: A&P Assessment and Plan (1) Sepsis: Code(s): A41.9 - Sepsis, unspecified organism Status: Acute Assessment and Plan: * Patient meets SIRS criteria on admission due to HR 123, resp 26, WBC 25.2, LLE possible source. * Lactic Acid 3.0>2.2>1.9. Patient received LR IV fluids in the ER. * Chest, Abdomen, and Pelvis with Contrast: Findings: There is no evidence of any significant mediastinal, hilar or axillary lymphadenopathy. The mediastinal soft tissues appear normal. There is no evidence of pleural or pericardial effusion. The lungs are clear. No pulmonary nodules or infiltrates are noted. The liver, spleen, pancreas, gallbladder, adrenals and kidneys are within normal limits. There are atherosclerotic calcifications of the aorta. No lymphadenopathy. No bowel obstruction or bowel wall thickening. There is no evidence to suggest acute appendicitis. Urinary bladder is unremarkable. No pelvic mass seen. No ascites. There is diffuse degenerative spondylosis of the spine. Impression: No significant abnormalities seen. * Respiratory panel negative. * Ceftriaxone 2 gram IVPB daily. * Blood cultures grew Group B Streptococcus sensitive to Rocephin. Repeat blood cultures negative since 11/03 * Trend labs. (2) Cellulitis of left lower limb: Code(s): L03.116 - Cellulitis of left lower limb Status: Acute Assessment and Plan: * Ceftriaxone 2 gram IVPB daily. will add doxy * Venous dopplers: IMPRESSION: 1. No hakhi-[id number]-[id number] deep venous thrombosis with no thrombosis in either lower limb at or proximal to the level of the popliteal veins. The bilateral peroneal and posterior tibial veins at the calf remain unable to be clearly visualized due to patient body habitus. * Elevate when possible. * Lower extremity CTA 11/02 reviewd Patient would benefit from seeing Vascular provider outpatient. * Monitor site. (3) Weakness: Code(s): R53.1 - Weakness Status: Acute Assessment and Plan: * PT/OT. (4) Obesity, morbid, BMI 50 or higher: Code(s): E66.01 - Morbid (severe) obesity due to excess calories Status: Acute Assessment and Plan: * Bar Gauger And Lubricator Tender consult. * Heart healthy diet. * Taking Ozempic at home. (5) Elevated blood sugar: Code(s): R73.9 - Hyperglycemia, unspecified Status: Acute Assessment and Plan: * Blood sugar 183. * HgbA1C 5.8%. (6) Hyperlipidemia: Code(s): E78.5 - Hyperlipidemia, unspecified Status: Chronic Assessment and Plan: * Atorvastatin 80 mg PO daily. * Heart healthy diet. (7) Elevated brain natriuretic peptide (BNP) level: Code(s): R79.89 - Other specified abnormal findings of blood chemistry Status: Acute Assessment and Plan: * BNP 1,100 on admission. BNP today 1,860. * IV Lasix, Aldactone. * Cardiology on board * Echocardiogram showed: Summary 1. Left ventricular chamber dimension is normal. 2. Left ventricular systolic function is normal, estimated at 65-70%. 3. There is moderately increased left ventricular wall thickness. 4. The left ventricular diastolic function is grade I diastolic dysfunction. 5. Right ventricular systolic function is normal. 6. Left atrial chamber dimension is mildly enlarged. 7. Right atrial chamber dimension is mildly enlarged. 8. There is mild tricuspid valve regurgitation. (8) Grade I diastolic dysfunction: Code(s): I51.89 - Other ill-defined heart diseases Status: Acute Assessment and Plan: * Spironolactone 12.5 mg PO daily. * lasix * fluid restriction * cardiology team on board Subjective Date/time seen: 11/06/24 13:00 Interval history: per HPo: Patient is a 74 year old male that came to the hospital with altered m ental status and weakness. Patient denies chest pain, palpitations, headache, dizziness, nausea, or vomiting. Patient reports coughing up green to clear sputum and recent upper respiratory illness for about the last 5 weeks. The rest of his family got better but his cough has gotten worse over the past several days. Patient uses a cane or walker, patient reports feeling weaker lately. Patient reports redness and swelling to left leg for about 3 weeks, denies drainage from leg. Patient is currently A&Ox4. Patient thinks he had a sleep study a long time ago but was never given a sleep machine. Patient reports being on Ozempic for weight loss. Patient reports that primary is setting up an appointment with a new Burlapper in the same building as primary, patient does not know the providers name. ER work up: WBC 25.2, D dimer 0.95, lactic acid 3.0, BNP 1,100, and total protein 6.0. Trop 0.021 and 0.031. Chest X-ray showed probable focal left basilar atelectasis and Cardiomegaly. ECG- ST 120 QTc 416. Blood cultures obtained. Chest, Abdomen, and Pelvis with Contrast: Findings: There is no evidence of any significant mediastinal, hilar or axillary lymphadenopathy. The mediastinal soft tissues appear normal. There is no evidence of pleural or pericardial effusion. The lungs are clear. No pulmonary nodules or infiltrates are noted. The liver, spleen, pancreas, gallbladder, adrenals and kidneys are within normal limits. There are atherosclerotic calcifications of the aorta. No lymphadenopathy. No bowel obstruction or bowel wall thickening. There is no evidence to suggest acute appendicitis. Urinary bladder is unremarkable. No pelvic mass seen. No ascites. There is diffuse degenerative spondylosis of the spine. Impression: No significant abnormalities seen. Head CT: Findings: There is no evidence of intracranial hemorrhage, mass lesion, or acute infarct. Brain parenchyma appears normal. The ventricles and subarachnoid spaces are normal in size. The calvarium appears normal. The visualized paranasal sinuses and mastoid air cells are clear. Impression: No significant abnormality seen. Venous dopplers: IMPRESSION: 1. No [id number] deep venous thrombosis with no thrombosis in either lower limb at or proximal to the level of the popliteal veins. The bilateral peroneal and posterior tibial veins at the calf remain unable to be clearly visualized due to patient body habitus. 11/03/24 Patient was seen and examined at the bedside. he is sleepy today. denies any chest pain, SOB,abd pain, N/V. abraham bilateral leg swelling started on IV lasix. Ordered Hussain robledo. Has L leg cellulitis and B/C positive for strep group B. Continue rocephin. follow culture result. 11/05/23 patient was seen and examined at bedside. he is feeling the same. still has bilateral leg swelling. can not keep legs elevated because of knee pain. WBC improving. will order fluid restriction. 11/05/24 Patient was seen and examined at the bedside. he is sleepy today. denies any chest pain, SOB,abd pain, N/V. leg swelling getting better. discuss with cardiology team at bedside. will add metolazone. 11/06/24 Patient was seen and examined at bedside. he is feeling better. his leg swelling improving. denies chest pain, SOB, abd pain, Nausea vomiting. lasix decreaed to 40 BID, aldacton increased to 25 mg Review of Systems Review of Systems: All systems reviewed & are unremarkable except as noted in HPI and below Exam Const: General: comfortable and no acute distress Eyes: Sclera: sclerae normal Pupils: Equal, round and reactive pupils present Resp: Effort & Inspection: normal respiratory effort Auscultation: rhonchi and diminished lung sounds Cardio: Rate: regular rate Rhythm: regular rhythm Other: Telemetry- SR 90 GI: Auscultation: normal bowel sounds Other: obese. Skin: Other: Lipodermatosclerosis. LLE 2+ with redness and indentions. Neuro: Cranial nerves: Yes Equal, round and reactive pupils present Speech: normal speech Extrem: General: pedal edema on the right 2+ and on the left (2+ with redness and indentions.) Other: General: pedal edema on the right 1+ and on the left (2+ with redness and indentions.) Other: Lipodermatosclerosis. Psych: Mental Status: mental status grossly normal Affect: normal affect Objective Data Vital Signs Vital Signs: Vital Signs - 24 hr 11/05/24 13:52 11/05/24 13:59 11/05/24 14:00 Temperature 97.7 F Pulse Rate 80 84 96 Respiratory Rate 20 20 20 Blood Pressure 139/70 Pulse Oximetry 92 Oxygen Delivery 11/05/24 16:00 11/05/24 20:00 11/05/24 20:49 Temperature Pulse Rate 89 90 88 Respiratory Rate 20 Blood Pressure Pulse Oximetry Oxygen Delivery 11/05/24 20:51 11/05/24 20:58 11/05/24 21:08 Temperature 97.6 F Pulse Rate 88 85 92 Respiratory Rate 20 16 Blood Pressure 151/73 H Pulse Oximetry 95 95 Oxygen Delivery Room Air 11/06/24 00:00 11/06/24 04:00 11/06/24 06:56 Temperature 97.7 F Pulse Rate 84 72 75 Respiratory Rate 16 Blood Pressure 141/49 H Pulse Oximetry 93 Oxygen Delivery 11/06/24 07:55 11/06/24 07:55 11/06/24 08:03 Temperature Pulse Rate 80 78 Respiratory Rate 20 20 Blood Pressure Pulse Oximetry 93 Oxygen Delivery Room Air 11/06/24 09:38 Temperature Pulse Rate 78 Respiratory Rate Blood Pressure Pulse Oximetry Oxygen Delivery Intake/Output Intake/Output: Intake & Output 11/03/24 11/04/24 11/05/24 11/06/24 23:59 23:59 23:59 23:59 Intake Total 3090 1820 1040 750 Output Total 2600 4500 2300 1100 Balance 634 -5137 -4020 -735 Meds/Results Medications: Active Medications Generic Name Dose Route Start Last Admin Trade Name Freq PRN Reason Stop Dose Admin Acetaminophen 1,000 mg 11/01/24 12:09 11/01/24 14:42 Acetaminophen 500 Mg Tablet PO 1,000 mg TID PRN Administration pain Hydrocodone Bitart/Acetaminophen 1 tab 11/01/24 13:35 11/06/24 11:01 Hydrocodone/Acetaminophen (*Crx) 10-325 Mg Tablet PO 1 tab Q6H PRN Administration pain 4-6 Albuterol 2 puff 11/01/24 12:09 Albuterol Sulfate (*Sp) Aerosol 1 Puff INHALATION Q4-6H PRN shortness of breath or wheezing Albuterol/Ipratropium 3 ml 11/01/24 08:00 11/06/24 07:55 Ipratropium 0.5 Mg/Albuterol Sulfate 2.5 Mg Ampul.Neb 3 Ml INHALATION 3 ml Q6HRT ERICK Administration Aspirin 81 mg 11/04/24 09:00 11/06/24 09:38 Aspirin 81 Mg Enteric Tablet PO 81 mg QAM ERICK Administration Atorvastatin Calcium 80 mg 11/02/24 09:00 11/06/24 09:38 Atorvastatin 40 Mg Tablet PO 80 mg DAILY ERICK Administration Benzocaine 1 lozenge 11/01/24 13:28 Benzocaine/Menthol (*Bkc) 18 Ea Lozenge PO PRN PRN Sore Throat Diclofenac Sodium 1 applic 11/05/24 13:00 11/06/24 11:01 Diclofenac Sodium 1% 100 Gm Gel (*Bkc) TOPICAL 1 applic QID ERICK Administration Empagliflozin 10 mg 11/03/24 11:05 11/06/24 09:38 Empagliflozin 10 Mg Tablet PO 10 mg DAILY ERICK Administration Enoxaparin Sodium 40 mg 11/02/24 09:00 11/06/24 09:37 Enoxaparin 40 Mg/0.4 Ml Syringe SUB-Q 40 mg DAILY ERICK Administration Furosemide 40 mg 11/06/24 17:00 Furosemide Inj 40 Mg/4 Ml Vial IV PUSH BID ERICK Guaifenesin 600 mg 11/01/24 21:00 11/06/24 09:38 Guaifenesin 12 Hr 600 Mg Tabcr PO 11/08/24 20:59 600 mg Q12HR ERICK Administration Ceftriaxone Sodium 2 gm in 100 mls @ 200 mls/hr 11/01/24 10:00 11/06/24 09:43 Rocephin 2 Gm/Ns 100 Ml IVPB 200 mls/hr DAILY ERICK Administration Metoprolol Succinate 50 mg 11/02/24 09:00 11/06/24 09:38 Metoprolol Succinate Ext Rel 50 Mg Tabcr PO 50 mg DAILY ERICK Administration Ondansetron HCl 4 mg 11/01/24 12:09 11/05/24 15:52 Ondansetron Hcl Odt 4 Mg Tablet PO 4 mg Q8H PRN Administration nausea and vomiting Polyethylene Glycol 17 gm 11/03/24 12:45 11/04/24 08:20 Polyethylene Glycol 3350 17 Gm Powd.Pack PO 17 gm QAM PRN Administration Constipation Spironolactone 25 mg 11/07/24 09:00 Spironolactone 25 Mg Tablet PO DAILY [facility] Radiology Results: ITS Impressions Chest/Abdomen/Pelvis CTA 11/01/24 06:24 Impression: No significant abnormalities seen. Head CT 11/01/24 06:24 Impression: No significant abnormality seen. Chest X-Ray 11/01/24 06:30 Impression: Probable focal left basilar atelectasis. Cardiomegaly. Venous Doppler Study 11/01/24 10:07 IMPRESSION: 1. No [id number] deep venous thrombosis with no thrombosis in either lower limb at or proximal to the level of the popliteal veins. The bilateral peroneal and posterior tibial veins at the calf remain unable to be clearly visualized due to patient body habitus. Lower Extremity CTA 11/02/24 12:44 IMPRESSION: Extensive atherosclerotic changes which degraded the ability to evaluate for the flow and stenosis properly. Bilateral atherosclerotic changes with variable degrees of stenosis with maximum changes in the right popliteal artery. Nonvisualization of the dorsalis pedis and posterior tibial arteries bilaterally. Conventional Angiography is advised for better evaluation. Knee X-Ray 11/05/24 12:09 Impression: Tricompartmental osteoarthritis, as detailed above. Prior ACL reconstruction. Labs Labs: Laboratory Results - last 24 hr 11/06/24 04:44 WBC 15.2 H RBC 4.64 Hgb 14.1 Hct 43.4 MCV 93.5 MCH 30.4 MCHC 32.5 RDW 14.1 Plt Count 168 MPV 12.0 H Immature Gran % (Auto) 8.3 H Neut % (Auto) 65.4 Lymph % (Auto) 10.6 L [place] % (Auto) 11.0 H Eos % (Auto) 4.4 Baso % (Auto) 0.3 Lymph # (Auto) 1.61 [place] # (Auto) 1.7 H Eos # (Auto) 0.7 H Baso # (Auto) 0.1 Abs Immat Gran (auto) 1.27 H Absolute Neuts (auto) 10.0 H Absolute Nucleated RBC 0.000 Nucleated RBC % 0.0 Sodium 130 L Potassium 4.0 Chloride 92 L Carbon Dioxide 34 H Anion Gap 4 BUN 25 H Creatinine 0.71 Estim Creat Clear Calc 117 Estimated GFR > 60 Glucose 109 Calcium 8.4 Phosphorus 5.2 H Magnesium 2.4 H Total Bilirubin 0.8 AST 52 ALT 41 Alkaline Phosphatase 60 Total Protein 6.0 L Albumin 3.3 L Quality VTE Prophylaxis VTE prophylaxis: pharmacologic ordered
[2024-11-06] MEDS: DOXYCYCLINE 100 MG/NS 100 ML 100 MG/100 ML BAG IVPB ×2 (16:37→20:47)
[2024-11-06] MEDS: polyethylene glycoL 3350 17 GM POWD.PACK PO (16:37)
[2024-11-06] MEDS: FUROSEMIDE INJ 40 MG/4 ML VIAL IV PUSH (16:41)
[2024-11-07] VITALS (16 sets, daily range): BP systolic 132–149; BP diastolic 67–80; PULSE 75–95; RESP 16–20; TEMP 36.8–37.1; O2SAT 93–98
[2024-11-07 04:57] LABS: Basophils Percent Auto 0.2 % (0.2-1.2); Eosinophils Absolute Auto 0.8 K/mm3 (0-0.3); Hematocrit 43.9 % (42.0-52.0); Hemoglobin 14.4 g/dL (14.0-18.0); Immature Granulocyte Absolute 1.27 K/mm3 (0.00-0.031); Immature Granulocyte Percent A 7.7 % (0-0.5); Lymphocytes Absolute Auto 1.52 K/mm3 (0.9-3.2); Lymphocytes Percent Auto 9.2 % (18.3-44.2); Mean Corpuscular HGB Conc 32.8 g/dl (32-36); Mean Corpuscular Hemoglobin 30.3 pg (26-34); Mean Corpuscular Volume 92.2 fl (80-100); Mean Platelet Volume 11.7 fl (7.4-10.4); Monocytes Absolute Auto 1.6 K/mm3 (0.1-0.6); Monocytes Percent Auto 9.8 % (2.6-8.5); Neutrophils Absolute Auto 11.3 K/mm3 (1.3-6.7); Neutrophils Percent Auto 68.1 % (45.5-73.1); Platelet Count Result 200 k/mm3 (150-375); Red Blood Count 4.76 M/mm3 (4.6-6.20); Red Cell Distribution Width 13.8 % (11.5-14.5); White Blood Count 16.6 K/mm3 (4.5-10.0)
[2024-11-07 05:14] LABS: Alanine Aminotransferase 45 U/L (6-50); Albumin Level 3.3 g/dL (3.5-5.1); Alkaline Phosphatase 78 U/L (38-126); Anion Gap 3 mmol/L (4-12); Aspartate Amino Transferase 48 U/L (17-59); Bilirubin,Total 0.7 mg/dL (0.2-1.3); Blood Urea Nitrogen 33 mg/dL (9-20); Calcium 8.7 mg/dL (8.4-10.2); Carbon Dioxide 38 mmol/L (22-30); Chloride 90 mmol/L (98-107); Estimated CRCL calculation 104 ml/min; Estimated Glomerular Filt Rate > 60; Glucose 106 mg/dL (65-110); Magnesium 2.2 mg/dL (1.6-2.3); Phosphorus 4.9 mg/dL (2.5-4.5); Potassium 3.5 mmol/L (3.4-5.0); Sodium 131 mmol/L (137-145)
[2024-11-07] MEDS: cefTRIAXone 2 GM/NS 100 ML 2 GM/100 ML BAG IVPB (08:25)
[2024-11-07] MEDS: ASPIRIN 81 MG ENTERIC TABLET PO (08:28)
[2024-11-07] MEDS: EMPAGLIFLOZIN 10 MG TABLET PO (08:28)
[2024-11-07] MEDS: IPRATROPIUM 0.5 MG/ALBUTEROL SULFATE 2.5 MG AMPUL.NEB 3 ML INHALATION ×4 (08:28→21:15)
[2024-11-07] MEDS: HYDROcodone/acetaminophen (*CRX) 10-325 MG TABLET 1 TAB PO ×2 (08:29→21:56)
[2024-11-07] MEDS: METOPROLOL SUCCINATE EXT REL 50 MG TABCR PO (08:30)
[2024-11-07] MEDS: polyethylene glycoL 3350 17 GM POWD.PACK PO (08:30)
[2024-11-07] MEDS: ATORVASTATIN 40 MG TABLET 80 MG PO (08:30)
[2024-11-07] MEDS: SPIRONOLACTONE 25 MG TABLET PO (08:30)
[2024-11-07] MEDS: ENOXAPARIN 40 MG/0.4 ML SYRINGE SUB-Q (08:31)
[2024-11-07] MEDS: FUROSEMIDE INJ 40 MG/4 ML VIAL IV PUSH ×2 (08:32→17:07)
[2024-11-07] MEDS: VANCOMYCIN 1,250 MG/NS 250 ML 1,250 MG/250 ML BAG 166.67 MG IVPB ×2 (09:19→09:20)
--- NOTE | 2024-11-07 09:58 | PM.PNCARD ---
Progress Note: A&P Assessment and Plan (1) Acute diastolic heart failure: Code(s): I50.31 - Acute diastolic (congestive) heart failure Status: Acute Plan 1. Acute diastolic heart failure 2. Sepsis, bacteremia 3. Cellulitis of left lower extremity 4. Reported history of CAD. Diagnosis listed in chart, details unclear. 5. Peripheral arterial disease 6. Hypertension 7. Hyperlipidemia 8. Morbid obesity with BMI of 52 9. Hypokalemia PLAN -will continue IV furosemide today. Likely reduce to once daily or transition to oral tomorrow. -potassium is 3.5 today. Will give 40 mEq potassium chloride p.o. x1 -Continue Jardiance 10mg once daily. -continue spironolactone to 25 mg p.o. daily for treatment of his heart failure -Lower extremity CTA shows extensive atherosclerotic changes which degraded the ability to evaluate for the flow and stenosis properly, bilateral atherosclerotic changes with variable degrees of stenosis with maximum changes in the right popliteal artery, nonvisualization of the dorsalis pedis and posterior tibial arteries bilaterally. Continue high intensity statin, ASA for medical management. -Needs to be evaluated for SHAVON. Recommendations and plan discussed with Hospitalist. Subjective Date/time seen: 11/07/24 09:58 Interval history: Cardiology follow up visit for volume overload Date of service 11/06/2024: Still swollen but better. Has shortness breath with activity. No chest pain Date of service 11/07/2024: He urinated copiously yesterday. Legs are less swollen. No shortness of breath at rest. No chest pain. Weakness has improved but still present Review of Systems Review of Systems: All systems reviewed & are unremarkable except as noted in HPI and below Constitutional: Constitutional: Denies body ache(s) ENT: Reports Normal hearing present Cardiovascular: Cardiovascular: Denies chest pain and Denies dyspnea Respiratory: Respiratory: Denies dyspnea Gastrointestinal: Gastrointestinal: Denies abdominal pain Integumentary/Breasts: Skin/Breast: Denies erythema Neurologic: Reports Normal hearing present Psychiatric: Psychiatric: Denies anxiety Hematologic/Lymphatic: Hematologic/Lymphatic: Denies easy bleeding Exam Const: General: comfortable, no acute distress, alert and awake Orientation/consciousness: patient oriented x3 Other: Morbidly obese HENMT: Head: normal to inspection Mouth: Yes moist mucous membranes Eyes: General: appearance normal, both eyes and all related structures Sclera: sclerae normal Neck: Neck: normal visual inspection and supple Carotids: normal carotid upstroke Resp: Effort & Inspection: normal respiratory effort Auscultation: rales and diminished lung sounds Cardio: Rate: regular rate Rhythm: regular rhythm Heart sounds: S1 normal heart sound present, S2 normal heart sound present and no murmurs Other: + Bilateral lower extremity edema GI: Auscultation: normal bowel sounds Skin: General skin exam: normal color and lesion (left lower leg erythema ) Lesions: lesion noted (left lower leg erythema ) Neuro: General: patient oriented x3 Cranial nerves: Yes Normal hearing present Extrem: General: abnormal to inspection Other: Bilateral pretibial and pedal edema 1+ Psych: Appearance: grossly normal Mental Status: mental status grossly normal Objective Data Vital Signs Vital Signs: Vital Signs - 24 hr 11/06/24 12:00 11/06/24 14:00 11/06/24 14:10 Temperature 37.0 C Pulse Rate 83 86 Respiratory Rate 16 Blood Pressure 123/72 Pulse Oximetry 92 93 Oxygen Delivery Room Air 11/06/24 14:10 11/06/24 14:18 11/06/24 16:00 Temperature Pulse Rate 77 82 89 Respiratory Rate 20 20 Blood Pressure Pulse Oximetry Oxygen Delivery 11/06/24 16:36 11/06/24 20:00 11/06/24 20:48 Temperature 37.0 C 36.4 C Pulse Rate 86 Respiratory Rate 16 Blood Pressure 138/79 Pulse Oximetry 96 Oxygen Delivery Room Air 11/06/24 20:56 11/06/24 21:05 11/07/24 00:00 Temperature Pulse Rate 80 80 86 Respiratory Rate 18 18 Blood Pressure Pulse Oximetry Oxygen Delivery 11/07/24 04:00 11/07/24 06:37 11/07/24 08:30 Temperature 36.8 C Pulse Rate 77 83 83 Respiratory Rate 16 Blood Pressure 132/80 Pulse Oximetry 93 Oxygen Delivery 11/07/24 08:30 11/07/24 08:30 11/07/24 08:41 Temperature Pulse Rate 94 95 Respiratory Rate 20 20 Blood Pressure Pulse Oximetry 98 Oxygen Delivery Room Air Intake/Output Intake/Output: Intake & Output 11/04/24 11/05/24 11/06/24 11/07/24 23:59 23:59 23:59 23:59 Intake Total 1820 1040 1430 600 Output Total 4500 2300 3250 1300 Balance -6190 -1260 -1820 -700 Meds/Results Medications: Active Medications Generic Name Dose Route Start Last Admin Trade Name Freq PRN Reason Stop Dose Admin Acetaminophen 1,000 mg 11/01/24 12:09 11/01/24 14:42 Acetaminophen 500 Mg Tablet PO 1,000 mg TID PRN Administration pain Hydrocodone Bitart/Acetaminophen 1 tab 11/01/24 13:35 11/07/24 08:29 Hydrocodone/Acetaminophen (*Crx) 10-325 Mg Tablet PO 1 tab Q6H PRN Administration pain 4-6 Albuterol 2 puff 11/01/24 12:09 Albuterol Sulfate (*Sp) Aerosol 1 Puff INHALATION Q4-6H PRN shortness of breath or wheezing Albuterol/Ipratropium 3 ml 11/01/24 08:00 11/07/24 08:28 Ipratropium 0.5 Mg/Albuterol Sulfate 2.5 Mg Ampul.Neb 3 Ml INHALATION 3 ml Q6HRT ERICK Administration Aspirin 81 mg 11/04/24 09:00 11/07/24 08:28 Aspirin 81 Mg Enteric Tablet PO 81 mg QAM ERICK Administration Atorvastatin Calcium 80 mg 11/02/24 09:00 11/07/24 08:30 Atorvastatin 40 Mg Tablet PO 80 mg DAILY ERICK Administration Benzocaine 1 lozenge 11/01/24 13:28 Benzocaine/Menthol (*Bkc) 18 Ea Lozenge PO PRN PRN Sore Throat Diclofenac Sodium 1 applic 11/05/24 13:00 11/07/24 08:32 Diclofenac Sodium 1% 100 Gm Gel (*Bkc) TOPICAL 1 applic QID ERICK Administration Empagliflozin 10 mg 11/03/24 11:05 11/07/24 08:28 Empagliflozin 10 Mg Tablet PO 10 mg DAILY ERICK Administration Enoxaparin Sodium 40 mg 11/02/24 09:00 11/07/24 08:31 Enoxaparin 40 Mg/0.4 Ml Syringe SUB-Q 40 mg DAILY ERICK Administration Furosemide 40 mg 11/06/24 17:00 11/07/24 08:32 Furosemide Inj 40 Mg/4 Ml Vial IV PUSH 40 mg BID ERICK Administration Guaifenesin 600 mg 11/01/24 21:00 11/06/24 20:47 Guaifenesin 12 Hr 600 Mg Tabcr PO 11/08/24 20:59 600 mg Q12HR ERICK Administration Ceftriaxone Sodium 2 gm in 100 mls @ 200 mls/hr 11/01/24 10:00 11/07/24 08:25 Rocephin 2 Gm/Ns 100 Ml IVPB 200 mls/hr DAILY ERICK Administration Vancomycin HCl 1,250 mg in 250 mls @ 166.667 mls/hr 11/07/24 09:30 11/07/24 09:20 Vancomycin 1,250 Mg/Ns 250 Ml IVPB 11/07/24 10:59 166.67 mls/hr ONCE ONE Administration Metoprolol Succinate 50 mg 11/02/24 09:00 11/07/24 08:30 Metoprolol Succinate Ext Rel 50 Mg Tabcr PO 50 mg DAILY ERICK Administration Ondansetron HCl 4 mg 11/01/24 12:09 11/05/24 15:52 Ondansetron Hcl Odt 4 Mg Tablet PO 4 mg Q8H PRN Administration nausea and vomiting Polyethylene Glycol 17 gm 11/03/24 12:45 11/07/24 08:30 Polyethylene Glycol 3350 17 Gm Powd.Pack PO 17 gm QAM PRN Administration Constipation Spironolactone 25 mg 11/07/24 09:00 11/07/24 08:30 Spironolactone 25 Mg Tablet PO 25 mg DAILY ERICK Administration Vancomycin HCl 1 each 11/07/24 07:45 1st Dose Sent To ed [facility] PER PROTOCOL [facility] Radiology Results: ITS Impressions Chest/Abdomen/Pelvis CTA 11/01/24 06:24 Impression: No significant abnormalities seen. Head CT 11/01/24 06:24 Impression: No significant abnormality seen. Chest X-Ray 11/01/24 06:30 Impression: Probable focal left basilar atelectasis. Cardiomegaly. Venous Doppler Study 11/01/24 10:07 IMPRESSION: 1. No [id number] deep venous thrombosis with no thrombosis in either lower limb at or proximal to the level of the popliteal veins. The bilateral peroneal and posterior tibial veins at the calf remain unable to be clearly visualized due to patient body habitus. Lower Extremity CTA 11/02/24 12:44 IMPRESSION: Extensive atherosclerotic changes which degraded the ability to evaluate for the flow and stenosis properly. Bilateral atherosclerotic changes with variable degrees of stenosis with maximum changes in the right popliteal artery. Nonvisualization of the dorsalis pedis and posterior tibial arteries bilaterally. Conventional Angiography is advised for better evaluation. Knee X-Ray 11/05/24 12:09 Impression: Tricompartmental osteoarthritis, as detailed above. Prior ACL reconstruction. Labs Labs: Laboratory Results - last 24 hr 11/07/24 04:39 WBC 16.6 H RBC 4.76 Hgb 14.4 Hct 43.9 MCV 92.2 MCH 30.3 MCHC 32.8 RDW 13.8 Plt Count 200 MPV 11.7 H Immature Gran % (Auto) 7.7 H Neut % (Auto) 68.1 Lymph % (Auto) 9.2 L [place] % (Auto) 9.8 H Eos % (Auto) 5.0 H Baso % (Auto) 0.2 Lymph # (Auto) 1.52 [place] # (Auto) 1.6 H Eos # (Auto) 0.8 H Baso # (Auto) 0.0 Abs Immat Gran (auto) 1.27 H Absolute Neuts (auto) 11.3 H Absolute Nucleated RBC 0.000 Nucleated RBC % 0.0 Sodium 131 L Potassium 3.5 Chloride 90 L Carbon Dioxide 38 H Anion Gap 3 L BUN 33 H Creatinine 0.81 Estim Creat Clear Calc 104 Estimated GFR > 60 Glucose 106 Calcium 8.7 Phosphorus 4.9 H Magnesium 2.2 Total Bilirubin 0.7 AST 48 ALT 45 Alkaline Phosphatase 78 Total Protein 6.0 L Albumin 3.3 L
--- NOTE | 2024-11-07 12:36 | P.PNIM_ITS ---
Progress Note: A&P Assessment and Plan (1) Sepsis: Code(s): A41.9 - Sepsis, unspecified organism Status: Acute Assessment and Plan: * Patient meets SIRS criteria on admission due to HR 123, resp 26, WBC 25.2, LLE possible source. * Lactic Acid 3.0>2.2>1.9. Patient received LR IV fluids in the ER. * Chest, Abdomen, and Pelvis with Contrast: Findings: There is no evidence of any significant mediastinal, hilar or axillary lymphadenopathy. The mediastinal soft tissues appear normal. There is no evidence of pleural or pericardial effusion. The lungs are clear. No pulmonary nodules or infiltrates are noted. The liver, spleen, pancreas, gallbladder, adrenals and kidneys are within normal limits. There are atherosclerotic calcifications of the aorta. No lymphadenopathy. No bowel obstruction or bowel wall thickening. There is no evidence to suggest acute appendicitis. Urinary bladder is unremarkable. No pelvic mass seen. No ascites. There is diffuse degenerative spondylosis of the spine. Impression: No significant abnormalities seen. * Respiratory panel negative. * Ceftriaxone 2 gram IVPB daily. added vancomycin * Blood cultures grew Group B Streptococcus sensitive to Rocephin. Repeat blood cultures negative since 11/03 * Trend labs. (2) Cellulitis of left lower limb: Code(s): L03.116 - Cellulitis of left lower limb Status: Acute Assessment and Plan: * Ceftriaxone 2 gram IVPB daily. will add vancomycin * Venous dopplers: IMPRESSION: 1. No [id number] deep venous thrombosis with no thrombosis in either lower limb at or proximal to the level of the popliteal veins. The bilateral peroneal and posterior tibial veins at the calf remain unable to be clearly visualized due to patient body habitus. * Elevate when possible. * Lower extremity CTA 11/02 reviewd Patient would benefit from seeing Vascular provider outpatient. * Monitor site. (3) Weakness: Code(s): R53.1 - Weakness Status: Acute Assessment and Plan: * PT/OT. (4) Obesity, morbid, BMI 50 or higher: Code(s): E66.01 - Morbid (severe) obesity due to excess calories Status: Acute Assessment and Plan: * Gold Beater consult. * Heart healthy diet. * Taking Ozempic at home. (5) Elevated blood sugar: Code(s): R73.9 - Hyperglycemia, unspecified Status: Acute Assessment and Plan: * Blood sugar 183. * HgbA1C 5.8%. (6) Hyperlipidemia: Code(s): E78.5 - Hyperlipidemia, unspecified Status: Chronic Assessment and Plan: * Atorvastatin 80 mg PO daily. * Heart healthy diet. (7) Elevated brain natriuretic peptide (BNP) level: Code(s): R79.89 - Other specified abnormal findings of blood chemistry Status: Acute Assessment and Plan: * BNP 1,100 on admission. BNP today 1,860. * IV Lasix, Aldactone. * Cardiology on board * Echocardiogram showed: Summary 1. Left ventricular chamber dimension is normal. 2. Left ventricular systolic function is normal, estimated at 65-70%. 3. There is moderately increased left ventricular wall thickness. 4. The left ventricular diastolic function is grade I diastolic dysfunction. 5. Right ventricular systolic function is normal. 6. Left atrial chamber dimension is mildly enlarged. 7. Right atrial chamber dimension is mildly enlarged. 8. There is mild tricuspid valve regurgitation. (8) Grade I diastolic dysfunction: Code(s): I51.89 - Other ill-defined heart diseases Status: Acute Assessment and Plan: * Spironolactone 25 mg PO daily. * lasix * fluid restriction * cardiology team on board Subjective Date/time seen: 11/07/24 12:36 Interval history: per HPo: Patient is a 74 year old male that came to the hospital with altered mental status and weakness. Patient denies chest pain, palpitations, headache, dizziness, nausea, or vomiting. Patient reports coughing up green to clear sputum and recent upper respiratory illness for about the last 5 weeks. The rest of his family got better but his cough has gotten worse over the past several days. Patient uses a cane or walker, patient reports feeling weaker lately. Patient reports redness and swelling to left leg for about 3 weeks, denies drainage from leg. Patient is currently A&Ox4. Patient thinks he had a sleep study a long time ago but was never given a sleep machine. Patient reports being on Ozempic for weight loss. Patient reports that primary is setting up an appointment with a new [employer] in the same building as primary, patient does not know the providers name. ER work up: WBC 25.2, D dimer 0.95, lactic acid 3.0, BNP 1,100, and total protein 6.0. Trop 0.021 and 0.031. Chest X-ray showed probable focal left basilar atelectasis and Cardiomegaly. ECG- ST 120 QTc 416. Blood cultures obtained. Chest, Abdomen, and Pelvis with Contrast: Findings: There is no evidence of any significant mediastinal, hilar or axillary lym phadenopathy. The mediastinal soft tissues appear normal. There is no evidence of pleural or pericardial effusion. The lungs are clear. No pulmonary nodules or infiltrates are noted. The liver, spleen, pancreas, gallbladder, adrenals and kidneys are within normal limits. There are atherosclerotic calcifications of the aorta. No lymphadenopathy. No bowel obstruction or bowel wall thickening. There is no evidence to suggest acute appendicitis. Urinary bladder is unremarkable. No pelvic mass seen. No ascites. There is diffuse degenerative spondylosis of the spine. Impression: No significant abnormalities seen. Head CT: Findings: There is no evidence of intracranial hemorrhage, mass lesion, or acute infarct. Brain parenchyma appears normal. The ventricles and subarachnoid spaces are normal in size. The calvarium appears normal. The visualized paranasal sinuses and mastoid air cells are clear. Impression: No significant abnormality seen. Venous dopplers: IMPRESSION: 1. No [id number]-[id number]-[id number] deep venous thrombosis with no thrombosis in either lower limb at or proximal to the level of the popliteal veins. The bilateral peroneal and posterior tibial veins at the calf remain unable to be clearly visualized due to patient body habitus. 11/03/24 Patient was seen and examined at the bedside. he is sleepy today. denies any chest pain, SOB,abd pain, N/V. abraham bilateral leg swelling started on IV lasix. Ordered Hussain robledo. Has L leg cellulitis and B/C positive for strep group B. Continue rocephin. follow culture result. 11/05/23 patient was seen and examined at bedside. he is feeling the same. still has bilateral leg swelling. can not keep legs elevated because of knee pain. WBC improving. will order fluid restriction. 11/05/24 Patient was seen and examined at the bedside. he is sleepy today. denies any chest pain, SOB,abd pain, N/V. leg swelling getting better. discuss with cardiology team at bedside. will add metolazone. 11/06/24 Patient was seen and examined at bedside. he is feeling better. his leg swelling improving. denies chest pain, SOB, abd pain, Nausea vomiting. lasix decreaed to 40 BID, aldacton increased to 25 mg 11/07/24 Patient was seen and examined at bedside. he is feeling better. his leg swelling improving. denies chest pain, SOB, abd pain, nausea vomiting. continue with lasix worsening leucocytosis. added Vancomycin. Review of Systems Review of Systems: All systems reviewed & are unremarkable except as noted in HPI and below Exam Const: General: comfortable and no acute distress Eyes: Sclera: sclerae normal Pupils: Equal, round and reactive pupils present Resp: Effort & Inspection: normal respiratory effort Auscultation: rhonchi and diminished lung sounds Cardio: Rate: regular rate Rhythm: regular rhythm Other: Telemetry- SR 90 GI: Auscultation: normal bowel sounds Other: obese. Skin: Other: Lipodermatosclerosis. LLE 2+ with redness and indentions. Neuro: Cranial nerves: Yes Equal, round and reactive pupils present Speech: normal speech Extrem: General: pedal edema on the right 2+ and on the left (2+ with redness and indentions.) Other: General: pedal edema on the right 1+ and on the left (2+ with redness and indentions.) Other: Lipodermatosclerosis. Psych: Mental Status: mental status grossly normal Affect: normal affect Objective Data Vital Signs Vital Signs: Vital Signs - 24 hr 11/06/24 14:00 11/06/24 14:10 11/06/24 14:10 Temperature 98.6 F Pulse Rate 86 77 Respiratory Rate 16 20 Blood Pressure 123/72 Pulse Oximetry 92 93 Oxygen Delivery Room Air 11/06/24 14:18 11/06/24 16:00 11/06/24 16:36 Temperature 98.6 F Pulse Rate 82 89 Respiratory Rate 20 Blood Pressure Pulse Oximetry Oxygen Delivery 11/06/24 20:00 11/06/24 20:48 11/06/24 20:56 Temperature 97.6 F Pulse Rate 86 80 Respiratory Rate 16 18 Blood Pressure 138/79 Pulse Oximetry 96 Oxygen Delivery Room Air 11/06/24 21:05 11/07/24 00:00 11/07/24 04:00 Temperature Pulse Rate 80 86 77 Respiratory Rate 18 Blood Pressure Pulse Oximetry Oxygen Delivery 11/07/24 06:37 11/07/24 08:00 11/07/24 08:00 Temperature 98.3 F Pulse Rate 83 87 Respiratory Rate 16 Blood Pressure 132/80 Pulse Oximetry 93 Oxygen Delivery Room Air 11/07/24 08:30 11/07/24 08:30 11/07/24 08:30 Temperature Pulse Rate 83 94 Respiratory Rate 20 Blood Pressure Pulse Oximetry 98 Oxygen Delivery Room Air 11/07/24 08:41 Temperature Pulse Rate 95 Respiratory Rate 20 Blood Pressure Pulse Oximetry Oxygen Delivery Intake/Output Intake/Output: Intake & Output 11/04/24 11/05/24 11/06/24 11/07/24 23:59 23:59 23:59 23:59 Intake Total 1820 1040 1430 600 Output Total 4500 2300 3250 1300 Balance -6420 -1260 -8040 -700 Meds/Results Medications: Active Medications Generic Name Dose Route Start Last Admin Trade Name Freq PRN Reason Stop Dose Admin Acetaminophen 1,000 mg 11/01/24 12:09 11/01/24 14:42 Acetaminophen 500 Mg Tablet PO 1,000 mg TID PRN Administration pain Hydrocodone Bitart/Acetaminophen 1 tab 11/01/24 13:35 11/07/24 08:29 Hydrocodone/Acetaminophen (*Crx) 10-325 Mg Tablet PO 1 tab Q6H PRN Administration pain 4-6 Albuterol 2 puff 11/01/24 12:09 Albuterol Sulfate (*Sp) Aerosol 1 Puff INHALATION Q4-6H PRN shortness of breath or wheezing Albuterol/Ipratropium 3 ml 11/01/24 08:00 11/07/24 08:28 Ipratropium 0.5 Mg/Albuterol Sulfate 2.5 Mg Ampul.Neb 3 Ml INHALATION 3 ml Q6HRT ERCIK Administration Aspirin 81 mg 11/04/24 09:00 11/07/24 08:28 Aspirin 81 Mg Enteric Tablet PO 81 mg QAM ERICK Administration Atorvastatin Calcium 80 mg 11/02/24 09:00 11/07/24 08:30 Atorvastatin 40 Mg Tablet PO 80 mg DAILY ERICK Administration Benzocaine 1 lozenge 11/01/24 13:28 Benzocaine/Menthol (*Bkc) 18 Ea Lozenge PO PRN PRN Sore Throat Diclofenac Sodium 1 applic 11/05/24 13:00 11/07/24 08:32 Diclofenac Sodium 1% 100 Gm Gel (*Bkc) TOPICAL 1 applic QID ERICK Administration Empagliflozin 10 mg 11/03/24 11:05 11/07/24 08:28 Empagliflozin 10 Mg Tablet PO 10 mg DAILY ERICK Administration Enoxaparin Sodium 40 mg 11/02/24 09:00 11/07/24 08:31 Enoxaparin 40 Mg/0.4 Ml Syringe SUB-Q 40 mg DAILY ERICK Administration Furosemide 40 mg 11/06/24 17:00 11/07/24 08:32 Furosemide Inj 40 Mg/4 Ml Vial IV PUSH 40 mg BID ERICK Administration Guaifenesin 600 mg 11/01/24 21:00 11/06/24 20:47 Guaifenesin 12 Hr 600 Mg Tabcr PO 11/08/24 20:59 600 mg Q12HR ERICK Administration Ceftriaxone Sodium 2 gm in 100 mls @ 200 mls/hr 11/01/24 10:00 11/07/24 08:25 Rocephin 2 Gm/Ns 100 Ml IVPB 200 mls/hr DAILY ERICK Administration Vancomycin HCl 1,500 mg in 500 mls @ 250 mls/hr 11/07/24 21:00 Vancomycin 1,500 Mg/Ns 500 Ml IVPB Q12H ERICK Metoprolol Succinate 50 mg 11/02/24 09:00 11/07/24 08:30 Metoprolol Succinate Ext Rel 50 Mg Tabcr PO 50 mg DAILY ERICK Administration Ondansetron HCl 4 mg 11/01/24 12:09 11/05/24 15:52 Ondansetron Hcl Odt 4 Mg Tablet PO 4 mg Q8H PRN Administration nausea and vomiting Polyethylene Glycol 17 gm 11/03/24 12:45 11/07/24 08:30 Polyethylene Glycol 3350 17 Gm Powd.Pack PO 17 gm QAM PRN Administration Constipation Spironolactone 25 mg 11/07/24 09:00 11/07/24 08:30 Spironolactone 25 Mg Tablet PO 25 mg DAILY ERICK Administration Radiology Results: ITS Impressions Chest/Abdomen/Pelvis CTA 11/01/24 06:24 Impression: No significant abnormalities seen. Head CT 11/01/24 06:24 Impression: No significant abnormality seen. Chest X-Ray 11/01/24 06:30 Impression: Probable focal left basilar atelectasis. Cardiomegaly. Venous Doppler Study 11/01/24 10:07 IMPRESSION: 1. No [id number] deep venous thrombosis with no thrombosis in either lower limb at or proximal to the level of the popliteal veins. The bilateral peroneal and posterior tibial veins at the calf remain unable to be clearly visualized due to patient body habitus. Lower Extremity CTA 11/02/24 12:44 IMPRESSION: Extensive atherosclerotic changes which degraded the ability to evaluate for the flow and stenosis properly. Bilateral atherosclerotic changes with variable degrees of stenosis with maximum changes in the right popliteal artery. Nonvisualization of the dorsalis pedis and posterior tibial arteries bilaterally. Conventional Angiography is advised for better evaluation. Knee X-Ray 11/05/24 12:09 Impression: Tricompartmental osteoarthritis, as detailed above. Prior ACL reconstruction. Labs Labs: Laboratory Results - last 24 hr 11/07/24 04:39 WBC 16.6 H RBC 4.76 Hgb 14.4 Hct 43.9 MCV 92.2 MCH 30.3 MCHC 32.8 RDW 13.8 Plt Count 200 MPV 11.7 H Immature Gran % (Auto) 7.7 H Neut % (Auto) 68.1 Lymph % (Auto) 9.2 L [place] % (Auto) 9.8 H Eos % (Auto) 5.0 H Baso % (Auto) 0.2 Lymph # (Auto) 1.52 [place] # (Auto) 1.6 H Eos # (Auto) 0.8 H Baso # (Auto) 0.0 Abs Immat Gran (auto) 1.27 H Absolute Neuts (auto) 11.3 H Absolute Nucleated RBC 0.000 Nucleated RBC % 0.0 Sodium 131 L Potassium 3.5 Chloride 90 L Carbon Dioxide 38 H Anion Gap 3 L BUN 33 H Creatinine 0.81 Estim Creat Clear Calc 104 Estimated GFR > 60 Glucose 106 Calcium 8.7 Phosphorus 4.9 H Magnesium 2.2 Total Bilirubin 0.7 AST 48 ALT 45 Alkaline Phosphatase 78 Total Protein 6.0 L Albumin 3.3 L Quality VTE Prophylaxis VTE prophylaxis: pharmacologic ordered
[2024-11-07] MEDS: guaiFENesin 12 HR 600 MG TABCR PO ×2 (13:06→21:42)
[2024-11-07] MEDS: POTASSIUM CHLORIDE 20 MEQ ER TABLET 40 MEQ PO (13:06)
[2024-11-07] MEDS: DICLOFENAC SODIUM 1% 100 GM GEL (*BKC) 1 APPLIC TOPICAL ×2 (17:07→21:42)
[2024-11-07] MEDS: VANCOMYCIN 1,500 MG/NS 500 ML 1,500 MG/500 ML BAG 250 MG IVPB (21:44)
[2024-11-08] VITALS (12 sets, daily range): BP systolic 131–151; BP diastolic 73–84; PULSE 75–86; RESP 16–18; TEMP 36.3; O2SAT 93–97
[2024-11-08] MEDS: HYDROcodone/acetaminophen (*CRX) 10-325 MG TABLET 1 TAB PO ×2 (03:57→17:28)
[2024-11-08 05:12] LABS: Basophils Absolute Auto 0.1 K/mm3 (0.0-0.1); Basophils Percent Auto 0.7 % (0.2-1.2); Eosinophils Absolute Auto 0.9 K/mm3 (0-0.3); Eosinophils Percent Auto 6.1 % (0-4.4); Hematocrit 44.4 % (42.0-52.0); Immature Granulocyte Absolute 0.83 K/mm3 (0.00-0.031); Immature Granulocyte Percent A 5.9 % (0-0.5); Lymphocytes Absolute Auto 1.33 K/mm3 (0.9-3.2); Lymphocytes Percent Auto 9.5 % (18.3-44.2); Mean Corpuscular HGB Conc 31.5 g/dl (32-36); Mean Corpuscular Hemoglobin 29.7 pg (26-34); Mean Corpuscular Volume 94.3 fl (80-100); Mean Platelet Volume 12.1 fl (7.4-10.4); Monocytes Absolute Auto 1.3 K/mm3 (0.1-0.6); Neutrophils Absolute Auto 9.7 K/mm3 (1.3-6.7); Neutrophils Percent Auto 68.8 % (45.5-73.1); Platelet Count Result 197 k/mm3 (150-375); Red Blood Count 4.71 M/mm3 (4.6-6.20); Red Cell Distribution Width 14.1 % (11.5-14.5)
[2024-11-08 05:27] LABS: Alanine Aminotransferase 41 U/L (6-50); Albumin Level 3.2 g/dL (3.5-5.1); Alkaline Phosphatase 78 U/L (38-126); Anion Gap 4 mmol/L (4-12); Aspartate Amino Transferase 43 U/L (17-59); Bilirubin,Total 0.8 mg/dL (0.2-1.3); Blood Urea Nitrogen 36 mg/dL (9-20); Calcium 8.4 mg/dL (8.4-10.2); Carbon Dioxide 36 mmol/L (22-30); Chloride 92 mmol/L (98-107); Estimated CRCL calculation 120 ml/min; Estimated Glomerular Filt Rate > 60; Glucose 109 mg/dL (65-110); Magnesium 2.2 mg/dL (1.6-2.3); Phosphorus 3.6 mg/dL (2.5-4.5); Potassium 3.6 mmol/L (3.4-5.0); Sodium 132 mmol/L (137-145)
[2024-11-08] MEDS: ASPIRIN 81 MG ENTERIC TABLET PO (08:26)
[2024-11-08] MEDS: METOPROLOL SUCCINATE EXT REL 50 MG TABCR PO (08:26)
[2024-11-08] MEDS: ATORVASTATIN 40 MG TABLET 80 MG PO (08:26)
[2024-11-08] MEDS: guaiFENesin 12 HR 600 MG TABCR PO (08:26)
[2024-11-08] MEDS: SPIRONOLACTONE 25 MG TABLET PO (08:27)
[2024-11-08] MEDS: cefTRIAXone 2 GM/NS 100 ML 2 GM/100 ML BAG IVPB (08:27)
[2024-11-08] MEDS: EMPAGLIFLOZIN 10 MG TABLET PO (08:27)
[2024-11-08] MEDS: ENOXAPARIN 40 MG/0.4 ML SYRINGE SUB-Q (08:27)
[2024-11-08] MEDS: DICLOFENAC SODIUM 1% 100 GM GEL (*BKC) 1 APPLIC TOPICAL ×4 (08:28→21:56)
[2024-11-08] MEDS: FUROSEMIDE INJ 40 MG/4 ML VIAL IV PUSH (08:28)
--- NOTE | 2024-11-08 08:51 | P.PNCA_ITS ---
Progress Note: A&P Assessment and Plan (1) Acute diastolic heart failure: Code(s): I50.31 - Acute diastolic (congestive) heart failure Status: Acute Plan 1. Acute diastolic heart failure 2. Sepsis, bacteremia 3. Cellulitis of left lower extremity 4. Reported history of CAD. Diagnosis listed in chart, details unclear. 5. Peripheral arterial disease 6. Hypertension 7. Hyperlipidemia 8. Morbid obesity with BMI of 52 9. Hypokalemia PLAN -will continue IV furosemide today. Decrease to 40mg IV daily today. Likely shift to p.o. tomorrow and anticipate discharge as long as he remains stable -potassium is 3.6 today -Continue Jardiance 10mg once daily. -continue spironolactone to 25 mg p.o. daily for treatment of his heart failure -Lower extremity CTA shows extensive atherosclerotic changes which degraded the ability to evaluate for the flow and stenosis properly, bilateral atherosclerotic changes with variable degrees of stenosis with maximum changes in the right popliteal artery, nonvisualization of the dorsalis pedis and posterior tibial arteries bilaterally. Continue high intensity statin, ASA for medical management. -Needs to be evaluated for SHAVON. Recommendations and plan discussed with Hospitalist. Subjective Date/time seen: 11/08/24 08:51 Interval history: Cardiology follow up visit for volume overload Date of service 11/06/2024: Still swollen but better. Has shortness breath with activity. No chest pain Date of service 11/07/2024: He urinated copiously yesterday. Legs are less swollen. No shortness of breath at rest. No chest pain. Weakness has improved but still present Date of service 11/08/2024: Feeling well. Swelling continuing to improve. No shortness of breath. Review of Systems Review of Systems: All systems reviewed & are unremarkable except as noted in HPI and below Constitutional: Constitutional: Denies body ache(s) ENT: Reports Normal hearing present Cardiovascular: Cardiovascular: Denies chest pain and Denies dyspnea Respiratory: Respiratory: Denies dyspnea Gastrointestinal: Gastrointestinal: Denies abdominal pain Integumentary/Breasts: Skin/Breast: Denies erythema Neurologic: Reports Normal hearing present Psychiatric: Psychiatric: Denies anxiety Hematologic/Lymphatic: Hematologic/Lymphatic: Denies easy bleeding Exam Const: General: comfortable, no acute distress, alert and awake Orientation/consciousness: patient oriented x3 Other: Morbidly obese HENMT: Head: normal to inspection Mouth: Yes moist mucous membranes Eyes: General: appearance normal, both eyes and all related structures Sclera: sclerae normal Pupils: Equal, round and reactive pupils present Neck: Neck: normal visual inspection and supple Carotids: normal carotid upstroke Resp: Effort & Inspection: normal respiratory effort Auscultation: diminished lung sounds Cardio: Rate: regular rate Rhythm: regular rhythm Heart sounds: S1 normal heart sound present, S2 normal heart sound present and no murmurs Other: + Bilateral lower extremity edema GI: Auscultation: normal bowel sounds Skin: General skin exam: normal color and lesion (left lower leg erythema ) Lesions: lesion noted (left lower leg erythema ) Neuro: General: patient oriented x3 Cranial nerves: Yes Equal, round and reactive pupils present and Yes Normal hearing present Extrem: General: abnormal to inspection Other: Bilateral pretibial and pedal edema 1+ Psych: Appearance: grossly normal Mental Status: mental status grossly normal Objective Data Vital Signs Vital Signs: Vital Signs - 24 hr 11/07/24 12:00 11/07/24 15:31 11/07/24 15:38 Temperature Pulse Rate 88 81 85 Respiratory Rate 20 20 Blood Pressure Pulse Oximetry Oxygen Delivery Fraction of Inspired Oxygen 11/07/24 15:53 11/07/24 16:00 11/07/24 20:00 Temperature 36.9 C Pulse Rate 85 86 86 Respiratory Rate 16 16 Blood Pressure 141/69 H Pulse Oximetry 94 94 Oxygen Delivery Room Air Fraction of Inspired Oxygen 11/07/24 20:00 11/07/24 20:15 11/07/24 21:15 Temperature 37.1 C Pulse Rate 75 87 85 Respiratory Rate 16 20 Blood Pressure 149/67 H Pulse Oximetry 94 Oxygen Delivery Fraction of Inspired Oxygen 11/07/24 21:17 11/07/24 21:25 11/08/24 00:00 Temperature Pulse Rate 85 85 75 Respiratory Rate 20 20 Blood Pressure Pulse Oximetry 93 Oxygen Delivery Room Air Fraction of Inspired Oxygen 11/08/24 04:00 11/08/24 06:00 11/08/24 08:26 Temperature Pulse Rate 79 79 Respiratory Rate 18 Blood Pressure Pulse Oximetry Oxygen Delivery Fraction of Inspired Oxygen Intake/Output Intake/Output: Intake & Output 11/05/24 11/06/24 11/07/24 11/08/24 23:59 23:59 23:59 23:59 Intake Total 1040 1530 2060 Output Total 2300 3250 2600 Balance -6953 -5413 -684 Meds/Results Medications: Active Medications Generic Name Dose Route Start Last Admin Trade Name Freq PRN Reason Stop Dose Admin Acetaminophen 1,000 mg 11/01/24 12:09 11/01/24 14:42 Acetaminophen 500 Mg Tablet PO 1,000 mg TID PRN Administration pain Hydrocodone Bitart/Acetaminophen 1 tab 11/01/24 13:35 11/08/24 03:57 Hydrocodone/Acetaminophen (*Crx) 10-325 Mg Tablet PO 1 tab Q6H PRN Administration pain 4-6 Albuterol 2 puff 11/01/24 12:09 Albuterol Sulfate (*Sp) Aerosol 1 Puff INHALATION Q4-6H PRN shortness of breath or wheezing Albuterol/Ipratropium 3 ml 11/01/24 08:00 11/08/24 08:35 Ipratropium 0.5 Mg/Albuterol Sulfate 2.5 Mg Ampul.Neb 3 Ml INHALATION Not Given Q6HRT [facility] Aspirin 81 mg 11/04/24 09:00 11/08/24 08:26 Aspirin 81 Mg Enteric Tablet PO 81 mg QAM ERICK Administration Atorvastatin Calcium 80 mg 11/02/24 09:00 11/08/24 08:26 Atorvastatin 40 Mg Tablet PO 80 mg DAILY ERICK Administration Benzocaine 1 lozenge 11/01/24 13:28 Benzocaine/Menthol (*Bkc) 18 Ea Lozenge PO PRN PRN Sore Throat Diclofenac Sodium 1 applic 11/05/24 13:00 11/08/24 08:28 Diclofenac Sodium 1% 100 Gm Gel (*Bkc) TOPICAL 1 applic QID ERICK Administration Empagliflozin 10 mg 11/03/24 11:05 11/08/24 08:27 Empagliflozin 10 Mg Tablet PO 10 mg DAILY ERICK Administration Enoxaparin Sodium 40 mg 11/02/24 09:00 11/08/24 08:27 Enoxaparin 40 Mg/0.4 Ml Syringe SUB-Q 40 mg DAILY ERICK Administration Furosemide 40 mg 11/06/24 17:00 11/08/24 08:28 Furosemide Inj 40 Mg/4 Ml Vial IV PUSH 40 mg BID ERICK Administration Guaifenesin 600 mg 11/01/24 21:00 11/08/24 08:26 Guaifenesin 12 Hr 600 Mg Tabcr PO 11/08/24 20:59 600 mg Q12HR ERICK Administration Ceftriaxone Sodium 2 gm in 100 mls @ 200 mls/hr 11/01/24 10:00 11/08/24 08:27 Rocephin 2 Gm/Ns 100 Ml IVPB 100 mls/hr DAILY ERICK Administration Vancomycin HCl 1,500 mg in 500 mls @ 250 mls/hr 11/07/24 21:00 11/08/24 08:27 Vancomycin 1,500 Mg/Ns 500 Ml IVPB 250 mls/hr Q12H ERICK Administration Metoprolol Succinate 50 mg 11/02/24 09:00 11/08/24 08:26 Metoprolol Succinate Ext Rel 50 Mg Tabcr PO 50 mg DAILY ERICK Administration Ondansetron HCl 4 mg 11/01/24 12:09 11/05/24 15:52 Ondansetron Hcl Odt 4 Mg Tablet PO 4 mg Q8H PRN Administration nausea and vomiting Polyethylene Glycol 17 gm 11/03/24 12:45 11/07/24 08:30 Polyethylene Glycol 3350 17 Gm Powd.Pack PO 17 gm QAM PRN Administration Constipation Spironolactone 25 mg 11/07/24 09:00 11/08/24 08:27 Spironolactone 25 Mg Tablet PO 25 mg DAILY ERICK Administration Radiology Results: ITS Impressions Chest/Abdomen/Pelvis CTA 11/01/24 06:24 Impression: No significant abnormalities seen. Head CT 11/01/24 06:24 Impression: No significant abnormality seen. Chest X-Ray 11/01/24 06:30 Impression: Probable focal left basilar atelectasis. Cardiomegaly. Venous Doppler Study 11/01/24 10:07 IMPRESSION: 1. No [id number] deep venous thrombosis with no thrombosis in either lower limb at or proximal to the level of the popliteal veins. The bilateral peroneal and posterior tibial veins at the calf remain unable to be clearly visualized due to patient body habitus. Lower Extremity CTA 11/02/24 12:44 IMPRESSION: Extensive atherosclerotic changes which degraded the ability to evaluate for the flow and stenosis properly. Bilateral atherosclerotic changes with variable degrees of stenosis with maximum changes in the right popliteal artery. Nonvisualization of the dorsalis pedis and posterior tibial arteries bilaterally. Conventional Angiography is advised for better evaluation. Knee X-Ray 11/05/24 12:09 Impression: Tricompartmental osteoarthritis, as detailed above. Prior ACL reconstruction. Labs Labs: Laboratory Results - last 24 hr 11/08/24 04:28 WBC 14.0 H RBC 4.71 Hgb 14.0 Hct 44.4 MCV 94.3 MCH 29.7 MCHC 31.5 L RDW 14.1 Plt Count 197 MPV 12.1 H Immature Gran % (Auto) 5.9 H Neut % (Auto) 68.8 Lymph % (Auto) 9.5 L [place] % (Auto) 9.0 H Eos % (Auto) 6.1 H Baso % (Auto) 0.7 Lymph # (Auto) 1.33 [place] # (Auto) 1.3 H Eos # (Auto) 0.9 H Baso # (Auto) 0.1 Abs Immat Gran (auto) 0.83 H Absolute Neuts (auto) 9.7 H Absolute Nucleated RBC 0.000 Nucleated RBC % 0.0 Sodium 132 L Potassium 3.6 Chloride 92 L Carbon Dioxide 36 H Anion Gap 4 BUN 36 H Creatinine 0.69 L Estim Creat Clear Calc 120 Estimated GFR > 60 Glucose 109 Calcium 8.4 Phosphorus 3.6 Magnesium 2.2 Total Bilirubin 0.8 AST 43 ALT 41 Alkaline Phosphatase 78 Total Protein 6.0 L Albumin 3.2 L Quality VTE Prophylaxis VTE prophylaxis: pharmacologic ordered
[2024-11-08] MEDS: VANCOMYCIN 1,500 MG/NS 500 ML 1,500 MG/500 ML BAG 250 MG IVPB (09:20)
[2024-11-08] MEDS: ONDANSETRON HCL ODT 4 MG TABLET PO (12:02)
--- NOTE | 2024-11-08 12:12 | P.PNIM_ITS ---
Progress Note: A&P Assessment and Plan (1) Sepsis: Code(s): A41.9 - Sepsis, unspecified organism Status: Acute Assessment and Plan: * Patient meets SIRS criteria on admission due to HR 123, resp 26, WBC 25.2, LLE possible source. * Lactic Acid 3.0>2.2>1.9. Patient received LR IV fluids in the ER. * Chest, Abdomen, and Pelvis with Contrast: Findings: There is no evidence of any significant mediastinal, hilar or axillary lymphadenopathy. The mediastinal soft tissues appear normal. There is no evidence of pleural or pericardial effusion. The lungs are clear. No pulmonary nodules or infiltrates are noted. The liver, spleen, pancreas, gallbladder, adrenals and kidneys are within normal limits. There are atherosclerotic calcifications of the aorta. No lymphadenopathy. No bowel obstruction or bowel wall thickening. There is no evidence to suggest acute appendicitis. Urinary bladder is unremarkable. No pelvic mass seen. No ascites. There is diffuse degenerative spondylosis of the spine. Impression: No significant abnormalities seen. * Respiratory panel negative. * Ceftriaxone 2 gram IVPB daily. vancomycin * Blood cultures grew Group B Streptococcus sensitive to Rocephin. Repeat blood cultures negative since 11/03 * Trend labs. (2) Cellulitis of left lower limb: Code(s): L03.116 - Cellulitis of left lower limb Status: Acute Assessment and Plan: * Ceftriaxone 2 gram IVPB daily. vancomycin * Venous dopplers: IMPRESSION: 1. No [id number] deep venous thrombosis with no thrombosis in either lower limb at or proximal to the level of the popliteal veins. The bilateral peroneal and posterior tibial veins at the calf remain unable to be clearly visualized due to patient body habitus. * Elevate when possible. * Lower extremity CTA 11/02 reviewd Patient would benefit from seeing Vascular provider outpatient. * Monitor site. (3) Weakness: Code(s): R53.1 - Weakness Status: Acute Assessment and Plan: * PT/OT. (4) Obesity, morbid, BMI 50 or higher: Code(s): E66.01 - Morbid (severe) obesity due to excess calories Status: Acute Assessment and Plan: * Imp[employer]ating [employer] consult. * Heart healthy diet. * Taking Ozempic at home. (5) Elevated blood sugar: Code(s): R73.9 - Hyperglycemia, unspecified Status: Acute Assessment and Plan: * Blood sugar 183. * HgbA1C 5.8%. (6) Hyperlipidemia: Code(s): E78.5 - Hyperlipidemia, unspecified Status: Chronic Assessment and Plan: * Atorvastatin 80 mg PO daily. * Heart healthy diet. (7) Elevated brain natriuretic peptide (BNP) level: Code(s): R79.89 - Other specified abnormal findings of blood chemistry Status: Acute Assessment and Plan: * BNP 1,100 on admission. * po Lasix, Aldactone. * Cardiology on board * Echocardiogram showed: Summary 1. Left ventricular chamber dimension is normal. 2. Left ventricular systolic function is normal, estimated at 65-70%. 3. There is moderately increased left ventricular wall thickness. 4. The left ventricular diastolic function is grade I diastolic dysfunction. 5. Right ventricular systolic function is normal. 6. Left atrial chamber dimension is mildly enlarged. 7. Right atrial chamber dimension is mildly enlarged. 8. There is mild tricuspid valve regurgitation. (8) Grade I diastolic dysfunction: Code(s): I51.89 - Other ill-defined heart diseases Status: Acute Assessment and Plan: * Spironolactone 25 mg PO daily. * lasix * fluid restriction * cardiology team on board Subjective Date/time seen: 11/08/24 12:12 Interval history: per HPo: Patient is a 74 year old male that came to the hospital with altered mental status and weakness. Patient denies chest pain, palpitations, headache, dizziness, nausea, or vomiting. Patient reports coughing up green to clear sputum and recent upper respiratory illness for about the last 5 weeks. The rest of his family got better but his cough has gotten worse over the past several days. Patient uses a cane or walker, patient reports feeling weaker lately. Patient reports redness and swelling to left leg for about 3 weeks, denies drainage from leg. Patient is currently A&Ox4. Patient thinks he had a sleep study a long time ago but was never given a sleep machine. Patient reports being on Ozempic for weight loss. Patient reports that primary is setting up an appointment with a new [facility] in the same building as primary, patient does not know the providers name. ER work up: WBC 25.2, D dimer 0.95, lactic acid 3.0, BNP 1,100, and total protein 6.0. Trop 0.021 and 0.031. Chest X-ray showed probable focal left basilar atelectasis and Cardiomegaly. ECG- ST 120 QTc 416. Blood cultures obtained. Chest, Abdomen, and Pelvis with Contrast: Findings: There is no evidence of any significant mediastinal, hilar or axillary lymphadenopathy. The mediastinal soft tissues appear normal. There is no evidence of pleural or pericardial effusion. The lungs are clear. No pulmonary nodules or infiltrates are noted. The liver, spleen, pancreas, gallbladder, adrenals and kidneys are within normal limits. There are atherosclerotic calcifications of the aorta. No lymphadenopathy. No bowel obstruction or bowel wall thickening. There is no evidence to suggest acute appendicitis. Urinary bladder is unremarkable. No pelvic mass seen. No ascites. There is diffuse degenerative spondylosis of the spine. Impression: No significant abnormalities seen. Head CT: Findings: There is no evidence of intracranial hemorrhage, mass lesion, or acute infarct. Brain parenchyma appears normal. The ventricles and subarachnoid spaces are normal in size. The calvarium appears normal. The visualized paranasal sinuses and mastoid air cells are clear. Impression: No significant abnormality seen. Venous dopplers: IMPRESSION: 1. No [id number] deep venous thrombosis with no thrombosis in either lower limb at or proximal to the level of the popliteal veins. The bilateral peroneal and posterior tibial veins at the calf remain unable to be clearly visualized due to patient body habitus. 11/03/24 Patient was seen and examined at the bedside. he is sleepy today. denies any chest pain, SOB,abd pain, N/V. abraham bilateral leg swelling started on IV lasix. Ordered Hussain billye. Has L leg cellulitis and B/C positive for strep group B. Continue rocephin. follow culture result. 11/05/23 patient was seen and examined at bedside. he is feeling the same. still has bilateral leg swelling. can not keep legs elevated because of knee pain. WBC improving. will order fluid restriction. 11/05/24 Patient was seen and examined at the bedside. he is sleepy today. denies any c hest pain, SOB,abd pain, N/V. leg swelling getting better. discuss with cardiology team at bedside. will add metolazone. 11/06/24 Patient was seen and examined at bedside. he is feeling better. his leg swelling improving. denies chest pain, SOB, abd pain, Nausea vomiting. lasix decreaed to 40 BID, aldacton increased to 25 mg 11/07/24 Patient was seen and examined at bedside. he is feeling better. his leg swelling improving. denies chest pain, SOB, abd pain, nausea vomiting. continue with lasix worsening leucocytosis. added Vancomycin. 11/08/24 Patient was seen and examined at bedside. he is feeling better. his legs swelling getting bettr. cellulitis is better. WBC improving. Possible discharge to rehab tomorrow if continue to improve. Review of Systems Review of Systems: All systems reviewed & are unremarkable except as noted in HPI and below Exam Const: General: comfortable and no acute distress Eyes: Sclera: sclerae normal Pupils: Equal, round and reactive pupils present Resp: Effort & Inspection: normal respiratory effort Auscultation: rhonchi and diminished lung sounds Cardio: Rate: regular rate Rhythm: regular rhythm Other: Telemetry- SR 90 GI: Auscultation: normal bowel sounds Other: obese. Skin: Other: Lipodermatosclerosis. LLE 2+ with redness and indentions. Neuro: Cranial nerves: Yes Equal, round and reactive pupils present Speech: normal speech Extrem: General: pedal edema on the right 2+ and on the left (2+ with redness and indentions.) Other: General: pedal edema on the right 1+ and on the left (2+ with redness and in dentions.) Other: Lipodermatosclerosis. Psych: Mental Status: mental status grossly normal Affect: normal affect Objective Data Vital Signs Vital Signs: Vital Signs - 24 hr 11/07/24 15:31 11/07/24 15:38 11/07/24 15:53 Temperature 98.4 F Pulse Rate 81 85 85 Respiratory Rate 20 20 16 Blood Pressure 141/69 H Pulse Oximetry 94 Oxygen Delivery Fraction of Inspired Oxygen 11/07/24 16:00 11/07/24 20:00 11/07/24 20:00 Temperature Pulse Rate 86 86 75 Respiratory Rate 16 Blood Pressure Pulse Oximetry 94 Oxygen Delivery Room Air Fraction of Inspired Oxygen 11/07/24 20:15 11/07/24 21:15 11/07/24 21:17 Temperature 98.7 F Pulse Rate 87 85 85 Respiratory Rate 16 20 20 Blood Pressure 149/67 H Pulse Oximetry 94 93 Oxygen Delivery Room Air Fraction of Inspired Oxygen 11/07/24 21:11/08/24 00:00 11/08/24 04:00 Temperature Pulse Rate 85 75 79 Respiratory Rate 20 Blood Pressure Pulse Oximetry Oxygen Delivery Fraction of Inspired Oxygen 11/08/24 06:00 11/08/24 08:00 11/08/24 08:26 Temperature Pulse Rate 82 79 Respiratory Rate 18 Blood Pressure Pulse Oximetry Oxygen Delivery Fraction of Inspired Oxygen 11/08/24 08:30 Temperature Pulse Rate Respiratory Rate Blood Pressure Pulse Oximetry Oxygen Delivery Room Air Fraction of Inspired Oxygen Intake/Output Intake/Output: Intake & Output 11/05/24 11/06/24 11/07/24 11/08/24 23:59 23:59 23:59 23:59 Intake Total 1040 1530 2060 960 Output Total 2300 3250 2600 225 Balance -1260 -1720 -540 735 Meds/Results Medications: Active Medications Generic Name Dose Route Start Last Admin Trade Name Freq PRN Reason Stop Dose Admin Acetaminophen 1,000 mg 11/01/24 12:09 11/01/24 14:42 Acetaminophen 500 Mg Tablet PO 1,000 mg TID PRN Administration pain Hydrocodone Bitart/Acetaminophen 1 tab 11/01/24 13:35 11/08/24 03:57 Hydrocodone/Acetaminophen (*Crx) 10-325 Mg Tablet PO 1 tab Q6H PRN Administration pain 4-6 Albuterol 2 puff 11/01/24 12:09 Albuterol Sulfate (*Sp) Aerosol 1 Puff INHALATION Q4-6H PRN shortness of breath or wheezing Albuterol/Ipratropium 3 ml 11/01/24 08:00 11/08/24 08:35 Ipratropium 0.5 Mg/Albuterol Sulfate 2.5 Mg Ampul.Neb 3 Ml INHALATION Not Given Q6HRT ERICK Aspirin 81 mg 11/04/24 09:00 11/08/24 08:26 Aspirin 81 Mg Enteric Tablet PO 81 mg QAM ERICK Administration Atorvastatin Calcium 80 mg 11/02/24 09:00 11/08/24 08:26 Atorvastatin 40 Mg Tablet PO 80 mg DAILY ERICK Administration Benzocaine 1 lozenge 11/01/24 13:28 Benzocaine/Menthol (*Bkc) 18 Ea Lozenge PO PRN PRN Sore Throat Diclofenac Sodium 1 applic 11/05/24 13:00 11/08/24 08:28 Diclofenac Sodium 1% 100 Gm Gel (*Bkc) TOPICAL 1 applic QID ERICK Administration Empagliflozin 10 mg 11/03/24 11:05 11/08/24 08:27 Empagliflozin 10 Mg Tablet PO 10 mg DAILY ERICK Administration Enoxaparin Sodium 40 mg 11/02/24 09:00 11/08/24 08:27 Enoxaparin 40 Mg/0.4 Ml Syringe SUB-Q 40 mg DAILY ERICK Administration Furosemide 40 mg 11/09/24 09:00 Furosemide Inj 40 Mg/4 Ml Vial IV PUSH DAILY ERICK Guaifenesin 600 mg 11/01/24 21:00 11/08/24 08:26 Guaifenesin 12 Hr 600 Mg Tabcr PO 11/08/24 20:59 600 mg Q12HR ERICK Administration Ceftriaxone Sodium 2 gm in 100 mls @ 200 mls/hr 11/01/24 10:00 11/08/24 09:27 Rocephin 2 Gm/Ns 100 Ml IVPB Infused DAILY ERICK Infusion Vancomycin HCl 1,500 mg in 500 mls @ 250 mls/hr 11/07/24 21:00 11/08/24 12:02 Vancomycin 1,500 Mg/Ns 500 Ml IVPB Infused Q12H ERICK Infusion Metoprolol Succinate 50 mg 11/02/24 09:00 11/08/24 08:26 Metoprolol Succinate Ext Rel 50 Mg Tabcr PO 50 mg DAILY ERICK Administration Ondansetron HCl 4 mg 11/01/24 12:09 11/08/24 12:02 Ondansetron Hcl Odt 4 Mg Tablet PO 4 mg Q8H PRN Administration nausea and vomiting Polyethylene Glycol 17 gm 11/03/24 12:45 11/07/24 08:30 Polyethylene Glycol 3350 17 Gm Powd.Pack PO 17 gm QAM PRN Administration Constipation Spironolactone 25 mg 11/07/24 09:00 11/08/24 08:27 Spironolactone 25 Mg Tablet PO 25 mg DAILY ERICK Administration Radiology Results: ITS Impressions Chest/Abdomen/Pelvis CTA 11/01/24 06:24 Impression: No significant abnormalities seen. Head CT 11/01/24 06:24 Impression: No significant abnormality seen. Chest X-Ray 11/01/24 06:30 Impression: Probable focal left basilar atelectasis. Cardiomegaly. Venous Doppler Study 11/01/24 10:07 IMPRESSION: 1. No [id number] deep venous thrombosis with no thrombosis in either lower limb at or proximal to the level of the popliteal veins. The bilateral peroneal and posterior tibial veins at the calf remain unable to be clearly visualized due to patient body habitus. Lower Extremity CTA 11/02/24 12:44 IMPRESSION: Extensive atherosclerotic changes which degraded the ability to evaluate for the flow and stenosis properly. Bilateral atherosclerotic changes with variable degrees of stenosis with maximum changes in the right popliteal artery. Nonvisualization of the dorsalis pedis and posterior tibial arteries bi laterally. Conventional Angiography is advised for better evaluation. Knee X-Ray 11/05/24 12:09 Impression: Tricompartmental osteoarthritis, as detailed above. Prior ACL reconstruction. Labs Labs: Laboratory Results - last 24 hr 11/08/24 04:28 WBC 14.0 H RBC 4.71 Hgb 14.0 Hct 44.4 MCV 94.3 MCH 29.7 MCHC 31.5 L RDW 14.1 Plt Count 197 MPV 12.1 H Immature Gran % (Auto) 5.9 H Neut % (Auto) 68.8 Lymph % (Auto) 9.5 L Donley % (Auto) 9.0 H Eos % (Auto) 6.1 H Baso % (Auto) 0.7 Lymph # (Auto) 1.33 Donley # (Auto) 1.3 H Eos # (Auto) 0.9 H Baso # (Auto) 0.1 Abs Immat Gran (auto) 0.83 H Absolute Neuts (auto) 9.7 H Absolute Nucleated RBC 0.000 Nucleated RBC % 0.0 Sodium 132 L Potassium 3.6 Chloride 92 L Carbon Dioxide 36 H Anion Gap 4 BUN 36 H Creatinine 0.69 L Estim Creat Clear Calc 120 Estimated GFR > 60 Glucose 109 Calcium 8.4 Phosphorus 3.6 Magnesium 2.2 Total Bilirubin 0.8 AST 43 ALT 41 Alkaline Phosphatase 78 Total Protein 6.0 L Albumin 3.2 L Quality VTE Prophylaxis VTE prophylaxis: pharmacologic ordered
[2024-11-08] MEDS: IPRATROPIUM 0.5 MG/ALBUTEROL SULFATE 2.5 MG AMPUL.NEB 3 ML INHALATION (14:28)
[2024-11-08 21:21] LABS: Vancomycin Trough 17.2 ug/mL (10.0-20.0)
[2024-11-09] VITALS (14 sets, daily range): BP systolic 120–154; BP diastolic 40–75; PULSE 73–86; RESP 16–20; TEMP 36.3–36.9; O2SAT 93–98
[2024-11-09] MEDS: VANCOMYCIN 1,500 MG/NS 500 ML 1,500 MG/500 ML BAG 250 MG IVPB ×2 (00:34→08:52)
--- NOTE | 2024-11-09 03:55 | PCRCNOTE ---
pt has refused neb tx's multiple times
[2024-11-09] MEDS: HYDROcodone/acetaminophen (*CRX) 10-325 MG TABLET 1 TAB PO (04:28)
[2024-11-09] MEDS: SPIRONOLACTONE 25 MG TABLET PO (08:21)
[2024-11-09] MEDS: ENOXAPARIN 40 MG/0.4 ML SYRINGE SUB-Q (08:21)
[2024-11-09] MEDS: FUROSEMIDE INJ 40 MG/4 ML VIAL IV PUSH (08:21)
[2024-11-09] MEDS: ASPIRIN 81 MG ENTERIC TABLET PO (08:21)
[2024-11-09] MEDS: ATORVASTATIN 40 MG TABLET 80 MG PO (08:21)
[2024-11-09] MEDS: EMPAGLIFLOZIN 10 MG TABLET PO (08:21)
[2024-11-09] MEDS: METOPROLOL SUCCINATE EXT REL 50 MG TABCR PO (08:21)
[2024-11-09] MEDS: cefTRIAXone 2 GM/NS 100 ML 2 GM/100 ML BAG IVPB (08:22)
[2024-11-09] MEDS: DICLOFENAC SODIUM 1% 100 GM GEL (*BKC) 1 APPLIC TOPICAL ×4 (08:23→20:21)
[2024-11-09 10:25] LABS: Basophils Absolute Auto 0.1 K/mm3 (0.0-0.1); Basophils Percent Auto 0.9 % (0.2-1.2); Eosinophils Absolute Auto 0.9 K/mm3 (0-0.3); Eosinophils Percent Auto 5.6 % (0-4.4); Hematocrit 46.2 % (42.0-52.0); Hemoglobin 14.6 g/dL (14.0-18.0); Immature Granulocyte Absolute 0.48 K/mm3 (0.00-0.031); Immature Granulocyte Percent A 3.1 % (0-0.5); Lymphocytes Absolute Auto 0.91 K/mm3 (0.9-3.2); Mean Corpuscular HGB Conc 31.6 g/dl (32-36); Mean Corpuscular Volume 94.9 fl (80-100); Mean Platelet Volume 11.6 fl (7.4-10.4); Monocytes Absolute Auto 1.3 K/mm3 (0.1-0.6); Monocytes Percent Auto 8.3 % (2.6-8.5); Neutrophils Absolute Auto 11.6 K/mm3 (1.3-6.7); Neutrophils Percent Auto 76.1 % (45.5-73.1); Platelet Count Result 213 k/mm3 (150-375); Red Blood Count 4.87 M/mm3 (4.6-6.20); White Blood Count 15.3 K/mm3 (4.5-10.0)
[2024-11-09 10:36] LABS: Alanine Aminotransferase 43 U/L (6-50); Albumin Level 3.5 g/dL (3.5-5.1); Alkaline Phosphatase 80 U/L (38-126); Anion Gap 7 mmol/L (4-12); Aspartate Amino Transferase 56 U/L (17-59); Bilirubin,Total 0.5 mg/dL (0.2-1.3); Blood Urea Nitrogen 31 mg/dL (9-20); Calcium 8.5 mg/dL (8.4-10.2); Carbon Dioxide 31 mmol/L (22-30); Chloride 97 mmol/L (98-107); Estimated CRCL calculation 120 ml/min; Estimated Glomerular Filt Rate > 60; Glucose 140 mg/dL (65-110); Magnesium 2.1 mg/dL (1.6-2.3); Phosphorus 3.4 mg/dL (2.5-4.5); Potassium 3.5 mmol/L (3.4-5.0); Sodium 135 mmol/L (137-145)
--- NOTE | 2024-11-09 10:38 | PCRCNOTE ---
Window of time for administration has passed. See next scheduled administration.
--- NOTE | 2024-11-09 11:39 | PCNWS ---
Weekly nutritional screen. Patient is tolerating current diet with adequate intake. No weight loss reported since admit. No nutritional needs at this time.
--- NOTE | 2024-11-09 12:42 | P.PNIM_ITS ---
Progress Note: A&P Assessment and Plan (1) Sepsis: Code(s): A41.9 - Sepsis, unspecified organism Status: Acute Assessment and Plan: * Patient meets SIRS criteria on admission due to HR 123, resp 26, WBC 25.2, LLE possible source. * Lactic Acid 3.0>2.2>1.9. Patient received LR IV fluids in the ER. * Chest, Abdomen, and Pelvis with Contrast: Findings: There is no evidence of any significant mediastinal, hilar or axillary lymphadenopathy. The mediastinal soft tissues appear normal. There is no evidence of pleural or pericardial effusion. The lungs are clear. No pulmonary nodules or infiltrates are noted. The liver, spleen, pancreas, gallbladder, adrenals and kidneys are within normal limits. There are atherosclerotic calcifications of the aorta. No lymphadenopathy. No bowel obstruction or bowel wall thickening. There is no evidence to suggest acute appendicitis. Urinary bladder is unremarkable. No pelvic mass seen. No ascites. There is diffuse degenerative spondylosis of the spine. Impression: No significant abnormalities seen. * Respiratory panel negative. * Ceftriaxone 2 gram IVPB daily. zyvox * Blood cultures grew Group B Streptococcus sensitive to Rocephin. Repeat blood cultures negative since 11/03 * Trend labs. (2) Cellulitis of left lower limb: Code(s): L03.116 - Cellulitis of left lower limb Status: Acute Assessment and Plan: * Ceftriaxone 2 gram IVPB daily. Zyvox * Venous dopplers: IMPRESSION: 1. No [id number] deep venous thrombosis with no thrombosis in either lower limb at or proximal to the level of the popliteal veins. The bilateral peroneal and posterior tibial veins at the calf remain unable to be clearly visualized due to patient body habitus. * Elevate when possible. * Lower extremity CTA 11/02 reviewd Patient would benefit from seeing Vascular provider outpatient. * Monitor site. (3) Weakness: Code(s): R53.1 - Weakness Status: Acute Assessment and Plan: * PT/OT. 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 * Heart healthy diet. * Taking Ozempic at home. (5) Elevated blood sugar: Code(s): R73.9 - Hyperglycemia, unspecified Status: Acute Assessment and Plan: * Blood sugar 183. * HgbA1C 5.8%. (6) Hyperlipidemia: Code(s): E78.5 - Hyperlipidemia, unspecified Status: Chronic Assessment and Plan: * Atorvastatin 80 mg PO daily. * Heart healthy diet. (7) Elevated brain natriuretic peptide (BNP) level: Code(s): R79.89 - Other specified abnormal findings of blood chemistry Status: Acute Assessment and Plan: * BNP 1,100 on admission. * po Lasix, Aldactone. * Cardiology on board * Echocardiogram showed: Summary 1. Left ventricular chamber dimension is normal. 2. Left ventricular systolic function is normal, estimated at 65-70%. 3. There is moderately increased left ventricular wall thickness. 4. The left ventricular diastolic function is grade I diastolic dysfunction. 5. Right ventricular systolic function is normal. 6. Left atrial chamber dimension is mildly enlarged. 7. Right atrial chamber dimension is mildly enlarged. 8. There is mild tricuspid valve regurgitation. (8) Grade I diastolic dysfunction: Code(s): I51.89 - Other ill-defined heart diseases Status: Acute Assessment and Plan: * Spironolactone 25 mg PO daily. * lasix * fluid restriction * cardiology team on board Subjective Date/time seen: 11/09/24 12:42 Interval history: per HPo: Patient is a 74 year old male that came to the hospital with altered mental status and weakness. Patient denies chest pain, palpitations, headache, dizziness, nausea, or vomiting. Patient reports coughing up green to clear sputum and recent upper respiratory illness for about the last 5 weeks. The rest of his family got better but his cough has gotten worse over the past several days. Patient uses a cane or walker, patient reports feeling weaker lately. Patient reports redness and swelling to left leg for about 3 weeks, denies drainage from leg. Patient is currently A&Ox4. Patient thinks he had a sleep study a long time ago but was never given a sleep machine. Patient reports being on Ozempic for weight loss. Patient reports that primary is setting up an appointment with a new Director Specialty in the same building as primary, patient does not know the providers name. ER work up: WBC 25.2, D dimer 0.95, lactic acid 3.0, BNP 1,100, and total protein 6.0. Trop 0.021 and 0.031. Chest X-ray showed probable focal left basilar atelectasis and Cardiomegaly. ECG- ST 120 QTc 416. Blood cultures obtained. Chest, Abdomen, and Pelvis with Contrast: Findings: There is no evidence of any significant mediastinal, hilar or axillary lymphadenopathy. The mediastinal soft tissues appear normal. There is no evidence of pleural or pericardial effusion. The lungs are clear. No pulmonary nodules or infiltrates are noted. The liver, spleen, pancreas, gallbladder, adrenals and kidneys are within normal limits. There are atherosclerotic calcifications of the aorta. No lymphadenopathy. No bowel obstruction or bowel wall thickening. There is no evidence to suggest acute appendicitis. Urinary bladder is unremarkable. No pelvic mass seen. No ascites. There is diffuse degenerative spondylosis of the spine. Impression: No significant abnormalities seen. Head CT: Findings: There is no evidence of intracranial hemorrhage, mass lesion, or acute infarct. Brain parenchyma appears normal. The ventricles and subarachnoid spaces are normal in size. The calvarium appears normal. The visualized paranasal sinuses and mastoid air cells are clear. Impression: No significant abnormality seen. Venous dopplers: IMPRESSION: 1. No [id number] deep venous thrombosis with no thrombosis in either lower limb at or proximal to the level of the popliteal veins. The bilateral peroneal and posterior tibial veins at the calf remain unable to be clearly visualized due to patient body habitus. 11/03/24 Patient was seen and examined at the bedside. he is sleepy today. denies any chest pain, SOB,abd pain, N/V. abraham bilateral leg swelling started on IV lasix. Ordered Hussain robledo. Has L leg cellulitis and B/C positive for strep group B. Continue rocephin. follow culture result. 11/05/23 patient was seen and examined at bedside. he is feeling the same. still has bilateral leg swelling. can not keep legs elevated because of knee pain. WBC improving. will order fluid restriction. 11/05/24 Patient was seen and examined at the bedside. he is sleepy today. denies any chest pain, SOB,abd pain, N/V. leg swelling getting better. discuss with cardiology team at bedside. will add metolazone. 11/06/24 Patient was seen and examined at bedside. he is feeling better. his leg swelling improving. denies chest pain, SOB, abd pain, Nausea vomiting. lasix decreaed to 40 BID, aldacton increased to 25 mg 11/07/24 Patient was seen and examined at bedside. he is feeling better. his leg swelling improving. denies chest pain, SOB, abd pain, nausea vomiting. continue with lasix worsening leucocytosis. added Vancomycin. 11/08/24 Patient was seen and examined at bedside. he is feeling better. his legs swelling getting better. cellulitis is better. WBC getting worse. discussed with pharmacy team will change Vancomycin to Zyvox. continue Possible discharge to rehab tomorrow if continue to improve. Review of Systems Review of Systems: All systems reviewed & are unremarkable except as noted in HPI and below Exam Const: General: comfortable and no acute distress Eyes: Sclera: sclerae normal Pupils: Equal, round and reactive pupils present Resp: Effort & Inspection: normal respiratory effort Auscultation: rhonchi and diminished lung sounds Cardio: Rate: regular rate Rhythm: regular rhythm Other: Telemetry- SR 90 GI: Auscultation: normal bowel sounds Other: obese. Skin: Other: Lipodermatosclerosis. LLE 2+ with redness and indentions. Neuro: Cranial nerves: Yes Equal, round and reactive pupils present Speech: normal speech Extrem: General: pedal edema on the right 2+ and on the left (2+ with redness and indentions.) Other: General: pedal edema on the right 1+ and on the left (2+ with redness and indentions.) Other: Lipodermatosclerosis. Psych: Mental Status: mental status grossly normal Affect: normal affect Objective Data Vital Signs Vital Signs: Vital Signs - 24 hr 11/08/24 14:02 11/08/24 14:28 11/08/24 14:38 Temperature 97.4 F L Pulse Rate 82 80 83 Respiratory Rate 16 18 18 Blood Pressure 131/73 Pulse Oximetry 93 Oxygen Delivery 11/08/24 16:00 11/08/24 19:46 11/08/24 20:00 Temperature Pulse Rate 85 81 82 Respiratory Rate 16 Blood Pressure 151/84 H Pulse Oximetry 97 Oxygen Delivery 11/09/24 00:00 11/09/24 04:00 11/09/24 05:30 Temperature 98.5 F Pulse Rate 74 75 75 Respiratory Rate 16 Blood Pressure 120/40 L Pulse Oximetry 93 Oxygen Delivery 11/09/24 08:00 11/09/24 08:21 11/09/24 08:25 Temperature Pulse Rate 74 83 Respiratory Rate Blood Pressure Pulse Oximetry Oxygen Delivery Room Air Intake/Output Intake/Output: Intake & Output 11/06/24 11/07/24 11/08/24 11/09/24 23:59 23:59 23:59 23:59 Intake Total 1530 2060 1160 1326 Output Total 3250 2600 875 275 Balance -1720 -017 702 9000 Meds/Results Medications: Active Medications Generic Name Dose Route Start Last Admin Trade Name Freq PRN Reason Stop Dose Admin Acetaminophen 1,000 mg 11/01/24 12:09 11/01/24 14:42 Acetaminophen 500 Mg Tablet PO 1,000 mg TID PRN Administration pain Hydrocodone Bitart/Acetaminophen 1 tab 11/01/24 13:35 11/09/24 04:28 Hydrocodone/Acetaminophen (*Crx) 10-325 Mg Tablet PO 1 tab Q6H PRN Administration pain 4-6 Albuterol 2 puff 11/01/24 12:09 Albuterol Sulfate (*Sp) Aerosol 1 Puff INHALATION Q4-6H PRN shortness of breath or wheezing Albuterol/Ipratropium 3 ml 11/01/24 08:00 11/09/24 10:38 Ipratropium 0.5 Mg/Albuterol Sulfate 2.5 Mg Ampul.Neb 3 Ml INHALATION Not Given Q6HRT [facility] Aspirin 81 mg 11/04/24 09:00 11/09/24 08:21 Aspirin 81 Mg Enteric Tablet PO 81 mg QAM [facility] Administration Atorvastatin Calcium 80 mg 11/02/24 09:00 11/09/24 08:21 Atorvastatin 40 Mg Tablet PO 80 mg DAILY [facility] Administration Benzocaine 1 lozenge 11/01/24 13:28 Benzocaine/Menthol (*Bkc) 18 Ea Lozenge PO PRN PRN Sore Throat Diclofenac Sodium 1 applic 11/05/24 13:00 11/09/24 12:04 Diclofenac Sodium 1% 100 Gm Gel (*Bkc) TOPICAL 1 applic QID [facility] Administration Empagliflozin 10 mg 11/03/24 11:05 11/09/24 08:21 Empagliflozin 10 Mg Tablet PO 10 mg DAILY [facility] Administration Enoxaparin Sodium 40 mg 11/02/24 09:00 11/09/24 08:21 Enoxaparin 40 Mg/0.4 Ml Syringe SUB-Q 40 mg DAILY [facility]ICK Administration Furosemide 40 mg 11/09/24 09:00 11/09/24 08:21 Furosemide Inj 40 Mg/4 Ml Vial IV PUSH 40 mg DAILY ERICK Administration Ceftriaxone Sodium 2 gm in 100 mls @ 200 mls/hr 11/01/24 10:00 11/09/24 08:52 Rocephin 2 Gm/Ns 100 Ml IVPB Infused DAILY [facility] Infusion Linezolid 600 mg 11/09/24 21:00 Linezolid 600 Mg Tablet PO Q12HR ERICK Metoprolol Succinate 50 mg 11/02/24 09:00 11/09/24 08:21 Metoprolol Succinate Ext Rel 50 Mg Tabcr PO 50 mg DAILY [facility] Administration Ondansetron HCl 4 mg 11/01/24 12:09 11/08/24 12:02 Ondansetron Hcl Odt 4 Mg Tablet PO 4 mg Q8H PRN Administration nausea and vomiting Polyethylene Glycol 17 gm 11/03/24 12:45 11/07/24 08:30 Polyethylene Glycol 3350 17 Gm Powd.Pack PO 17 gm QAM PRN Administration Constipation Spironolactone 25 mg 11/07/24 09:00 11/09/24 08:21 Spironolactone 25 Mg Tablet PO 25 mg DAILY ERICK Administration Radiology Results: ITS Impressions Chest/Abdomen/Pelvis CTA 11/01/24 06:24 Impression: No significant abnormalities seen. Head CT 11/01/24 06:24 Impression: No significant abnormality seen. Chest X-Ray 11/01/24 06:30 Impression: Probable focal left basilar atelectasis. Cardiomegaly. Venous Doppler Study 11/01/24 10:07 IMPRESSION: 1. No [id number] deep venous thrombosis with no thrombosis in either lower limb at or proximal to the level of the popliteal veins. The bilateral peroneal and posterior tibial veins at the calf remain unable to be clearly visualized due to patient body habitus. Lower Extremity CTA 11/02/24 12:44 IMPRESSION: Extensive atherosclerotic changes which degraded the ability to evaluate for the flow and stenosis properly. Bilateral atherosclerotic changes with variable degrees of stenosis with maximum changes in the right popliteal artery. Nonvisualization of the dorsalis pedis and posterior tibial arteries bilaterally. Conventional Angiography is advised for better evaluation. Knee X-Ray 11/05/24 12:09 Impression: Tricompartmental osteoarthritis, as detailed above. Prior ACL reconstruction. Labs Labs: Laboratory Results - last 24 hr 11/08/24 11/09/24 19:59 10:14 WBC 15.3 H RBC 4.87 Hgb 14.6 Hct 46.2 MCV 94.9 MCH 30.0 MCHC 31.6 L RDW 14.0 Plt Count 213 MPV 11.6 H Immature Gran % (Auto) 3.1 H Neut % (Auto) 76.1 H Lymph % (Auto) 6.0 L [place] % (Auto) 8.3 Eos % (Auto) 5.6 H Baso % (Auto) 0.9 Lymph # (Auto) 0.91 [place] # (Auto) 1.3 H Eos # (Auto) 0.9 H Baso # (Auto) 0.1 Abs Immat Gran (auto) 0.48 H Absolute Neuts (auto) 11.6 H Absolute Nucleated RBC 0.000 Nucleated RBC % 0.0 Sodium 135 L Potassium 3.5 Chloride 97 L Carbon Dioxide 31 H Anion Gap 7 BUN 31 H Creatinine 0.69 L Estim Creat Clear Calc 120 Estimated GFR > 60 Glucose 140 H Calcium 8.5 Phosphorus 3.4 Magnesium 2.1 Total Bilirubin 0.5 AST 56 ALT 43 Alkaline Phosphatase 80 Total Protein 6.0 L Albumin 3.5 Vancomycin Trough 17.2 Quality VTE Prophylaxis VTE prophylaxis: pharmacologic ordered
--- NOTE | 2024-11-09 13:57 | PCOTNOTE ---
Patient declined ADLs for task completion this session. Patient states he will perform in the A.M. Will try back tomorrow.
[2024-11-09] MEDS: IPRATROPIUM 0.5 MG/ALBUTEROL SULFATE 2.5 MG AMPUL.NEB 3 ML INHALATION ×2 (14:56→20:26)
[2024-11-09] MEDS: LINEZOLID 600 MG TABLET PO (20:21)
[2024-11-10] VITALS (12 sets, daily range): BP systolic 119–176; BP diastolic 64–72; PULSE 76–85; RESP 18; TEMP 36.4–36.9; O2SAT 94–99
[2024-11-10 05:00] LABS: Hematocrit 42.6 % (42.0-52.0); Hemoglobin 13.3 g/dL (14.0-18.0); Mean Corpuscular HGB Conc 31.2 g/dl (32-36); Mean Corpuscular Volume 95.9 fl (80-100); Mean Platelet Volume 12.2 fl (7.4-10.4); Platelet Count Result 182 k/mm3 (150-375); Red Blood Count 4.44 M/mm3 (4.6-6.20); Red Cell Distribution Width 13.8 % (11.5-14.5); White Blood Count 14.1 K/mm3 (4.5-10.0)
[2024-11-10 05:15] LABS: Anion Gap 1 mmol/L (4-12); Blood Urea Nitrogen 25 mg/dL (9-20); Calcium 8.3 mg/dL (8.4-10.2); Carbon Dioxide 33 mmol/L (22-30); Chloride 99 mmol/L (98-107); Estimated CRCL calculation 130 ml/min; Estimated Glomerular Filt Rate > 60; Glucose 109 mg/dL (65-110); Potassium 3.9 mmol/L (3.4-5.0); Sodium 133 mmol/L (137-145)
[2024-11-10] MEDS: METOPROLOL SUCCINATE EXT REL 50 MG TABCR PO (08:18)
[2024-11-10] MEDS: EMPAGLIFLOZIN 10 MG TABLET PO (08:18)
[2024-11-10] MEDS: LINEZOLID 600 MG TABLET PO ×2 (08:18→20:36)
[2024-11-10] MEDS: ASPIRIN 81 MG ENTERIC TABLET PO (08:18)
[2024-11-10] MEDS: SPIRONOLACTONE 25 MG TABLET PO (08:18)
[2024-11-10] MEDS: HYDROcodone/acetaminophen (*CRX) 10-325 MG TABLET 1 TAB PO ×2 (08:18→20:36)
[2024-11-10] MEDS: ATORVASTATIN 40 MG TABLET 80 MG PO (08:18)
[2024-11-10] MEDS: FUROSEMIDE 40 MG TABLET PO (08:18)
[2024-11-10] MEDS: cefTRIAXone 2 GM/NS 100 ML 2 GM/100 ML BAG IVPB (08:19)
[2024-11-10] MEDS: ENOXAPARIN 40 MG/0.4 ML SYRINGE SUB-Q (08:19)
[2024-11-10] MEDS: DICLOFENAC SODIUM 1% 100 GM GEL (*BKC) 1 APPLIC TOPICAL ×4 (08:20→20:36)
[2024-11-10] MEDS: IPRATROPIUM 0.5 MG/ALBUTEROL SULFATE 2.5 MG AMPUL.NEB 3 ML INHALATION ×2 (10:42→16:15)
--- NOTE | 2024-11-10 12:18 | PM.PNCARD ---
Progress Note: A&P Assessment and Plan (1) Acute diastolic heart failure: Code(s): I50.31 - Acute diastolic (congestive) heart failure Status: Acute Plan 1. Acute diastolic heart failure 2. Sepsis, bacteremia 3. Cellulitis of left lower extremity 4. Reported history of CAD. Diagnosis listed in chart, details unclear. 5. Peripheral arterial disease 6. Hypertension 7. Hyperlipidemia 8. Morbid obesity with BMI of 52 9. Hypokalemia PLAN Continue p.o. furosemide as well as spironolactone. Potassium is stable today at 3.9. -Continue Jardiance 10mg once daily. -continue spironolactone to 25 mg p.o. daily for treatment of his heart failure -Lower extremity CTA shows extensive atherosclerotic changes which degraded the ability to evaluate for the flow and stenosis properly, bilateral atherosclerotic changes with variable degrees of stenosis with maximum changes in the right popliteal artery, nonvisualization of the dorsalis pedis and posterior tibial arteries bilaterally. Continue high intensity statin, ASA for medical management. -Needs to be evaluated for SHAVON. Recommendations and plan discussed with Hospitalist. Subjective Date/time seen: 11/10/24 12:18 Interval history: Cardiology follow up visit for volume overload Date of service 11/06/2024: Still swollen but better. Has shortness breath with activity. No chest pain Date of service 11/07/2024: He urinated copiously yesterday. Legs are less swollen. No shortness of breath at rest. No chest pain. Weakness has improved but still present Date of service 11/08/2024: Feeling well. Swelling continuing to improve. No shortness of breath. Date of service 11/10/2024: Swelling continues to improve. No chest pain. No significant shortness of breath Review of Systems Review of Systems: All systems reviewed & are unremarkable except as noted in HPI and below Constitutional: Constitutional: Denies body ache(s) ENT: Reports Normal hearing present Cardiovascular: Cardiovascular: Denies chest pain and Denies dyspnea Respiratory: Respiratory: Denies dyspnea Gastrointestinal: Gastrointestinal: Denies abdominal pain Integumentary/Breasts: Skin/Breast: Denies erythema Neurologic: Reports Normal hearing present Psychiatric: Psychiatric: Denies anxiety Hematologic/Lymphatic: Hematologic/Lymphatic: Denies easy bleeding Exam Const: General: comfortable, no acute distress, alert and awake Orientation/consciousness: patient oriented x3 Other: Morbidly obese HENMT: Head: normal to inspection Mouth: Yes moist mucous membranes Eyes: General: appearance normal, both eyes and all related structures Sclera: sclerae normal Neck: Neck: normal visual inspection and supple Carotids: normal carotid upstroke Resp: Effort & Inspection: normal respiratory effort Auscultation: rales and diminished lung sounds Cardio: Rate: regular rate Rhythm: regular rhythm Heart sounds: S1 normal heart sound present, S2 normal heart sound present and no murmurs Other: + Bilateral lower extremity edema GI: Auscultation: normal bowel sounds Skin: General skin exam: normal color and lesion (left lower leg erythema ) Lesions: lesion noted (left lower leg erythema ) Neuro: General: patient oriented x3 Cranial nerves: Yes Equal, round and reactive pupils present and Yes Normal hearing present Extrem: General: abnormal to inspection Other: Trivial edema Psych: Appearance: grossly normal Mental Status: mental status grossly normal Objective Data Vital Signs Vital Signs: Vital Signs - 24 hr 11/09/24 14:00 11/09/24 14:59 11/09/24 14:59 Temperature 36.3 C L Pulse Rate 82 77 Respiratory Rate 20 18 Blood Pressure 150/56 H Pulse Oximetry 96 98 Oxygen Delivery Room Air 11/09/24 15:07 11/09/24 16:00 11/09/24 20:00 Temperature Pulse Rate 81 77 73 Respiratory Rate 20 Blood Pressure Pulse Oximetry Oxygen Delivery 11/09/24 20:27 11/09/24 20:28 11/09/24 20:38 Temperature Pulse Rate 77 86 Respiratory Rate 20 20 Blood Pressure Pulse Oximetry Oxygen Delivery Room Air 11/09/24 22:00 11/10/24 00:00 11/10/24 04:00 Temperature 36.7 C Pulse Rate 77 78 77 Respiratory Rate 18 Blood Pressure 154/75 H Pulse Oximetry 98 Oxygen Delivery 11/10/24 06:00 11/10/24 08:00 11/10/24 08:00 Temperature 36.7 C Pulse Rate 84 85 Respiratory Rate 18 Blood Pressure 176/70 H Pulse Oximetry 94 Oxygen Delivery Room Air 11/10/24 08:17 11/10/24 08:18 Temperature Pulse Rate 81 81 Respiratory Rate Blood Pressure 154/65 H Pulse Oximetry 98 Oxygen Delivery Intake/Output Intake/Output: Intake & Output 11/07/24 11/08/24 11/09/24 11/10/24 23:59 23:59 23:59 23:59 Intake Total 2060 1160 2216 240 Output Total 2600 875 1400 775 Balance -540 285 816 -535 Meds/Results Medications: Active Medications Generic Name Dose Route Start Last Admin Trade Name Freq PRN Reason Stop Dose Admin Acetaminophen 1,000 mg 11/01/24 12:09 11/01/24 14:42 Acetaminophen 500 Mg Tablet PO 1,000 mg TID PRN Administration pain Hydrocodone Bitart/Acetaminophen 1 tab 11/01/24 13:35 11/10/24 08:18 Hydrocodone/Acetaminophen (*Crx) 10-325 Mg Tablet PO 1 tab Q6H PRN Administration pain 4-6 Albuterol 2 puff 11/01/24 12:09 Albuterol Sulfate (*Sp) Aerosol 1 Puff INHALATION Q4-6H PRN shortness of breath or wheezing Albuterol/Ipratropium 3 ml 11/01/24 08:00 11/10/24 10:42 Ipratropium 0.5 Mg/Albuterol Sulfate 2.5 Mg Ampul.Neb 3 Ml INHALATION 3 ml Q6HRT ERICK Administration Aspirin 81 mg 11/04/24 09:00 11/10/24 08:18 Aspirin 81 Mg Enteric Tablet PO 81 mg QAM [facility] Administration Atorvastatin Calcium 80 mg 11/02/24 09:00 11/10/24 08:18 Atorvastatin 40 Mg Tablet PO 80 mg DAILY [facility] Administration Benzocaine 1 lozenge 11/01/24 13:28 Benzocaine/Menthol (*Bkc) 18 Ea Lozenge PO PRN PRN Sore Throat Diclofenac Sodium 1 applic 11/05/24 13:00 11/10/24 12:03 Diclofenac Sodium 1% 100 Gm Gel (*Bkc) TOPICAL 1 applic QID ERICK Administration Empagliflozin 10 mg 11/03/24 11:05 11/10/24 08:18 Empagliflozin 10 Mg Tablet PO 10 mg DAILY [facility] Administration Enoxaparin Sodium 40 mg 11/02/24 09:00 11/10/24 08:19 Enoxaparin 40 Mg/0.4 Ml Syringe SUB-Q 40 mg DAILY [facility] Administration Furosemide 40 mg 11/10/24 09:00 11/10/24 08:18 Furosemide 40 Mg Tablet PO 40 mg DAILY ER[facility] Administration Ceftriaxone Sodium 2 gm in 100 mls @ 200 mls/hr 11/01/24 10:00 11/10/24 08:19 Rocephin 2 Gm/Ns 100 Ml IVPB 100 mls/hr DAILY ER[facility] Administration Linezolid 600 mg 11/09/24 21:00 11/10/24 08:18 Linezolid 600 Mg Tablet PO 600 mg Q12HR ERICK Administration Metoprolol Succinate 50 mg 11/02/24 09:00 11/10/24 08:18 Metoprolol Succinate Ext Rel 50 Mg Tabcr PO 50 mg DAILY ERICK Administration Ondansetron HCl 4 mg 11/01/24 12:09 11/08/24 12:02 Ondansetron Hcl Odt 4 Mg Tablet PO 4 mg Q8H PRN Administration nausea and vomiting Polyethylene Glycol 17 gm 11/03/24 12:45 11/07/24 08:30 Polyethylene Glycol 3350 17 Gm Powd.Pack PO 17 gm QAM PRN Administration Constipation Spironolactone 25 mg 11/07/24 09:00 11/10/24 08:18 Spironolactone 25 Mg Tablet PO 25 mg DAILY ERICK Administration Radiology Results: ITS Impressions Chest/Abdomen/Pelvis CTA 11/01/24 06:24 Impression: No significant abnormalities seen. Head CT 11/01/24 06:24 Impression: No significant abnormality seen. Chest X-Ray 11/01/24 06:30 Impression: Probable focal left basilar atelectasis. Cardiomegaly. Venous Doppler Study 11/01/24 10:07 IMPRESSION: 1. No [id number] deep venous thrombosis with no thrombosis in either lower limb at or proximal to the level of the popliteal veins. The bilateral peroneal and posterior tibial veins at the calf remain unable to be clearly visualized due to patient body habitus. Lower Extremity CTA 11/02/24 12:44 IMPRESSION: Extensive atherosclerotic changes which degraded the ability to evaluate for the flow and stenosis properly. Bilateral atherosclerotic changes with variable degrees of stenosis with maximum changes in the right popliteal artery. Nonvisualization of the dorsalis pedis and posterior tibial arteries bilaterally. Conventional Angiography is advised for better evaluation. Knee X-Ray 11/05/24 12:09 Impression: Tricompartmental osteoarthritis, as detailed above. Prior ACL reconstruction. Labs Labs: Laboratory Results - last 24 hr 11/10/24 04:33 WBC 14.1 H RBC 4.44 L Hgb 13.3 L Hct 42.6 MCV 95.9 MCH 30.0 MCHC 31.2 L RDW 13.8 Plt Count 182 MPV 12.2 H Sodium 133 L Potassium 3.9 Chloride 99 Carbon Dioxide 33 H Anion Gap 1 L BUN 25 H Creatinine 0.63 L Estim Creat Clear Calc 130 Estimated GFR > 60 Glucose 109 Calcium 8.3 L
--- NOTE | 2024-11-10 17:30 | P.PNIM_ITS ---
Progress Note: A&P Assessment and Plan (1) Sepsis: Code(s): A41.9 - Sepsis, unspecified organism Status: Acute Assessment and Plan: * Patient meets SIRS criteria on admission due to HR 123, resp 26, WBC 25.2, LLE possible source. * Lactic Acid 3.0>2.2>1.9. Patient received LR IV fluids in the ER. * Chest, Abdomen, and Pelvis with Contrast: Findings: There is no evidence of any significant mediastinal, hilar or axillary lymphadenopathy. The mediastinal soft tissues appear normal. There is no evidence of pleural or pericardial effusion. The lungs are clear. No pulmonary nodules or infiltrates are noted. The liver, spleen, pancreas, gallbladder, adrenals and kidneys are within normal limits. There are atherosclerotic calcifications of the aorta. No lymphadenopathy. No bowel obstruction or bowel wall thickening. There is no evidence to suggest acute appendicitis. Urinary bladder is unremarkable. No pelvic mass seen. No ascites. There is diffuse degenerative spondylosis of the spine. Impression: No significant abnormalities seen. * Respiratory panel negative. * Ceftriaxone 2 gram IVPB daily. zyvox * Blood cultures grew Group B Streptococcus sensitive to Rocephin. Repeat blood cultures negative since 11/03 * Trend labs. (2) Cellulitis of left lower limb: Code(s): L03.116 - Cellulitis of left lower limb Status: Acute Assessment and Plan: * Ceftriaxone 2 gram IVPB daily. Zyvox * Venous dopplers: IMPRESSION: 1. No [id number] deep venous thrombosis with no thrombosis in either lower limb at or proximal to the level of the popliteal veins. The bilateral peroneal and posterior tibial veins at the calf remain unable to be clearly visualized due to patient body habitus. * Elevate when possible. * Lower extremity CTA 11/02 reviewd Patient would benefit from seeing Vascular provider outpatient. * Monitor site. (3) Weakness: Code(s): R53.1 - Weakness Status: Acute Assessment and Plan: * PT/OT. (4) Obesity, morbid, BMI 50 or higher: Code(s): E66.01 - Morbid (severe) obesity due to excess calories Status: Acute Assessment and Plan: * [employer] consult. * Heart healthy diet. * Taking Ozempic at home. (5) Elevated blood sugar: Code(s): R73.9 - Hyperglycemia, unspecified Status: Acute Assessment and Plan: * Blood sugar 183. * HgbA1C 5.8%. (6) Hyperlipidemia: Code(s): E78.5 - Hyperlipidemia, unspecified Status: Chronic Assessment and Plan: * Atorvastatin 80 mg PO daily. * Heart healthy diet. (7) Elevated brain natriuretic peptide (BNP) level: Code(s): R79.89 - Other specified abnormal findings of blood chemistry Status: Acute Assessment and Plan: * BNP 1,100 on admission. * po Lasix, Aldactone. * Cardiology on board * Echocardiogram showed: Summary 1. Left ventricular chamber dimension is normal. 2. Left ventricular systolic function is normal, estimated at 65-70%. 3. There is moderately increased left ventricular wall thickness. 4. The left ventricular diastolic function is grade I diastolic dysfunction. 5. Right ventricular systolic function is normal. 6. Left atrial chamber dimension is mildly enlarged. 7. Right atrial chamber dimension is mildly enlarged. 8. There is mild tricuspid valve regurgitation. (8) Grade I diastolic dysfunction: Code(s): I51.89 - Other ill-defined heart diseases Status: Acute Assessment and Plan: * Spironolactone 25 mg PO daily. * lasix * fluid restriction * cardiology team on board Plan Morbidly obese patient presented with shortness of breath is found to have acute on chronic diastolic congestive heart failure patient had been treated with a furosemide IV none being treated with a p.o. Lasix and spironolactone S patient's symptoms are improved, upon arrival patient was also found to have cellulitis of left lower extremities, blood culture growing group B Streptococcus, repeat blood cultures negative so far patient is being treated with ceftriaxone. Patient working with PT OT. Will benefit going to rehab. Subjective Date/time seen: 11/10/24 17:30 Interval history: per HPo: Patient is a 74 year old male that came to the hospital with altered mental status and weakness. Patient denies chest pain, palpitations, headache, dizziness, nausea, or vomiting. Patient reports coughing up green to clear sputum and recent upper respiratory illness for about the last 5 weeks. The rest of his family got better but his cough has gotten worse over the past several days. Patient uses a cane or walker, patient reports feeling weaker lately. Patient reports redness and swelling to left leg for about 3 weeks, denies drainage from leg. Patient is currently A&Ox4. Patient thinks he had a sleep study a long time ago but was never given a sleep machine. Patient reports being on Ozempic for weight loss. Patient reports that primary is setting up an appointment with a new Pulp Mill Operator in the same building as primary, patient does not know the providers name. ER work up: WBC 25.2, D dimer 0.95, lactic acid 3.0, BNP 1,100, and total protein 6.0. Trop 0.021 and 0.031. Chest X-ray showed probable focal left basilar atelectasis and Cardiomegaly. ECG- ST 120 QTc 416. Blood cultures obtai tracie. Chest, Abdomen, and Pelvis with Contrast: Findings: There is no evidence of any significant mediastinal, hilar or axillary lymphadenopathy. The mediastinal soft tissues appear normal. There is no evidence of pleural or pericardial effusion. The lungs are clear. No pulmonary nodules or infiltrates are noted. The liver, spleen, pancreas, gallbladder, adrenals and kidneys are within normal limits. There are atherosclerotic calcifications of the aorta. No lymphadenopathy. No bowel obstruction or bowel wall thickening. There is no evidence to suggest acute appendicitis. Urinary bladder is unremarkable. No pelvic mass seen. No ascites. There is diffuse degenerative spondylosis of the spine. Impression: No significant abnormalities seen. Head CT: Findings: There is no evidence of intracranial hemorrhage, mass lesion, or acute infarct. Brain parenchyma appears normal. The ventricles and subarachnoid spaces are normal in size. The calvarium appears normal. The visualized paranasal sinuses and mastoid air cells are clear. Impression: No significant abnormality seen. Venous dopplers: IMPRESSION: 1. No [id number] deep venous thrombosis with no thrombosis in either lower limb at or proximal to the level of the popliteal veins. The bilateral peroneal and posterior tibial veins at the calf remain unable to be clearly visualized due to patient body habitus. 11/03/24 Patient was seen and examined at the bedside. he is sleepy today. denies any chest pain, SOB,abd pain, N/V. abraham bilateral leg swelling started on IV lasix. Ordered Hussain hose. Has L leg cellulitis and B/C positive for strep group B. Continue rocephin. follow culture result. 11/05/23 patient was seen and examined at bedside. he is feeling the same. still has bilateral leg swelling. can not keep legs elevated because of knee pain. WBC improving. will order fluid restriction. 11/05/24 Patient was seen and examined at the bedside. he is sleepy today. denies any chest pain, SOB,abd pain, N/V. leg swelling getting better. discuss with cardiology team at bedside. will add metolazone. 11/06/24 Patient was seen and examined at bedside. he is feeling better. his leg swelling improving. denies chest pain, SOB, abd pain, Nausea vomiting. lasix decreaed to 40 BID, aldacton increased to 25 mg 11/07/24 Patient was seen and examined at bedside. he is feeling better. his leg swelling improving. denies chest pain, SOB, abd pain, nausea vomiting. continue with lasix worsening leucocytosis. added Vancomycin. 11/08/24 Patient was seen and examined at bedside. he is feeling better. his legs s welling getting better. cellulitis is better. WBC getting worse. discussed with pharmacy team will change Vancomycin to Zyvox. continue Possible discharge to rehab tomorrow if continue to improve. Morbidly obese patient presented with shortness of breath is found to have acute on chronic diastolic congestive heart failure patient had been treated with a furosemide IV none being treated with a p.o. Lasix and spironolactone S patient's symptoms are improved, upon arrival patient was also found to have cellulitis of left lower extremities, blood culture growing group B Streptococcus, repeat blood cultures negative so far patient is being treated with ceftriaxone. Patient working with PT OT. Will benefit going to rehab. Review of Systems Review of Systems: All systems reviewed & are unremarkable except as noted in HPI and below Exam Narrative: Morbidly obese Patient is comfortable, NAD HEENT: eyes are clear and none icteric LUNGS:CTA HEART: RR S1S2 ABD: BS+, Soft and nontender Lower extremities: edema with statuses dermatitis SKIN: nonjaundiced Neuro: grossly intact. Objective Data Vital Signs Vital Signs: Vital Signs - 24 hr 11/09/24 20:00 11/09/24 20:27 11/09/24 20:28 Temperature Pulse Rate 73 77 Respiratory Rate 20 Blood Pressure Pulse Oximetry Oxygen Delivery Room Air Fraction of Inspired Oxygen 11/09/24 20:38 11/09/24 22:00 11/10/24 00:00 Temperature 36.7 C Pulse Rate 86 77 78 Respiratory Rate 20 18 Blood Pressure 154/75 H Pulse Oximetry 98 Oxygen Delivery Fraction of Inspired Oxygen 11/10/24 04:00 11/10/24 06:00 11/10/24 08:00 Temperature 36.7 C Pulse Rate 77 84 85 Respiratory Rate 18 Blood Pressure 176/70 H Pulse Oximetry 94 Oxygen Delivery Fraction of Inspired Oxygen 11/10/24 08:00 11/10/24 08:17 11/10/24 08:18 Temperature Pulse Rate 81 81 Respiratory Rate Blood Pressure 154/65 H Pulse Oximetry 98 Oxygen Delivery Room Air Fraction of Inspired Oxygen 11/10/24 10:42 11/10/24 12:00 11/10/24 14:57 Temperature 36.9 C Pulse Rate 81 80 Respiratory Rate 18 Blood Pressure 119/64 Pulse Oximetry 95 97 Oxygen Delivery Room Air Fraction of Inspired Oxygen 21 Intake/Output Intake/Output: Intake & Output 11/07/24 11/08/24 11/09/24 11/10/24 23:59 23:59 23:59 23:59 Intake Total 2060 1160 2216 460 Output Total 2600 875 1400 775 Balance -540 285 816 -315 Meds/Results Medications: Active Medications Generic Name Dose Route Start Last Admin Trade Name Freq PRN Reason Stop Dose Admin Acetaminophen 1,000 mg 11/01/24 12:09 11/01/24 14:42 Acetaminophen 500 Mg Tablet PO 1,000 mg TID PRN Administration pain Hydrocodone Bitart/Acetaminophen 1 tab 11/01/24 13:35 11/10/24 08:18 Hydrocodone/Acetaminophen (*Crx) 10-325 Mg Tablet PO 1 tab Q6H PRN Administration pain 4-6 Albuterol 2 puff 11/01/24 12:09 Albuterol Sulfate (*Sp) Aerosol 1 Puff INHALATION Q4-6H PRN shortness of breath or wheezing Albuterol/Ipratropium 3 ml 11/01/24 08:00 11/10/24 10:42 Ipratropium 0.5 Mg/Albuterol Sulfate 2.5 Mg Ampul.Neb 3 Ml INHALATION 3 ml Q6HRT ERICK Administration Aspirin 81 mg 11/04/24 09:00 11/10/24 08:18 Aspirin 81 Mg Enteric Tablet PO 81 mg QAM ERICK Administration Atorvastatin Calcium 80 mg 11/02/24 09:00 11/10/24 08:18 Atorvastatin 40 Mg Tablet PO 80 mg DAILY ERICK Administration Benzocaine 1 lozenge 11/01/24 13:28 Benzocaine/Menthol (*Bkc) 18 Ea Lozenge PO PRN PRN Sore Throat Diclofenac Sodium 1 applic 11/05/24 13:00 11/10/24 17:14 Diclofenac Sodium 1% 100 Gm Gel (*Bkc) TOPICAL 1 applic QID ERICK Administration Empagliflozin 10 mg 11/03/24 11:05 11/10/24 08:18 Empagliflozin 10 Mg Tablet PO 10 mg DAILY ERICK Administration Enoxaparin Sodium 40 mg 11/02/24 09:00 11/10/24 08:19 Enoxaparin 40 Mg/0.4 Ml Syringe SUB-Q 40 mg DAILY ERICK Administration Furosemide 40 mg 11/10/24 09:00 11/10/24 08:18 Furosemide 40 Mg Tablet PO 40 mg DAILY ERICK Administration Ceftriaxone Sodium 2 gm in 100 mls @ 200 mls/hr 11/01/24 10:00 11/10/24 08:19 Rocephin 2 Gm/Ns 100 Ml IVPB 100 mls/hr DAILY ERICK Administration Linezolid 600 mg 11/09/24 21:00 11/10/24 08:18 Linezolid 600 Mg Tablet PO 600 mg Q12HR ERICK Administration Metoprolol Succinate 50 mg 11/02/24 09:00 11/10/24 08:18 Metoprolol Succinate Ext Rel 50 Mg Tabcr PO 50 mg DAILY ERICK Administration Miscellaneous Information 0 each 11/10/24 00:01 Please Renew [place]- 10 Day [employer] For Controlled Substance XX 12/10/24 00:00 CLARIFY ERICK Ondansetron HCl 4 mg 11/01/24 12:09 11/08/24 12:02 Ondansetron Hcl Odt 4 Mg Tablet PO 4 mg Q8H PRN Administration nausea and vomiting Polyethylene Glycol 17 gm 11/03/24 12:45 11/07/24 08:30 Polyethylene Glycol 3350 17 Gm Powd.Pack PO 17 gm QAM PRN Administration Constipation Spironolactone 25 mg 11/07/24 09:00 11/10/24 08:18 Spironolactone 25 Mg Tablet PO 25 mg DAILY ERICK Administration Radiology Results: ITS Impressions Chest/Abdomen/Pelvis CTA 11/01/24 06:24 Impression: No significant abnormalities seen. Head CT 11/01/24 06:24 Impression: No significant abnormality seen. Chest X-Ray 11/01/24 06:30 Impression: Probable focal left basilar atelectasis. Cardiomegaly. Venous Doppler Study 11/01/24 10:07 IMPRESSION: 1. No [id number] deep venous thrombosis with no thrombosis in either lower limb at or proximal to the level of the popliteal veins. The bilateral peroneal and posterior tibial veins at the calf remain unable to be clearly visualized due to patient body habitus. Lower Extremity CTA 11/02/24 12:44 IMPRESSION: Extensive atherosclerotic changes which degraded the ability to evaluate for the flow and stenosis properly. Bilateral atherosclerotic changes with variable degrees of stenosis with maximum changes in the right popliteal artery. Nonvisualization of the dorsalis pedis and posterior tibial arteries bilaterally. Conventional Angiography is advised for better evaluation. Knee X-Ray 11/05/24 12:09 Impression: Tricompartmental osteoarthritis, as detailed above. Prior ACL reconstruction. Labs Labs: Laboratory Results - last 24 hr 11/10/24 04:33 WBC 14.1 H RBC 4.44 L Hgb 13.3 L Hct 42.6 MCV 95.9 MCH 30.0 MCHC 31.2 L RDW 13.8 Plt Count 182 MPV 12.2 H Sodium 133 L Potassium 3.9 Chloride 99 Carbon Dioxide 33 H Anion Gap 1 L BUN 25 H Creatinine 0.63 L Estim Creat Clear Calc 130 Estimated GFR > 60 Glucose 109 Calcium 8.3 L Quality VTE Prophylaxis VTE prophylaxis: pharmacologic ordered
[2024-11-11] VITALS (7 sets, daily range): BP systolic 113–170; BP diastolic 67–72; PULSE 66–80; RESP 18; TEMP 36.3–36.6; O2SAT 95–96
--- NOTE | 2024-11-11 04:53 | PCRCNOTE ---
Patient refused both 1999 and 0 updraft treatments along with bipap use.
[2024-11-11] MEDS: ENOXAPARIN 40 MG/0.4 ML SYRINGE SUB-Q (08:14)
[2024-11-11] MEDS: SPIRONOLACTONE 25 MG TABLET PO (08:14)
[2024-11-11] MEDS: ATORVASTATIN 40 MG TABLET 80 MG PO (08:14)
[2024-11-11] MEDS: FUROSEMIDE 40 MG TABLET PO (08:15)
[2024-11-11] MEDS: LINEZOLID 600 MG TABLET PO (08:15)
[2024-11-11] MEDS: METOPROLOL SUCCINATE EXT REL 50 MG TABCR PO (08:15)
[2024-11-11] MEDS: ASPIRIN 81 MG ENTERIC TABLET PO (08:15)
[2024-11-11] MEDS: HYDROcodone/acetaminophen (*CRX) 10-325 MG TABLET 1 TAB PO ×2 (08:15→15:39)
[2024-11-11] MEDS: EMPAGLIFLOZIN 10 MG TABLET PO (08:15)
[2024-11-11] MEDS: DICLOFENAC SODIUM 1% 100 GM GEL (*BKC) 1 APPLIC TOPICAL ×2 (08:16→12:32)
[2024-11-11 08:31] LABS: Hematocrit 43.6 % (42.0-52.0); Hemoglobin 13.8 g/dL (14.0-18.0); Mean Corpuscular HGB Conc 31.7 g/dl (32-36); Mean Corpuscular Hemoglobin 29.7 pg (26-34); Mean Platelet Volume 11.4 fl (7.4-10.4); Platelet Count Result 192 k/mm3 (150-375); Red Blood Count 4.64 M/mm3 (4.6-6.20); White Blood Count 16.8 K/mm3 (4.5-10.0)
[2024-11-11 08:50] LABS: Anion Gap 4 mmol/L (4-12); Blood Urea Nitrogen 29 mg/dL (9-20); Calcium 8.5 mg/dL (8.4-10.2); Carbon Dioxide 30 mmol/L (22-30); Chloride 100 mmol/L (98-107); Estimated CRCL calculation 120 ml/min; Estimated Glomerular Filt Rate > 60; Glucose 126 mg/dL (65-110); Magnesium 2.2 mg/dL (1.6-2.3); Sodium 134 mmol/L (137-145)
--- NOTE | 2024-11-11 10:30 | P.PNCA_ITS ---
Progress Note: A&P Assessment and Plan (1) Grade I diastolic dysfunction: Code(s): I51.89 - Other ill-defined heart diseases Status: Acute (2) Hyperlipidemia: Code(s): E78.5 - Hyperlipidemia, unspecified Status: Chronic Plan 74-year-old man with morbid obesity (BMI 52), peripheral arterial disease, hypertension, and hyperlipidemia presented to [facility] found to have cellulitis and Cardiology consult to for chronic diastolic heart failure Chronic diastolic heart failure -continue Lasix 40 mg p.o. daily and spironolactone 25 mg p.o. daily -we discussed extensively the need for weight loss, healthy diet, and routine exercise Peripheral arterial disease -continue atorvastatin 80 mg every evening and aspirin 81 mg p.o. daily -patient continues to wounds we will proceed outpatient peripheral angiogram -we discussed continue need to keep lower extremities clean and to continue diuretics to prevent swelling -it does appear that most of his swelling symptoms are due to venous stasis and we have encouraged stocking compression is as well as routine exercise and leg elevation -most of his symptoms appear to be orthopedic related and not secondary to claudication as he reports that he ambulates much better using a cane Hyperlipidemia -continue atorvastatin 80 mg every evening No further inpatient cardiac workup warranted. Patient can follow-up in clinic. Please call Cardiology with additional questions. Subjective Date/time seen: 11/11/24 10:30 Interval history: Denies any chest pain or shortness of breath. Review of Systems Cardiovascular: Cardiovascular: Reports as per HPI Respiratory: Respiratory: Reports as per HPI Exam Const: General: no acute distress HENMT: Mouth: Yes moist mucous membranes Eyes: Pupils: Equal, round and reactive pupils present EOM: EOMs intact bilaterally Neck: Neck: no JVD Resp: Effort & Inspection: normal respiratory effort Auscultation: rales Cardio: Rate: regular rate Rhythm: regular rhythm GI: GI Palp: Yes Soft to palpation Extrem: General: no pedal edema Objective Data Vital Signs Vital Signs: Vital Signs - 24 hr 11/10/24 10:42 11/10/24 12:00 11/10/24 14:57 Temperature 36.9 C Pulse Rate 81 80 Respiratory Rate 18 Blood Pressure 119/64 Pulse Oximetry 95 97 Oxygen Delivery Room Air Fraction of Inspired Oxygen 11/10/24 16:00 11/10/24 20:00 11/10/24 20:00 Temperature Pulse Rate 76 84 Respiratory Rate Blood Pressure Pulse Oximetry Oxygen Delivery Room Air Fraction of Inspired Oxygen 11/10/24 22:00 11/11/24 00:00 11/11/24 04:00 Temperature 36.4 C Pulse Rate 84 69 66 Respiratory Rate 18 Blood Pressure 166/72 H Pulse Oximetry 99 Oxygen Delivery Fraction of Inspired Oxygen 11/11/24 06:00 11/11/24 08:15 Temperature 36.3 C L Pulse Rate 70 70 Respiratory Rate 18 Blood Pressure 170/72 H Pulse Oximetry 95 Oxygen Delivery Fraction of Inspired Oxygen Intake/Output Intake/Output: Intake & Output 11/08/24 11/09/24 11/10/24 11/11/24 23:59 23:59 23:59 23:59 Intake Total 1160 2216 780 240 Output Total 875 1400 900 500 Balance 285 453 -547 -424 Meds/Results Medications: Active Medications Generic Name Dose Route Start Last Admin Trade Name Freq PRN Reason Stop Dose Admin Acetaminophen 1,000 mg 11/01/24 12:09 11/01/24 14:42 Acetaminophen 500 Mg Tablet PO 1,000 mg TID PRN Administration pain Hydrocodone Bitart/Acetaminophen 1 tab 11/01/24 13:35 11/11/24 08:15 Hydrocodone/Acetaminophen (*Crx) 10-325 Mg Tablet PO 1 tab Q6H PRN Administration pain 4-6 Albuterol 2 puff 11/01/24 12:09 Albuterol Sulfate (*Sp) Aerosol 1 Puff INHALATION Q4-6H PRN shortness of breath or wheezing Albuterol/Ipratropium 3 ml 11/01/24 08:00 11/11/24 07:56 Ipratropium 0.5 Mg/Albuterol Sulfate 2.5 Mg Ampul.Neb 3 Ml INHALATION Not Given Q6HRT ERICK Aspirin 81 mg 11/04/24 09:00 11/11/24 08:15 Aspirin 81 Mg Enteric Tablet PO 81 mg QAM ERICK Administration Atorvastatin Calcium 80 mg 11/02/24 09:00 11/11/24 08:14 Atorvastatin 40 Mg Tablet PO 80 mg DAILY ERICK Administration Benzocaine 1 lozenge 11/01/24 13:28 Benzocaine/Menthol (*Bkc) 18 Ea Lozenge PO PRN PRN Sore Throat Diclofenac Sodium 1 applic 11/05/24 13:00 11/11/24 08:16 Diclofenac Sodium 1% 100 Gm Gel (*Bkc) TOPICAL 1 applic QID ERICK Administration Empagliflozin 10 mg 11/03/24 11:05 11/11/24 08:15 Empagliflozin 10 Mg Tablet PO 10 mg DAILY ERICK Administration Enoxaparin Sodium 40 mg 11/02/24 09:00 11/11/24 08:14 Enoxaparin 40 Mg/0.4 Ml Syringe SUB-Q 40 mg DAILY ERICK Administration Furosemide 40 mg 11/10/24 09:00 11/11/24 08:15 Furosemide 40 Mg Tablet PO 40 mg DAILY ERICK Administration Linezolid 600 mg 11/09/24 21:00 11/11/24 08:15 Linezolid 600 Mg Tablet PO 11/16/24 21:01 600 mg Q12HR ERICK Administration Metoprolol Succinate 50 mg 11/02/24 09:00 11/11/24 08:15 Metoprolol Succinate Ext Rel 50 Mg Tabcr PO 50 mg DAILY ERICK Administration Ondansetron HCl 4 mg 11/01/24 12:09 11/08/24 12:02 Ondansetron Hcl Odt 4 Mg Tablet PO 4 mg Q8H PRN Administration nausea and vomiting Polyethylene Glycol 17 gm 11/03/24 12:45 11/07/24 08:30 Polyethylene Glycol 3350 17 Gm Powd.Pack PO 17 gm QAM PRN Administration Constipation Spironolactone 25 mg 11/07/24 09:00 11/11/24 08:14 Spironolactone 25 Mg Tablet PO 25 mg DAILY ERICK Administration Radiology Results: ITS Impressions Chest/Abdomen/Pelvis CTA 11/01/24 06:24 Impression: No significant abnormalities seen. Head CT 11/01/24 06:24 Impression: No significant abnormality seen. Chest X-Ray 11/01/24 06:30 Impression: Probable focal left basilar atelectasis. Cardiomegaly. Venous Doppler Study 11/01/24 10:07 IMPRESSION: 1. No [id number] deep venous thrombosis with no thrombosis in either lower limb at or proximal to the level of the popliteal veins. The bilateral peroneal and posterior tibial veins at the calf remain unable to be clearly visualized due to patient body habitus. Lower Extremity CTA 11/02/24 12:44 IMPRESSION: Extensive atherosclerotic changes which degraded the ability to evaluate for the flow and stenosis properly. Bilateral atherosclerotic changes with variable degrees of stenosis with maximum changes in the right popliteal artery. Nonvisualization of the dorsalis pedis and posterior tibial arteries bilateral ly. Conventional Angiography is advised for better evaluation. Knee X-Ray 11/05/24 12:09 Impression: Tricompartmental osteoarthritis, as detailed above. Prior ACL reconstruction. Labs Labs: Laboratory Results - last 24 hr 11/11/24 08:25 WBC 16.8 H RBC 4.64 Hgb 13.8 L Hct 43.6 MCV 94.0 MCH 29.7 MCHC 31.7 L RDW 14.0 Plt Count 192 MPV 11.4 H Sodium 134 L Potassium 4.0 Chloride 100 Carbon Dioxide 30 Anion Gap 4 BUN 29 H Creatinine 0.69 L Estim Creat Clear Calc 120 Estimated GFR > 60 Glucose 126 H Calcium 8.5 Magnesium 2.2
--- NOTE | 2024-11-11 12:08 | P.DS_ITS ---
DS: Admitting Diagnosis Discharge Date 11/11/24 Admitting Diagnosis Altered mental status and weakness. DS: Discharge Diagnosis Discharge Diagnosis (1) Cellulitis of left lower limb: Code(s): L03.116 - Cellulitis of left lower limb Status: Acute Assessment and Plan: * Ceftriaxone 2 gram IVPB daily. Zyvox * Venous dopplers: IMPRESSION: 1. No [id number] deep venous thrombosis with no thrombosis in either lower limb at or proximal to the level of the popliteal veins. The bilateral peroneal and posterior tibial veins at the calf remain unable to be clearly visualized due to patient body habitus. * Elevate when possible. * Lower extremity CTA 11/02 reviewd Patient would benefit from seeing Vascular provider outpatient. * Monitor site. (2) Sepsis: Code(s): A41.9 - Sepsis, unspecified organism Status: Acute Assessment and Plan: * Patient meets SIRS criteria on admission due to HR 123, resp 26, WBC 25.2, LLE possible source. * Lactic Acid 3.0>2.2>1.9. Patient received LR IV fluids in the ER. * Chest, Abdomen, and Pelvis with Contrast: Findings: There is no evidence of any significant mediastinal, hilar or axillary lymphadenopathy. The mediastinal soft tissues appear normal. There is no evidence of pleural or pericardial effusion. The lungs are clear. No pulmonary nodules or infiltrates are noted. The liver, spleen, pancreas, gallbladder, adrenals and kidneys are within normal limits. There are atherosclerotic calcifications of the aorta. No lymphadenopathy. No bowel obstruction or bowel wall thickening. There is no evidence to suggest acute appendicitis. Urinary bladder is unremarkable. No pelvic mass seen. No ascites. There is diffuse degenerative spondylosis of the spine. Impression: No significant abnormalities seen. * Respiratory panel negative. * Ceftriaxone 2 gram IVPB daily. zyvox * Blood cultures grew Group B Streptococcus sensitive to Rocephin. Repeat blood cultures negative since 11/03 * Trend labs. (3) Weakness: Code(s): R53.1 - Weakness Status: Acute Assessment and Plan: * PT/OT. (4) Obesity, morbid, BMI 50 or higher: Code(s): E66.01 - Morbid (severe) obesity due to excess calories Status: Acute Assessment and Plan: * Returns Processor consult. * Heart healthy diet. * Taking Ozempic at home. (5) Elevated blood sugar: Code(s): R73.9 - Hyperglycemia, unspecified Status: Acute Assessment and Plan: * Blood sugar 183. * HgbA1C 5.8%. (6) Hyperlipidemia: Code(s): E78.5 - Hyperlipidemia, unspecified Status: Chronic Assessment and Plan: * Atorvastatin 80 mg PO daily. * Heart healthy diet. (7) Elevated brain natriuretic peptide (BNP) level: Code(s): R79.89 - Other specified abnormal findings of blood chemistry Status: Acute Assessment and Plan: * BNP 1,100 on admission. * po Lasix, Aldactone. * Cardiology on board * Echocardiogram showed: Summary 1. Left ventricular chamber dimension is normal. 2. Left ventricular systolic function is normal, estimated at 65-70%. 3. There is moderately increased left ventricular wall thickness. 4. The left ventricular diastolic function is grade I diastolic dysfunction. 5. Right ventricular systolic function is normal. 6. Left atrial chamber dimension is mildly enlarged. 7. Right atrial chamber dimension is mildly enlarged. 8. There is mild tricuspid valve regurgitation. (8) Grade I diastolic dysfunction: Code(s): I51.89 - Other ill-defined heart diseases Status: Acute Assessment and Plan: * Spironolactone 25 mg PO daily. * lasix * fluid restriction * cardiology team on board Plan Morbidly obese patient presented with shortness of breath is found to have acute on chronic diastolic congestive heart failure patient had been treated with a furosemide IV none being treated with a p.o. Lasix and spironolactone S patient's symptoms are improved, upon arrival patient was also found to have cellulitis of left lower extremities, blood culture growing group B Streptococcus, repeat blood cultures negative so far patient is being treated with ceftriaxone. Patient working with PT OT. Will benefit going to rehab. DS: Summary Hospital Course Hospital Course: Morbidly obese patient presented with shortness of breath is found to have acute on chronic diastolic congestive heart failure patient had been treated with a furosemide IV was treated with a p.o. Lasix and spironolactone his patient's symptoms are improved, upon arrival patient was also found to have cellulitis of left lower extremities, blood culture growing group B Streptococcus, repeat blood cultures negative so far patient is being treated with ceftriaxone. will discharge patient on linezolid, Patient worked with PT OT. patient is clinically stable, will discharge today. Time Spent with Patient Time attestation: Total time spent providing and/or coordinating discharge services: Exam Narrative: Morbidly obese Patient is comfortable, NAD HEENT: eyes are clear and none icteric LUNGS:CTA HEART: RR S1S2 ABD: BS+, Soft and nontender Lower extremities: edema with statuses dermatitis SKIN: nonjaundiced Neuro: grossly intact. DS: Data Data Completed and Pending Labs on day of discharge: Labs from last 24 hours 11/11/24 08:25 WBC 16.8 H RBC 4.64 Hgb 13.8 L Hct 43.6 MCV 94.0 MCH 29.7 MCHC 31.7 L RDW 14.0 Plt Count 192 MPV 11.4 H Sodium 134 L Potassium 4.0 Chloride 100 Carbon Dioxide 30 Anion Gap 4 BUN 29 H Creatinine 0.69 L Estim Creat Clear Calc 120 Estimated GFR > 60 Glucose 126 H Calcium 8.5 Magnesium 2.2 Discharge Plan Discharge Attending physician on discharge: Edd Noyola Consulting providers: Reddy Shah; Boston Fierro; Angie Serrano; Grant Whipple; Edd Noyola; Jenni Reynaga; Perez Sky; Beua Mccormick; Thanh Mcneil; Wil Saldivar Discharging Clinician: Todd Suresh Patient Disposition: NH Fdc/Asst Living Activity: as tolerated Diet: heart healthy Discharge Instructions: patient to follow wound care instruction from wound team and discharge instruction from his applied psychology chair and follow up as scheduled, patient to follow up with his primary care as soon as possible, patient is instructed to ambulate as much as possible with a cane or a support, healthy diet and exercise. Patient Instructions: Antibiotic Form Patient Language: [place] Citizen Stand Alone Forms: General Discharge Information Follow-up/Referrals: Reddy Shah MD [Physician] - 4 Weeks Milagro,Perez Chester MD [Primary Care Provider] - Discharge Medications: New aspirin 81 mg Tablet,Delayed Release (Dr/Ec) 81 mg PO QAM Qty: 30 0RF furosemide 40 mg Tablet 40 mg PO DAILY Qty: 30 0RF ipratropium-albuterol 0.5 mg-3 mg(2.5 mg base)/3 mL Solution For Nebulization 3 ml inhalation Q6HRT Qty: 30 0RF linezolid 600 mg Tablet 600 mg PO Q12HR Qty: 15 0RF Chloraseptic Sore Throat 6-10 mg Lozenge 1 abhi PO PRN PRN (Reason: Sore Throat) Qty: 30 0RF polyethylene glycol 3350 [Miralax] 17 gram Powder In Packet 17 g PO QAM PRN (Reason: Constipation) Qty: 14 0RF Continued Jardiance 10 mg tablet 10 mg PO DAILY spironolactone 25 mg tablet 12.5 mg PO DAILY potassium chloride 20 mEq tablet,ER particles/crystals 20 meq PO DAILY Ozempic 0.25 mg or 0.5 mg (2 mg/3 mL) pen injector 0.5 mg SUBCUT WEEKLY benzonatate 200 mg capsule 200 mg PO TID Qty: 14 0RF albuterol sulfate 90 mcg/actuation HFA aerosol inhaler 2 puff inhalation Q4-6H PRN (Reason: shortness of breath or wheezing) Qty: 8.5 0RF metoprolol succinate 50 mg Tablet Extended Release 24 Hr 50 mg PO DAILY atorvastatin 80 mg Tablet 80 mg PO DAILY acetaminophen [Tylenol Extra Strength] 500 mg tablet 1,000 mg PO TID PRN (Reason: pain) Qty: 30 0RF ondansetron 4 mg tablet,disintegrating 4 mg PO Q8H PRN (Reason: nausea and vomiting) Qty: 10 0RF hydrocodone-acetaminophen 10-325 mg tablet 1 tablet PO Q6H PRN (Reason: pain) Qty: 15 0RF Discontinued furosemide 20 mg tablet 20 mg PO DAILY Date of admission: 11/01/24 07:20 Primary Care Provider: Milagro,Perez Chester Admitting Provider: Janna Parker Attending physician on admission: Todd Suresh Condition: Stable
== END 2024-11-11 15:55 | DRG 871 ==
LOC: ANHED 06:20 → ANH2MED 07:23
PROVIDERS: Internal Medicine; Nurse Practitioner Family; Admitting Provider Internal Medicine; Emergency Provider Emergency Medicine; PCP Internal Medicine; Visit Provider Family Medicine
DX: A40.1 Sepsis due to streptococcus, group B (principal); I50.33 Acute on chronic diastolic (congestive) heart failure; L03.116 Cellulitis of left lower limb; Z68.43 Body mass index [BMI] 50.0-59.9, adult; E66.01 Morbid (severe) obesity due to excess calories; E78.5 Hyperlipidemia, unspecified; E87.6 Hypokalemia; G47.33 Obstructive sleep apnea (adult) (pediatric); I25.10 Atherosclerotic heart disease of native coronary artery without angina pectoris; I11.0 Hypertensive heart disease with heart failure; I73.9 Peripheral vascular disease, unspecified; R79.89 Other specified abnormal findings of blood chemistry; Z95.5 Presence of coronary angioplasty implant and graft; Z20.822 Contact with and (suspected) exposure to COVID-19; Z79.82 Long term (current) use of aspirin; Z79.02 Long term (current) use of antithrombotics/antiplatelets; Z79.85 Long-term (current) use of injectable non-insulin antidiabetic drugs; Z79.84 Long term (current) use of oral hypoglycemic drugs; Z87.891 Personal history of nicotine dependence
CPT/HCPCS: 36415; 36600; 70450; 71045; 71275; 73560; 73706; 74177; 80048; 80053; 80061; 80202; 80307; 81001; 82077; 82805; 82948; 83036; 83605; 83690; 83735; 83880; 84100; 84132; 84443; 84484; 85018; 85025; 85027; 85380; 85610; 85730; 87040; 87181; 87637; 87641; 93005; 93970; 94002; 94003; 94640; 96361; 96365; 96366; 96367; 97110; 97161; 97166; 97530; 97535; 99285; A9270; C8929; J0692; J0696; J0780; J1650; J1938; J3370; J7030; J7120; Q9957; Q9967

== ENCOUNTER 2024-12-30 12:31 | Emergency (ER) | payer MEDICARE, SELFPAY ==
[2024-12-30] VITALS (8 sets, daily range): BP systolic 152–187; BP diastolic 58–166; PULSE 78–87; RESP 16–22; TEMP 36–36.6; O2SAT 96–100
--- NOTE | ~2024-12-30 | US_ITS ---
LEFT LOWER EXTREMITY VENOUS ULTRASOUND Ordering provider: Susie Camargo PA-C History: . LLE edema and erythema . Comparison: None. FINDINGS: --COMMON FEMORAL: Patent and free of thrombus. Normal compressibility, phasic flow and augmentation. --PROXIMAL SUPERFICIAL FEMORAL: Patent and free of thrombus. Normal compressibility, phasic flow and augmentation. --DISTAL SUPERFICIAL FEMORAL: Patent and free of thrombus. Normal compressibility, phasic flow and au gmentation. --POPLITEAL: Patent and free of thrombus. Normal compressibility, phasic flow and augmentation. --POSTERIOR TIBIAL, and peroneal vein: Not evaluated due to body habitus and swelling. Thrombosis of the lesser saphenous vein is noted. IMPRESSION: Thrombosis of the lesser saphenous vein. No deep vein thrombosis. Reviewed, dictated and finalized at location A.
--- NOTE | ~2024-12-30 | CT_ITS ---
CT pelvis wo con Ordering provider: Mariella Ray PA-C History: . right hip pain, possible fx on x-ray . Comparison: The Technique: CT pelvis without oral and IV contrast. . Automated exposure control and iterative recons truction technique were employed. The dose-length product was 1011.61 mGy-cm. Findings: BONES: No pelvic fracture or hip dislocation. Age appropriate degenerative changes of the visualized lower lumbar spine. Bilateral sacroiliacs.. Sclerotic lesion in the proximal left femur which may be bone island. Bilateral hip osteoarthritic changes. Pubic symphysitis. SUPERFICIAL SOFT TISSUES: Bilateral fat-containing inguinal hernias larger on the right side. Thicken ing of the skin is seen in the area of the lower abdomen and pelvis fat-containing umbilical hernia. Otherwise, the Normal. PELVIC ORGANS: The bladder is normal. VISUALIZED BOWEL AND MESENTERY: Normal. No free air or free fluid. No lymphadenopathy. RETROPERITONEUM: Mild atheromatous disease. IMPRESSION: No fractures seen in the right and left hips. No fractures in the pelvic bones. Bilateral fat containing inguinal hernias. Reviewed, dictated and finalized at location A.
--- NOTE | ~2024-12-30 | XR_ITS ---
SINGLE AP VIEW PELVIS Ordering provider: Mariella Ray PA-C History: . right hip pain, NKI . Comparison: None. FINDINGS: The images suboptimal BONES: Possibility of a step off at the junction of the right femoral head with the neck laterally is not excluded. CT evaluation is advised. HIP JOINT SPACES: Bilateral moderate osteoarthritic changes. SACROILIAC JOINT SPACES/LUMBAR SPINE: The sacroiliac joint spaces are normal. Mild degenerative de la torre es of the visualized lower lumbar spine. PUBIC SYMPHYSIS: Normal. SOFT TISSUES: Normal. IMPRESSION: Possible scar at the junction of the right femoral head and neck laterally. CT evaluation advised.. Reviewed, dictated and finalized at location A.
--- OUTSIDE RECORDS SUMMARY | 2024-12-30 12:33 | XMS_ITS | Encounter Summary ---
Author Organization [facility] Address [address] [place] [address] Phone Care Team Providers Care Bus Assistant Name Role Phone Perez Humphrey MD Primary Care Provider [phone] Reason for Visit * Reason Onset Date Comments Appointment 10/13/2024 Leg Swelling 10/13/2024 Encounter Details Date Type Department Care Team (Late st Contact Info) Description 10/13/2024 Nurse [facility]riage [facility] [address] [place] [address] Perez Humphrey MD #[address] [address] Appointment; Leg Swelling Social History [...] Dept Phone 10/15/2024 9:30 AM Perez Humphrey [facility] - Family Medicine [facility] [phone] Encounter routed to provider high priority to [...] Leg Swelling and Edema-A-OH, Weakness (Generalized) and Vovrytz-M-PP * Telephone Encounter - Marta Juarez - 10/13/2024 1:22 PM CDT Symptom: Leg Swelling - Not From Injury Outcome: Transfer to budget report clerk queue Reason: Discoloration (purple, blue, white, pale) The caller accepted this outcome. Caller Denied: * Trouble breathing * Chest pain documented in this encounter Plan of Treatment Upcoming Encounters Date Type Department Care Team (Late st Contact Info) Description 12/30/2024 2:45 PM CDT Office Visit [facility] [address] [place] [address] Louie Abrams MD #[address] [address] 01/03/2025 3:45 PM CDT Office Visit [facility] [address] [place] [address] Mira Thrasher APRN, FERMENTOLOGIST #[address] [place] [address] documented as of this encounter Visit Diagnoses Not on filedocumented in this encounter Additional Health Concerns Assessment Noted Time PHQ-9 Depression Total Score: 0 11/11/19 24 6:26 PM CDT documented as of this encounter Care Teams Bus Assistant Relationship Specialty Start Date End Date Perez Humphrey MD #[address] [address] PCP - General Family Medicine 11/11/23 documented as of this encounter
--- OUTSIDE RECORDS SUMMARY | 2024-12-30 12:33 | XMS_ITS | Encounter Summary ---
Author Organization [facility] Address [address] [place] [address] Phone Care Team Providers Care Event Planning Manager Name Role Phone Perez Humphrey MD Primary Care Provider Reason for Visit * Reason Onset Date Comments Leg Swelling 12/29/2024 Skin Problem 12/29/2024 Encounter Details Date Type Department Care Team (Late st Contact Info) Description 12/29/2024 Nurse Triage [facility] [address] [place] [address] Perez Humphrey MD #[address] [address] Leg Swelling; Skin Problem Social History Tobacco Use Types Packs/Day Years [...] encounter Miscellaneous Notes * Telephone Encounter - William Dickerson RN - 12/29/2024 11:42 PM CDT SITUATION: Leg redness Of Left leg BACKGROUND: contacting PCP office. Ongoing leg issues, Noticed redness a couple days ago, hx of sepsis / cellulitis ASSESSMENT: Symptom Description / Location: Redness of leg Weeping of leg Whole body is puffy - per Knee down Area is not warm to touch Denies chest pain, difficulty breathing, shortness of breath. Pain: Caller denies pain. Fever: Denies fever. Treatment / Response: Cleansing leg RECOMMENDATION: Dispositions for Encounter:See HCP ( or PCP triage or video visit) within 4 hours. Reason for Disposition: SEVERE leg swelling (e.g., swelling extends above knee, entire leg is swollen, weeping fluid) . Protocols Used: Leg Swelling and Edema-A-AH Care advice provided per triage guideline. Caller verbalized understanding. - See care advice and disposition for Guideline. First positive answer recorded, all responses to prior questions were negative. If symptoms increase, change or if new symptoms develop, call your health care provider or call back. Recommendations were based on caller information and is not a diagnosis. Verified and reviewed all triage information with caller. documented in this encounter Plan of Treatment Upcoming Encounters Date Type Department Care Team (Late st Contact Info) Description 12/30/2024 2:45 PM CDT Office Visit [facility] [address] [place] [address] Louie Abrams MD #[address] [address] 01/03/2025 3:45 PM CDT Office Visit [facility] [address] [place] [address] Mira Thrasher APRN, COMPENSATION MANAGER #[address] [address] documented as of this encounter Visit Diagnoses Not on filedocumented in this encounter Additional Health Concerns Assessment Noted Time PHQ-9 Depression Total Score: 0 11/11/19 24 6:26 PM CDT documented as of this encounter Care Teams Event Planning Manager Relationship Specialty Start Date End Date Perez Humphrey MD #[address] [address] PCP - General Family Medicine 11/11/23 documented as of this encounter
--- OUTSIDE RECORDS SUMMARY | 2024-12-30 12:33 | XMS_ITS | Encounter Summary ---
Author Organization [facility] Address [address] [place] [address] Phone Care Team Providers Care Computer Systems Technician Name Role Phone Perez Humphrey MD Primary Care Provider [phone] Reason for Visit * Reason Onset Date Comments Skin Problem 12/29/2024 Leg Swelling 12/29/2024 Left lower leg r edness and mild swelling Leg Pain 12/29/2024 Upper right leg/ thigh pain Groin Pain 12/29/2024 Encounter Details Date Type Department Care Team (Late st Contact Info) Description 12/29/2024 Nurse Triage [facility] [address] [place] [address] Perez Humphrey MD #[address] [address] Skin Problem; Leg Swelling (Left lower leg redness and mild swelling); Leg Pain (Upper right leg/thigh pain); Groin Pain Social History Tobacco Use Types Packs/Day Years [...] encounter Miscellaneous Notes * Telephone Encounter - Mira Thrasher APRN, CARI - 12/29/2024 12:58 PM CDT Could patient be seen sooner in office? * Telephone Encounter - Kena Badillo RN - 12/29/2024 12:25 PM CDT SITUATION: The patient is requesting script for rash. BACKGROUND: Patient is contacting PCP office. Patient said he was in [facility] for cellulitis for lower legs (mostly left lower leg) about 6 weeks ago and had rehab afterward- said he was discharged from rehab about 4-5 weeks ago Per chart review, patient has an appointment scheduled with PCP: All Patient Appointments Date & Time Provider Department Dept Phone 01/03/2025 3:45 PM Mira Thrasher [facility] - Family Medicine [facility] [phone] Rash symptoms for 4-5 weeks ASSESSMENT: Symptom Description / Location: Rash- patient said he thinks he got a fungus/rash from previous care home stay- no pain to rash Rash Appearance: small round whelps Rash Locations: both arms, stomach Rash areas Itching Dry skin Left lower leg redness x 2 weeks- worried he is getting cellulitis back again Left lower swelling- mild Right upper thigh pain that is also in right groin- constant- patient thinks he pulled a muscle this morning while using his walker Able to walk with walker but painful due to right thigh pain Denies: fall, left leg pain, weeping fluid to left lower leg, swelling nor redness to right thigh, shortness of breath, difficulty breathing, chest pain, taking an antibiotic currently Pain: 5/10- right upper thigh pain Fever: Denies fever. Treatment / Response: Hydrocortisone cream 1%, Miconazole Antifungal cream 2% - said creams get ridof rash but then the rash comes back Terral Allergies and pharmacy verified. RECOMMENDATION: Dispositions for Encounter:Go to ED Now (or PCP Triage). Reason for Disposition: Thigh or calf pain in only one leg and present > 1 hour . Protocols Used: Leg Pain-A-OH Patient/caller refuses disposition of: GO to ED now Reiterated the importance of following recommendation as symptoms could indicate a serious or life-threatening situation Patient response:patient would like to have something prescribed for his symptoms until his upcoming appointment 01/03/25. Advised caller that information will be reviewed with provider and they will be contacted with provider advice. Care advice provided per triage guideline. Caller verbalized understanding. Please Advise. Encounter routed to provider high priority to notify. Discussed utilizing Stupeflixhart to: discuss if they would prefer a MyChart message or phone call response Prefers phone call back - See care advice and disposition for [...] Description 12/30/2024 2:45 PM CDT Office Visit [facility] [address] [place] [address] Louie Abrams MD #[address] [address] 01/03/2025 3:45 PM CDT Office Visit [facility] [address] [place] [address] Mira Thrasher APRN, TOY DEPARTMENT MANAGER #[address] [address] documented as of this encounter Visit Diagnoses Not on filedocumented in this encounter Additional Health Concerns Assessment Noted Time PHQ-9 Depression Total Score: 0 11/11/19 6:26 PM CDT documented as of this encounter Care Teams Computer Systems Technician Relationship Specialty Start Date End Date Perez Humphrey MD #[address] [address] PCP - General Family Medicine 11/11/23 documented as of this encounter
--- OUTSIDE RECORDS SUMMARY | 2024-12-30 12:34 | XMS_ITS | Clinical Summary ---
Author Organization [facility] Address [address] [place] [address] Phone Care Team Providers Care Trommel Tender Name Role Phone Perez Humphrey MD Primary Care Provider [phone] Allergies Active Allergy Reactions Criticality Noted Date [...] and Location) 80 g 11/11/19 24 Active Additional Information Patient not taking.Reported on 12/29/2024 albuterol 108 (90 Base) MCG/ACT Aerosol Solution [...] or 0.5 MG/DOSE, 2 MG/3ML Solution Pen-injector INJECT 0.5 MG UNDER SKIN EVERY WEEK 3 mL 12/18/19 25 Active Ozempic, 0.25 or 0.5 MG/DOSE, 2 MG/3ML Solution Pen-injector 0.5 mg by Subcutaneous route once a week. 3 mL 10/21/19 25 025 Discontinued Encounters Date Type Department Care Team Description 12/29/2024 Nurse Triage [address] [address] Perez Humphrey MD Leg Swelling; Skin Problem 12/29/2024 Nurse Triage [address] [address] Perez Humphrey MD Skin Problem; Leg Swelling (Left lower leg redness and mild swelling); Leg Pain (Upper right leg/thigh pain); Groin Pain 12/17/2024 Refill [facility] #[address] [place] [address] Perez Humphrey MD Medication Refill 11/25/2024 Telephone [facility] #[address] [place] [address] Perez Humphrey MD Need Order 10/26/[address] [address] Perez Humphrey MD Medication Management; Advice Only 10/20/2024 3:15 PM CDT Office Visit [facility] [address] [place] [address] Perez Humphrey MD Peripheral edema (Primary Dx) Discharge Disposition: Discharged to home or Selfcare 10/20/2024 Travel 10/18/2024 Nurse Triage [address] [address] Perez Humphrey MD Advice Only; Leg Swelling 10/13/2024 Nurse Triage [address] [address] Perez Humphrey MD Appointment; Leg Swelling from Last 3 Months Immunizations Immunization Administration Dates Next Due Influenza Vaccine, Quadrivalent, PF 07/12/2019 Influenza, High-dose, Quadrivalent 05/08/2023, Influenza, Injectable, Quadrivalent 2017 Influenza, Quadrivalent, Adjuvanted 05/13/2022,1 Influenza, Seasonal, Injectable, Undefined 05/06 Influenza, Trivalent, Adjuvanted, PF 09/02/2024 Influenza, high-dose, trivalent, PF 03/27/2016 Pneumococcal Vaccine - 13 Valent 05/08/2023 Pneumococcal conjugate PCV20 , polysaccharide [id number] conjugate, adjuvant, PF 09/02/2024 TD VACCINE 10/12/2018 [...] 3:29 PM CDT Height 175.3 cm (5' 9) 10/20/2024 3:29 PM CDT Body Mass Index 48.88 10/20/2024 3:29 PM CDT Plan of Treatment Upcoming Encounters Date Type Department Care Team (Late st Contact Info) Description 12/30/2024 2:45 PM CDT Office Visit [facility] #2 [place] [address] Louie Abrams MD #2 [facility] [address] [place] [address] 01/03/2025 3:45 PM CDT Office Visit [facility] #2 [place] [address] Mira Thrasher APRN, PLAYER DEVELOPMENT EXECUTIVE #2 [facility] [address] [place] [address] Health Maintenance Due Date Last Done Comments Hepatitis C Virus (HCV) Screening 1949 Cologuard 1994 Colonoscopy 1994 Colorectal Cancer Screening 1994 Immunochemical Fecal Occult Blood 1994 Zoster Immunization (1 of 2) 1999 SARS-COV-2 Immunization ( season) 2024 04/22/2021, 09/05/2020, 08/15/2020 Respiratory Syncytial Virus (RSV) Immunization (Adult) (1 - 1-dose 75+ series) 2024 Influenza Immunization (#1) 02/21/202508/21, 05/08/2023, 05/13/2022, Additional history exists Td Immunization Every 10 Years (Adults With 1 Tdap) 10/12/2028 10/12/2018, 05/10/2016 TdaP Immunization Discontinued 05/10/2016 Pneumococcal Immunization (50+ years) Completed 09/02/2024, 05/08/2023 [...] Priority Date/Time Associated Diagnosis Comments XR - LOWER EXTREMITY 11/05/2024 12:00 AM CDT CTA GENERIC 11/02/2024 12:00 AM CDT CARDIOLOGY CONSULT 11/01/2024 12 :00 AM CDT ECHO GENERIC 11/01/2024 12:00 AM CDT US - LOWER EXTREMITY 11/01/2024 12:00 AM CDT XR - CHEST 11/01/2024 12:[address] - CHEST 11/01/2024 12:[address] - HEAD/NECK 11/01/2024 12:00 AM CDT US - LOWER EXTREMITY 10/14/2024 12:00 AM CDT XR - CHEST 10/14/2024 12:[address] - HEAD/NECK 10/14/2024 12:00 AM CDT from Last 3 Months Results * XR - LOWER EXTREMITY (11/05/2024 12:00 AM CDT) 11/05/2024 us Provider Scan IMG DIAGNOSTIC ORDERABLES Final Result Performing Organization Address [facility] de Phone Number SCAN * CTA GENERIC (11/02/2024 12:00 AM CDT) 11/02/2024 us Provider Scan IMG CT ORDERABLES Final Result Performing Organization Address [facility] Co de Phone Number SCAN * ECHO GENERIC (11/01/2024 12:00 AM CDT) LV EF(estimated)% 68 RESULTING AGENCY 11/01/2024 us Provider Scan IMG ECHO ORDERABLES Final Result Performing Organization Address [facility] Co de Phone Number RESULTING AGENCY * US - LOWER EXTREMITY (11/01/2024 12:00 AM CDT) Only the most recent of2 resultswithin the time period is included. 11/01/2024 us Provider Scan IMG US ORDERABLES Final Result Performing Organization Address [facility] Co de Phone Number SCAN * XR - CHEST (11/01/2024 12:00 AM CDT) Only the most recent of2 resultswithin the time period is included. 11/01/2024 us Provider Scan IMG DIAGNOSTIC ORDERABLES Final Result Performing Organization Address [facility] Co de Phone Number SCAN * CT - CHEST (11/01/2024 12:00 AM CDT) 11/01/2024 us Provider Scan IMG CT ORDERABLES Final Result Performing Organization Address [facility] Co de Phone Number SCAN * CT - HEAD/NECK (11/01/2024 12:00 AM CDT) Only the most recent of2 resultswithin the time period is included. 11/01/2024 us Provider Scan IMG CT ORDERABLES Final Result Performing Organization Address [facility] Co de Phone Number SCAN * CARDIOLOGY CONSULT (11/01/2024 12:00 AM CDT) 11/01/2024 us Provider Scan GENERIC SCAN ORDERS CONSULT Puja dimas Result Performing Organization Address [facility] Co de Phone Number SCAN from Last 3 Months Insurance MEDICARE C [facility] Care Teams Trommel Tender Relationship Specialty Start Date End Date Perez Humphrey MD #[address] [address] PCP - General Family Medicine 11/11/23
--- OUTSIDE RECORDS SUMMARY | 2024-12-30 12:34 | XMS_ITS | Encounter Summary ---
Author Organization [facility] Address [address] [place] [address] Phone Care Team Providers Care Horse Race Timer Name Role Phone Perez Humphrey MD Primary Care Provider [phone] Reason for Visit * Reason Onset Date Comments Advice Only 10/18/2024 Leg Swelling 10/18/2024 Encounter Details Date Type Department Care Team (Late st Contact Info) Description 10/18/2024 Nurse Triage [facility] [address] [place] [address] Perez Humphrey MD #[address] [address] Advice Only; Leg Swelling Social [...] was last seen in emergency department at [place] on 10/14/24 for leg swelling, but stated [...] - Not From Injury Outcome: Transfer to erosion control specialist queue Reason: Discoloration (purple, blue, white, pale) The caller accepted this outcome. Caller Denied: * Trouble breathing * Chest pain documented in this encounter Plan of Treatment Upcoming Encounters Date Type Department Care Team (Late st Contact Info) Description 12/30/2024 2:45 PM CDT Office Visit [facility] [place] [address] Louie Abrams MD #[address] [place] [address] 01/03/2025 3:45 PM CDT Office Visit [facility] [address] [place] [address] Mira Thrasher APRN, CAPACITOR PACK PRESS OPERATOR #[address] [place] [address] documented as of this encounter Visit Diagnoses Not on filedocumented in this encounter Additional Health Concerns Assessment Noted Time PHQ-9 Depression Total Score: 0 11/11/19 24 6:26 PM CDT documented as of this encounter Care Teams Horse Race Timer Relationship Specialty Start Date End Date Perez Humphrey MD #[address] [place] [address] PCP - General Family Medicine 11/11/23 documented as of this encounter
--- OUTSIDE RECORDS SUMMARY | 2024-12-30 12:34 | XMS_ITS | Clinical Summary ---
Author Organization [facility] Address [address] [place] [address] Care Team Providers Care Manager Front Office Name Role Phone Diann Regan MD Primary Care Provider [phone] Allergies Active Allergy Reactions Criticality Noted Date [...] Comments Blood Pressure 159/89 08/08/2021 2:09 AM BRAKE LININGS COATER Pulse 68 08/08/2021 2:09 AM BRAKE LININGS COATER Temperature 36.9 C (98.4 F) 08/07/2021 6:10 PM BRAKE LININGS COATER Respiratory Rate 18 08/08/2021 2:09 AM BRAKE LININGS COATER Oxygen Saturation 96% 08/08/2021 3:45 AM BRAKE LININGS COATER Inhaled Oxygen Concentration - - Weight 138.3 kg (305 lb) 07/17/2021 12:42 PM BRAKE LININGS COATER Height 175.3 cm (5' 9) 08/07/2021 6:10 PM BRAKE LININGS COATER Body Mass Index 45.04 07/17/2021 12:42 PM BRAKE LININGS COATER Plan of Treatment Health Maintenance Due Date [...] age to complete this topic Insurance [facility] Care Teams Manager Front Office Relationship Specialty Start Date End Date Diann Regan MD [address] [place] [address] PCP - General FAMILY PRACTICE 10/08/20
--- OUTSIDE RECORDS SUMMARY | 2024-12-30 12:34 | XMS_ITS | Continuity of Care Document ---
Author Organization [facility] Address [address] [place] [address] [address] [place] [address] Phone Care Team Providers Care Absence Management Consultant Name Role Phone Hermosillo OD, Ezra Unavailable Unavailable Procedures Procedure Date Eye Exam Established Pt Advance Directives Directive Yes / No Effective Date File Name No Information Encounters Encounter Description Practice Location Reason(s) For Visit Diagnoses Date Provider Providers Copied on Encounter [facility], [id number] [place] [address] [address], [place], [place], [id number], [place] tel:[phone] [facility] No Information [phone] 0 Hermosillo OD Ezra. [address] , [address], [place], [address], [place]. tel:[phone] Referring Provider: Michelle Chowdary MD, [address], [place], [address]. tel:[phone] Family History Family Member Type Diagnosis Age At Onset No Information Payers Payer name Insurance type Covered libertarian ID Authoriza tion(s) Medicaid [facility] [id number] Social History Type Description Quantity Date Captured [...]
--- OUTSIDE RECORDS SUMMARY | 2024-12-30 15:02 | XMS_ITS | Encounter Summary ---
Author Organization [facility] Address [address] [place] [address] Phone Care Team Providers Care Merchandising Stock Associate Name Role Phone Perez Humphrey MD Primary Care Provider [phone] Reason for Visit * Reason Onset Date Comments Leg Swelling 12/29/2024 Skin Problem 12/29/2024 Encounter Details Date Type Department Care Team (Late st Contact Info) Description 12/29/2024 Nurse Triage [facility] [address] [place] [address] Perez Humphrey MD #[address] [address] Leg Swelling; Skin Problem Social [...] Care Team (Late st Contact Info) Description 01/03/2025 3:45 PM CDT Office Visit [facility] - Family [facility] [address] [place] [address] Mira Thrasher APRN, FORENSIC ANALYST #[address] [phone] documented as of this encounter Visit Diagnoses Not on filedocumented in this encounter Additional Health Concerns Assessment Noted Time PHQ-9 Depression Total Score: 0 11/11/19 24 6:26 PM CDT documented as of this encounter Care Teams Merchandising Stock Associate Relationship Specialty Start Date End Date Perez Humphrey MD [address] [place] [address] [place] [address] PCP - General Family Medicine 11/11/23 documented as of this encounter
--- OUTSIDE RECORDS SUMMARY | 2024-12-30 15:02 | XMS_ITS | Encounter Summary ---
Author Organization [facility] Address [address] [place] [address] Phone Care Team Providers Care Coin Machine Servicer Repairer Name Role Phone Perez Humphrey MD Primary Care Provider [phone] Reason for Visit * Reason Onset Date Comments Skin Problem 12/29/2024 Leg Swelling 12/29/2024 Left lower leg r edness and mild swelling Leg Pain 12/29/2024 Upper right leg/ thigh pain Groin Pain 12/29/2024 Encounter Details Date Type Department Care Team (Late st Contact Info) Description 12/29/2024 Nurse Triage [facility] [address] [place] [address] Perez Humphrey MD #[address] [address] Skin Problem; Leg Swelling (Left lower leg [...] PCP office. Patient said he was in [facility] for cellulitis for lower legs (mostly left lower leg) about 6 weeks ago and had rehab afterward- said he was discharged from rehab about 4-5 weeks ago Per chart review, patient has an appointment scheduled with PCP: All Patient Appointments Date & Time Provider Department Dept Phone 01/03/2025 3:45 PM Mira Thrasher [facility] - [facility] [phone] Rash symptoms for 4-5 weeks ASSESSMENT: Symptom Description / Location: Rash- patient said he thinks he got a fungus/rash from previous intermediate stay- no pain to rash Rash Appearance: [...] rash but then the rash comes back [place] Allergies and pharmacy verified. RECOMMENDATION: Dispositions for [...] provider high priority to notify. Discussed utilizing [employer] grouphart to: discuss if they would prefer a [...] Description 01/03/2025 3:45 PM CDT Office Visit [facility] - Family Medicine [facility] [address] [place] [address] Mira Thrasher APRN, INCOME TAX ANALYST #[address] [address] documented as of this encounter Visit Diagnoses Not on filedocumented in this encounter Additional Health Concerns Assessment Noted Time PHQ-9 Depression Total Score: 0 11/11/19 24 6:26 PM CDT documented as of this encounter Care Teams Coin Machine Servicer Repairer Relationship Specialty Start Date End Date Perez Humphrey MD #[address] [address] PCP - General Family Medicine 11/11/23 documented as of this encounter
--- OUTSIDE RECORDS SUMMARY | 2024-12-30 15:02 | XMS_ITS | Encounter Summary ---
Author Organization [facility] Address [address] [place] [address] Phone Care Team Providers Care Product Engineer Name Role Phone Perez Humphrey MD Primary Care Provider [phone] Reason for Visit * Reason Onset Date Comments Advice Only 10/18/2024 Leg Swelling 10/18/2024 Encounter Details Date Type Department Care Team (Late st Contact Info) Description 10/18/2024 [facility] [address] [place] [address] Perez Humphrey MD #[address] [address] Advice Only; Leg Swelling Social [...] was last seen in emergency department at [place] on 10/14/24 for leg swelling, but stated [...] - Not From Injury Outcome: Transfer to chemistry tutor queue Reason: Discoloration (purple, blue, white, pale) The caller accepted this outcome. Caller Denied: * Trouble breathing * Chest pain documented in this encounter Plan of Treatment Upcoming Encounters Date Type Department Care Team (Late st Contact Info) Description 01/03/2025 3:45 PM CDT Office Visit [facility] - Family Medicine [facility] [address] [place] [address] Mira Thrasher APRN, PARACHUTE MARKER #[address] [address] documented as of this encounter Visit Diagnoses Not on filedocumented in this encounter Additional Health Concerns Assessment Noted Time PHQ-9 Depression Total Score: 0 11/11/19 24 6:26 PM CDT documented as of this encounter Care Teams Product Engineer Relationship Specialty Start Date End Date Perez Humphrey MD #[address] [address] PCP - General Family Medicine 11/11/23 documented as of this encounter
--- OUTSIDE RECORDS SUMMARY | 2024-12-30 15:02 | XMS_ITS | Encounter Summary ---
Author Organization [facility] Address [address] [place] [address] Phone Care Team Providers Care Dry Cure Worker Name Role Phone Perez Humphrey MD Primary Care Provider [phone] Reason for Visit * Reason Onset Date Comments Appointment 10/13/2024 Leg Swelling 10/13/2024 Encounter Details Date Type Department Care Team (Late st Contact Info) Description 10/13/2024 [facility] [address] [place] [address] Perez Humphrey MD #[address] [address] Appointment; Leg Swelling Social History [...] Dept Phone 10/15/2024 9:30 AM Perez Humphrey [facility] - Family Medicine [facility] [phone] Encounter routed to provider high priority to [...] Leg Swelling and Edema-A-OH, Weakness (Generalized) and Ycurzox-N-GP * Telephone Encounter - Marta Juarez - 10/13/2024 1:22 PM CDT Symptom: Leg Swelling - Not From Injury Outcome: Transfer to chlorine operator queue Reason: Discoloration (purple, blue, white, pale) The caller accepted this outcome. Caller Denied: * Trouble breathing * Chest pain documented in this encounter Plan of Treatment Upcoming Encounters Date Type Department Care Team (Late st Contact Info) Description 01/03/2025 3:45 PM CDT Office Visit [facility] - [facility] - [place] [address] [place] [address] Mira Thrasher APRN, BRAZE OPERATOR #[address] [address] documented as of this encounter Visit Diagnoses Not on filedocumented in this encounter Additional Health Concerns Assessment Noted Time PHQ-9 Depression Total Score: 0 11/11/19 24 6:26 PM CDT documented as of this encounter Care Teams Dry Cure Worker Relationship Specialty Start Date End Date Perez Humphrey MD #[address] [address] PCP - General Family Medicine 11/11/23 documented as of this encounter
--- OUTSIDE RECORDS SUMMARY | 2024-12-30 15:02 | XMS_ITS | Clinical Summary ---
Author Organization [facility] Address [address] [place] [address] Phone Care Team Providers Care Dowel Inspector Name Role Phone Perez Humphrey MD Primary Care Provider [phone] Allergies Active Allergy Reactions Criticality Noted Date [...] Department Care Team Description 12/29/2024 Nurse [address] [address] Perez Humphrey MD Leg Swelling; Skin Problem 12/29/2024 Nurse Triage [address] [address] Perez Humphrey MD Skin Problem; Leg Swelling (Left lower leg redness and mild swelling); Leg Pain (Upper right leg/thigh pain); Groin Pain 12/17/2024 Refill [facility] #2 [place] [address] Perez Humphrey MD Medication Refill 11/25/2024 Telephone [facility] [address] [place] [address] Perez Humphrey MD Need Order 10/26/[address] [address] Perez Humphrey MD Medication Management; Advice Only 10/20/2024 3:15 PM CDT Office Visit [facility] [address] [place] [address] Perez Humphrey MD Peripheral edema (Primary Dx) Discharge Disposition: Discharged to home or Selfcare 10/20/2024 Travel 10/18/2024 Nurse Triage [address] [address] Perez Humphrey MD Advice Only; Leg Swelling 10/13/2024 Nurse Triage [address] [address] Perez Humphrey MD Appointment; Leg Swelling from Last 3 Months Immunizations Immunization Administration Dates Next Due Influenza Vaccine, Quadrivalent, PF 07/12/2019 Influenza, High-dose, Quadrivalent 05/08/2023, Influenza, Injectable, Quadrivalent 2017 Influenza, Quadrivalent, Adjuvanted 05/13/2022,1 Influenza, Seasonal, Injectable, Undefined 05/06 Influenza, Trivalent, Adjuvanted, PF 09/02/2024 Influenza, high-dose, trivalent, PF 03/27/2016 Pneumococcal Vaccine - 13 Valent 05/08/2023 Pneumococcal conjugate PCV20 , polysaccharide [id number] conjugate, adjuvant, PF 09/02/2024 TD VACCINE 10/12/2018 [...] [facility] - [facility] Medicine - [place] [address] [place] [address] Mira Thrasher APRN, CORROSION CONTROL FITTER [address] [place] [address] Health Maintenance Due Date Last Done Comments [...] IMG DIAGNOSTIC ORDERABLES Final Result SCAN * CTA GENERIC (11/02/2024 12:00 AM CDT) 11/02/2024 us Provider Scan IMG CT ORDERABLES Final Result SCAN * ECHO GENERIC (11/01/2024 12:00 AM CDT) LV EF(estimated)% 68 RESULTING AGENCY 11/01/2024 us Provider Scan IMG ECHO ORDERABLES Final Result RESULTING AGENCY * US - LOWER EXTREMITY (11/01/2024 12:00 AM CDT) Only the most recent of2 resultswithin the time period is included. 11/01/2024 us Provider Scan IMG US ORDERABLES Final Result SCAN * XR - CHEST (11/01/2024 12:00 AM CDT) Only the most recent of2 resultswithin the time period is included. 11/01/2024 us Provider Scan IMG DIAGNOSTIC ORDERABLES Final Result SCAN * CT - CHEST (11/01/2024 12:00 AM CDT) 11/01/2024 us Provider Scan IMG CT ORDERABLES Final Result SCAN * CT - HEAD/NECK (11/01/2024 12:00 AM CDT) Only the most recent of2 resultswithin the time period is included. 11/01/2024 us Provider Scan IMG CT ORDERABLES Final Result SCAN * CARDIOLOGY CONSULT (11/01/2024 12:00 AM CDT) 11/01/2024 us Provider Scan GENERIC SCAN ORDERS CONSULT Puja l Result Performing Organization Address [facility] Co de Phone Number SCAN from Last 3 Months Insurance MEDICARE C [facility] Care Teams Dowel Inspector Relationship Specialty Start Date End Date Perez Humphrey MD [address] [place] [phone] PCP - General Family Medicine 11/11/23
--- OUTSIDE RECORDS SUMMARY | 2024-12-30 15:02 | XMS_ITS | Clinical Summary ---
Author Organization [facility] Address [address] [place] [address] Care Team Providers Care Outside Laborer Name Role Phone Diann Regan MD Primary Care Provider [phone] Allergies Active Allergy Reactions Criticality Noted Date [...] Comments Blood Pressure 159/89 08/08/2021 2:09 AM RESTORATIVE REHAB AIDE Pulse 68 08/08/2021 2:09 AM RESTORATIVE REHAB AIDE Temperature 36.9 C (98.4 F) 08/07/2021 6:10 PM RESTORATIVE REHAB AIDE Respiratory Rate 18 08/08/2021 2:09 AM RESTORATIVE REHAB AIDE Oxygen Saturation 96% 08/08/2021 3:45 AM RESTORATIVE REHAB AIDE Inhaled Oxygen Concentration - - Weight 138.3 kg (305 lb) 07/17/2021 12:42 PM RESTORATIVE REHAB AIDE Height 175.3 cm (5' 9) 08/07/2021 6:10 PM RESTORATIVE REHAB AIDE Body Mass Index 45.04 07/17/2021 12:42 PM RESTORATIVE REHAB AIDE Plan of Treatment Health Maintenance Due Date [...] patient's age to complete this topic Insurance [facility] Care Teams Outside Laborer Relationship Specialty Start Date End Date Diann Regan MD [address] [place] [address] PCP - General FAMILY PRACTICE 10/08/20
--- OUTSIDE RECORDS SUMMARY | 2024-12-30 15:02 | XMS_ITS | Data Portability ---
Author Organization [place] [facility] [employer], Main Office Address [address] [place] [address] Care Team Providers Care Clock Maker Name Role Phone DIANN CORDERO Primary Care Provider [phone] DIANN CORDERO Referring Provider Assessment No assessment [...] 100 mg capsule 2022 023 [id number], [address] [facility], [place], [place], [id number], 3 12:45:16 prednisone 10 mg tablet 2022 023 [facility] #[id number], [address], [place], [place], [id number], 3 12:45:16 tamsulosin 0.4 mg capsule 2022 023 [facility], [address] [place], [place], [id number], 3 12:49:24 amoxicillin 875 mg tablet 2022 023 [facility]46694, [address] [place], [place], [id number], 3 12:53:50 Patient TargetsNo targets recorded. Patient InstructionsNo instructions recorded. Reason for Referral None Reported. Results Created Date Observation Date Name Description Value Unit Range Abnormal Flag Note LastModifiedBy Organization Detail LastModifiedTime 05/08/2005/08/2023 COMPR EHENS DEDE METAB OLIC PANEL sodium 135 mmol/ L 137-14 5 low Not Available [facility] (Lab) [address] [place], [address], 05/08/2023 20:51:29 05/08/20 23 05/08/2023 COMPR EHENS DEDE METAB OLIC PANEL potassium 4.5 mmol/ L 3.5-5. 1 Not Available [facility] (Lab) [address] [place], [address], 05/08/2023 20:51:29 05/08/20 23 05/08/2023 COMPR EHENS DEDE METAB OLIC PANEL chloride 100 mmol/ L 98-107 Not Available [facility] (Lab) [address] [place], [address], 05/08/2023 20:51:29 05/08/20 23 05/08/2023 COMPR EHENS DEDE METAB OLIC PANEL carbon dioxide 26 mmol/ L 22-30 Not Available [facility] (Lab) [address] [place], [address], 05/08/2023 20:51:29 05/08/20 23 05/08/2023 COMPR EHENS DEDE METAB OLIC PANEL anion gap 13.5 mmol/ L 14-22 low Not Available [facility] (Lab) [address] [place], [address], 05/08/2023 20:51:29 05/08/20 23 05/08/2023 COMPR EHENS DEDE METAB OLIC PANEL glucose 106 mg/dL 70-99 high Not Available [facility] (Lab) [address] [place], [address], 05/08/2023 20:51:29 05/08/20 23 05/08/2023 COMPR EHENS DEDE METAB OLIC PANEL BUN 23 mg/dL 8-19 high Not Available [facility] (Lab) [address] [place], [address], 05/08/2023 20:51:29 05/08/20 23 05/08/2023 COMPR EHENS DEDE METAB OLIC PANEL creatinine 0.65 mg/dL 0.66-1 .25 low Not Available [facility] (Lab) [address] [place], [address], 05/08/2023 20:51:29 05/08/20 23 05/08/2023 COMPR EHENS DEDE METAB OLIC PANEL GFR >60 Refer ence Range : [place] GFR Healt hy Adult : >60 [...] calcu lator is avail able on the [facility] websi te: [email or web address] :[email or web address] [email or web address] culat or Not Available [facility] (Lab) [address] [place], [address], 05/08/2023 20:51:29 05/08/20 23 05/08/2023 COMPR EHENS DEDE METAB OLIC PANEL alkaline phosphatase 79 U/L 38-126 Not Available [facility] (Lab) [address] [place], [address], 05/08/2023 20:51:29 05/08/20 23 05/08/2023 COMPR EHENS DEDE METAB OLIC PANEL alanine aminotransfe rase 25 U/L 0-50 Not Available [facility] (Lab) [address] [place], [address], 05/08/2023 20:51:29 05/08/20 23 05/08/2023 COMPR EHENS DEDE METAB OLIC PANEL aspartate aminotransfe rase 30 U/L 15-46 Not Available [facility] (Lab) [address] [place], [address], 05/08/2023 20:51:29 05/08/20 23 05/08/2023 COMPR EHENS DEDE METAB OLIC PANEL bilirubin, total 1.00 mg/dL 0.20-1 .30 Not Available [facility] (Lab) [address] [place], [address], 05/08/2023 20:51:29 05/08/20 23 05/08/2023 COMPR EHENS DEDE METAB OLIC PANEL calcium 9.1 mg/dL 8.4-10 .2 Not Available [facility] (Lab) [address] [place], [address], 05/08/2023 20:51:29 05/08/20 23 05/08/2023 COMPR EHENS DEDE METAB OLIC PANEL total protein 6.0 g/dL 6.3-8. 2 low Not Available [facility] (Lab) [address] [place], [address], 05/08/2023 20:51:29 05/08/20 23 05/08/2023 COMPR EHENS DEDE METAB OLIC PANEL albumin 3.6 g/dL 3.0-4. 4 Not Available [facility] (Lab) [address] [place], [address], 05/08/2023 20:51:29 05/08/20 23 05/08/2023 COMPR EHENS DEDE METAB OLIC PANEL globulin 2.4 g/dL 2.6-4. 2 low Not Available [facility] (Lab) [address] [place], [address], 05/08/2023 20:51:29 05/08/20 23 05/08/2023 COMPR EHENS DEDE METAB OLIC PANEL A/G ratio 1.5 ratio 1.0-2. 0 Not Available [facility] (Lab) [address] [place], [address], 05/08/2023 20:51:29 05/08/20 23 05/08/2023 CBC W/O DIFFE RENTI AL white blood cells 11.8 x10'3 /uL 4.2-10 .8 high Not Available [facility] (Lab) [address] [place], [address], 05/08/2023 20:54:11 05/08/20 23 05/08/2023 CBC W/O DIFFE RENTI AL red blood cells 4.73 x10'6 /uL 4.10-5 .80 Not Available [facility] (Lab) [address] [place], [address], 05/08/2023 20:54:11 05/08/20 23 05/08/2023 CBC W/O DIFFE RENTI AL hemoglobin 14.4 g/dL 13.2-1 7.0 Not Available [facility] (Lab) [address] [place], [address], 05/08/2023 20:54:11 05/08/20 23 05/08/2023 CBC W/O DIFFE RENTI AL hematocrit 44.5 % 39.3-5 0.0 Not Available [facility] (Lab) [address] [place], [address], 05/08/2023 20:54:11 05/08/20 23 05/08/2023 CBC W/O DIFFE RENTI AL mean red cell volume 94.1 fL 80.0-9 7.0 Not Available [facility] (Lab) [address] [place], [address], 05/08/2023 20:54:11 05/08/20 23 05/08/2023 CBC W/O DIFFE RENTI AL mean red cell hemoglobin 30.4 pg 27.0-3 3.0 Not Available [facility] (Lab) [address] [place], [address], 05/08/2023 20:54:11 05/08/20 23 05/08/2023 CBC W/O DIFFE RENTI AL mean RBC HGB concentratio n 32.4 g/dL 31.0-3 6.0 Not Available [facility] (Lab) [address] [place], [address], 05/08/2023 20:54:11 05/08/20 23 05/08/2023 CBC W/O DIFFE RENTI AL red cell distribution width 13.3 % 11.8-1 5.5 Not Available [facility] (Lab) [address] [place], [address], 05/08/2023 20:54:11 05/08/20 23 05/08/2023 CBC W/O DIFFE RENTI AL platelets 158 x10'3 /uL 150-40 0 Not Available [facility] (Lab) [address] [place], [address], 05/08/2023 20:54:11 05/08/20 23 05/08/2023 CBC W/O DIFFE RENTI AL mean platelet volume 13.2 fL 9.0-12 .4 high Not Available [facility] (Lab) [address] [place], [address], 05/08/2023 20:54:11 05/08/20 23 05/08/2023 TSH thyroid-stim ulating hormone 2.420 uIU/m L 0.465- 4.680 Not Available [facility] (Lab) [address] [place], [address], 05/08/2023 21:27:36 07/17/19 22 07/17/2021 imagi ng/di agnos tic resul t No observ ation record ed. [id number] [facility] Radiology [place] [address] [facility], [place], [address], 08/21/2022 06:18:52 07/30/19 22 07/30/2021 XR, chest , 2 view No observ ation record ed. [id number], [place], [address], 08/21/2022 06:18:52 07/30/19 22 XR, chest , 2 view [facility] [address] [facility] [place] [address] Patien t Name: GILLIAN Manrique KOREY Manrique Access ion #: [id number] Sex: M : 1949 6 Locati on: RA2 Attend ing Physic eliane: KLAUS IB, RUNDA Orderi ng Physic eliane: ELANISH IB, RUNDA Exam Date: 07/30/19 3:29 PM [...] bony thorax . Page 1 of 2 [facility] Patien t Name: KOREY UNDERWOOD Access ion #: [id number] Sex: M : 1949 6 Exam [...] MD (CT) (CT) Page 2 of 2 [id number] [facility] (Imaging) [address] [place], [address], 08/21/2022 06:18:52 08/07/19 22 08/07/2021 imagi ng/di agnos tic resul t No observ ation record ed. [id number] [facility] [place], [address], 08/21/2022 06:18:52 08/08/19 22 08/08/2021 imagi ng/di agnos tic resul t No observ ation record ed. [id number] [facility] [place], [address], 08/21/2022 06:18:52 09/07/19 22 08/28/2021 imagi ng/di agnos tic resul t No observ ation record ed. [id number] [facility] [address] [place] [address] [address], [place], [address], 08/21/2022 06:18:52 Result Notes None recorded. Problems Name Problem SNOMED Code Status Onset Date Resolution Date Notes Provider Name and Address Organization Details Recorded Time Nocturia 668042992 Active Not Available [facility] 4 14:59:05 Pain of left ankle joint 25285523529 546735 Active 2020 Not Available [facility] 4 14:59:05 Pain in throat 018468625 Completed Not Available [facility] 3 06:14:14 Impacted cerumen 33819607 Completed Not Available [facility] 3 06:14:15 Tremor 70508841 Active Not Available [facility] 4 14:59:05 Knee pain Active Not Available [facility] 4 14:59:05 Sinusitis 30707234 Completed Not Available [facility] 3 06:14:15 Hypertens dede disorder 09008405 Active Not Available [facility] 4 14:59:05 Osteoarth ritis 612689430 Active Not Available [facility] 4 14:59:05 Obesity 883076312 Active Not Available [facility] 4 14:59:05 Herpes simplex virus epithelia l keratitis 523763364 Active Not Available [facility] 4 14:59:05 Mass of pancreas 167741660 Active 2019 Not Available [facility] 4 14:59:05 Acute urinary tract infection 872133861 Completed Not Available [facility] 3 06:14:15 Coronary atheroscl erosis 558332031 Active 2017 Not Available [facility] 4 14:59:05 Anxiety 22964320 Active Not Available [facility] 4 14:59:05 Pain of hip region 87922945 Completed Not Available [facility] 3 06:14:15 Cough 90705429 Completed Not Available [facility] 3 06:14:15 Hyperlipi demia 56292960 Active Not Available [facility] 4 14:59:05 Posterior rhinorrhe a 73461228 Active Not Available [facility] 4 14:59:05 Chronic pain 98868678 Active Not Available [facility] 4 14:59:05 Fatigue 49337981 Completed Not Available [facility] 3 06:14:16 Toothache 81528879 Active 2022 Not Available [facility] 4 14:59:05 Edema of lower extremity 383515094 Active 2022 Not Available [facility] 4 14:59:05 Chronic obstructi ve pulmonary disease 39532297 Active 2022 Not Available [facility] 4 14:59:05 Upper respirato ry infection 78604210 Active 2022 Not Available [facility] 4 14:59:05 Bronchiti s 64698330 Active 2022 Not Available [facility] 4 14:59:05 Benign prostatic hyperplas ia 947872312 Active 2022 Not Available [facility] 4 14:59:05 Edema of left lower leg 776856622 Active 2022 Not Available [facility] 4 14:59:05 Muscle weakness 99501926 Active 2022 Not Available [facility] 4 14:59:05 Malaise and fatigue 929694296 Active 2022 Not Available [facility] 4 14:59:05 Morbid obesity 947722399 Active 2022 Not Available [facility] 4 14:59:05 Low back pain 007065208 Active 2022 Not Available [facility] 4 14:59:05 Overactiv e urinary bladder 216078099 Active 2022 Not Available [facility] 4 14:59:05 Notes:Some problems listed i n Documents: #[id number], #[id number], #[id number] could not be added to this patient's chart. Please review these documents and add these problems to the patient's chart manually as needed. Problem Notes None recorded. Procedures Surgical History Date Name Laterality Status Provider Name and Address Organization Details Recorded Time Cardiac Stent Placement completed Not Available [facility] 08/21/2022 06:10:39 Imaging Results None recorded. Procedure Notes None recorded. Medical Equipment None Reported. Allergies Allergen ID Allergen Name Allergen Category Reaction Reaction Severity Criticality Documentation Date Start Date Code Code System Note Provider Name and Address Organization Details Recorded Time 57870 lisinopri l medicatio n cough Not available Not available 08/21/2022 13648 RxNorm Not Available [facility] 3 06:18:42 73184 Crestor medicatio n myalgias (muscle pain) Not available Not available 08/21/2022 72646 4 RxNorm leg cramp s Not Available [facility] 3 06:18:42 Medications Name Sig Start Date [...] Soluspan 6 mg/mL suspension for injection active [facility]# 32982-5 720-01 Not Available Not Available Not Available [...] e 500 mg solution for injection active [facility]# 97858-7 338-01 Not Available Not Available Not Available [...] Available oxymetazol ine 0.05 % nasal spray Fyffe 1 spray twice a day by intranas [...] Relief 50 mcg/actuat ion nasal spray,susp ension Fyffe 2 sprays every day by intranas al route. 07/16 completed Not Available Not Available Not Available Vitals Date Recorded Body mass index (BMI) Body height Oxygen saturation Oxygen saturation in Arterial blood by Pulse oximetry Heart rate Body temperature Body weight Systolic And Diastolic Provider Name and Address Organization Details Last Updated DateTime 2 49.7 kg/m2 175.26 cm 95 % 95 % 75 /min 97.7 [degF] 921032. 19 g 125/70 mm[Hg] Not Available [facility] 3 06:12:43 Date Recorded Body height Body mass index (BMI) Body weight Body temperature Heart rate Oxygen saturation Oxygen saturation in Arterial blood by Pulse oximetry Systolic And Diastolic Provider Name and Address Organization Details Last Updated DateTime 3 175.26 cm 50.4 kg/m2 218135 g 97.7 [degF] 80 /min 96 % 96 % 160/80 mm[Hg] LEILANI Chang [facility] [place] [facility] 3 12:37:09 Date Recorded Body height Body mass index (BMI) Body weight Body temperature Heart rate Oxygen saturation Oxygen saturation in Arterial blood by Pulse oximetry Systolic And Diastolic Provider Name and Address Organization Details Last Updated DateTime 3 175.26 cm 49.6 kg/m2 303721. 04 g 97.7 [degF] 63 /min 95 % 95 % 130/80 mm[Hg] LEILANI Chang [facility] [place] [facility] 3 12:33:57 Date Recorded Body height Body mass index (BMI) Body weight Body temperature Heart rate Oxygen saturation Oxygen saturation in Arterial blood by Pulse oximetry Provider Name and Address Organization Details Last Updated DateTime 3 175.26 cm 49.4 kg/m2 666617. 95 g 97.3 [degF] 77 /min 91 % 91 % Serena Arzola MA [facility] [place] [facility] 3 14:16:51 Date Recorded Body mass index (BMI) Body height Oxygen saturation Oxygen saturation in Arterial blood by Pulse oximetry Heart rate Body temperature Body weight Systolic And Diastolic Provider Name and Address Organization Details Last Updated DateTime 2 49.5 kg/m2 175.26 cm 97 % 97 % 72 /min 97.7 [degF] 428289. 44 g 160/80 mm[Hg] Not Available [facility] 06:12:43 Social History Question Answer Notes LastModified by [employer] Details LastModified Time Tobacco Smoking Status Former Smoker 1ppd Not Available [facility] 08/21/2022 06:10:23 In The 14 Days Before Symptom Onset, Have You Had Close Contact With A Laboratory-confirm ed COVID-19 While That Case Was Ill? No [id number] Information not available 08/21/2022 In The 14 Days Before Symptom Onset, Have You Had Close Contact With A Person Who Is Under Investigation For COVID-19 While That Person Was Ill? No [id number] Information not available 08/21/2022 What Type Of Diet Are You Following? REGULAR [id number] Information not available 08/21/2022 How Many Years Have You Smoked Tobacco? 12 [id number] Information not available 08/21/2022 Have You Recently Traveled Abroad? No [id number] Information not available 08/21/2022 Do You Have Any Dietary Restrictions? No [id number] Information not available 08/21/2022 Sex: Unknown Functional Status Question Answer Note LastModified by [employer] Details LastModified Time What is your occupation? semi-retired [id number] Information not available 08/21/2022 Mental Status None recorded. Family History Relationship Description Onset Age of this Age Resolved Age Notes LastModified by Organization Details LastModified Time Father Alzheimer's disease [id number] Not available 08/21/2022 06:10:41 Father Hypertensive disorder [id number] Not available 08/21/2022 06:10:41 Mother Alzheimer's disease [id number] [id number] Not available 08/21/2022 06:10:41 Mother Hypertensive disorder [id number] Not available 08/21/2022 06:10:41 Medical History No medical history recorded. Immunizations Vaccine Type Date Status Note Provider Nam e and Address Organization Details Recorded Time Influenza, split virus, quadrivalent, preservative 7 completed Not Available [facility] 07/06/2023 23:50:50 Tdap 6 completed Not Available [facility] 07/06/2023 23:50:50 Influenza, high-dose, quadrivalent, PF 0 completed Not Available [facility] 07/06/2023 23:50:50 Tdap 6 completed Not Available [facility] 07/06/2023 23:50:50 Influenza, high-dose, trivalent, PF 6 completed Not Available [facility] 07/06/2023 23:50:50 Influenza, split virus, trivalent, preservative 4 completed Not Available [facility] 07/06/2023 23:50:50 Influenza, high-dose, quadrivalent, PF 3 completed Diann Davila MD [address] [facility], [place], [address], [facility] [employer] 05/09/2023 08:37:55 Pneumococcal conjugate PCV 13 3 completed Diann Davila MD [address] [facility], [address], [place], [address], [facility] [employer] [facility] [employer] 05/09/2023 08:37:55 Past Encounters Encounter ID Performer Location Encounter Start Date Encounter Closed Date Diagnosis/Indication Diagnosis SNOMED-CT Code Diagnosis ICD10 Code Diagnosis Note [id number] Diann Davila MD [facility] Nathanael ram[facility]rez [facility] [place] [address] 01/22/2021 00:00:00 01/22/2021 21:14:20 [id number] [facility] Bonnie Canchola [address] [facility] [address] [place] [address] 04/16/2021 00:00:00 04/17/2021 14:01:27 [id number] Diann Davila MD [facility] Nathanael ramírez [address] [place] [address] 07/23/2021 00:00:00 07/23/2021 20:19:31 [id number] Diann Davila MD [facility] [place] [address] [place] [address] [place] [address] 08/14/2021 00:00:00 08/15/2021 06:44:23 [id number] Diann Davila MD [facility] [place] [address] [place] [address] [place] [address] 05/13/2022 00:00:00 05/13/2022 14:16:01 [id number] Diann Davila MD [facility] [place] [address] [place] [address] [place] [address] 10/16/2022 12:25:17 10/16/2022 12:52:55 Toothache 87412871 K08.89 gargles with warm salt water. Edema of l ower extremity 759070306 R60.0 Use compressio n stockings. [id number] Diann Davila MD [facility] [place] [address] [place] [address] [place] [address] 01/14/2023 12:27:41 01/14/2023 12:56:03 Bronchitis 23112309 J40 Benign pro static hyperplasia 090056888 N40.0 Edema of l eft lower leg 779322687 R60.0 Use compressio n stockings. [id number] Diann Davila MD [facility] [place] [address] [place] [address] [place] [address] 05/08/2023 13:58:40 05/08/2023 15:18:17 Administration of influenza vaccine 40363200 Z23 Immunization due 4496539 08 Z28.39 Muscle weakness 58113897 M62.81 May want to start PT Malaise and fatigue 2717 91076 R53.83 Morbid obesity 251871275 E66.01 Gave phentermin e but he has CAD and has had SC so told pharmacy not to fill. Health Concerns Section Related Observation LastModified by Organization Detai ls LastModified Time None Recorded Concern Status LastModified by Organization Details LastModified Time None Recorded Advance Directives Directive None Recorded Payers Insurance Date Sequence Insurance Name Policy Number Policy Lees Covered Member ID Lees Member ID Guarantor Name 08/28/2023 1 [facility] - MEDICARE COMPLETE PLAN 1 (MEDICARE REPLACEMENT HMO) [id number] Korey Fairbanks [id number] Korey Fairbanks Notes Date Note Type Note [...] put them on. Diann Davila MD [address] [facility], [facility] [address], [place], [address], [employer] 10/17/2022 06:16:38 01/14/2023 text/html Here today c/o [...] has urgency. Diann Davila MD [address], [address], [place], [address], [employer] 01/14/2023 13:49:05 05/08/2023 text/html Here today c/o [...] the way he does. Diann Davila MD [address] [facility], [facility] [address], [place], [address], [facility] 05/09/2023 08:38:38
--- OUTSIDE RECORDS SUMMARY | 2024-12-30 15:03 | XMS_ITS | Data Portability ---
Author Organization [facility] OFFICE Address [address] [place] [address] Care Team Providers Care Shoe Lay Out Planner Name Role Phone SUSHANT LLAMAS Primary Care Provider [phone] SUSHANT LLAMAS Referring Provider SUSHANT CONDE Primary Care Provider [phone] Assessment Encounter Date Assessment Date Assessment LastModified [...] Orders Lasix 20 mg tablet [email or web address] [id number], [address] [place], [place], [id number], 4 14:48:36 hydralaz ine 10 mg tablet [address] [facility] #[id number], [address] [place], [place], [id number], 4 12:34:42 Patient TargetsNo targets recorded. Patient Instructions Encounter Date Encounter Id Patient Instructions Last Modified By Organization Details Last Modified Time 10/03/2023 [id number] Weight loss, 50 pounds Exercise advised Low cholesterol diet advised Low sodium diet advised. [email or web address] Not available 10/03/2023 12:34:04 12/30/2023 [id number] Weight loss 20 pounds Exercise advised Low cholesterol diet advised Low sodium diet advised. [email or web address] Not available 12/30/2023 12:47:34 Reason for Referral None Reported. Results Created Date Observation Date Name Description Value Unit Range Abnormal Flag Note LastModifiedBy Organization Detail LastModifiedTime 05/29/20 22 05/28/2022 elect rocar diogr am No observ ation record ed. [email or web address] Not Available 2021 17:10:00 11/12/19 23 11/07/2022 , echo ardio gram No observ ation record ed. [email or web address] Not Available 2023 16:10:07 10/03/19 24 08/28/2021 mohini can cardi olite stres s test (PROC ) No observ ation record ed. [email or web address] Not Available 2023 12:39:17 10/03/19 24 mohini can cardi olite stres s test (PROC ) No observ ation record ed. [email or web address] Not Available 2023 13:25:11 10/08/19 24 10/03/2023 elect rocar diogr am No observ ation record ed. [email or web address] Not Available 2023 12:19:50 12/22/19 24 12/17/2023 mohini can cardi olite stres s test (PROC ) No observ ation record ed. [email or web address] Not Available 2023 09:23:37 05/04/20 24 05/01/2024 [facility] rocar diogr am No observ ation record ed. [email or web address] Not Available 2024 19:07:13 Result Notes None recorded. Problems Name Problem SNOMED Code Status Onset Date Resolution Date Notes Provider Name and Address Organization Details Recorded Time Chest pain 93673890 Active 2016 Not Available [facility] 2 05:53:02 Benign hypertensi on 24026192 Active 2016 JOSE [facility] 2 12:58:48 Hyperlipid emia 32976956 Active 2016 Cisneros Mesto [facility] 2 12:58:55 Obesity 934616591 Active 2016 Not Available [facility] 2 05:53:02 Rheumatoid arthritis 38970397 Active 2016 Not Available [facility] 2 05:53:02 Fibromyalg ia 758402281 Active 2016 Not Available [facility] 2 05:53:02 Acute non-ST segment elevation myocardial infarction 456395672 Active 2016 Not Available [facility] 2 05:53:02 Electrocar diogram abnormal 932886981 Active 2016 Not Available [facility] 2 05:53:02 Pain in bilateral legs 0713375986886 9108 Active 2017 Not Available [facility] 2 05:53:02 Sleep pattern disturbanc e 16097454 Active 2017 Not Available [facility] 2 05:53:02 Edema of lower extremity 189275856 Active 2017 Not Available [facility] 2 05:53:02 Coronary atheroscle rosis 924079885 Active 2019 Cisnerosjerel Baker [facility] 2 12:58:43 Notes:Some problems listed i n Documents: #[id number], #[id number] could not be added to this patient's chart. Please review these documents and add these problems to the patient's chart manually as needed. Problem Notes None recorded. Procedures Surgical History Date Name Laterality Status Provider Name and Address Organization Details Recorded Time Knee arthroscopy /surgery completed Josephine Brooke [facility] 04/07/2017 15:12:10 Imaging Results None recorded. Procedure Notes None recorded. Medical Equipment None Reported. Allergies Allergen ID Allergen Name Allergen Category Reaction Reaction Severity Criticality Documentation Date Start Date Code Code System Note Provider Name and Address Organization Details Recorded Time 81540 lisinopri l medicatio n cough Not available Not available 12/10/20202020 86421 RxNorm Amelia Baker [facility] 1 13:59:02 56984 rosuvasta tin medicatio n myalgias (muscle pain) Not available Not available 12/10/20202020 83681 2 RxNorm Amelia Baker [facility] 13:59:02 Medications Name Sig [...] Updated DateTime 3 175.26 cm 50.1 kg/m2 779597. 81 g 81 /min 16 /min 95 % 95 % 124/84 mm[Hg] Brian Hutchinson [facility] 3 10:54:18 Date Recorded Body weight Heart rate Oxygen saturation Oxygen saturation in Arterial blood by Pulse oximetry Systolic And Diastolic Provider Name and Address Organization Details Last Updated DateTime 4 276897. 22 g 78 /min 94 % 94 % 188/91 mm[Hg] Adriana Moreno [facility] 4 12:10:51 Date Recorded Body mass index (BMI) Body height Provider Name and Address Organization Details Last Updated DateTime 10/03/2023 49.9 kg/m2 175.26 cm Nicole Zena [facility] 10/07/2023 16:20:11 Date Recorded Body height Body mass index (BMI) Body weight Heart rate Oxygen saturation Oxygen saturation in Arterial blood by Pulse oximetry Systolic And Diastolic Provider Name and Address Organization Details Last Updated DateTime 4 175.26 cm 49.6 kg/m2 528955. 04 g 83 /min 94 % 94 % 160/78 mm[Hg] Candice Morfin [facility] 4 12:37:13 Date Recorded Body height Body mass index (BMI) Body weight Heart rate Oxygen saturation Oxygen saturation in Arterial blood by Pulse oximetry Systolic And Diastolic Provider Name and Address Organization Details Last Updated DateTime 4 175.26 cm 49.8 kg/m2 744029. 63 g 70 /min 97 % 97 % 171/76 mm[Hg] Adriana Moreno [facility] 4 14:22:17 Date Recorded Body height Body mass index (BMI) Body weight Heart rate Respiratory rate Oxygen saturation Oxygen saturation in Arterial blood by Pulse oximetry Systolic And Diastolic Provider Name and Address Organization Details Last Updated DateTime 2 175.26 cm 49.8 kg/m2 658034. 63 g 72 /min 16 /min 96 % 96 % 124/82 mm[Hg] Brian Hutchinson [facility] 2 13:25:25 Social History Question Answer Notes LastModified by [employer] Details LastModified Time Tobacco Smoking Status Former Smoker Not Available [facility] 04/25/2020 03:30:41 What Is Your Level Of Caffeine Consumption? Occasional [id number] Information not available 04/25/2020 How Much Tobacco Do You Chew? None [id number] Information not available 04/25/2020 What Type Of Diet Are You Following? REGULAR [id number] Information not available 04/25/2020 Which Illicit Or Recreational Drugs Have You Used? No [id number] Information not available 04/25/2020 Live Alone Or With Others? With Others Information not available 04/07/2017 Marital Status [email or web address] Informatio n not available 04/07/2017 What Was The Date Of Your Most Recent Tobacco Screening? 12/23/2018 [id number] Information not available 04/25/2020 How Many Children Do You Have? 3 [id number] Information not available 04/25/2020 How Much Tobacco Do You Smoke? No [id number] Information not available 04/25/2020 Sex: Unknown Functional Status Question Answer Note LastModified by [employer] Details LastModified Time What is your level of alcohol consumption? Occasional [id number] Information not available 04/25/2020 Do you or have you ever used smokeless tobacco? 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 Never used electronic cigarettes Information not available 09/08/2020 What is your exercise level? Occasional [id number] Information not available 04/25/2020 Mental Status None recorded. Family History Nothing Reported. Medical History Condition Response Coronary Artery Disease Y High Cholesterol Y Diabetes Y Myocardial Infarction Y Hypertension Y Immunizations Vaccine Type Date Status Note Provider Nam e and Address Organization Details Recorded Time COVID-19, mRNA, LNP-S, PF, 30 mcg/0.3 mL dose 08/15/2020 completed Brian sams, [facility] 05/28/2022 13:26:04 COVID-19, mRNA, LNP-S, PF, 30 mcg/0.3 mL dose 09/05/2020 completed Brian sams [facility] 05/28/2022 13:26:04 Past Encounters Encounter ID Performer Location Encounter Start Date Encounter Closed Date Diagnosis/Indication Diagnosis SNOMED-CT Code Diagnosis ICD10 Code Diagnosis Note [id number] Deng Smith MD [facility] OFF[facility] [address] [place] [address] 04/07/2017 15:06:04 2017 09:33:58 Electrocardiogram abnormal 707162188 R94.31 Benign hypertension 1072 5009 I10 Acute non- ST segment elevation myocardial infarction 424360827 I21.4 s/p LAD [place] 020428524 E66.9 Needs to lose 20 pounds till next visit Dyslipidemia 383037484 E 78.5 Needs to keep LDL less than 70, and HDL more than 40Will [place] [id number] Deng [place] MD [facility] OFF[facility] [address] [place] [address] 1 08/12/2017 16:10:11 08/13/2017 11:09:33 Electrocardiogram abnormal 677639493 R94.31 Benign hypertension 1072 5009 I10 Acute non- ST segment elevation myocardial infarction 519902557 I21.4 s/p LAD Stentfeels [place] [place] 441162094 E66.9 Needs to lose 20 pounds till next visit Dyslipidemia 053223678 E 78.5 Needs to keep LDL less than 70, and HDL more than 40Will get fating lipids [place] [id number] Joon Pelaez MD [facility] OFF[facility] [address] [place] [address] 11/05/2017 16:53:56 11/06/2017 09:41:56 Benign hypertension 28181122 I10 Patient's blood pressure is somewhat well-contr olled on present medical therapy. Patient is tolerating , without difficulty , the current medication s. I have not made changes to the current regimen. Patient is advised to maintain a blood pressure diary. Patient was advised to eat a low-sodium diet (2 grams sodium or less daily). Increase Acute non- ST segment elevation myocardial infarction 132261824 I21.4 s/p LAD Stent 03/2017 Better now but with fatigue, without chest pain. He was unwilling to proceed with Cardiac rehab at [place]. Increase walking. Patient only taking metoprolol tartrate in AM and missing PM dose. Switched to metoprolol succinate 50 mg qd 11/05/17. Obesity 112585593 E66.9 Needs to lose 20 pounds in next several months. Dyslipidemia 901426389 E 78.5 Needs to keep LDL less than 70, and HDL more than 40 Will get fasting lipids for follow up. Fatigue 25032654 R53.83 Will order TSH. Pain in bi lateral legs 6261757738 7493695 M79.604 Leg fatigue noted. Obtain DEDE results. Sleep cristina carmen disturbance 66433932 G47.9 Obtain home sleep study. Edema of l ower extremity 202279414 R60.0 Bilateral. Began HCTZ 25 mg qd 11/05/17. CMP, Mg in 3 weeks. Had ECHO on 04/03/17: Normal left ventricula r size. Mild concentric left ventricula r hypertroph y. Normal global left ventricula r systolic function. Impaired diastolic relaxation . Grade 1. Ejection fraction is measured at 71%. Technicall y difficult study with limited views. No prior echo available for comparison . [id number] Joon Pelaez MD [facility] OFF[facility] [address] [place] [address] 03/11/2018 15:33:18 03/11/2018 17:21:24 Benign hypertension 38300120 I10 Patient's blood pressure is somewhat well-contr olled on present medical therapy. Patient is tolerating , without difficulty , the current medication s. I have not made changes to the current regimen. Patient is advised to maintain a blood pressure diary. Patient was advised to eat a low-sodium diet (2 grams sodium or less daily). Begin water aerobics. Acute non- ST segment elevation myocardial infarction 608825652 I21.4 s/p LAD Stent 03/2017 Better now but with fatigue, without chest pain. He was unwilling to proceed with Cardiac rehab at [place]. Increase walking or pool exercises. Patient only taking metoprolol tartrate in AM and missing PM dose. Switched to metoprolol succinate 50 mg qd 11/05/17. Continue ASA and Plavix. Obesity 852391655 E66.9 Needs to lose 20 pounds in next several months. Had 11/24/17: TSH 2.860. Dyslipidemia 690920698 E 78.5 Needs to keep LDL less than 70, and HDL more than 40 Will get fasting lipids for follow up. Fatigue 26021049 R53.83 Stable. Normal TSH. 20 lb. weight loss recommende d over the next 2 months. Increase exercise. Pain in bi lateral legs 8208819922 1719383 M79.604 Leg fatigue noted. Had normal DEDE on 10/28/17 . Sleep cristina carmen disturbance 39995737 G47.9 Obtain home sleep study. Edema of l ower extremity 371846931 R60.0 Bilateral, stable. Began HCTZ 25 mg qd 11/05/17. CMP, Mg normal. Had ECHO on 04/03/17: Normal left ventricula r size. Mild concentric left ventricula r hypertroph y. Normal global left ventricula r systolic function. Impaired diastolic relaxation . Grade 1. Ejection fraction is measured at 71%. Technicall y difficult study with limited views. No prior echo available for comparison . [id number] Joon Pelaez MD [facility] [address] [place] [address] 04/22/2018 15:52:19 04/22/2018 17:55:20 Benign hypertension 23666988 I10 Patient's blood pressure is well-contr olled on present medical therapy. Patient is tolerating , without difficulty , the current medication s. I have not made changes to the current regimen. Patient is advised to maintain a blood pressure diary. Patient was advised to eat a low-sodium diet (2 grams sodium or less daily). Begin water aerobics. Acute non- ST segment elevation myocardial infarction 476332247 I21.4 s/p LAD Stent 03/2017 Better now but with fatigue, without chest pain. He was unwilling to proceed with Cardiac rehab at [place]. Increase walking or pool exercises. Switched to metoprolol succinate 50 mg qd 11/05/17. Continue ASA and Plavix. Obesity 321287770 E66.9 Needs to lose 20 pounds in next several months. Had 11/24/17: TSH 2.860. Dyslipidemia 879470689 E 78.5 Needs to keep LDL less than 70, and HDL more than 40 Had 11/24/17: LDL 91. Increased to atorvastat in 80 mg qHS 04/22/18. Obtain FLP, CMP, CPK, Mg. Fatigue 64113994 R53.83 Stable. Normal TSH. 20 lb. weight loss recommende d over the next 2 months. Increase exercise. Evaluate for SHAVON. Pain in bi lateral legs 1206824315 7529016 M79.604 Leg fatigue noted. Had normal DEDE on 10/28/17 . Sleep cristina carmen disturbance 50932577 G47.9 Obtain home sleep study. Edema of l ower extremity 241455283 R60.0 Bilateral, improved. Began HCTZ 25 mg [...] for comparison . Mild compressio n stockings. [id number] Joon Pelaez MD [facility] OFF[facility] [address] [place] [address] 12/23/2018 15:54:58 12/23/2018 16:35:06 Benign hypertension 66327863 I10 Patient's blood pressure is well-contr olled on present medical therapy. Patient is tolerating , without difficulty , the current medication s. I have not made changes to the current regimen. Patient is advised to maintain a blood pressure diary. Patient was advised to eat a low-sodium diet (2 grams sodium or less daily). Begin water aerobics. Acute non- ST segment elevation myocardial infarction 435186393 I21.4 s/p LAD Stent 03/2017 Better now but with fatigue, without chest pain. He was unwilling to proceed with Cardiac rehab at [place]. Increase walking or pool exercises. Switched to metoprolol succinate 50 mg qd 11/05/17. Continue ASA and Plavix. For occasional atypical chest pain, anticipate nuclear stress test mid-2018 to evaluate for ischemia in setting of LAD Stent 03/2017. Obesity 276929945 E66.9 Needs to lose 20 pounds in next several months. 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 Had 11/24/17: TSH 2.860. Dyslipidemia 260464915 E 78.5 Needs to keep LDL less than 70, and HDL more than 40 Had 11/24/17: LDL 91. Increased to atorvastat in 80 mg qHS 04/22/18. Obtain FLP, CMP, CPK, Mg. Fatigue 19368894 R53.83 Stable. Normal TSH. 20 lb. weight loss recommende d over the next 2 months. Increase exercise. Evaluate for SHAVON. Pain in bi lateral legs 4541437518 6252285 M79.604 Leg fatigue noted. Had normal DEDE on 10/28/17 . Sleep cristina carmen disturbance 70859024 G47.9 Reports poor, interrupte d sleep, fatigue, occasional daytime somnolence . Obtain home sleep study. Edema of l ower extremity 925764678 R60.0 Bilateral, improved. Began HCTZ 25 mg [...] for comparison . Mild compressio n stockings. [id number] MD [facility] [address] [address] 01/21/2020 12:22:48 01/21/2020 13:04:14 Benign hypertension 01178288 I10 Elevated today. Contribute s that to anxiety from up coming procedure. He will monitor his BP at home. Continue HCTZ and Metoprolol . Will start Norvasc or Lisinopril next visit if BP still elevated. Obesity 766791046 E66.9 Needs to lose 20 pounds in next several months. 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 Had 11/24/17: TSH 2.860. Dyslipidemia 572903935 E 78.5 Needs to keep LDL less than 70, and HDL more than 40 Had 11/24/17: LDL 91. Increased to atorvastat in 80 mg qHS 04/22/18. Obtain FLP, CMP, CPK, Mg. Fatigue 60700808 R53.83 Stable. Normal TSH. 20 lb. weight loss recommende d over the next 2 months. Increase exercise. Evaluate for SHAVON. Pain in bi lateral legs 7552287027 4135006 M79.604 Leg fatigue noted. Had normal DEDE on 10/28/17 . Sleep cristina carmen disturbance 15052435 G47.9 Reports poor, interrupte d sleep, fatigue, occasional daytime somnolence . Obtain home sleep study. Edema of l ower extremity 868545958 R60.0 Bilateral, improved. Began HCTZ 25 mg [...] . Mild compressio n stockings. Coronary arteriosclerosis 18744330 I25.10 s/p LAD Stent 03/2017 in the setting of NSTMINo chest pain.Burt nue ASA. Okay to stop PLavix.Nuc stress test Pre-surger y evaluation 434807698 Z01.818 He is scheduled for GI procedure [...] 3 years ago. Continue ASA and statin [id number] Deng [place] MD [facility] [address] [place] [address] 09/11/2020 15:01:16 09/11/2020 15:41:06 Coronary arteriosclerosis 50275820 I25.10 s/p LAD stent ( 7) Remains asymptomat ic Benign hypertension 1072 5009 I10 Fair control on current regimen Obesity 146846901 E66.9 20lb weight loss recommende d over the next 2 months Dyslipidemia 654553407 E 78.5 Needs to keep LDL less than 70, and HDL more than 40 11/24/2017 LDL 91 Continue atorvastat in 80mg Will get fasting lipids for follow-up Fatigue 89267064 R53.83 Diet and exercise modificati ons advised Pain in bi lateral legs 6758644268 2672471 M79.604 Resolved DEDE 10/28/2017 : Normal DEDE. No significan t lower extremity peripheral arterial peripheral arterial disease detected. 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 The clinical test accuracy may be impacted by the limited study time. Will attempt to set up with CPAP but may need repeat sleep study Edema of l ower extremity 622159050 R60.0 Leg elevation, low salt diet, and [...] R06.09 Treadmill Myoview Stress test, has high Willmar Risk score. Has Known CAD, or CAD risk equivalent . To look for any ischemia. [id number] Deng [place] MD [facility] [address] [place] [address] 06/05/2021 15:38:45 06/05/2021 17:20:54 Coronary arteriosclerosis 58211025 I25.10 Need to do Lexiscan Myoview stress test, pt can not walk. Has known coronary artery disease, with atypical symptoms now. s/p LAD stent ( 7) Remains asymptomat ic Benign hypertension 1072 5009 I10 need better control today is little high Obesity 981603415 E66.9 20lb weight loss recommende d over the next 2 months Dyslipidemia 513772157 E 78.5 need blood test to check LDL and A1c 11/24/2017 LDL 91 Continue atorvastat in 80mg Will get fasting lipids for follow-up Fatigue 14260030 R53.83 Diet and exercise modificati ons advised Pain in bi lateral legs 3908777215 5469650 M79.604 Resolved DEDE 10/28/2017 : Normal DEDE. No significan t lower extremity peripheral arterial peripheral arterial disease detected. 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 The clinical test accuracy may be impacted by the limited study time. Edema of l ower extremity 023958856 R60.0 Leg elevation, low salt diet, and compressio n stockings advisedObt ain echo to evaluate for structural /functiona l disease. Dyspnea on exertion 6084 5006 R06.09 Lexiscan Myoview stress test, pt can not walk. Has known coronary artery disease, with atypical symptoms now [id number] Deng [place] MD [facility] [address] [place] [address] 09/04/2021 11:07:42 09/04/2021 12:06:20 Coronary arteriosclerosis 35604884 I25.10 Need to do Lexiscan Myoview stress test is negative s/p LAD stent ( 7) Remains asymptomat ic Benign hypertension 1072 5009 I10 Now well controlled Obesity 911348200 E66.9 20lb weight loss recommende d over the next 2 months Dyslipidemia 263893607 E 78.5 need blood test to check LDL and A1c 11/24/2017 LDL 91 Continue atorvastat in 80mg Will get fasting lipids for follow-up Fatigue 42732117 R53.83 Diet and exercise modificati ons advised Pain in bi lateral legs 3445530298 8684413 M79.604 Resolved DEDE 10/28/2017 : Normal DEDE. No significan t lower extremity peripheral arterial peripheral arterial disease detected. 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 The clinical test accuracy may be impacted by the limited study time. Edema of l ower extremity 727563752 R60.0 Leg elevation, low salt diet, and compressio n stockings advisedVen ous duplex and reflux studyCompr ession stockings trial Dyspnea on exertion 6084 5006 R06.09 Lexiscan Myoview stress test is negative [id number] Deng [place] MD [facility] [place] [address] 12/04/2021 11:08:47 12/04/2021 12:33:30 Benign hypertension 93673428 I10 mild elevation today he stopped his HCTZ and lasix resume HCTZ Hyperlipidemia 80604071 E78.5 LDL was 140 done 2016he is taking lipitor 80 mg daily Coronary arteriosclerosis 01661263 I25.10 no chest pain lexiscan cardiolite stress test (PROC) ( 2) Lexiscan stress test. Adequate Stress with Lexiscan for ischemia. Fixed defect consistent with old infraction in apical area. Abnormal stress test. Normal LV systolic function.s /p LAD stent () Edema of l ower extremity 972137052 R60.0 Leg elevation, low salt diet, and compressio n stockings advisedVen ous duplex and reflux studyCompr ession stockings trial [id number] Deng [place] MD [facility] [place] [address] 05/28/2022 12:58:55 05/28/2022 13:51:15 Benign hypertension 22906803 I10 mild elevation today he stopped his HCTZ and lasix resume HCTZ Hyperlipidemia 97261849 E78.5 LDL was 140 done 2016he is taking lipitor 80 mg dailyNeeds to keep LDL less than 70, and HDL more than 40Will get fasting lipids for follow up Coronary arteriosclerosis 91014477 I25.10 no chest pain lexiscan cardiolite stress test (PROC) ( 2) Lexiscan stress test. Adequate Stress with Lexiscan for ischemia. Fixed defect consistent with old infraction in apical area. Abnormal stress test. Normal LV systolic function.s /p LAD stent ( 7) Edema of l ower extremity 348948381 R60.0 Leg elevation, low salt diet, and compressio n stockings advisedVen ous duplex and reflux studyCompr ession stockings trial [id number] Deng [place] MD [facility] [place] [address] 08/27/2022 10:45:59 08/27/2022 11:21:56 Benign hypertension [id number] I10 mild elevation today he stopped his HCTZ and lasix resume HCTZ Hyperlipidemia 14268928 E78.5 LDL was 140 done 2016he is taking lipitor 80 mg dailyNeeds to keep LDL less than 70, and HDL more than 40Will get fasting lipids for follow up Coronary arteriosclerosis [id number] I25.10 no chest pain lexiscan cardiolite stress test (PROC) ( 2) Lexiscan stress test. Adequate Stress with Lexiscan for ischemia. Fixed defect consistent with old infraction in apical area. Abnormal stress test. Normal LV systolic function.s /p LAD stent ( 7) Edema of l ower extremity 560646849 R60.0 Leg elevation, low salt diet, and compressio n stockings advisedVen ous duplex and reflux studyCompr ession stockings trial Obstructiv e sleep apnea syndrome 43254006 G47.33 Will need Cpap [id number] Deng Smith MD [facility] [address] [place] [address] 10/03/2023 11:52:39 10/03/2023 12:41:24 Benign hypertension [id number] I10 BP is elevatedwi ll start him on hydralazin e 10 mg BID dailyconti nue HCTZ Hyperlipidemia 45958263 E78.5 LDL was 140 done 2016he is taking lipitor 80 mg dailyNeeds to keep LDL less than 70, and HDL more than 40Will get fasting lipids for follow up Coronary arteriosclerosis 16095301 I25.10 Lexiscan Myoview stress test, pt can not walk. Has known coronary artery disease, with atypical symptoms now lexiscan cardiolite stress test (PROC) ( 2) Lexiscan stress test. Adequate Stress with Lexiscan for ischemia. Fixed defect consistent with old infraction in apical area. Abnormal stress test. Normal LV systolic function.s /p LAD stent ( 7) Edema of l ower extremity 342652875 R60.0 Leg elevation, low salt diet, and compressio n stockings advisedVen ous duplex and reflux studyCompr ession stockings trialwill start him on spironolac tone 12.5 mg daily Obstructiv e sleep apnea syndrome 41331258 G47.33 Will need Cpap Congestive heart failure 28951749 I50.9 fluid overloaded todaywill start him on hydralazin e 10 mg BIDwill start him on spironolac tone 12.5 [id number] Deng Smith MD [facility] [place] [address] 12/30/2023 12:12:36 12/30/2023 12:52:11 Benign hypertension 95705657 I10 BP is elevatedwi ll start him on hydralazin e 10 mg BID dailyconti nue HCTZ Hyperlipidemia 02683453 E78.5 LDL was 140 done 2017he is taking lipitor 80 mg dailyNeeds to keep LDL less than 70, and HDL more than 40Will get fasting lipids for follow up Coronary arteriosclerosis 67750468 I25.10 Had Positive Lexiscan stress test on 12/17/23 with Reversible defect consistent with ischemia inferior area. Normal LV systolic function. LVEF: 48%.[facility], will consider Cath if he has chest pain s/p LAD stent ( 7) Edema of l ower extremity 453742616 R60.0 Leg elevation, low salt diet, and compressio n stockings advisedVen ous duplex and reflux studyCompr ession stockings trialwill start him on spironolac tone 12.5 mg daily Obstructiv e sleep apnea syndrome 60156306 G47.33 Will need Cpap Congestive heart failure 95806349 I50.9 fluid overloaded todaywill start him on hydralazin e 10 mg BIDwill start him on spironolac tone 12.5 [id number] Deng Smith MD [facility] [place] [address] 05/01/2024 13:58:45 05/01/2024 14:52:18 Benign hypertension 89372023 I10 BP is elevatedwi ll start him on hydralazin e 10 mg BID dailyconti nue HCTZ Hyperlipidemia 35427376 E78.5 LDL was 140 done 2017he is taking lipitor 80 mg dailyNeeds to keep LDL less than 70, and HDL more than 40Will get fasting lipids for follow up Coronary arteriosclerosis 03590754 I25.10 Had Positive Lexiscan stress test on 12/17/23 with Reversible defect consistent with ischemia inferior area. Normal LV systolic function. LVEF: 48%.[facility], will consider Cath if he has chest pain s/p LAD stent ( 7) Edema of l ower extremity 734868916 R60.0 Leg elevation, low salt diet, and compressio n stockings advisedVen ous duplex and reflux studyCompr ession stockings trialwill start him on spironolac tone 12.5 mg daily Obstructiv e sleep apnea syndrome 52335550 G47.33 Will need Cpap Congestive heart failure 16459777 I50.9 fluid overloaded todaywill start him on [...] Lees Member ID Guarantor Name 10/02/2024 1 [facility] (MEDICARE REPLACEMENT/A DVANTAGE - HMO) [id number] Migue [place] [id number] Migue Fairbanks 12/31/2023 PAYMENT PLAN Migue Fairbanks Notes Date Note Type Note Provider Name and Address Organization Details Recorded Time 05/28/2022 text/html 02/19/22CC : Car diac follow up , dyspnea on -ekwf-wcc white man with h/o obesity, coronary artery [...] atorvastatin 80 mg . 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 He [...] ,BUN 24 ,CR 0.60 ,HB 14.9, HT 45.81: SOD 136, K 3.8, CL 103, CO2 24, GL 110, BUN 21, CR 0.60, AST 31, ALT 411: WBC 12.4, HGB 13.7, HCT 41.4, PLT 14042: TC 183, HDL 52, LDL 140, TR 54electrocardiogram 93-79-0103GQU: 12/23/18 Normal sinus rhythm.electrocardiogr am 92-66-2725LON: 03/11/18 Normal sinus rhythm. Within normal limits. [...] echo available for comparison. sleep study, diagnostic 88-41-6490Yijsnwrx are consistent with very severe, non-positional SHAVON. The clinical test accuracy may be impacted by the limited study time. DEDE) ankle brachial index 19-96-0370BT, DOPPLER, ARTERIAL 10/28/17: normal DEDE, no significant [...] pulmonary vascular congestion/redistribut ion. Deng Smith MD [address] [place], [address], [facility] 05/28/2022 13:47:28 08/27/2022 text/html 08/27/22CC : Car diac follow up, dyspnea on -qvnw-idx white man with h/o obesity, coronary artery [...] takes atorvastatin 80 mg. 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 He [...] WBC 12.4, HGB 13.7, HCT 41.4, PLT 25534: TC 183, HDL 52, LDL 140, TR 54electrocardiogram 28-98-5771OXR: 12/23/18 Normal sinus rhythm.electrocardiogr am 58-90-2654ICJ: 03/11/18 Normal sinus rhythm. Within normal limits. [...] echo available for comparison. sleep study, diagnostic 53-22-3204Rislvmdr are consistent with very severe, non-positional SHAVON. The clinical test accuracy may be impacted by the limited study time. DEDE) ankle brachial index 24-36-4738SF, DOPPLER, ARTERIAL 10/28/17: normal DEDE, no significant [...] congestion/redistribut ion. Deng Smith MD [address] [place], [address], [facility] 08/27/2022 11:19:03 10/03/2023 text/html 10/03/23CC : Car diac follow up dyspnea on amllluzh08-xqhc-hwk white man with h/o obesity, coronary artery [...] posterior mitral annular calcification. 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 He [...] ,BUN 24 ,CR 0.60 ,HB 14.9, HT 45.809/08/10: Na 139 ,K 4.1 ,CL 104 ,CO2 26 , GLU 113 ,BUN 24 ,CR 0.60 ,HB 14.9, HT 45.806/10/08 Mg 2.0, TSH 2.860, CR kinase : Na 139 ,K 4.1 ,CL 104 ,CO2 26 , GLU 113 ,BUN 24 ,CR 0.60 ,HB 14.9, HT 45.810: SOD 136, K 3.8, CL 103, CO2 24, GL 110, BUN 21, CR 0.60, AST 31, ALT 4110: WBC 12.4, HGB 13.7, HCT 41.4, PLT 80637: TC 183, HDL 52, LDL 140, TR 54electrocardiogram 33-49-0461EKK: 12/23/18 Normal sinus rhythm.electrocardiogr am 26-07-2027DNL: 03/11/18 Normal sinus rhythm. Within normal limits. [...] echo available for comparison. sleep study, diagnostic 05-69-0223Buwxauvp are consistent with very severe, non-positional SHAVON. The clinical test accuracy may be impacted by the limited study time. DEDE) ankle brachial index 71-71-6817ZA, DOPPLER, ARTERIAL 10/28/17: normal DEDE, no significant [...] and mild pulmonary vascular congestion/redistribut ion. Nicole Freitas [facility] 10/07/2023 16:20:32 12/30/2023 text/html *fasting /09/24CC : Cardiac follow bx06-ozsm-mxl white man with h/o obesity, coronary artery [...] posterior mitral annular calcification. 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 Within normal limits. [...] echo available for comparison. sleep study, diagnostic 17-58-0558Tmrisskq are consistent with very severe, non-positional SHAVON. The clinical test accuracy may be impacted by the limited study time. DEDE) ankle brachial index 09-51-4196VZ, DOPPLER, ARTERIAL 10/28/17: normal DEDE, no significant [...] pulmonary vascular congestion/redistribut ion. Deng Smith MD [address] [place], [address], [facility] 12/30/2023 12:48:44 05/01/2024 text/html 05/01/24CC : Car diac follow up , chest pain, leg eipifcem84-syvx-acm white man with h/o obesity, coronary artery [...] ,BUN 24 ,CR 0.60 ,HB 14.9, HT 45.809/08/10: Na 139 ,K 4.1 ,CL 104 ,CO2 [...] WBC 12.4, HGB 13.7, HCT 41.4, PLT 31210: TC 183, HDL 52, LDL 140, TR 54electrocardiogram 29-01-6271SLZ: 12/23/18 Normal sinus rhythm.electrocardiogr am 16-68-6441RAW: 03/11/18 Normal sinus rhythm. Within normal limits. [...] echo available for comparison. sleep study, diagnostic 29-69-1690Skwrcgoj are consistent with very severe, non-positional SHAVON. The clinical test accuracy may be impacted by the limited study time. DEDE) ankle brachial index 64-62-2226UP, DOPPLER, ARTERIAL 10/28/17: normal DEDE, no significant [...] vascular congestion/redistribut ion. Deng Smith MD [address] [place], [address], [place] [facility] 05/01/2024 14:48:43
--- OUTSIDE RECORDS SUMMARY | 2024-12-30 15:03 | XMS_ITS | Continuity of Care Document ---
Author Organization [facility] Address [address] [place] [address] [address] [place] [address] Phone Care Team Providers Care Floor Technician Name Role Phone Hermosillo OD, Ezra Unavailable Unavailable Procedures Procedure Date Eye Exam Established Pt Advance Directives Directive Yes / No Effective Date File Name No Information Encounters Encounter Description Practice Location Reason(s) For Visit Diagnoses Date Provider Providers Copied on Encounter [facility], [id number] [place] [address] [address], [place], [place], [id number], [place] tel:[phone] [facility] No Information 7-201 0 Hermosillo OD Ezra. [address] , [address], [place], [address], [place]. tel:[phone] Referring Provider: Michelle Chowdary MD, [address], [place], [address]. tel:[phone] Family History Family Member Type Diagnosis Age At Onset No Information Payers Payer name Insurance type Covered alliance party ID Authoriza tion(s) Medicaid FORMERLY [facility], [facility] [id number] Social History Type Description Quantity Date Captured [...]
--- NOTE | 2024-12-30 15:09 | ED_ITS ---
HPI - Extremity Problem General Chief complaint: Extremity Problem,Nontraumatic <Susie Camargo PA-C - Last Filed: 12/30/24 15:11> Stated complaint: pulled muscle in R thigh, LLE cellulitis <Susie Camargo PA-C - Last Filed: 12/30/24 15:11> Time Seen by Provider: 12/30/24 17:09 <MICHAEL Modi Last Filed: 12/30/24 15:11> Focused HPI: 74-year-old male with history of CAD, hypertension, fibromyalgia presents to the emergency department with concerns for left lower extremity cellulitis and right quad strain. Patient states he was hospitalized back in October for left lower extremity cellulitis and received IV antibiotics and discharged to rehab facility for about a week and a half. He states that his symptoms have resolved until a couple weeks ago when he began developing redness, warmth and swelling to his left lower extremity again. He reports associated weeping. Denies fever, nausea or vomiting. He contacted his PCP and was advised to come to the ED today for further evaluation. He also states yesterday he was walking with his walker and took a wrong step and felt a pull in his right quad. He believes he pulled a muscle. He is reporting pain from his distal femur to his proximal femur. The patient states he is not taking his antihypertensives in the past 2 days because he ran out. He states he needs to send 1 of his daughters to the pharmacy to order picker/assembler his prescription which has been filled. He also notes he did not take his Lasix today because he did not want to have the urge to urinate while sitting in the waiting room. GENERAL: Well-appearing, well-nourished, and in no acute distress. HEAD: Normocephalic, atraumatic. CHEST: Clear to auscultation. ?No respiratory distress. EXT: Left lower extremity warmth erythema, pitting edema. Tenderness along the right quad with no overlying deformities or skin changes. Bilateral lower extremities are pink, warm and dry HEART: Regular rate and rhythm.? NEURO: ?Alert and oriented x3. Patient screened in triage and initial orders placed.? ?Additional care and disposition to be based upon?diagnostic testing and treatment. <Susie Camargo PA-C - Last Filed: 12/30/24 15:11> Related Data Home medications: Home Medications ?Medication ?Instructions ?Recorded ?Confirmed ?Last Taken ?Type atorvastatin 80 mg tablet 80 mg PO DAILY 07/10/19 11/01/24 10/31/24 History metoprolol succinate 50 mg 50 mg PO DAILY 07/10/19 11/01/24 10/31/24 History tablet,extended release 24 hr empagliflozin 10 mg tablet 10 mg PO DAILY 10/29/24 11/01/24 10/25/24 History (Jardiance) potassium chloride 20 mEq 20 meq PO DAILY 10/29/24 11/01/24 10/31/24 History tablet,extended release(part/cryst) semaglutide 0.25 mg or 0.5 mg (2 0.5 mg subcut WEEKLY 10/29/24 11/01/24 10/30/24 History mg/3 mL) subcutaneous pen injector (Ozempic) spironolactone 25 mg tablet 12.5 mg PO DAILY 10/29/24 11/01/24 10/31/24 History <Susie Camargo PA-C - Last Filed: 12/30/24 15:11> Allergies/Adverse reactions: Allergies Allergy/AdvReac Type Severity Reaction Status Date / Time No Known Allergies Allergy Verified 11/01/24 05:52 <Susie Camargo PA-C - Last Filed: 12/30/24 15:11> Review of Systems 2 Review of Systems: All systems reviewed & are unremarkable except as noted in HPI and below <Mariella Ray PA-C - Last Filed: 12/30/24 22:58> [facility] Past Medical History Medical History: Medical History (Updated 12/30/24 @ 21:57 by Mariella Ray PA-C) CAD (coronary artery disease) Hyperlipidemia Depression Arthritis Fibromyalgia Kidney stones He stated he thinks he had a possible kidney stone UTI (urinary tract infection) In the past Heart attack History of cardiac stent. HTN (hypertension) Seasonal allergies <Susie Camargo PA-C - Last Filed: 12/30/24 15:11> Surgical History Surgical History: Surgical History H/O heart artery stent History of local excision of skin lesion Lipoma History of knee surgery Right knee meniscus repair History of tonsillectomy <MICHAEL Modi Last Filed: 12/30/24 15:11> Family History Family History: Family History Father Diabetes mellitus Hypertension Mother Dementia <Susie Camargo PA-C - Last Filed: 12/30/24 15:11> Social History Social History: Social History Social History: The patient lives with his Aarti who is his power civil attorney for healthcare. He desires to be a full code. He has 3 children. Patient stated he smoked for about 7 or 8 years and quit 1980. No alcohol or illicit drug patient works for an [employer] part-time. Smoking status: Former smoker Second hand tobacco smoke exposure: Yes Alcohol intake: current Drinks per week: 2 Substance use: current Substance use type: opiates Other substance usage details: [place] for chronic pain sees pain management Do You Feel Safe in your Home?: Yes Lack of Transportation: YES Lack of Food: Never True Current Housing: I Have Housing Concerned About Future Housing: No Difficulty Paying Gas/Electric Bills: No Difficulty Paying for Meds: No Currently Unemployed: No Education: High School Diploma/GED Difficulty w/ Childcare or Family Care: No Living arrangements: with family Occupation/Education: occupation Gender identity (if verbalized by the patient): Male Spiritual care concerns: No Agree to blood products: Yes <Susie Camargo PA-C - Last Filed: 12/30/24 15:11> Exam 2 Narrative: GENERAL: Well-appearing, well-nourished, and in no acute distress. HEAD: Normocephalic, atraumatic. EYES: EOMI. CHEST: Clear to auscultation. No respiratory distress. No wheezes rales or rhonchi HEART: Regular rate and rhythm. No murmur heard. Normal peripheral pulses. EXTREMITIES: Normal range of motion. Mild pitting edema to the left lower extremity with overlying redness. Normal DP pulse. Normal sensation SKIN: Warm, dry, no rash. NEURO: No focal deficits. Alert and oriented x3. PSYCH: Normal mood and affect <Mariella Ray PA-C - Last Filed: 12/30/24 22:58> Course Course Emergency Course: Patient updated on his workup and agrees with plan of care <Mariella Ray PA-C - Last Filed: 12/30/24 22:58> Vital Signs Vital signs: Vital Signs Temperature 97.6 F 12/30/24 12:34 Pulse Rate 84 12/30/24 12:34 Respiratory Rate 18 12/30/24 12:34 Blood Pressure 152/58 H 12/30/24 12:34 Pulse Oximetry 98 12/30/24 12:34 Oxygen Delivery Room Air 12/30/24 12:34 Temperature 96.8 F L 12/30/24 15:38 Pulse Rate 78 12/30/24 18:32 Respiratory Rate 22 H 12/30/24 18:32 Blood Pressure 187/87 H 12/30/24 18:32 Pulse Oximetry 97 12/30/24 18:32 Oxygen Delivery Room Air 12/30/24 17:17 <Susie Camargo PA-C - Last Filed: 12/30/24 15:11> Vital Signs Temperature 97.6 F 12/30/24 12:34 Pulse Rate 84 12/30/24 12:34 Respiratory Rate 18 12/30/24 12:34 Blood Pressure 152/58 H 12/30/24 12:34 Pulse Oximetry 98 12/30/24 12:34 Oxygen Delivery Room Air 12/30/24 12:34 Temperature 96.8 F L 12/30/24 15:38 Pulse Rate 78 12/30/24 18:32 Respiratory Rate 22 H 12/30/24 18:32 Blood Pressure 187/87 H 12/30/24 18:32 Pulse Oximetry 97 12/30/24 18:32 Oxygen Delivery Room Air 12/30/24 17:17 <MICHAEL Campos Last Filed: 12/30/24 22:58> MDM - Extremity (Nontraumatic) MDM Narrative Medical decision making narrative: Patient presents the emergency department for redness and swelling of the left lower extremity. He is afebrile and nontoxic appearing. His vitals are stable. Left lower extremity with mild swelling with overlying redness. Cbc without leukocytosis. Inflammatory markers are not concerningly elevated. Left lower extremity venous Doppler shows a superficial clot in the lesser saphenous. Patient also endorsing an injury to his right hip. X-ray shows a possible fracture. CT advised. CT without acute fractures. Patient was updated on his workup and agrees with plan of care. Will be started on oral antibiotics for cellulitis. Will be started on anti-inflammatories for superficial thrombophlebitis. Instructed to have close follow-up with his PCP. He was given warnings to return to the ER <Mariella Ray PA-C - Last Filed: 12/30/24 22:58> Differential Diagnosis Differential diagnosis: Likely cellulitis, superficial thrombophlebitis and deep vein thrombosis of lower extremity <Mariella Ray PA-C - Last Filed: 12/30/24 22:58> Lab Data Attestation: I reviewed the patient's lab results. <Mariella Ray PA-C - Last Filed: 12/30/24 22:58> Result diagrams: 12/30/24 16:51 12/30/24 16:51 <Susie Camargo PA-C - Last Filed: 12/30/24 15:11> Labs: Lab Results 12/30/24 Range/Units 16:51 WBC 9.7 (4.5-10.0) K/mm3 RBC 4.67 (4.6-6.20) M/mm3 Hgb 14.2 (14.0-18.0) g/dL Hct 44.6 (42.0-52.0) % MCV 95.5 (80-100) fl MCH 30.4 (26-34) pg MCHC 31.8 L (32-36) g/dl RDW 14.5 (11.5-14.5) % Plt Count 174 (150-375) k/mm3 MPV 11.4 H (7.4-10.4) fl Immature Gran % (Auto) 1.8 H (0-0.5) % Neut % (Auto) 71.3 (45.5-73.1) % Lymph % (Auto) 13.5 L (18.3-44.2) % [place] % (Auto) 10.0 H (2.6-8.5) % Eos % (Auto) 2.8 (0-4.4) % Baso % (Auto) 0.6 (0.2-1.2) % Lymph # (Auto) 1.30 (0.9-3.2) K/mm3 [place] # (Auto) 1.0 H (0.1-0.6) K/mm3 Eos # (Auto) 0.3 (0-0.3) K/mm3 Baso # (Auto) 0.1 (0.0-0.1) K/mm3 Abs Immat Gran (auto) 0.17 H (0.00-0.031) K/mm3 Absolute Neuts (auto) 6.9 H (1.3-6.7) K/mm3 Absolute Nucleated RBC 0.000 (0.0-0.012) K/mm3 Nucleated RBC % 0.0 (0.0-0.2) % ESR 8 (0-20) mm/hr PT 13.0 (11.1-14.7) Seconds INR 1.0 APTT 25.0 (22.3-36.8) Seconds Sodium 135 L (137-145) mmol/L Potassium 4.1 (3.4-5.0) mmol/L Chloride 103 (98-107) mmol/L Carbon Dioxide 26 (22-30) mmol/L Anion Gap 6 (4-12) mmol/L BUN 19 D (9-20) mg/dL Creatinine 0.54 L (0.7-1.3) mg/dL Estim Creat Clear Calc 156 ml/min Estimated GFR > 60 (59 - ) Glucose 98 (65-110) mg/dL Calcium 8.7 (8.4-10.2) mg/dL Total Bilirubin 1.0 (0.2-1.3) mg/dL AST 36 (17-59) U/L ALT 29 (6-50) U/L Alkaline Phosphatase 97 (38-126) U/L C-Reactive Protein 1.7 H (<1.0) mg/dL Total Protein 6.5 (6.3-8.2) g/dL Albumin 3.7 (3.5-5.1) g/dL <Susie Camargo PA-C - Last Filed: 12/30/24 15:11> Lab Results 12/30/24 Range/Units 16:51 WBC 9.7 (4.5-10.0) K/mm3 RBC 4.67 (4.6-6.20) M/mm3 Hgb 14.2 (14.0-18.0) g/dL Hct 44.6 (42.0-52.0) % MCV 95.5 (80-100) fl MCH 30.4 (26-34) pg MCHC 31.8 L (32-36) g/dl RDW 14.5 (11.5-14.5) % Plt Count 174 (150-375) k/mm3 MPV 11.4 H (7.4-10.4) fl Immature Gran % (Auto) 1.8 H (0-0.5) % Neut % (Auto) 71.3 (45.5-73.1) % Lymph % (Auto) 13.5 L (18.3-44.2) % [place] % (Auto) 10.0 H (2.6-8.5) % Eos % (Auto) 2.8 (0-4.4) % Baso % (Auto) 0.6 (0.2-1.2) % Lymph # (Auto) 1.30 (0.9-3.2) K/mm3 [place] # (Auto) 1.0 H (0.1-0.6) K/mm3 Eos # (Auto) 0.3 (0-0.3) K/mm3 Baso # (Auto) 0.1 (0.0-0.1) K/mm3 Abs Immat Gran (auto) 0.17 H (0.00-0.031) K/mm3 Absolute Neuts (auto) 6.9 H (1.3-6.7) K/mm3 Absolute Nucleated RBC 0.000 (0.0-0.012) K/mm3 Nucleated RBC % 0.0 (0.0-0.2) % ESR 8 (0-20) mm/hr PT 13.0 (11.1-14.7) Seconds INR 1.0 APTT 25.0 (22.3-36.8) Seconds Sodium 135 L (137-145) mmol/L Potassium 4.1 (3.4-5.0) mmol/L Chloride 103 (98-107) mmol/L Carbon Dioxide 26 (22-30) mmol/L Anion Gap 6 (4-12) mmol/L BUN 19 D (9-20) mg/dL Creatinine 0.54 L (0.7-1.3) mg/dL Estim Creat Clear Calc 156 ml/min Estimated GFR > 60 (59 - ) Glucose 98 (65-110) mg/dL Calcium 8.7 (8.4-10.2) mg/dL Total Bilirubin 1.0 (0.2-1.3) mg/dL AST 36 (17-59) U/L ALT 29 (6-50) U/L Alkaline Phosphatase 97 (38-126) U/L C-Reactive Protein 1.7 H (<1.0) mg/dL Total Protein 6.5 (6.3-8.2) g/dL Albumin 3.7 (3.5-5.1) g/dL <Mariella Ray PA-C - Last Filed: 12/30/24 22:58> Imaging Data Radiologist's impression: ITS Impressions Venous Doppler Study 12/30/24 16:35 IMPRESSION: Thrombosis of the lesser saphenous vein. No deep vein thrombosis. Pelvis X-Ray 12/30/24 18:07 IMPRESSION: Possible scar at the junction of the right femoral head and neck laterally. CT evaluation advised.. ITS Impressions Venous Doppler Study 12/30/24 16:35 IMPRESSION: Thrombosis of the lesser saphenous vein. No deep vein thrombosis. Pelvis X-Ray 12/30/24 18:07 IMPRESSION: Possible scar at the junction of the right femoral head and neck laterally. CT evaluation advised.. Pelvis CT 12/30/24 22:34 IMPRESSION: No fractures seen in the right and left hips. No fractures in the pelvic bones. Bilateral fat containing inguinal hernias. <Mariella Ray PA-C - Last Filed: 12/30/24 22:58> Critical Care Time Critical Care Time Critical Care Time: No <MICHAEL Campos Last Filed: 12/30/24 22:58> Discharge Plan Discharge Clinical Impression: Superficial thrombophlebitis of lesser saphenous vein Cellulitis Qualifiers: Site of cellulitis: extremity Site of cellulitis of extremity: lower extremity Laterality: left Qualified Code(s): L03.116 - Cellulitis of left lower limb <MICHAEL Modi Last Filed: 12/30/24 15:11> Patient Disposition: Home <MICHAEL Modi Last Filed: 12/30/24 15:11> Condition: Stable <MICHAEL Modi Last Filed: 12/30/24 15:11> Instructions: Antibiotic Form, Cellulitis (ED), Superficial Thrombophlebitis (ED) <MICHAEL Modi Last Filed: 12/30/24 15:11> Additional Instructions: Return if symptoms worsen or concerns: any increase in redness, swelling, pain or fever over 101 Take antibiotics as directed. Elevate your legs while seated. Wear compression stockings. Take Naproxen twice daily Follow up with primary care in the next 2-3 days for re-evaluation <MICHAEL Modi Last Filed: 12/30/24 15:11> Patient Language: Hungarian <MICHAEL Modi Filed: 12/30/24 15:11> Prescriptions: New cephalexin 500 mg capsule 500 mg PO Q6H 7 Days Qty: 28 0RF naproxen 250 mg tablet 250 mg PO BID 7 Days Qty: 14 0RF No Action Jardiance 10 mg tablet 10 mg PO DAILY spironolactone 25 mg tablet 12.5 mg PO DAILY potassium chloride 20 mEq tablet,ER particles/crystals 20 meq PO DAILY Ozempic 0.25 mg or 0.5 mg (2 mg/3 mL) pen injector 0.5 mg SUBCUT WEEKLY benzonatate 200 mg capsule 200 mg PO TID Qty: 14 0RF albuterol sulfate 90 mcg/actuation HFA aerosol inhaler 2 puff inhalation Q4-6H PRN (Reason: shortness of breath or wheezing) Qty: 8.5 0RF metoprolol succinate 50 mg Tablet Extended Release 24 Hr 50 mg PO DAILY atorvastatin 80 mg Tablet 80 mg PO DAILY acetaminophen [Tylenol Extra Strength] 500 mg tablet 1,000 mg PO TID PRN (Reason: pain) Qty: 30 0RF ondansetron 4 mg tablet,disintegrating 4 mg PO Q8H PRN (Reason: nausea and vomiting) Qty: 10 0RF aspirin 81 mg Tablet,Delayed Release (Dr/Ec) 81 mg PO QAM Qty: 30 0RF furosemide 40 mg Tablet 40 mg PO DAILY Qty: 30 0RF ipratropium-albuterol 0.5 mg-3 mg(2.5 mg base)/3 mL Solution For Nebulization 3 ml inhalation Q6HRT Qty: 30 0RF linezolid 600 mg Tablet 600 mg PO Q12HR Qty: 15 0RF Chloraseptic Sore Throat 6-10 mg Lozenge 1 abhi PO PRN PRN (Reason: Sore Throat) Qty: 30 0RF polyethylene glycol 3350 [Miralax] 17 gram Powder In Packet 17 g PO QAM PRN (Reason: Constipation) Qty: 14 0RF hydrocodone-acetaminophen 10-325 mg tablet 1 tablet PO Q6H PRN (Reason: pain) Qty: 15 0RF <Susie Camargo PA-C - Last Filed: 12/30/24 15:11> Follow-up/Referrals: Milagro,Perez Chester MD [Primary Care Provider] - <Susie Camargo PA-C - Last Filed: 12/30/24 15:11>
[2024-12-30 16:58] LABS: Hematocrit 44.6 % (42.0-52.0); Hemoglobin 14.2 g/dL (14.0-18.0); Immature Granulocyte Percent A 1.8 % (0-0.5); Lymphocytes Absolute Auto 1.30 K/mm3 (0.9-3.2); Mean Corpuscular HGB Conc 31.8 g/dl (32-36); Mean Corpuscular Hemoglobin 30.4 pg (26-34); Mean Corpuscular Volume 95.5 fl (80-100); Nucleated Red Blood Cells Absolute Auto 0.000 K/mm3 (0.0-0.012); Nucleated Red Blood Cells Perc 0.0 % (0.0-0.2); Platelet Count Result 174 k/mm3 (150-375); Red Blood Count 4.67 M/mm3 (4.6-6.20); White Blood Count 9.7 K/mm3 (4.5-10.0)
[2024-12-30 17:10] LABS: Alanine Aminotransferase 29 U/L (6-50); Albumin Level 3.7 g/dL (3.5-5.1); Alkaline Phosphatase 97 U/L (38-126); Anion Gap 6 mmol/L (4-12); Aspartate Amino Transferase 36 U/L (17-59); Bilirubin,Total 1.0 mg/dL (0.2-1.3); Blood Urea Nitrogen 19 mg/dL (9-20); Calcium 8.7 mg/dL (8.4-10.2); Carbon Dioxide 26 mmol/L (22-30); Chloride 103 mmol/L (98-107); Estimated CRCL calculation 156 ml/min; Estimated Glomerular Filt Rate > 60; Glucose 98 mg/dL (65-110); Potassium 4.1 mmol/L (3.4-5.0); Sodium 135 mmol/L (137-145); Total Protein 6.5 g/dL (6.3-8.2)
[2024-12-30 17:12] LABS: INR 1.0; Partial Thromboplastin Time 25.0 Seconds (22.3-36.8); Prothrombin Time 13.0 Seconds (11.1-14.7)
[2024-12-30 17:33] LABS: CRP 1.7 mg/dL (<1.0)
[2024-12-30] MEDS: HYDROcodone/acetaminophen (*CRX) 5-325 MG TABLET 1 TAB PO (18:30)
[2024-12-30] MEDS: ACETAMINOPHEN 325 MG TABLET 650 MG PO (18:30)
[2024-12-30] MEDS: diazePAM INJ (*CRX) 10 MG/2 ML SYRINGE 5 MG IM (19:56)
[2024-12-30] MEDS: CEPHALEXIN 500 MG CAPSULE PO (23:13)
== END 2024-12-30 23:15 | disposition home or self-care (01) ==
PROVIDERS: Physician Assistant; Emergency Provider Physician Assistant; PCP Internal Medicine
DX: L03.116 Cellulitis of left lower limb (principal); I80.02 Phlebitis and thrombophlebitis of superficial vessels of left lower extremity
CPT/HCPCS: 36415; 72170; 72192; 80053; 85025; 85610; 85652; 85730; 86140; 93971; 96372; 99284; A9270; J3360